=== PATIENT | male | born 1950 | race Caucasian/White ===

== ENCOUNTER 2025-06-16 08:24 | Day surgery (SDC) | payer MEDICARE, BC, SELFPAY ==
--- NOTE | 2025-06-13 07:56 | P.HP_ITS ---
History of Present Illness *Admission Date: 06/16/25 *History of present illness: Mr. Washington is a 74-year-old gentleman who is here for diagnostic colonoscopy. The patient reports blood in the stool and has never had a colonoscopy. The examination is deemed medically necessary for diagnostic colonoscopy. The pa sary has been seen, interviewed and examined prior to the procedure by both myself and the anesthesia provider. [facility] Disclaimer: The information contained in this section may have been updated after the patient was seen, as this information can be updated by other users. Medical History Short of breath on exertion Surgical History H/O vasectomy History of hernia surgery Family History Other No significant family history Social History (Updated 06/16/25 @ 09:21 by Diana Renteria CRNA) Smoking Status: Current every day smoker alcohol intake: never substance use type: unknown current occupational status: retired Travel in the last 8 weeks?: None caffeine: Yes Have you lived/traveled outside US in past 30 days?: No Contact w/someone who lives/traveled outside US past 30 days?: No Exposure to someone with infectious disease in past 14 days?: No Do you have a fever (greater than 100.4 F or 38 C)?: No Have you tested positive for COVID-19?: No Exposed to someone with COVID-19 in past 14 days?: No Do you have a sore throat?: No Do you have a cough?: No Do you have any weakness?: No Are you experiencing any nausea/vomitting?: No Do you have any diarrhea?: No Are you experiencing any unusual bleeding?: No Do you have any muscle aches/pain?: No Do you have any abdominal pain?: No Are you experiencing loss of taste or smell?: No Review of Systems Review of Systems Review of systems (narrative): Negative *Cardiovascular Comments: Negative *Gastrointestinal Comments: Negative *Genitourinary Comments: Negative *Musculoskeletal Comments: Negative *Neurologic Comments: Negative Meds Home Medications and Allergies Home Medications ?Medication ?Instructions ?Recorded ?Confirmed ?Type No Known Home Medications 10/22/1805/20 History sodium,potassium,mag sulfates 17.5 See Rx Instructions PO .COMPLEX 06/06/25 Rx gram-3.13 gram-1.6 gram oral soln #354 mL (Suprep Bowel Prep Kit) New Prescriptions to Start Prescriptions: Allergies Allergy/AdvReac Type Severity Reaction Status Date / Time cephalexin Allergy ITCHING Verified 06/16/25 08:55 Exam *Routine HEENT Exam Head: Present normocephalic Eye: Present EOMI and PERRL ENT: Present mucous membranes moist *Routine Neck Exam Neck: Present supple *Routine Respiratory Exam Respiratory: Present CTA bilaterally *Routine Cardiovascular Exam Cardiovascular: Present RRR *Routine Abdominal Exam Abdominal: Present soft and normoactive bowel sounds; Absent tenderness *Routine Rectal Exam Rectal:: deferred *Routine Genitalia Exam Genitalia:: deferred *Routine Extremities Exam Extremities: Absent cyanosis, clubbing or edema *Routine Skin Exam Skin: Present warm; Absent rash *Routine Neurological Exam Neurological: Present alert and oriented X3 Assessment and Plan *Assessment and plan (1) Blood in stool: Status: Acute Category: Medical Code(s): K92.1 - Melena Plan A/P: 1. Blood in stool is the preprocedural diagnosis. The patient will be anesthetized/sedated using MAC sedation. The patient has been seen and examined. Cardiac and lung assessment prior to the examination is stable. Proceed with planned diagnostic colonoscopy.
[2025-06-13 11:04] VITALS: BMI 19.1
--- NOTE | 2025-06-16 06:56 | HMH.PROCNOTE ---
[facility] Procedure Note Date: 06/16/25 Time: 10:15 Procedure Note:: Colonoscopy Procedure Report: Colonoscopy with cold snare polypectomy, cold biopsies and submucosal injection (spot ink) Endoscopist: Kendell Kraus II, MD Referring physician: Dahiana Watkins M.D. Date of Procedure: June 16, 2025 Equipment: Olympus [id number] adult colonoscope Sedation: MAC sedation Indication: Mr. Washington is a 74-year-old gentleman who is here for diagnostic colonoscopy. The patient reports blood in the stool and has never had a colonoscopy. The patient did have bright red blood per rectum in the commode twice 6 and 8 weeks ago according to the patient. He reports no abdominal pain, weight loss, change in his bowel habits or family history of colon cancer. The examination is deemed medically necessary for diagnostic colonoscopy. Procedure: Prior to the procedure, a history and physical exam was performed, and patient's medications and allergies were reviewed. The risks, benefits and alternatives of the sedation and procedure were discussed with the patient. All questions were answered and informed consent was obtained. The patient was brought to the procedure room. Patient identification and proposed procedure were verified by the physician and the nurse. The patient was placed in a left lateral decubitus position and the scope was passed under direct vision. Throughout the procedure, the patient's blood pressure, pulse, and oxygen saturations were monitored continuously. The colonoscopy was accomplished without difficulty. The patient tolerated the procedure well. Findings: On digital rectal examination there was normal rectal tone. There were no external hemorrhoids. The prostate was 2-3+, mildly firm but symmetric without nodules. The colonoscope was introduced through the anal canal to the rectum and advanced to the cecum. The ileocecal valve and appendiceal orifice were identified. The scope was advanced a short distance into the ileum which appeared grossly normal. The scope was then withdrawn into the colon. There were 4 polyps (ascending x 2 (3 and 4 mm) and transverse x 2 (4 and 6 mm)). These were removed via cold snare polypectomy. At the junction of the descending and sigmoid colon was a hemiferential apple core type mass lesion with central depression/excavation which encompassed 75% of the luminal diameter and extended approximately 3 cm (from 28 cm to 25 cm from the pectinate line). Multiple cold biopsies were taken and spot ink tattoo was injected submucosally 2 cm distal (towards rectum) to this mass lesion. There were scattered diverticuli throughout the descending and sigmoid colon (LEFT colon). The rectum itself was normal. Upon retroflexion within the rectum there were grade 2 internal hemorrhoids. The preparation was excellent throughout with Union Preparation Score of 9. The cecal time was 16 minutes. Impression: 1. Sigmoid apple core mass lesion (3 cm (from 28 cm to 25 cm from pectinate line)) encompassing approximately 75% of circumference status post biopsies/spot ink tattoo 2. Diminutive colonic polyps x 4 3. Left-sided diverticulosis 4. Grade 2 internal hemorrhoids Plan: I will follow-up the biopsies and recommend CT imaging for staging and CEA level. I will refer patient to oncology and colorectal surgery (Maicol Garcia MD).
[2025-06-16 08:55] VITALS: BP 136/90; PULSE 89; RESP 20; TEMP 36.2; O2SAT 97
[2025-06-16] MEDS: LACTATED RINGERS 1000ML 1,000 ML 50 ML IV (09:08)
--- NOTE | 2025-06-16 09:20 | EXP.ANES.CKL ---
[facility] Disclaimer: The information contained in this section may have been updated after the patient was seen, as this information can be updated by other users. Medical History Short of breath on exertion Surgical History H/O vasectomy History of hernia surgery Family History Other No significant family history Social History Smoking Status: Current every day smoker alcohol intake: never substance use type: unknown current occupational status: retired Travel in the last 8 weeks?: None caffeine: Yes [facility] Anesthesia Checklist Patient Identification Patient Identification: Arm Band and Verbal (Name & ) Structural Data Admitted From: Home Planned Operative Procedure/s: colonscopy Consent for Planned Operative Procedure(s) Verified: Yes Verified Documents: Surgical Consent and History and Physical NPO Status Verified Time NPO: 00:00 Additional verifications Anesthesia Reactions: No Previous Colonoscopy: No Airway Assessment Mallampati Score:: Class II Dentition: Edentulous Neurological Assessment Level of Consciousness: Awake, Alert and Appropriate Anesthesia Plan Anesthesia Risk discussed: Yes Anesthesia Plan: Verified ASA Class: II Anesthesia Type: MAC
[2025-06-16 10:09] VITALS: BP 85/56; PULSE 79; RESP 16; TEMP 36.1; O2SAT 95
[2025-06-16 10:19] VITALS: BP 92/59; PULSE 70; RESP 16; O2SAT 96
[2025-06-16 10:39] VITALS: BP 102/52; PULSE 69; RESP 18; O2SAT 97
[2025-06-16 10:40] LABS: Hematocrit 40.1 % (42.0-52.0); Hemoglobin 13.6 g/dL (14.1-18.0); Immature Granulocytes % 0.4 %; Mean Corpuscular HGB Conc 33.9 g/dL (31.8-35.4); Mean Corpuscular Hemoglobin 32.2 pg (27.0-31.2); Mean Corpuscular Volume 95.0 fl (80-94); Nucleated Red Blood Cells % 0 %; Platelet Count 208 K/mm3 (142-424); Red Blood Count 4.22 M/mm3 (4.60-6.20); Red Cell Distribution Width-SD 45.6 fL; White Blood Count 7.4 K/mm3 (4.8-10.8)
[2025-06-16 10:46] LABS: Albumin Level 4.1 g/dl (3.5-5.0); Chloride 101 mmol/L (98-107); Sodium 136 mmol/L (136-145)
[2025-06-16 10:47] LABS: Potassium 3.8 mmoL/L (3.5-5.1)
[2025-06-16 10:49] LABS: Alanine Aminotransferase 15 U/L (12-78); Alkaline Phosphatase 80 U/L (38-126); Anion Gap 10.8 mEq/L (5-15); Aspartate Amino Transferase 30 U/L (17-59); Bilirubin,Total 0.5 mg/dl (0.2-1.3); Blood Urea Nitrogen 17 mg/dl (9-20); Carbon Dioxide 28 mmol/L (22.0-30.0); Creatinine Clearance Estimated 51 mL/min (50-200); Creatinine,Serum 0.80 mg/dl (0.66-1.25); Estimated Glomerular Filt Rate 94 ml/min (>60); GFR (African American) 114 ML/MIN (>60)
[2025-06-16 10:50] LABS: Albumin/Globulin Ratio 1.6 (1.1-1.8); Calcium 9.3 mg/dl (8.4-10.2); Globulin 2.5 g/dL (1.3-3.2); Glucose 97 mg/dl (74-100); Iron 73 ug/dL (49-181); Total Protein,Serum 6.6 g/dl (6.3-8.2)
[2025-06-16 10:58] VITALS: BP 99/59; PULSE 71; RESP 16; O2SAT 97
[2025-06-16 10:59] LABS: Total Iron Binding Capacity 285 ug/dL (261-462)
[2025-06-16 11:27] LABS: Ferritin 36.2 ng/ml (17.9-464)
[2025-06-17 13:59] LABS: CEA 5.0 ng/mL (0.0-4.7)
== END 2025-06-16 10:40 | disposition home or self-care (01) ==
PROVIDERS: PCP Family Medicine; Visit Provider Internal Medicine Gastroenterology
PROC: 0DJD8ZZ Inspection of Lower Intestinal Tract, Via Natural or Artificial Opening Endoscopic (ICD-10-PCS; CPT 45378; principal; 2025-06-16 10:00)
DX: C18.7 Malignant neoplasm of sigmoid colon (principal); D12.2 Benign neoplasm of ascending colon; D12.3 Benign neoplasm of transverse colon; K57.30 Diverticulosis of large intestine without perforation or abscess without bleeding; K64.1 Second degree hemorrhoids; F17.200 Nicotine dependence, unspecified, uncomplicated; Z88.1 Allergy status to other antibiotic agents
CPT/HCPCS: 45380; 45381; 45385; 36415; 80053; 82378; 82728; 83540; 83550; 85025; 88305; 88341; 88342; J2003; J2704; J7120

== ENCOUNTER 2025-06-19 10:24 | Outpatient (CLI) | payer MEDICARE, BC, SELFPAY ==
[2025-06-19] MEDS: IOPAMIDOL-370 (76%);100ML BOTTLE 75 ML IV (10:51)
[2025-06-19] MEDS: SODIUM CHLORIDE 0.9% 10ML SYR (RAD ONLY) 10 ML IV (10:51)
--- NOTE | 2025-06-19 11:00 | CT_ITS ---
FINAL REPORT TECHNIQUE: Routine axial images were obtained from the lung apices to below the diaphragm following IV contrast administration. Individualized dose reduction techniques using automated exposure control or adjustment of the mA and/or kV according to the patient size were employed. CLINICAL HISTORY: Rule out Colon Cancer COMPARISON: None FINDINGS: CT CHEST WITH CONTRAST: Advanced changes of centrilobular emphysema are present. No evidence of mediastinal or hilar adenopathy is seen. No confluent infiltrates are noted. There is no evidence of pleural or pericardial effusion. There is a small nodule in the posterior left upper lobe measuring 7 mm in size, best seen on image #19 of series 4, indeterminant but favor post inflammatory by appearance. No other nodules or masses are identified. IMPRESSION: Advanced changes of centrilobular emphysema as described. Small nodule in the posterior left upper lobe, 7 mm in size, indeterminate but favor post inflammatory by appearance. Recommend 6-month follow-up CT of the chest for further evaluation. Reviewed, Interpreted and Dictated by Maicol Benítez MD Transcribed by Cortney Callahan Authenticated and . [facility]
--- NOTE | 2025-06-19 11:00 | CT_ITS ---
FINAL REPORT TECHNIQUE: After the administration of oral and intravenous contrast, axial images were obtained through the abdomen and pelvis by computed tomography. The study was performed with techniques to keep radiation dose as low as reasonably achievable, (ALARA). Individual dose reduction techniques using automated exposure control or adjustment of mA and/or kV according to the patient's size were employed. CLINICAL HISTORY: Rule out Colon Cancer COMPARISON: None FINDINGS: CT ABDOMEN AND PELVIS WITH CONTRAST: Abdomen: Dependent atelectasis is noted in the lung bases. There is a 40 degree thoracolumbar scoliosis convex to the patient's right. There are small benign-appearing cysts in the liver. The pancreas and adrenal glands are unremarkable. The gallbladder is present. In the right kidney there is a low-attenuation focus measuring up to 1.4 cm in size, best seen on image #33 of series 5, that may represent a complex cyst. The left kidney is slightly larger than the right. Extensive vascular calcifications are noted in the abdominal aorta. No evidence of mass or adenopathy is noted. The aorta is normal in caliber. There is no free fluid or adenopathy. Pelvis: The appendix is not identified. No focal mass is noted in the colon, although with the paucity of intra-abdominal fat a small mass would be difficult to visualize. The urinary bladder is unremarkable. There is no free fluid or adenopathy. IMPRESSION: Low-attenuation focus in the left kidney, that may represent a complex cyst. Recommend a dedicated pre and postcontrast renal protocol CT for further evaluation. There is a relative paucity of intra-abdominal fat in this patient, and although no definite focal mass is identified in the colon a small mass would be difficult to visualize. Reviewed, Interpreted and Dictated by Maicol Benítez MD Transcribed by Cortney Callahan Authenticated and [facility]
== END 2025-06-19 23:59 | disposition home or self-care (01) ==
LOC: RAD 10:25
PROVIDERS: PCP Family Medicine; Visit Provider Internal Medicine Medical Oncology
DX: C18.7 Malignant neoplasm of sigmoid colon (principal); J43.2 Centrilobular emphysema; R91.1 Solitary pulmonary nodule; R93.422 Abnormal radiologic findings on diagnostic imaging of left kidney; R93.5 Abnormal findings on diagnostic imaging of other abdominal regions, including retroperitoneum
CPT/HCPCS: 71260; 74177; Q9967

== ENCOUNTER 2025-08-12 09:45 | Outpatient (CLI) | payer MEDICARE, BC, SELFPAY ==
--- OUTSIDE RECORDS SUMMARY | 2025-07-01 08:15 | XMS_ITS | Encounter Summary ---
Author Organization [facility] Address [address] [place] [address] Care Team Providers Care Motorcycle Racer Name Role Phone Bryan Watkins MD Primary Care Provider [phone] Reason for Visit * Reason Comments Consult Encounter Details Date Type Department Care Team (Latest Contact Info) Description 07/01/2025 9:15 AM EDT Office Visit [facility] Multidisciplinary Oncology Clinic [address] [place] [address] Maicol Garcia MD [address] [facility] [address] [place] [address] Cancer of sigmoid colon (Primary Dx) Social History Tobacco Use Types Packs/Day Years Used Date Smoking Tobacco: Every Day Cigarettes 1 50.9 Started: 1976 Smokeless Tobacco: Never Tobacco Cessation:Ready to Q uit: Not Asked; Counseling Given: Not Answered Alcohol Use Standard Drinks/Week Comments Never 0 (1 standard drink = 0.6 oz pur e alcohol) Sex and Gender Information Value Date Recorded Sex Assigned at Not on file Legal Sex Male 4:11 PM EDT Gender Identity Not on file Sexual Orientation Not on file documented as of this encounter Last Filed Vital Signs Vital Sign Reading Time Taken Comments Blood Pressure 132/71 07/01/2025 10:17 AM EDT Pulse 69 07/01/2025 10:17 AM EDT Temperature 36.4 C (97.6 F) 07/01/2025 10:17 AM EDT Respiratory Rate 16 07/01/2025 10:17 AM EDT Oxygen Saturation 96% 07/01/2025 10:17 AM EDT Inhaled Oxygen Concentration - - Weight 54.6 kg (120 lb 5.9 oz) 07/01/2025 10:17 AM EDT Height 172.7 cm (5' 8 ) 07/01/2025 10:17 AM EDT Body Mass Index 18.3 07/01/2025 10:17 AM EDT documented in this encounter Miscellaneous Notes * Progress Notes - Augusto Franz - 07/01/2025 9:15 AM EDT [facility] Colon & Rectal Surgery 07/01/2025 Chief Complaint: Cancer of sigmoid colon [C18.7] HPI: Damian Washington is a 74 y.o. male with no significant PMH comes to clinic as a new patient recently diagnosed with sigmoid cancer. BRBPR since november and a colonoscopy on 06/18 showed a sigmoid 75% circumferential apple core mass with biopsy showing adenocarcinoma. He has no prior history of colonoscopies. 06/16/25 CEA was 5.0. Since november patient has noticed gradual weight loss and quickly feels fulland bloated after smaller than normal meals. His bleeding with bowel movements stopped ~ 6 weeks ago. Pt smokes 1ppd for 60 years. Patient acknowledges past inguinal hernia repair and SOB, likely dueto smoking history, but denies heart issues, chest pain, and unexplained N/V ROS: A complete 14 point review of systems was done with the patient. These are all negative with the exception of what is noted in the HPI. Past Medical History: has no past medical history on file. Past Surgical History: has a past surgical history that includes Hernia repair (1969). Family History: Family history is unknown by patient. No history of colorectal neoplasms. No history of IBD. History on file reviewed and it is otherwise noncontributory. Social History: Social History[1] Physical Exam: Vitals: 07/01/25 1017 BP: 132/71 Pulse: 69 Resp: 16 Temp: 36.4 ??C (97.6 ??F) SpO2: 96% Body mass index is 18.3 kg/m??. GEN: NAD HEENT: NCAT, EOMI RESP: Equal bilateral chest rise, normal work of breathing CV: RRR, appears well perfused ABD: Soft, nontender, nondistended EXT: No gross deformities MSK: Full ROM in BL UE NEURO: No focal deficits, AOx3 PSYCH: Normal mood and affect PERIANAL/PERINEUM: n/a JM: n/a LABORATORIES AND IMAGING STUDIES: I personally reviewed all the laboratory examinations and imagingstudies below: No results found for: WBC , RBC , HGB , HCT , MCV , MCHC , RDW , PLT , MPV , SEG , EOS No results found for: BUN , CL , NA , K , CA , TP , AST , ALK , BICARB , ALT , GLU No results found for: CEA I visualized the recent imaging and discussed the current radiology findings with the patient in detail and answered all questions. === 06/19/25 === CT OUTSIDE IMAGES Assessment/Plan In summary, Damian Washington is a 74 yo with recently diagnosed sigmoid adenocarcinoma who presents to the clinic as a new patient referred for colorectal surgery. Patient is agreeable to having surgery. Plan - Discussed diagnosis, treatment, and recovery plan - Needs pre-op anesthesia check - Plan for possible sigmoid colectomy 07/14/25 - Recommended to stop or decrease smoking. Problem List Items Addressed This Visit Digestive Cancer of sigmoid colon - Primary Relevant Medications neomycin (Mycifradin) 500 MG tablet metroNIDAZOLE (Flagyl) 500 MG tablet Augusto Franz [1] Social History Tobacco Use Smoking status: Every Day Current packs/day: 1.00 Average packs/day: 1 pack/day for 50.8 years (50.8 ttl pk-yrs) Types: Cigarettes Start date: 1974 Smokeless tobacco: Never Vaping Use Vaping status: Never Used Substance Use Topics Alcohol use: Never Drug use: Never Cosigned by Maicol Garcia MD at 07/03/2025 9:07 AM EDT Associated attestation - Maicol Garcia MD - 07/03/2025 9:07 AM EDT I saw and evaluated the patient with the medical/HOOP PUNCHER/PA student. I discussed the case with the medical/HOOP PUNCHER/PA student and agree with the findings and plan as documented. I personally performed the Examand Medical Decision Making. Mr. Washington is a 74-year-old male with newly diagnosed sigmoid colon cancer. Colonoscopy completed 2024 with apple-core lesion present in the sigmoid colon. CEA 5. Gradual weight loss over the past 3-4 months. Occasional bleeding with bowel movements. Past medical history remarkable for 1 pack per day tobacco use times 60 years. Shortness of breath with exertion. CT imaging without evidence of metastatic disease. PLAN FOLLOWS: Schedule sigmoid colectomy in June 2025. * Progress Notes - Elvira Watkins RN - 07/01/2025 9:15 AM EDT Patient with was given written & verbal instructions for surgery with Dr. Garcia on 07/16/25. This included following ERAS Protocol with drinking Impact AR twice daily 5 days prior to surgery, bisacodyl/Miralax bowel prep day prior, antibiotics day prior, cleansing with Hibiclens night prior and morning of surgery, and drinking 20 oz Gatorade 4 hrs prior to surgery arrival time. Patient give PAT appt of Monday07/04/25. They stated understanding. Cosigned by Maicol Garcia MD at 07/03/2025 9:05 AM EDT documented in this encounter Plan of Treatment Upcoming Encounters Date Type Department Care Team (Latest Contact Info) Description 02/03/2026 8:00 AM EDT Appointment [facility] Radiology [address] [place] [phone] 02/03/2026 10:00 AM EDT Office Visit [facility] Multidisciplinary Oncology Clinic [address] [place] [address] Maicol Garcia MD [address] [facility] [address] [place] [address] 02/03/2026 10:00 AM EDT Clinical Support [facility] Multidisciplinary Oncology Clinic [address] [place] [address] documented as of this encounter Goals Goal Patient Goal Type Associated Problems Recent Progress Patient-Stated? Author Autogenerat ed Goal Care Plan Autogenerated Problem Maicol Cast MD documented as of this encounter Visit Diagnoses Diagnosis Cancer of sigmoid colon- Primary Malignant neoplasm of sigmoid colon documented in this encounter Additional Health Concerns Active Problems Noted Date Diagnosed Date Autogenerated Problem 07/01/2025 Assessment Noted Time A fall risk assessment has been complete d for the patient 07/01/2025 10:09 AM EDT A Body Mass Index follow-up plan has been documented for the patient 07/03/2025 9:07 AM EDT documented as of this encounter Care Teams Motorcycle Racer Relationship Specialty Start Date End Date Bryan Watkins MD [address] [place] [address] [facility] PCP - General 05/19/25 documented as of this encounter
--- OUTSIDE RECORDS SUMMARY | 2025-07-04 11:30 | XMS_ITS | Encounter Summary ---
Author Organization [facility] Address [address] [place] [address] Care Team Providers Care Real Estate Firm Manager Name Role Phone Bryan Watkins MD Primary Care Provider [phone] Encounter Details Date Type Department Care Team (Latest Contact Info) Description 07/04/2025 12:30 PM EDT Pre-Admission Testing [facility] [address], [address] [place] [address] Preop examination (Primary Dx) Anesthesia Record Procedure Summary Procedure Name Responsible Anesthesiologist Anesthesia Start Time Anesthesia Stop Time COLECTOMY, SIGMOID Mae Pozo, NET FINISHER 07/16/25 1417 07/16/25 1638 Events Date Time Event Comment 07/16/2025 1330 1417 In Room 1417 An Start The patient was reevaluated immediately before sedation and remains eligible for anesthesia plan. 1417 An Start Data 1422 An Induction The patient was reevaluated immediately before moderate or deep sedation use and before anesthesia induction. 1425 An Intubation 1428 Anesthesia Ready 1453 Proc Start 1619 An Extubation 1620 Proc Fin 1627 an stop data 1628 Out of Room 1638 Handoff to Receiving I compl eted my handoff to the receiving clinician during which we: 1. Identified the patient 2. Identified the responsible provider 3. Reviewed the pertinent medical history 4. Discussed the surgical course 5. Reviewed intra-op anesthesia management and issues during anesthesia 6. Set expectations for post-procedure period 7. Allowed opportunity for questions and acknowledgement of understanding. 1638 An Stop Meds * Agents No agents on file. * Blood No blood administrations on file. Lines, Drains, and Airways Type Details Placement Removal Wound 07/16/25; 1453; N; Y es; Surgical; Abdomen; Mid 07/16/25 1453 by Radha Barksdale RN NG/OG Tube Placement Date: 06/19 06/12; Location: Left nostril; Removal Date: 07/19/25; Removal Time: 1338; Removal Reason: Per order 07/16/25 0000 by Cb Cole RN 07/19/25 1338 by Demarcus Norton RN Feeding Tube Placement Date: 06/19 06/12; Type: NG; Location: Left nare; Removal Date: 07/16/25; Removal Time: 165; Removal Reason: (duplicate) 07/16/25 0000 by Cb Cole RN 07/16/25 1657 by Cb Cole RN Peripheral IV Placement Date: 06/19 06/12; Placement Time: 1303; Catheter Size: 18 G; Orientation: Anterior, Left; Location: Forearm; Site Prep: Chlorhexidine ; Local Anesth: [place]; Technique: Anatomical landmarks; Inserted by: Candice BLAIR; Insertion Attempts: 1; Patient Tolerance: Tolerated well; Removal Date: 07/16/25; Removal Time: 1999; Removal Reason: Leaking 07/16/25 1303 by Mae Frankel RN 07/16/251999 by Jory Castillo RN ETT Placement Date: 06/19 06/12; Placement Time: 1425 (created via procedure documentation); Mask Ventilation: 1; Technique: Direct laryngoscopy; Type: ETT - single; Single Lumen Tube Size: 8 mm; Cuffed: Yes; Laryngoscope: Solange; Blade Size: 3; Location: Oral; Insertion Attempts: 1; Placement Verification: Auscultation, Capnometry; Airway Comments: Atraumatic. No change to dentition. ; Placed by: MEET; Removal Date: 07/16/25; Removal Time: 1619 07/16/25 1425 by Mae Pozo CRNA 07/16/25 1619 by Mae Pozo CRNA Urethral Catheter Placement Date: 06/19 06/12; Placement Time: 1432; Inserted by: MD Aiden Rodriguez; Type: Non-latex, Single lumen, Temperature probe; Size: 16 Fr.; Balloon Size: 10 mL; Urine Returned: Yes; Removal Date: 07/17/25; Removal Time: 1008; Removal Reason: Per order 07/16/25 1432 by Radha Barksdale RN 07/17/25 1008 by Demarcus Norton RN documented in this encounter Social History Tobacco Use Types Packs/Day Years Used Date Smoking Tobacco: Every Day Cigarettes 1 50.9 Started: 1976 Smokeless Tobacco: Never Alcohol Use Standard Drinks/Week Comments Never 0 (1 standard drink = 0.6 oz pur e alcohol) Sex and Gender Information Value Date Recorded Sex Assigned at Not on file Legal Sex Male 4:11 PM EDT Gender Identity Not on file Sexual Orientation Not on file documented as of this encounter Last Filed Vital Signs Vital Sign Reading Time Taken Comments Blood Pressure 126/75 07/04/2025 11:23 AM EDT Pulse 68 07/04/2025 11:23 AM EDT Temperature - - Respiratory Rate - - Oxygen Saturation 96% 07/04/2025 11: 23 AM EDT Inhaled Oxygen Concentration - - Weight 57.6 kg (126 lb 15.8 oz) 025 11:23 AM EDT Height 172.7 cm (5' 8 ) 07/04/2025 11:2 3 AM EDT Body Mass Index 19.31 07/04/2025 11:23 AM EDT documented in this encounter Miscellaneous Notes * PAT Evaluation Note - Ofe Hurtado APRN - 07/04/2025 12:30 PM EDT Images from the original note were not included. HPI Damian Washington is a 74 y.o. 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 PMH: patient has PCP but no routine health screenings, usually goes only when sick . Has had PNA and flu vaccines. He has 60 pk yr smoking hx and emphysema on CT Chest which is not treated. No otherknown chronic health conditions. No hospitalizations. Last GA in s with no complications. Past Medical History[1] Family History[2] Social History[3] Surgical History[4] Allergies[5] MEDICATIONS: Current Medications[6] ROS Anesthesia: Date of last anesthetic: for inguinal hernia repair and vasectomy. No GA complications. Does not have a history of anesthetic complications, malignant hyperthermia, obstructive sleep apnea and PONV. Cardiovascular: dyspnea (chronic, atrributed to COPD/smoking). Does not have CAD, CHF, dysrhythmias, peripheral edema, hyperlipidemia, murmur, peripheral edema, past [place] or syncope. no hypertension: Does not have chest pain. Cardio additional comments: Exercise Tolerance. 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 Has to stop a few times due to SOA. 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 Sleeps in regular bed 1 pillow. Respiratory: Does not have home oxygen. Patient has dyspnea (chronic, atrributed to COPD/smoking).no asthma: COPD (emphysema seen on CT Chest but he is not treated): breathing at baseline.Has not had an upper respiratory infection in last 30 days. Has not had bronchitis in the last 30 days, pneumonia in the last 30 days or COVID in the last 30 days. Respiratory ROS additional comments: 60 pk smoking hx HEENT: Does not have difficulty swallowing.Does not have hearing loss. HEENT additional comments: Edentulous- wears full dentures. Neurological: no seizures: Did not have a cerebrovascular accident.Does not have TIA. Musculoskeletal: Does not have cervical spine limited mobility. Autoimmune: Does not have lupus or rheumatoid arthritis. Integumentary: Negative skin ROS. Gastrointestinal: Does not have GERD.Does not have cirrhosis or hepatitis. Genitourinary: Does not have renal disease. Hematological/Lymphatic: History of no DVT. History of no pulmonary embolism. Not in a hypercoagulable state. no history of chemotherapy no history of radiation Does not have MRSA or tuberculosis. Endocrine/Metabolic: does not have diabetes mellitus. Does not have thyroid disorder. 07/04/25 EKG Lab Results Component Value Date WBC 9.33 07/04/2025 HGB 14.2 07/04/2025 HCT 43.6 07/04/2025 MCV 97 07/04/2025 PLT 268 07/04/2025 Lab Results Component Value Date GLUCOSE 90 07/04/2025 BUN 17 07/04/2025 CREATININE 0.83 07/04/2025 BCR 20 07/04/2025 NA 139 07/04/2025 K 4.3 07/04/2025 CL 100 07/04/2025 CO2 30 (H) 07/04/2025 ALBUMIN 4.1 07/04/2025 ALKPHOS 92 07/04/2025 BILITOT 0.3 07/04/2025 Visit Vitals BP 126/75 Pulse 68 Ht 1.727 m (5' 8 ) Wt 57.6 kg (126 lb 15.8 oz) SpO2 96% BMI 19.31 kg/m?? Smoking Status Every Day BSA 1.66 m?? Physical Exam Airway Cardiovascular Rhythm: regular Rate: normal (-) peripheral edema Dental Pulmonary (+) decreased breath sounds (bilat) Wheezes: bilat expiratory. Neurological Oriented: normal to time, normal to place and normal to person Skin Skin: warm and dry Musculoskeletal Extremities Anesthesia Plan ASA 3 Ofe Hurtado APRN [1] Past Medical History: Diagnosis Date Tobacco-use disorder [2] Family History Problem Relation Name Age of Onset Anesthesia problems Neg Hx Malig Hyperthermia Neg Hx [3] Social History Tobacco Use Smoking status: Every Day Current packs/day: 1.00 Average packs/day: 1 pack/day for 50.8 years (50.8 ttl pk-yrs) Types: Cigarettes Start date: 1974 Smokeless tobacco: Never Vaping Use Vaping status: Never Used Substance Use Topics Alcohol use: Never Drug use: Never [4] Past Surgical History: Procedure Laterality Date COLONOSCOPY HERNIA REPAIR 1969 VASECTOMY [5] Allergies Allergen Reactions Cephalexin Nausea [6] Current Outpatient Medications: bisacodyl, Day before procedure at 4pm take 4 tablets with 8 oz of clear liquid. SSICOLON chlorhexidine, Day before your procedure. Shower as instructed. Morning of your scheduled surgery. Repeat this shower before you come to the hospital. metroNIDAZOLE, Take one tablet at 1pm, 2pm, and 11pm day BEFORE surgery. SSI COLON. neomycin, Take two tablets (1000 mg) by mouth at 1:00pm, 2:00pm and 11:00pm on the day prior to surgery. SSICOLON Impact Advanced Recovery, Drink 2 cartons a day starting 5 days before surgery. SSICOLON. Auto Sub for Ensure Surgery if Impact not available. polyethylene glycol, At 6pm day BEFORE surgery, mix Miralax (polyethylene glycol) powder with 64 ozsports drink. Stir to dissolve. Drink one cup (8oz) every 15 minutes until completed finished. SSICOLON * Preprocedure Instructions - Ofe Hurtado APRN - 07/04/2025 12:30 PM EDT Home Medication Instructions No outpatient medications have been marked as taking for the 07/04/25 encounter (Pre-Admission Testing) with PRE-ADMISSION TESTING [address] [place] [address]. Hold Aspirin products, and NSAID's such as Ibuprofen (Advil/Motrin) and Naproxen (Aleve) for 7 daysprior to surgery You may take tylenol as directed prior to surgery. Hold over-the counter vitamins and supplements for 7 days prior to surgery. General Preoperative Instructions You will be called the business day before surgery with your arrival time Follow your surgeon's instructions for clear liquid diet and bowel prep on day before surgery. After midnight, you can have clear liquids only (water, apple juice, Gatorade) up to 2 hours prior to arrival. No soda, coffee or tea. No red, blue or purple drinks. No alcohol or smoking prior to surgery Arrive on time to avoid delays Parking/Registration procedure explained You MUST have a responsible adult available for transport to and from hospital Visitation policy for the day of surgery reviewed Bring insurance card, photo ID, along with power of document review attorney, guardianship or advanced directives if applicable Do not bring money, jewelry or other valuables Hibiclens bathing instructions reviewed if applicable Notify surgeon of fever, illness, any changes or if you decide not to have surgery Diabetes Instructions (If applicable) Take diabetes medication as instructed You may have up to 4 ounces of apple juice 2 hours prior to arrival for surgery for low glucose documented in this encounter Plan of Treatment Upcoming Encounters Date Type Department Care Team (Latest Contact Info) Description 02/03/2026 8:00 AM EDT Appointment [facility] [address] [place] [address] 02/03/2026 10:00 AM EDT Office Visit [facility] [address] [place] [address] Maicol Garcia MD [address] [place] [phone] 02/03/2026 10:00 AM EDT Clinical Support [facility] [address] [place] [address] documented as of this encounter Goals Goal Patient Goal Type Associated Problems Recent Progress Patient-Stated? Author Autogenerat ed Goal Care Plan Autogenerated Problem No Maicol Garcia MD documented as of this encounter Procedures Procedure Name Priority Date/Time Associated Diagnosis Comments ECG ADULT Routine 07/04/2025 12:09 PM EDT Preop examination documented in this encounter Results * (ABNORMAL) Comprehensive metabolic panel (07/04/2025 12:25 PM EDT) Glucose, Plasma 90 74 - 99 mg/dL 07/04/2025 2:05 PM EDT [facility] BUN, Plasma 17 8 - 23 mg/dL 07/04/2025 2:05 PM EDT [facility] Creatinine, Plasma 0.83 0.70 - 1.20 mg/dL 07/04/2025 2:05 PM EDT [facility] BUN/Creatinine Ratio 20 07/04/2025 2:05 PM EDT [facility] Sodium, Plasma 139 136 - 145 mmol/L 07/04/2025 2:05 PM EDT [facility] Potassium, Plasma 4.3 3.6 - 4.9 mmol/L 07/04/2025 2:05 PM EDT [facility] Chloride, Plasma 100 97 - 107 mmol/L 07/04/2025 2:05 PM EDT [facility] CO2, Plasma 30(H) 22 - 29 mmol/L 07/04/2025 2:05 PM EDT [facility] Anion Gap 9 6 - 16 mmol/L 07/04/2025 2:05 PM EDT [facility] Total Calcium, Plasma 9.8 8.9 - 10.2 mg/dL 07/04/2025 2:05 PM EDT [facility] Total Protein 6.9 6.3 - 7.9 g/dL 07/04/2025 2:05 PM EDT [facility] Albumin, Plasma 4.1 3.5 - 5.2 g/dL 07/04/2025 2:05 PM EDT [facility] AST, Plasma 26 10 - 50 U/L 07/04/2025 2:05 PM EDT [facility] ALT, Plasma 17 10 - 50 U/L 07/04/2025 2:05 PM EDT [facility] Alkaline Phosphatase, Plasma 92 40 - 115 U/L 07/04/2025 2:05 PM EDT [facility] Total Bilirubin, Plasma 0.3 0.2 - 1.1 mg/dL 07/04/2025 2:05 PM EDT [facility] eGFRcr 90.7 mL/min/1.7 3m*2 07/04/2025 2:05 PM EDT [facility] Comment:Reported eGFRcr in m L/min/1.73m2 is based the CKD-EPI 2020 equation that does not use a race coefficient. Blood Venous blood specimen / Unknown Venipuncture / Unknown 07/04/2025 12:25 PM EDT 07/04/2025 12:25 PM EDT us Ofe Hurtado APRN LAB BLOOD ORDERABLES Final R esult [facility] [address] [place] [address] * (ABNORMAL) CBC (07/04/2025 12:25 PM EDT) WBC Count 9.33 3.70 - 10.30 10*3/uL LAB HEMATOLOGY METHOD 07/04/2025 2:01 PM EDT [facility] RBC Count 4.50(L) 4.60 - 6.10 10*6/uL LAB HEMATOLOGY METHOD 07/04/2025 2:01 PM EDT [facility] HGB 14.2 13.7 - 17.5 g/dL LAB HEMATOLOGY METHOD 07/04/2025 2:01 PM EDT [facility] HCT 43.6 40.0 - 51.0 % LAB HEMATOLOGY METHOD 07/04/2025 2:01 PM EDT [facility] Platelet Count 268 155 - 369 10*3/uL LAB HEMATOLOGY METHOD 07/04/2025 2:01 PM EDT [facility] MCV 97 79 - 98 fL LAB HEMATOLOGY METHOD 07/04/2025 2:01 PM EDT [facility] MCH 31.6 26.0 - 32.0 pg LAB HEMATOLOGY METHOD 07/04/2025 2:01 PM EDT [facility] MCHC 32.6 30.7 - 35.5 g/dL LAB HEMATOLOGY METHOD 07/04/2025 2:01 PM EDT [facility] RDW 13.2 11.5 - 14.5 % LAB HEMATOLOGY METHOD 07/04/2025 2:01 PM EDT [facility] MPV 9.7 8.8 - 12.5 fL LAB HEMATOLOGY METHOD 07/04/2025 2:01 PM EDT [facility] nRBC 0.0 <=0.0 per 100 WBCs LAB HEMATOLOGY METHOD 07/04/2025 2:01 PM EDT [facility] Blood Venous blood specimen / Unknown Venipuncture / Unknown 07/04/2025 12:25 PM EDT 07/04/2025 12:25 PM EDT us Ofe Hurtado APRN LAB BLOOD ORDERABLES Final R esult [facility] [address] [place] [address] * ECG Adult (Now - Performed in your clinic) (07/04/2025 12:09 PM EDT) EKG DIAGNOSIS CLASS Borderline Abnormal MUSE ECG Ventricular Rate 63 BPM MUSE ECG Atrial Rate 63 BPM MUSE ECG [place] Interval 118 ms MUSE ECG QRSD Interval 122 ms MUSE ECG QT Interval 430 ms MUSE ECG QTC Interval 440 ms MUSE ECG P [place] 80 degrees MUSE ECG R [place] 91 degrees MUSE ECG T Wave [place] 31 degrees MUSE ECG Diagnosis Normal sinus rhythm MUSE ECG Diagnosis Rightward axis MUSE ECG Diagnosis Nonspecific intraventricular conduction delay MUSE ECG Diagnosis Borderline ECG MUSE ECG Diagnosis MUSE ECG Diagnosis Confirmed by Luisito Salazar ([id number]) on 07/04/2025 1:10:48 PM MUSE ECG 07/04/2025 12:0 9 PM EDT 07/04/2025 1:10 PM EDT us Ofe Hurtado APRN ECG ORDERABLES Final Result MUSE ECG documented in this encounter Visit Diagnoses Diagnosis Preop examination- Primary Unspecified pre-operative examination documented in this encounter Additional Health Concerns Active Problems Noted Date Diagnosed Date Autogenerated Problem 07/01/2025 Assessment Noted Time A fall risk assessment has been complete d for the patient 07/01/2025 10:09 AM EDT A Body Mass Index follow-up plan has been documented for the patient 07/03/2025 9:07 AM EDT documented as of this encounter Care Teams Real Estate Firm Manager Relationship Specialty Start Date End Date Bryan Watkins MD [address] [place] [address] PCP - General 05/19/25 documented as of this encounter
--- OUTSIDE RECORDS SUMMARY | 2025-07-16 11:37 | XMS_ITS | Encounter Summary ---
Author Organization [facility] Address [address] [id number] Care Team Providers Care Cna Caregiver Name Role Phone Bryan Watkins MD Primary Care Provider [phone] Reason for Referral * Consultation (Routine) - Authorized Specialty Diagnoses / Procedures Referred By Sugar candelario Referred To Contact Cardiology Diagnoses Paroxysmal atrial fibrillation (CMS/HCC) Maicol Garcia MD [address] [address] Phone: tel: fax: Referral ID Status Reason Start Date Expiration Date Visits Requested Visits Authorized [id number] Authorized Specialty Services Required 07/22/2025 01/21/2027 1 1 Scheduling Instructions 1-2 weeks, followup Afib Reason for Visit * Auth/Cert (Routine) Specialty Diagnoses / Procedures Referred By Sugar candelario Referred To Contact Diagnoses 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 [C18.7] Procedures WA PART REMOVAL COLON W ANASTOMOSIS COLECTOMY, SIGMOID Maicol Garcia MD [address] [address] Phone: tel: fax: [facility] [address] [place] [phone] Phone: tel: Referral ID Status Reason Start Date Expiration Date Visits Re quested Visits Authorized [id number] 1 1 Encounter Details Date Type Department Care Team (Latest Contact Info) Description 07/16/2025 12:37 PM EDT - 07/22/2025 4:16 PM EST Hospital Encounter [facility] Inpatient [address] [place] [address] Maicol Garcia MD [address] [place] [id number] Paroxysmal atrial fibrillation (CMS/HCC) (Primary Dx); Cancer [...] any time in the past 12 m [facility], were you homeless or living in a group home (including now)? No 07/17/2025 [facility] Utilities Answer Date Recorded In the past [...] Month) No 07/22/2025 8:00 AM EST Andrzej Aadmson RN 6. Suicidal Behavior (Lifetime) No 8:00 AM iYng Nichols RN documented as of this encounter [...] for two weeks after your operation. {Wound care:38705:: You have surgical glue over your incisions. Do not pick at this.It will come off on its own. , You have kimberly over your incision. These will be removed in clinic. } Follow up: You will follow up with Dr. Garcia in {time::: 2 weeks , 4 weeks , 6 weeks }. [facility] will call with an appointment time. Questions: Call the [facility] at [phone] during business hours on weekdays or call [facility]'s after hours at [phone] to speak with a resident hydro station operator for Colorectal surgery after 5pm or on [...] from the original note were not included. [id number] Apixaban IMPORTANT WARNING: If you have atrial [...] doctor or pharmacist will give you the rug receiving clerk's patient information sheet (Medication Guide) when you begin treatment with apixaban and each time you refill your prescription. Read the information carefully and ask your doctor or pharmacist if you have any questions. You can also visit the Food and Drug Administration (FDA) website (https://www.fda.gov/Drugs/DrugSafety/zte051241.htm) or the rug receiving clerk's website to obtain the Medication Guide. Talk [...] or herbal products may interact with apixaban: [place]'s wort; aspirin; NSAIDs (such as ibuprofen [Advil??, [...] of all of the prescription and nonprescription (fctr-xwb-bpyjuui) medicines, vitamins, minerals, and dietary supplements you [...] or pharmacist about specific clinical use. The [employer] represents that the information provided hereunder was formulated with a reasonable standard of care, and in conformity with professional standards in the field. The [employer] makes no representations or warranties, express or implied, including, but not limited to, any implied warranty of merchantability and/or fitness for a particular purpose, with respect to such information and specifically disclaims all such warranties. Users are advised that decisions regarding drug therapy are complex medical decisions requiring the independent, informed decision of an appropriate health inpatient care manager rn, and the information is provided for informational purposes only. The entire monograph for a drug should be reviewed for a thorough understanding of the drug's actions, uses and side effects. The [employer] does not endorse or recommend the use of any drug.The information is not a substitute for medical care. AHFS?? Patient Medication Information?. ?? Copyright, 2023. The [employer]??, [address], [address], [place], [place]. All Rights Reserved. Duplication for commercial use must be authorized by [facility]. Selected Revisions: November 02, 2024. AHFS?? Patient Medication Information?. ?? Copyright, 2024 * [facility] - Medhat Hadley RN - 07/22/2025 3:01 PM EST Images from the original note were not included. [id number] Soft Diet Your healthcare provider has prescribed [...] cheese melted in other dishes Don't have: Bureau fried eggs, cheese slices and cubes Fruits [...] corn Last Reviewed Date: 2022 00:00:00 ?? [id number] [employer]. All rights reserved. This information is not [...] PCP name and Address: Bryan Watkins MD [address] [place] [address] [place] [address] Referring provider name and address: No referring provider defined for this encounter. Chief Concern, Brief History of Present Illness, and Hospital Course Damian Washington is a 74 y.o. male with PMHx has a past medical history of Tobacco- use disorder. He has no past medical history of Adverse effect of anesthesia or Malignant hyperthermia. who presented to [facility] with Cancer of sigmoid colon. They were [...] Your Medications These medications were sent to [facility] - [place], [place] - [address] [facility] [id number] acetaminophen 500 MG tablet apixaban 5 MG [...] with an appointment time. Questions: Call the [facility] at [phone] during business hours on weekdays or call [facility]'s after hours at [phone] to speak with a resident hydro station operator for Colorectal surgery after 5pm or on [...] Anesthesiology, Perioperative, Critical Care, and Pain Medicine [facility] Reachable via [employer] Secure Chat Cosigned by Ernestina Hilton MD [...] in Care Family/Caregiver Present: Yes Family/Caregiver: Spouse Splunk Architect: Not Applicable Presentation Oxygen Therapy: None (Room [...] Mobility Bed Mobility Exam: Rolling/Turning Level of [place]: Independent (to the right) Bed Mobility Exam: Scooting/Bridging Level of [place]: Independent (anteriorly to EOB) Bed Mobility Exam: Supine to Sit Level of [place]: Independent (to the right) Physical/Nonphysical Assist: (HOB flat) Transfers Transfer Exam: Sit to stand Level of [place]: Independent Assistive Device: (no device) Transfer Exam: Stand to Sit Level of [place]: Independent Assistive Device: (no device) Functional Mobility [...] routine at time of d/c. Standardized Assessments [facility] 6-Click Daily Activities Help from Other: Don/Doff Regular Lower Body Clothings: None Help From Other: Bathing: None Help From Other: Toileting: None Help From Other: Don/Doff Upper Body Clothings: None Help From Other: Grooming: None Help From Other: Eating Meals: None [facility] 6 Click - Daily Activities Score: [facility] Scoring Interpretation: Scores greater than 20.5 suggest [...] admission Level of Mobility Ambulatory- community Mobility [place] Independent gait without device History of Falls [...] PARTICIPANTS IN CARE Visitors Present Yes, Spouse Splunk Architect (if applicable) OBJECTIVE PAIN Pt denies pain. [...] for intervention details. BED MOBILITY Level of [place] Physical/Non- physical Assist Adaptive Equipment Utilized Rolling/ Turning Scooting/ Bridging Independent Supine to Sit Independent Sit to Supine Interventions HOB lowered to simulate home environment. TRANSFERS Level of [place] Physical/Non- physical Assist Adaptive Equipment Utilized Sit to Stand Independent (no device) Stand to sit Independent (no device) Bed to Chair Toilet Transfer Shower Transfer Interventions AMBULATION Level of [place] Distance Adaptive Equipment Utilized Ambulation Standby assist, [...] is no recent study available for direct uhmp-ur-reuh comparison. ASSESSMENT/PLAN Damian Washington is a 74 [...] - Needs outpatient cardiology follow up at [facility] The following cardiovascular risk factors and co-morbidities complicates the management of these conditions: poor nutritional status and frailty Principal Problem: Cancer of sigmoid colon Active Problems: Smoker Paroxysmal atrial fibrillation (CMS/HCC) This consult will be staffed with the following attending physician: Dr Gonzalez. Please page the on-call front elevator operator with any further questions. Cardiology will sign off at this time. Please page the front elevator operator hydro station operator for any further questions ([phone]). Memo Rob MS4 07/22/25 11:48 AM [1] [...] from the original note were not included. [id number] Discharge Instructions: Caring for Your Abdominal Incision [...] provider Last Reviewed Date: 2024 00:00:00 ?? [id number] [employer]. All rights reserved. This information is not intended as a substitute for professional medical care. Always follow your healthcare professional's instructions. * Shauna Negron - Medhat Hadley RN - 07/22/2025 11:14 AM EST Images from the original note were not included. 85374 Preventing a Surgical Site Infection A risk [...] of infection. ? Controlled body temperature. A qcczl-ytdh-sihowj temperature during or after surgery prevents oxygen [...] and water or with an alcohol-based hand manager fund before and after caring for you. Don?t [...] Last Reviewed Date: 2024 00:00:00 ?? [employer]. All rights reserved. This information is not intended as a substitute for professional medical care. Always follow your healthcare professional's instructions. * Shauna Negron - Medhat Hadley RN - 07/22/2025 11:14 AM EST Images from the original note were not included. [id number] Open Bowel Resection: What to Expect at [...] or dog food bags, a vacuum hand rug cleaner, or a child. ? Ask your [...] your doctor if you can take an zhxx-hrf-vjblmwn medicine. o Do not take two or [...] this instruction, always ask your healthcare professional. [employer] disclaims any warranty or liability for your use of this information. ?? 1906-1854 Simfinit, Yobongo. LIS * Shauna Negron - Medhat Hadley RN - 07/22/2025 11:14 AM EST Images from the original note were not included. 36825 Having Open Colon Surgery During open colon [...] them before surgery. This includes prescription and dewc-tlw-zuwsifi medicines, aspirin, and other nonsteroidal anti- inflammatory [...] You?ll meet with your anesthesiologist or nurse drawer in stitch bonding machine to discuss the medicine (anesthesia) that helps [...] back Last Reviewed Date: 2023 00:00:00 ?? [id number] [employer]. All rights reserved. This information is not [...] 07/21/2025 5:45 PM EST Pastoral Care Note Cloth Weaver consulted with care team and visited Damian and Jailene at bedside. Damian expressed grattitudethat he is doing better. Jailene shared that this hospitalization has been tough on her as well, giventhe responsibilities she's had to take on while Damian's here. Cloth Weaver offered an empathic presenceand supportive listening as Jailene shared about her own health struggles. Cloth Weaver assured Damian and Jailene that pastoral care is available 10/04. Referral From: Cloth Weaver Initiated Pastoral Care Provided For: Patient, Spouse Patient Profile: Consult Reasons: Initial visit Spiritual Assessment: Support Systems/ Spiritual Resources: Family Spiritual Needs: Emotional support Spiritual Issues: Critical Illness, Trauma/ crisis Interventions: Interventions Provided: Consulted with care team, Introduced Patient/Family to Cloth Weaver Services, Supportive Listening, Family support, Emotional support Pastoral Care Outcomes: Patient Outcomes: Is knowledgeable about [employer]ant Crewman Services, Appreciative of Cloth Weaver Support * Significant Event - Omer Schroeder APRN, DNP - 07/21/2025 12:35 PM EST Mr Washington is no longer critically ill and is safe for transfer. In consultation with the primary service, [facility] will sign off at this time. [...] is no recent study available for direct tusb-qz-atjz comparison. ASSESSMENT/PLAN Damian Washington is a 74 [...] staffed with the following attending physician: Dr Gonazlez. Please page the on-call front elevator operator with any further questions. We will continue to follow. Please page the front elevator operator hydro station operator for any questions ([phone]). Memo Rob MS4 07/21/25 11:50 AM [1] [...] Note Damian Washington 74 y.o. male CSN: [id number] Room/Bed 138/138A Nutrition evaluation type: assessment Reason [...] having a good appetite and eating well BSS SOLUTION ARCHITECT, but also reports weight loss of around [...] (Calculated): 19.47 Weight Evaluation: Normal (BMI 18.5-24.9) Page Body Weight (kg): 70 Percent Page Body Weight: 82 Wt Readings from Last [...] Education Provided: Will monitor Pertinent home medications: Buddhism needs: Nutrition Focused Physical Exam: Physical exam [...] Note Damian Washington 74 y.o. male CSN: [id number] Admission: 07/16/2025 12:37 PM Primary Problem: Cancer [...] Lee RN * Progress Notes - Noé Merirll MD - 07/21/2025 10:18 AM EST Images from the original note were not included. [facility] Department of Surgery Division of Colon & [...] Anesthesiology, Perioperative, Critical Care, and Pain Medicine [facility] Reachable via [employer] Secure Chat Cosigned by Maicol Garcia MD [...] Post-Procedure Diagnose(s): Paroxysmal atrial fibrillation (CMS/HCC) 07/21/25 [facility] Damian Washington is a 74 y.o. [...] ear normal. Nose: Nose normal. Mouth/Throat: Lips: Ribera. Mouth: Mucous membranes are moist. Pharynx: Oropharynx [...] discussed with Dr. Chaves. Pasquale Schroeder DNP, [facility], [facility] Anesthesiology, Critical Care Medicine [...] physician: Dr Gonzalez. Please page the on-call front elevator operator with any further questions. I spent 45 minutes performing the following components of the encounter (on the day of the encounter): reviewing History, examining the patient, reviewing imaging and/or labs, Independently interpreting echocardiogram, ECG and/or other imaging results, counseling the patient and family/caregiver, communicating with other health care manager, care coordination, and entering clinical information in [...] a surgical standpoint. Do not feel herequires residential Amiodarone after a single provoked episode. Reviewed [...] reach out to on-call physician for CAR Brighter Future Challenge Consultswith any further questions. * Nursing Note [...] PM EST Associated Problem(s): Paroxysmal atrial fibrillation ([facility]) Amiodarone load and drip Keep electrolytes at [...] ear normal. Nose: Nose normal. Mouth/Throat: Lips: Ribera. Mouth: Mucous membranes are moist. Pharynx: Oropharynx [...] discussed with Dr. Chaves. Pasquale Schroeder DNP, [facility], [facility] Anesthesiology Critical Care Medicine [...] from the original note were not included. [facility] Department of Surgery Division of Colon & [...] Today: Continue NC today, walk test tomorrow [facility] Plan to D/C IVF this pm if tolerating liquids Full liquid diet NG - removed Prophylactic Lovenox Encourage ambulation and IS use Edited by: Noé Merrill MD at 07/20/2025 1152 Dispo: Continue Current Level of Care Noé Merrill MD, PGY-1 Department of Anesthesiology, Perioperative, Critical Care, and Pain Medicine [facility] Reachable via [employer] Secure Chat Cosigned by Hang Fatima MD [...] Care Family/Caregiver Present: Yes Family/Caregiver: Spouse (Jailene) Splunk Architect: Not Applicable Presentation Oxygen Therapy: Supplemental oxygen [...] admission Level of Mobility: Ambulatory- community Mobility [place]: Independent gait without device History of Falls: [...] bed. Bed Mobility Exam: Rolling/Turning Level of [place]: Stand-by assist Physical/Nonphysical Assist: Verbal Cues Assistive Device: Bed rails Bed Mobility Exam: Scooting/Bridging Level of [place]: Stand-by assist (anteriorly to EOB) Physical/Nonphysical Assist: Verbal Cues, Minimal cues Assistive Device: Bed rails Bed Mobility Exam: Supine to Sit Level of [place]: Stand-by assist (to the left) Physical/Nonphysical Assist: Set-up required, Verbal Cues, Nonverbal cues (demo/gestures), Minimal cues, HOB elevated Assistive Device: Bed rails Bed Mobility Exam: Sit to Supine Level of [place]: (Not assessed. Patient left up in chair.) Transfers Transfer Interventions: PT provided minimal verbal cues for safe hand placement on sitting surface,pushing up to stand and reaching back to sit, to ensure safe transition. Stand-by assist provided for balance and safety to ensure appropriate tolerance to change in position. Transfer Exam: Sit to stand Level of [place]: Stand-by assist Physical/Nonphysical Assist: Set-up required, Supervision, Verbal Cues, Minimal cues Assistive Device: (no device) Transfer Exam: Stand to Sit Level of [place]: Stand-by assist Physical/Nonphysical Assist: Supervision, Verbal Cues, Minimal cues Assistive Device: (no device) Toilet Transfer Level of [place]: Stand-by assist Physical/Nonphysical Assist: Verbal Cues, Minimal [...] LIANG using modified JAMIE scale. Standardized Assessments [facility] 6-Clicks Mobility Assessment Difficulty patient has turning [...] 3-5 steps with a railing?: A little [facility] 6-Clicks Mobility Assessment Total : 21 Assessment [...] Care Family/Caregiver Present: Yes Family/Caregiver: Spouse (Jailene) Splunk Architect: Not Applicable Presentation Oxygen Therapy: Supplemental oxygen O2 Delivery Method: Venturi mask FiO2 (%): 50 % O2 Flow Rate (L/min): 15 L/min Lines and Tubes: Telemetry NG/OG [place] Sump Left nostril (Active) Peripheral IV 07/16/25 [...] admission Level of Mobility: Ambulatory- community Mobility [place]: Independent gait without device History of Falls: [...] Mobility Bed Mobility Exam: Scooting/Bridging Level of [place]: Stand-by assist (anteriorly to EOB) Physical/Nonphysical Assist: Supervision, Verbal Cues, Minimal cues Bed Mobility Exam: Supine to Sit Level of [place]: Stand-by assist (to the left) Physical/Nonphysical Assist: Set-up required, Verbal Cues, Nonverbal cues (demo/gestures), Minimal cues, HOB elevated Assistive Device: Bed rails Transfers Transfer Exam: Sit to stand Level of [place]: Stand-by assist Physical/Nonphysical Assist: Set-up required, Supervision, Verbal Cues, Minimal cues Assistive Device: (no device) Transfer Exam: Stand to Sit Level of [place]: Stand-by assist Physical/Nonphysical Assist: Supervision, Verbal Cues, Minimal cues Assistive Device: (no device) Toilet Transfer Level of [place]: Stand-by assist Physical/Nonphysical Assist: Supervision, Verbal Cues, [...] RN aware of session vitals. Standardized Assessments [facility] 6-Click Daily Activities Help from Other: Don/Doff Regular Lower Body Clothings: None Help From Other: Bathing: Little Help From Other: Toileting: None Help From Other: Don/Doff Upper Body Clothings: Little Help From Other: Grooming: None Help From Other: Eating Meals: None [facility] 6 Click - Daily Activities Score: 22/24 [facility] Scoring Interpretation: Scores greater than 20.5 suggest ability to perform daily self-cares independently and may indicate a high suitability for a home/self-care discharge. Assessment Patient tolerated today's initial evaluation/session well with rest breaks as needed. HR remained elevated at rest and increased with activity; ranging from 90-146 bpm during session (RN aware). [id number] 94-98% while on 50% FiO2 at 15 [...] from the original note were not included. [facility] Department of Surgery Division of Colon & [...] Woods at 07/19/2025 1143 Continue venturi mask [facility] with sips/chips NG: clamp trial [...] saw and evaluated the patient with the medical/MANGA ARTIST/PA student. I discussed the case with the medical/MANGA ARTIST/PA student and agree with the findings and [...] Goal: Skin Health and Integrity 07/19/2025351 by oRcky Penny RN Outcome: Ongoing, Progressing 07/19/2025343 by [...] Penny RN Outcome: Ongoing, Progressing 07/19/2025343 by oRcky Penny RN Outcome: Ongoing, Progressing Intervention: Prevent [...] from the original note were not included. [facility] Department of Surgery Division of Colon & [...] MD at 07/18/2025 0903 Follow-up chest x-ray [facility] IVF NPO with sips/chips NG Prophylactic Lovenox [...] anesthesia or Malignant hyperthermia. who presented to [facility] with Cancer of sigmoid colon. They were [...] Note Damian Washington 74 y.o. male CSN: [id number] Admission: 07/16/2025 12:37 PM Primary Problem: Cancer of sigmoid colon Quality Control Manager reviewed chart and spoke with patient and his at to complete this Initial CaseManagement Assessment. PCP: Bryan Watkins MD Emergency Contact: Extended Emergency Contact Information Primary Emergency Contact: JOSÉ MIGUELJAILENE Mobile Relation: Spouse Preferred language: Venezuelan Insurance: Primary Visit Coverage Payer Plan Sponsor Code Group Number Group Name MEDICARE MEDICARE A & B Primary Visit Coverage Subscriber Subscriber ID Subscriber Name Subscriber N Subscriber Address [id number] Damian Washington [phone] [facility] [address] [place] [address] Secondary Visit Coverage Payer Plan Sponsor Code Group Number Group Name LISANDRA FRY [facility] [id number] Secondary Visit Coverage Subscriber Subscriber ID Subscriber Name Subscriber SSN Subscriber Address [id number] Damian Washington [id number] [place] [phone] Patient information: Primary Caregiver: Self Accompanied by/Relationship: Daily Living Activities: Functional Status: Independent Living Arrangements: Spouse/Significant other Type of Residence: Single Level [address] [place] [phone] Current DME: Equipment Currently Used at Home: none Housing Circumstances-Z Codes: Housing Circumstances (select all that apply): None Applicable Anticipated Discharge Date: unknown Patient's Discharge Goal: home Assistance Available at Discharge: Discharge Transport: Follow Up Transport: self Home Health / Home Infusion / Outpatient Dialysis Services: none Living Will/Advance Directive/Power of Clinical Tech /Guardian: Have you reviewed your Advance Directive [...] Pt has Medicare A & B and [employer] as his insurance. Transportation home will be provided by his . Pt has listed his , Jailene Washington, as his em ergency contact, phone # [phone]. Pt obtains medications from [facility]. Pt currently has a rolling walker, cane, w/c, raised toilet seat, and shower chair that he does not use. He is not receiving services. Will continue to follow and assist with d/c needs as they arise. Madina Lee RN * Progress Notes - Gina Woods - 07/17/2025 11:26 AM EDT Images from the original note were not included. [facility] Department of Surgery Division of Colon & [...] by: Gina Woods at 07/17/2025 1157 Plan: [facility] IVF NPO with sips/chips NG SubQ heparin [...] saw and evaluated the patient with the medical/MANGA ARTIST/PA student. I discussed the case with the medical/MANGA ARTIST/PA student and agree with the findings and [...] from the original note were not included. [facility] Department of Surgery Division of Colorectal Surgery [...] content. Incisions: covered LTD: Drain Duration NG/OG [place] Sump Left nostril <1 day Urethral Catheter [...] nursing staff. I have notified senior resident/attending hydro station operator with any issues or concerns. Napoleon Grant [...] Agree with above assessment and evaluation from resident/ANIMAL TECHNICIAN. * Perioperative Nursing Note - Radha Barksdale - 07/16/2025 2:53 PM EDT Specimens from procedure 07/16/2025 picked up by [employer] and delivered to surgical pathology. * Op Note - Maicol Garcia MD - 07/16/2025 2:53 PM EDT [facility] Colon and Rectal Surgery Operative Note JS Radha HERNANDEZ FACS FASCRS Patient: Damian [place] : 1950 Date of Procedure: 07/16/2025 Admit Date: 07/16/2025 Facility Location: [facility] [facility] Pre-Operative Diagnosis: Sigmoid colon cancer. Moderate protein calorie malnutrition. BMI 19. Emphysema. Post-Operative Diagnosis: Same. Procedure: Sigmoid colectomy. Mobilization of splenic flexure. Attending Surgeon: Shanna Garcia MD FACS FASCRS (present throughout entire procedure). Resident Surgeon: Aiden Rodriguez MD. Surgery Team: * Maicol Garcia - Primary Anesthesia Team: Anesthesiologist: Sujit Chester MD; Demarco Chen MD ANIMAL TECHNICIAN: Mae Pozo CRNA Anesthesia Type: General [...] anastomosis seemed to lay best in a [id number] position. Colotomy was made on both limbs [...] postoperative recovery discussed. In accordance with the [employer] Quality Programs for Cancer [...] injection 5,000 Units 5,000 Units Subcutaneous q8h [facility] Maicol Garcia MD 5,000 Units at 07/16/25 [...] AM EDT Appointment [facility] [address] [place] [address] 02/03/2026 10:00 AM EDT Office Visit [facility] [address] [place] [address] Maicol Garcia MD [address] [facility] [address] [place] [address] 02/03/2026 10:00 AM EDT Clinical Support [facility] [address] [place] [address] Scheduled Referrals Name Type Priority Associated Diagnoses [...] TRANSTHORACIC COMPLETE STAT 07/21/2025 8:35 AM EST [facility], E/M 30-74 MINUTES Routine 07/21/2025 [...] PANEL, VENOUS Routine 07/20/2025 5:36 PM EST [facility], E/M 30-74 MINUTES Routine 07/20/2025 [...] 3:28 PM EDT Cancer of sigmoid colon [place] PART REMOVAL COLON W ANASTOMOSIS 07/16/2025 2:02 PM EDT Cancer of sigmoid colon POCT GLUCOSE METER UNSOLICITED RESULTS Routine 07/16/2025 1:41 PM EDT TYPE AND SCREEN Routine 07/16/2025 12:56 PM EDT documented in this encounter Results * (ABNORMAL) Hepatic function panel (07/22/2025 3:51 PM EST) Direct Bilirubin, Plasma <0.2 <=0.3 mg/dL 07/22/2025 4:49 PM EST [facility] Alkaline Phosphatase, Plasma 86 40 - 115 U/L 07/22/2025 4:49 PM EST [facility] Total Bilirubin, Plasma 0.2 0.2 - 1.1 mg/dL 07/22/2025 4:49 PM EST [facility] Albumin, Plasma 3.2(L) 3.5 - 5.2 g/dL 07/22/2025 4:49 PM EST [facility] Total Protein 6.1(L) 6.3 - 7.9 g/dL 07/22/2025 4:49 PM EST [facility] ALT, Plasma 21 10 - 50 U/L 07/22/2025 4:49 PM EST [facility] AST, Plasma 28 10 - 50 U/L 07/22/2025 4:49 PM EST [facility] Comment:Hemolyzed, result ma y be falsely increased. Blood Venous blood specimen / Unknown Venipuncture / Unknown 07/22/2025 3:51 PM EST 07/22/2025 4:18 PM EST us Maicol Garcia MD LAB BLOOD ORDERABLES Final Res ult [facility] [address] [place] [address] * ECHO, ADULT TRANSTHORACIC COMPLETE (07/21/2025 8:35 [...] is no recent study available for direct [id number] comparison. Left Ventricle The left ventricle is [...] is no recent study available for direct [id number] comparison. Wall Scoring Baseline Score Index: 1.82 The following segments are aneurysmal: basal inferior. The following segments are akinetic: mid inferolateral. The following segments are hypokinetic: basal anterior, basal inferolateral, basal anterolateral, mid anterior, mid anterolateral, apical anterior, apical lateral and apex. All other segments are normal. Hang Fatima MD CV ECHO PROCEDURES Final Resul t * [facility], E/M 30-74 MINUTES (07/21/2025 8:31 [...] ordering and review of radiographic studies us Oemr Schroeder APRN, DNP IN CLINIC/BEDSIDE ORD ERABLES Final Result * (ABNORMAL) Troponin T, High Sensitivity, 2 Hour, Plasma (07/21/2025 7:31 AM EST) Troponin T, High Sensitivity, 2 Hour 110(H) <19 ng/L 07/21/2025 8:10 AM EST [facility] Troponin Delta 5 <10 ng/L 07/21/2025 8:10 AM EST [facility] Troponin Delta Interpretation Not Significant 07/21/2025 8:10 AM EST [facility] Comment:Not Significant. No acute change in troponin observed between the baseline and 2 hour samples. Blood Venous blood specimen / Unknown Venipuncture / Unknown 07/21/2025 7:31 AM EST 07/21/2025 7:42 AM EST us Joan Miller APRN LAB BLOOD ORDERABLES Final R esult Performing Organization Address City/[facility]/ZIP Co de Phone Number [facility] [address] [place] [address] * (ABNORMAL) Troponin T, High Sensitivity, 0 Hour Plasma, Reflex to 2 Hour (07/21/2025 5:11 AM EST) Troponin T, High Sensitivity, 0 Hour 115(H) <19 ng/L 07/21/2025 6:32 AM EST [facility] Blood Venous blood specimen / Unknown Venipuncture / Unknown 07/21/2025 5:11 AM EST 07/21/2025 6:05 AM EST Joan Miller APRN LAB BLOOD ORDERABLES Final R esult [facility] [address] [place] [address] * (ABNORMAL) Troponin T, High Sensitivity, 2 Hour, Plasma (07/21/2025 12:15 AM EST) Troponin T, High Sensitivity, 2 Hour 148(H) <19 ng/L 07/21/2025 12:48 AM EST [facility] Troponin Delta 1 <10 ng/L 07/21/2025 12:48 AM EST [facility] Troponin Delta Interpretation Not Significant 07/21/2025 12:48 AM EST [facility] Comment:Not Significant. No acute change in troponin observed between the baseline and 2 hour samples. Blood Venous blood specimen / Unknown Venipuncture / Unknown 07/21/2025 12:15 AM EST 07/21/2025 12:20 AM EST us Maicol Garcia MD LAB BLOOD ORDERABLES Final Res ult [facility] [address] [place] [address] * Phosphorus (07/21/2025 12:15 AM EST) Phosphorus, Plasma 3.1 2.5 - 4.5 mg/dL 07/21/2025 12:51 AM EST [facility] Blood Venous blood specimen / Unknown Venipuncture / Unknown 07/21/2025 12:15 AM EST 07/21/2025 12:20 AM EST us Maicol Garcia MD LAB BLOOD ORDERABLES Final Res ult Performing Organization Address [facility] Co de Phone Number [facility] [address] [place] [address] * (ABNORMAL) Magnesium (07/21/2025 12:15 AM EST) Magnesium, Plasma 2.5(H) 1.9 - 2.4 mg/dL 07/21/2025 12:51 AM EST [facility] Blood Venous blood specimen / Unknown Venipuncture / Unknown 07/21/2025 12:15 AM EST 07/21/2025 12:20 AM EST us Maicol Garcia MD LAB BLOOD ORDERABLES Final Res ult Performing Organization Address City/[facility]/ZIP Co de Phone Number [facility] [address] [place] [address] * (ABNORMAL) Basic metabolic panel (07/21/2025 12:15 AM EST) Glucose, Plasma 95 74 - 99 mg/dL 07/21/2025 12:51 AM EST [facility] BUN, Plasma 14 8 - 23 mg/dL 07/21/2025 12:51 AM EST [facility] Creatinine, Plasma 0.70 0.70 - 1.20 mg/dL 07/21/2025 12:51 AM EST [facility] BUN/Creatinine Ratio 20 07/21/2025 12:51 AM EST [facility] Sodium, Plasma 138 136 - 145 mmol/L 07/21/2025 12:51 AM EST [facility] Potassium, Plasma 4.5 3.6 - 4.9 mmol/L 07/21/2025 12:51 AM EST [facility] Chloride, Plasma 106 97 - 107 mmol/L 07/21/2025 12:51 AM EST [facility] CO2, Plasma 24 22 - 29 mmol/L 07/21/2025 12:51 AM EST [facility] Anion Gap 8 6 - 16 mmol/L 07/21/2025 12:51 AM EST [facility] Total Calcium, Plasma 7.9(L) 8.9 - 10.2 mg/dL 07/21/2025 12:51 AM EST [facility] eGFRcr 95.5 mL/min/1.7 3m*2 07/21/2025 12:51 AM EST [facility] Comment:Reported eGFRcr in m L/min/1.73m2 is based the CKD-EPI 2020 equation that does not use a race coefficient. Blood Venous blood specimen / Unknown Venipuncture / Unknown 07/21/2025 12:15 AM EST 07/21/2025 12:20 AM EST us Maicol Garcia MD LAB BLOOD ORDERABLES Final Res ult [facility] [address] [place] [address] * (ABNORMAL) CBC W/O Differential (07/21/2025 12:15 AM EST) WBC Count 7.76 3.70 - 10.30 10*3/uL LAB HEMATOLOGY METHOD 07/21/2025 12:28 AM EST [facility] RBC Count 2.88(L) 4.60 - 6.10 10*6/uL LAB HEMATOLOGY METHOD 07/21/2025 12:28 AM EST [facility] HGB 9.2(L) 13.7 - 17.5 g/dL LAB HEMATOLOGY METHOD 07/21/2025 12:28 AM EST [facility] HCT 27.4(L) 40.0 - 51.0 % LAB HEMATOLOGY METHOD 07/21/2025 12:28 AM EST [facility] Platelet Count 167 155 - 369 10*3/uL LAB HEMATOLOGY METHOD 07/21/2025 12:28 AM EST [facility] MCV 95 79 - 98 fL LAB HEMATOLOGY METHOD 07/21/2025 12:28 AM EST [facility] MCH 31.9 26.0 - 32.0 pg LAB HEMATOLOGY METHOD 07/21/2025 12:28 AM EST [facility] MCHC 33.6 30.7 - 35.5 g/dL LAB HEMATOLOGY METHOD 07/21/2025 12:28 AM EST [facility] RDW 13.5 11.5 - 14.5 % LAB HEMATOLOGY METHOD 07/21/2025 12:28 AM EST [facility] MPV 9.4 8.8 - 12.5 fL LAB HEMATOLOGY METHOD 07/21/2025 12:28 AM EST [facility] nRBC 0.0 <=0.0 per 100 WBCs LAB HEMATOLOGY METHOD 07/21/2025 12:28 AM EST [facility] Blood Venous blood specimen / Unknown Venipuncture / Unknown 07/21/2025 12:15 AM EST 07/21/2025 12:20 AM EST us Maicol Garcia MD LAB BLOOD ORDERABLES Final Res ult [facility] [address] [place] [address] * ECG Adult (07/21/2025 12:10 AM EST) EKG DIAGNOSIS CLASS Abnormal MUSE ECG Ventricular Rate 70 BPM MUSE ECG Atrial Rate 70 BPM MUSE ECG WA Interval 114 ms MUSE ECG QRSD Interval 128 ms MUSE ECG QT Interval 452 ms MUSE ECG QTC Interval 488 ms MUSE ECG P Quinlan 73 degrees MUSE ECG R Quin[place] 84 degrees MUSE ECG T Wave [place] 26 degrees MUSE ECG Diagnosis Normal sinus rhythm restored MUSE ECG Diagnosis premature ventricular complexes MUSE ECG Diagnosis Right bundle branch block MUSE ECG Diagnosis Abnormal ECG MUSE ECG Diagnosis MUSE ECG Diagnosis Confirmed by Timo Desai ([id number]) on 07/21/2025 2:53:42 PM MUSE ECG 07/21/2025 12:1 0 AM EST 07/21/2025 2:53 PM EST Maicol Garcia MD ECG ORDERABLES Final Result MUSE ECG * (ABNORMAL) Troponin T, High Sensitivity, 0 Hour Plasma, Reflex to 2 Hour (07/20/2025 9:58 PM EST) Troponin T, High Sensitivity, 0 Hour 147(H) <19 ng/L 07/20/2025 10:31 PM EST [facility] Blood Venous blood specimen / Unknown Venipuncture / Unknown 07/20/2025 9:58 PM EST 07/20/2025 10:02 PM EST Maicol Garcia MD LAB BLOOD ORDERABLES Final Res ult [facility] [address] [place] [address] * (ABNORMAL) Troponin T, High Sensitivity, 2 Hour, Plasma (07/20/2025 6:33 PM EST) Troponin T, High Sensitivity, 2 Hour 54(H) <19 ng/L 07/20/2025 7:07 PM EST [facility] Troponin Delta 36(H) <10 ng/L 07/20/2025 7:07 PM EST [facility] Troponin Delta Interpretation Significant 07/20/2025 7:07 PM EST [facility] Comment:Significant change i n Troponin observed [...] ORDERABLES Final Res ult Performing Organization Address [facility] [place] [address] * Casimiro auris Surveillance by PCR (07/20/2025 5:38 PM EST) Casimiro auris PCR Result Not Detected Not Detected 07/21/2025 1:06 PM EST [facility] Swab (Axilla and Groin) Non-blood Collection / Unknown 07/20/2025 5:38 PM EST 07/20/2025 5:44 PM EST Narrative [facility] - 07/21/2025 1:06 PM EST This PCR assay was developed and its performance characteristics determined by [facility] as appropriate for clinical purposes. This assay has not been cleared or approved by the FDA, but is performed in a CLIA regulated laboratory that is qualified to perform high-complexity testing. Maicol Garcia MD LAB MICROBIOLOGY - GENERAL ORD ERABLES Final Result Performing Organization Address [facility] [place] [address] * Multi Drug Resistance Test (07/20/2025 5:38 PM EST) Culture No growth at day 1 07/22/2025 5:08 AM EST [facility] Swab (Nares and Lizzie Rectal) Non-blood Collection / Unknown 07/20/2025 5:38 PM EST 07/20/2025 5:44 PM EST Narrative [facility] - 07/22/2025 5:08 AM EST This test was developed and its performance characteristics determined by the [facility]. Although the media is FDA-approved, it is not FDA-approved for all specimen types submitted. The FDA has determined that such clearance or approval is not necessary. This test is used for surveillance purposes. It should not be regarded as investigational or for research. The [facility] is certified under the Clinical Laboratory Improvement Amendments of 1988 (CLIA-88) as qualified to perform high complexity clinical laboratory testing. us Maicol Garcia MD LAB MICROBIOLOGY - GENERAL ORD ERABLES Final Result [facility] [address] [place] [address] * (ABNORMAL) Blood gas panel, venous (07/20/2025 5:36 PM EST) pH, Venous 7.44(H) 7.32 - 7.43 LAB HEMATOLOGY METHOD 07/20/2025 5:46 PM EST [facility] pCO2, Venous 42 40 - 55 mmHg LAB HEMATOLOGY METHOD 07/20/2025 5:46 PM EST [facility] pO2, Venous 25 25 - 40 mmHg LAB HEMATOLOGY METHOD 07/20/2025 5:46 PM EST [facility] SO2, Measured, Venous 42(L) 65 - 80 % LAB HEMATOLOGY METHOD 07/20/2025 5:46 PM EST [facility] Base Excess, Venous 3.5(H) -2.0 - 3.0 mmol/L LAB HEMATOLOGY METHOD 07/20/2025 5:46 PM EST [facility] Bicarbonate, Calculated, Venous 28(H) 22 - 26 mmol/L LAB HEMATOLOGY METHOD 07/20/2025 5:46 PM EST [facility] Hematocrit, Whole Blood 31.9(L) 40.0 - 51.0 % LAB HEMATOLOGY METHOD 07/20/2025 5:46 PM EST [facility] Sodium, Whole Blood 139 136 - 145 mmol/L LAB HEMATOLOGY METHOD 07/20/2025 5:46 PM EST [facility] Potassium, Whole Blood 3.1(L) 3.6 - 4.9 mmol/L LAB HEMATOLOGY METHOD 07/20/2025 5:46 PM EST [facility] Chloride, Whole Blood 103 97 - 107 mmol/L LAB HEMATOLOGY METHOD 07/20/2025 5:46 PM EST [facility] Glucose, Whole Blood 124(H) 74 - 99 mg/dL LAB HEMATOLOGY METHOD 07/20/2025 5:46 PM EST [facility] Lactate, Venous, Whole Blood 1.3 0.5 - 2.2 mmol/L LAB HEMATOLOGY METHOD 07/20/2025 5:46 PM EST [facility] Ionized Calcium, Whole Blood 4.4(L) 4.6 - 5.1 mg/dL LAB HEMATOLOGY METHOD 07/20/2025 5:46 PM EST [facility] Blood Venous blood specimen / Unknown Venipuncture / Unknown 07/20/2025 5:36 PM EST 07/20/2025 5:45 PM EST us Maicol Garcia MD LAB BLOOD ORDERABLES Final Res ult [facility] [address] [place] [address] * [facility], E/M 30-74 MINUTES (07/20/2025 4:58 [...] Hold for add-ons 07/20/2025 8:02 PM EST [facility] Comment:Auto resulted. Blood Venous blood specimen / Unknown 07/20/2025 4:54 PM EST 07/20/2025 5:09 PM EST us Maicol Garcia MD LAB BLOOD ORDERABLES Final Res ult Performing Organization Address [facility] Co de Phone Number [facility] [address] [place] [address] * (ABNORMAL) Procalcitonin (07/20/2025 4:18 PM EST) Procalcitonin, Plasma 0.41(H) <0.09 ng/mL 07/20/2025 5:06 PM EST [facility] Blood Venous blood specimen / Unknown Venipuncture / Unknown 07/20/2025 4:18 PM EST 07/20/2025 4:29 PM EST Narrative [facility] - 07/20/2025 5:06 PM EST Procalcitonin [...] predict 28 day mortality risk. Please consult www.hyaxdl-iwo-klzslwidyy.com for more information. Test performed at [facility]. us Maicol Garcia MD LAB BLOOD ORDERABLES Final Res ult Performing Organization Address [facility]/ZIP Co de Phone Number [facility] [address] [place] [address] * (ABNORMAL) CBC W/O Differential (07/20/2025 4:18 PM EST) WBC Count 10.86(H) 3.70 - 10.30 10*3/uL LAB HEMATOLOGY METHOD 07/20/2025 4:38 PM EST [facility] RBC Count 3.43(L) 4.60 - 6.10 10*6/uL LAB HEMATOLOGY METHOD 07/20/2025 4:38 PM EST [facility] HGB 11.3(L) 13.7 - 17.5 g/dL LAB HEMATOLOGY METHOD 07/20/2025 4:38 PM EST [facility] HCT 32.7(L) 40.0 - 51.0 % LAB HEMATOLOGY METHOD 07/20/2025 4:38 PM EST [facility] Platelet Count 182 155 - 369 10*3/uL LAB HEMATOLOGY METHOD 07/20/2025 4:38 PM EST [facility] MCV 95 79 - 98 fL LAB HEMATOLOGY METHOD 07/20/2025 4:38 PM EST [facility] MCH 32.9(H) 26.0 - 32.0 pg LAB HEMATOLOGY METHOD 07/20/2025 4:38 PM EST [facility] MCHC 34.6 30.7 - 35.5 g/dL LAB HEMATOLOGY METHOD 07/20/2025 4:38 PM EST [facility] RDW 13.3 11.5 - 14.5 % LAB HEMATOLOGY METHOD 07/20/2025 4:38 PM EST [facility] MPV 9.6 8.8 - 12.5 fL LAB HEMATOLOGY METHOD 07/20/2025 4:38 PM EST [facility] nRBC 0.0 <=0.0 per 100 WBCs LAB HEMATOLOGY METHOD 07/20/2025 4:38 PM EST [facility] Blood Venous blood specimen / Unknown Venipuncture / Unknown 07/20/2025 4:18 PM EST 07/20/2025 4:29 PM EST us Maicol Garcia MD LAB BLOOD ORDERABLES Final Res ult [facility] [address] [place] [address] * (ABNORMAL) Basic metabolic panel (07/20/2025 4:18 PM EST) Glucose, Plasma 98 74 - 99 mg/dL 07/20/2025 5:06 PM EST [facility] BUN, Plasma 15 8 - 23 mg/dL 07/20/2025 5:06 PM EST [facility] Creatinine, Plasma 0.70 0.70 - 1.20 mg/dL 07/20/2025 5:06 PM EST [facility] BUN/Creatinine Ratio 21 07/20/2025 5:06 PM EST [facility] Sodium, Plasma 140 136 - 145 mmol/L 07/20/2025 5:06 PM EST [facility] Potassium, Plasma 3.4(L) 3.6 - 4.9 mmol/L 07/20/2025 5:06 PM EST [facility] Chloride, Plasma 102 97 - 107 mmol/L 07/20/2025 5:06 PM EST [facility] CO2, Plasma 26 22 - 29 mmol/L 07/20/2025 5:06 PM EST [facility] Anion Gap 12 6 - 16 mmol/L 07/20/2025 5:06 PM EST [facility] Total Calcium, Plasma 8.4(L) 8.9 - 10.2 mg/dL 07/20/2025 5:06 PM EST [facility] eGFRcr 95.5 mL/min/1.7 3m*2 07/20/2025 5:06 PM EST [facility] Comment:Reported eGFRcr in m L/min/1.73m2 is based the CKD-EPI 2020 equation that does not use a race coefficient. Blood Venous blood specimen / Unknown Venipuncture / Unknown 07/20/2025 4:18 PM EST 07/20/2025 4:29 PM EST us Maicol Garcia MD LAB BLOOD ORDERABLES Final Res ult [facility] [address] [place] [address] * Troponin T, High Sensitivity, 0 Hour Plasma, Reflex to 2 Hour (07/20/2025 4:18 PM EST) Troponin T, High Sensitivity, 0 Hour 18 <19 ng/L 07/20/2025 5:06 PM EST [facility] Blood Venous blood specimen / Unknown Venipuncture / Unknown 07/20/2025 4:18 PM EST 07/20/2025 4:29 PM EST us Maicol Garcia MD LAB BLOOD ORDERABLES Final Res ult [facility] [address] [place] [address] * ECG Adult (07/20/2025 4:07 PM EST) EKG DIAGNOSIS CLASS Abnormal MUSE ECG Ventricular Rate 177 BPM MUSE ECG QRSD Interval 118 ms MUSE ECG QT Interval 258 ms MUSE ECG QTC Interval 442 ms MUSE ECG R Quinlan 95 degrees MUSE ECG T Wave Quinlan -68 degrees MUSE ECG Diagnosis Atrial fibrillation [...] ECG ORDERABLES Final Result Performing Organization Address [facility] Co de Phone Number MUSE ECG * [...] 0.79(H) <0.09 ng/mL 07/19/2025 6:54 AM EDT [facility] Blood Venous blood specimen / Unknown Venipuncture / Unknown 07/19/2025 6:07 AM EDT 07/19/2025 6:18 AM EDT Narrative [facility] - 07/19/2025 6:54 AM EDT Procalcitonin [...] predict 28 day mortality risk. Please consult www.rzgtlr-lug-yewhhigney.com for more information. Test performed at [facility]. us Maicol Garcia MD LAB BLOOD ORDERABLES Final Res ult Performing Organization Address [facility]/ZIP Co de Phone Number [facility] [address] [place] [address] * Phosphorus, Plasma (07/19/2025 6:07 AM EDT) Phosphorus, Plasma 2.9 2.5 - 4.5 mg/dL 07/19/2025 6:54 AM EDT [facility] Blood Venous blood specimen / Unknown Venipuncture / Unknown 07/19/2025 6:07 AM EDT 07/19/2025 6:18 AM EDT us Maicol Garcia MD LAB BLOOD ORDERABLES Final Res ult Performing Organization Address [facility] Co de Phone Number [facility] [address] [place] [address] * (ABNORMAL) Magnesium, Plasma (07/19/2025 6:07 AM EDT) Magnesium, Plasma 1.7(L) 1.9 - 2.4 mg/dL 07/19/2025 6:54 AM EDT [facility] Blood Venous blood specimen / Unknown Venipuncture / Unknown 07/19/2025 6:07 AM EDT 07/19/2025 6:18 AM EDT us Maicol Garcia MD LAB BLOOD ORDERABLES Final Res ult Performing Organization Address City/[facility] Co de Phone Number [facility] [address] [place] [address] * (ABNORMAL) CBC (07/19/2025 6:07 AM EDT) WBC Count 12.64(H) 3.70 - 10.30 10*3/uL LAB HEMATOLOGY METHOD 07/19/2025 6:29 AM EDT [facility] RBC Count 3.57(L) 4.60 - 6.10 10*6/uL LAB HEMATOLOGY METHOD 07/19/2025 6:29 AM EDT [facility] HGB 11.6(L) 13.7 - 17.5 g/dL LAB HEMATOLOGY METHOD 07/19/2025 6:29 AM EDT [facility] HCT 33.8(L) 40.0 - 51.0 % LAB HEMATOLOGY METHOD 07/19/2025 6:29 AM EDT [facility] Platelet Count 177 155 - 369 10*3/uL LAB HEMATOLOGY METHOD 07/19/2025 6:29 AM EDT [facility] MCV 95 79 - 98 fL LAB HEMATOLOGY METHOD 07/19/2025 6:29 AM EDT [facility] MCH 32.5(H) 26.0 - 32.0 pg LAB HEMATOLOGY METHOD 07/19/2025 6:29 AM EDT [facility] MCHC 34.3 30.7 - 35.5 g/dL LAB HEMATOLOGY METHOD 07/19/2025 6:29 AM EDT [facility] RDW 13.4 11.5 - 14.5 % LAB HEMATOLOGY METHOD 07/19/2025 6:29 AM EDT [facility] MPV 9.9 8.8 - 12.5 fL LAB HEMATOLOGY METHOD 07/19/2025 6:29 AM EDT [facility] nRBC 0.0 <=0.0 per 100 WBCs LAB HEMATOLOGY METHOD 07/19/2025 6:29 AM EDT [facility] Blood Venous blood specimen / Unknown Venipuncture / Unknown 07/19/2025 6:07 AM EDT 07/19/2025 6:18 AM EDT us Maicol Garcia MD LAB BLOOD ORDERABLES Final Res ult [facility] [address] [place] [address] * XR Chest 1 View (07/18/2025 9:27 [...] - 4.5 mg/dL 07/17/2025 4:11 AM EDT [facility] Blood Venous blood specimen / Unknown Venipuncture / Unknown 07/17/2025 3:34 AM EDT 07/17/2025 3:41 AM EDT us Maicol Garcia MD LAB BLOOD ORDERABLES Final Res ult [facility] [address] [place] [address] * Magnesium, Plasma (07/17/2025 3:34 AM EDT) Magnesium, Plasma 2.2 1.9 - 2.4 mg/dL 07/17/2025 4:11 AM EDT [facility] Blood Venous blood specimen / Unknown Venipuncture / Unknown 07/17/2025 3:34 AM EDT 07/17/2025 3:41 AM EDT us Maicol Garcia MD LAB BLOOD ORDERABLES Final Res ult Performing Organization Address [facility]/ZIP Co de Phone Number [facility] [address] [place] [address] * (ABNORMAL) Basic Metabolic Panel, Plasma (07/17/2025 3:34 AM EDT) Pathologist [facility] Glucose, Plasma 144(H) 74 - 99 mg/dL 07/17/2025 4:11 AM EDT [facility] BUN, Plasma 20 8 - 23 mg/dL 07/17/2025 4:11 AM EDT [facility] Creatinine, Plasma 0.79 0.70 - 1.20 mg/dL 07/17/2025 4:11 AM EDT [facility] BUN/Creatinine Ratio 25 07/17/2025 4:11 AM EDT [facility] Sodium, Plasma 133(L) 136 - 145 mmol/L 07/17/2025 4:11 AM EDT [facility] Potassium, Plasma 4.7 3.6 - 4.9 mmol/L 07/17/2025 4:11 AM EDT [facility] Chloride, Plasma 100 97 - 107 mmol/L 07/17/2025 4:11 AM EDT [facility] CO2, Plasma 25 22 - 29 mmol/L 07/17/2025 4:11 AM EDT [facility] Anion Gap 8 6 - 16 mmol/L 07/17/2025 4:11 AM EDT [facility] Total Calcium, Plasma 8.7(L) 8.9 - 10.2 mg/dL 07/17/2025 4:11 AM EDT [facility] eGFRcr 92.1 mL/min/1.7 3m*2 07/17/2025 4:11 AM EDT [facility] Comment:Reported eGFRcr in m L/min/1.73m2 is based the CKD-EPI 2020 equation that does not use a race coefficient. Blood Venous blood specimen / Unknown Venipuncture / Unknown 07/17/2025 3:34 AM EDT 07/17/2025 3:41 AM EDT us Maicol Garcia MD LAB BLOOD ORDERABLES Final Res ult [facility] [address] [place] [address] * (ABNORMAL) CBC W/O Differential (07/17/2025 3:34 AM EDT) WBC Count 14.55(H) 3.70 - 10.30 10*3/uL LAB HEMATOLOGY METHOD 07/17/2025 3:51 AM EDT [facility] RBC Count 3.68(L) 4.60 - 6.10 10*6/uL LAB HEMATOLOGY METHOD 07/17/2025 3:51 AM EDT [facility] HGB 12.3(L) 13.7 - 17.5 g/dL LAB HEMATOLOGY METHOD 07/17/2025 3:51 AM EDT [facility] HCT 35.0(L) 40.0 - 51.0 % LAB HEMATOLOGY METHOD 07/17/2025 3:51 AM EDT [facility] Platelet Count 203 155 - 369 10*3/uL LAB HEMATOLOGY METHOD 07/17/2025 3:51 AM EDT [facility] MCV 95 79 - 98 fL LAB HEMATOLOGY METHOD 07/17/2025 3:51 AM EDT [facility] MCH 33.4(H) 26.0 - 32.0 pg LAB HEMATOLOGY METHOD 07/17/2025 3:51 AM EDT [facility] MCHC 35.1 30.7 - 35.5 g/dL LAB HEMATOLOGY METHOD 07/17/2025 3:51 AM EDT [facility] RDW 13.2 11.5 - 14.5 % LAB HEMATOLOGY METHOD 07/17/2025 3:51 AM EDT [facility] MPV 9.5 8.8 - 12.5 fL LAB HEMATOLOGY METHOD 07/17/2025 3:51 AM EDT [facility] nRBC 0.0 <=0.0 per 100 WBCs LAB HEMATOLOGY METHOD 07/17/2025 3:51 AM EDT [facility] Blood Venous blood specimen / Unknown Venipuncture / Unknown 07/17/2025 3:34 AM EDT 07/17/2025 3:41 AM EDT us Maicol Garcia MD LAB BLOOD ORDERABLES Final Res ult [facility] [address] [place] [address] * Surgical Pathology Exam (07/16/2025 3:28 PM EDT) Case Report Surgical Pathology Case: [id number] Authorizing Provider: Maicol Garcia MD Collected: 07/16/2025 1528 Ordering Location: [facility] Received: 07/16/2025 1627 Pathologist: Halima Cho MD Specimens: A) - Other (specify site), Sigmoid Colon Fresh For Permanent B) - Other (specify site), Omentum Fresh for Permenant 07/21/2025 1:32 PM EST [facility] Final Diagnosis A. 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 - MARGINS NEGATIVE FOR TUMOR INVOLVEMENT. - TWELVE LYMPH NODES NEGATIVE FOR MALIGNANCY (0/12). - PATHOLOGIC STAGE : pT2, pN0. - SEE SYNOPTIC CHECKLIST. B. OMENTUM, OMENTECTOMY: - BENIGN ADIPOSE TISSUE. 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 SIGMOID COLON FRESH [...] range from 0.2-0.6 cm in greatest dimension. Still Tender sections are submitted as follows: A1: Closest [...] lymph nodes Cold Time: 59m ISAEL Adan ([facility]) B. OMENTUM FRESH FOR PERMENANT The specimen is received fresh and placed in formalin, labeled o mentum , and consists of a 9.2 x 6.1 x 1.1 cm aggregate of prakash-yellow lobulated fibroadipose tissue consistent with omentum. No masses are identified. Still Tender sections are submitted in cassettes B1-B3. Cold Time: 40m ISAEL Adan ([facility]) 07/21/2025 1:32 PM [facility] Note: A resident was involved in the service. I attest I examined the relevant preparations for the specimens and confirmed the diagnosis or interpretation. 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] Maicol Garcia MD LAB PATHOLOGY ORDERABLES Final Result [facility] [address] [place] [address] * POCT glucose meter (07/16/2025 1:41 PM EDT) POCT Glucose 92 74 - 99 mg/dL 07/16/2025 1:42 PM EDT [facility] Comment:Accuracy of a glucos e [...] 07/16/2025 1:42 PM EDT [facility] Heavy Equipment Mechanic ID Anita Thomas 07/16/20 1:42 PM EDT [facility] Device ID [id number] 07/16/2025 1:42 PM EDT [facility] Specimen Type POC Venous 07/16/2025 1:42 PM EDT [facility] Blood Venous blood specimen / Unknown 07/16/2025 1:41 PM EDT 07/16/2025 1:42 PM EDT us Maicol Garcia MD LAB POINT OF CARE TE ST DOCKED DEVICE UNSOLICITED RESULTS Final Result Performing Organization Address City/[facility] Co de Phone Number [facility] [address] [place] [address] * Type and Screen (07/16/2025 12:56 PM [...] TEST ORDERABLES Final Result Performing Organization Address City/State/[facility] Co de Phone Number BLOOD BANK [address] [place] [address], documented in this encounter Visit Diagnoses Diagnosis [...] 1:03 PM EDT 1 Application sodium chloride ([place]) 0.65 % nasal spray 1 spray 1 [...] 1828 (New Bag - Provider: Aki Hannah, ROSSY)1949 (New Bag - Provider: Ricky Guy, ROSSY)204 [...] Recovery(Phase II-Outpatient)/On Unit(Inpatient), severe pain sodium chloride ([place]) 0.65 % nasal spray 1 spray 1 [...] documented as of this encounter Care Teams Cna Caregiver Relationship Specialty Start Date End Date Bryan Watkins MD [address] [place] [address] [place] [id number] PCP - General 05/19/25 documented as of this encounter
--- OUTSIDE RECORDS SUMMARY | 2025-07-16 12:20 | XMS_ITS | Encounter Summary ---
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 [C18.7] Procedures [place] PART REMOVAL COLON W ANASTOMOSIS COLECTOMY, SIGMOID Maicol Garcia MD [address] [address] Phone: tel: fax: [facility] [address] [place] [address] Phone: tel: Referral ID Status Reason Start Date Expiration Date Visits Re quested Visits Authorized [id number] 1 1 Encounter Details Date Type Department Care Team (Late st Contact Info) Description 07/16/2025 1:20 PM EDT - 07/16/2025 5:20 PM EDT Surgery [facility] [address] [place] [id number] Maicol Garcia MD [id number] [place] [address] COLECTOMY, SIGMOID [91361 (CPT )] Surgery Details Date/Time Status Location [...] any time in the past 12 m [facility], were you homeless or living in a senior living (including now)? No 07/17/2025 [facility] Utilities Answer Date Recorded In [...] for two weeks after your operation. {Wound care:39988:: You have surgical glue over your incisions. Do not pick at this.It will come off on its own. , You have kimberly over your incision. These will be removed in clinic. } Follow up: You will follow up with Dr. Garcia in {time::: 2 weeks , 4 weeks , 6 weeks }. [facility] will call with an appointment time. Questions: Call the [facility] at [phone] during business hours on weekdays or call [facility]'s after hours at [phone] to speak with a resident fashion illustrator for Colorectal surgery after 5pm or on [...] from the original note were not included. [id number] Apixaban IMPORTANT WARNING: If you have atrial [...] doctor or pharmacist will give you the billet examiner's patient information sheet (Medication Guide) when you begin treatment with apixaban and each time you refill your prescription. Read the information carefully and ask your doctor or pharmacist if you have any questions. You can also visit the Food and Drug Administration (FDA) website (https://www.fda.gov/Drugs/DrugSafety/iew291327.htm) or the billet examiner's website to obtain the Medication Guide. Talk [...] of all of the prescription and nonprescription (elyl-fsv-pkdxbif) medicines, vitamins, minerals, and dietary supplements you [...] or pharmacist about specific clinical use. The [place] [employer] represents that the information provided hereunder was formulated with a reasonable standard of care, and in conformity with professional standards in the field. The [place] [employer] makes no representations or warranties, express or implied, including, but not limited to, any implied warranty of merchantability and/or fitness for a particular purpose, with respect to such information and specifically disclaims all such warranties. Users are advised that decisions regarding drug therapy are complex medical decisions requiring the independent, informed decision of an appropriate health post acute care registered nurse, and the information is provided for informational purposes only. The entire monograph for a drug should be reviewed for a thorough understanding of the drug's actions, uses and side effects. The [employer] does not endorse or recommend the use of any drug.The information is not a substitute for medical care. AHFS?? Patient Medication Information?. ?? Copyright, 2023. The [employer]??, [address], [address], [place], [place]. All Rights Reserved. Duplication for commercial use must be authorized by [facility]. Selected Revisions: November 02, 2024. AHFS?? Patient Medication Information?. ?? Copyright, 2024 * [facility] - Medhat Hadley RN - 07/22/2025 3:01 PM EST Images from the original note were not included. [id number] Soft Diet Your healthcare provider has prescribed [...] cheese melted in other dishes Don't have: Schley fried eggs, cheese slices and cubes Fruits [...] corn Last Reviewed Date: 2022 00:00:00 ?? [id number] [employer]. All rights reserved. This information is not [...] PCP name and Address: Bryan Watkins MD [address] [place] [id number] Referring provider name and address: No referring provider defined for this encounter. Chief Concern, Brief History of Present Illness, and Hospital Course Damian Washington is a 74 y.o. male with PMHx has a past medical history of Tobacco- use disorder. He has no past medical history of Adverse effect of anesthesia or Malignant hyperthermia. who presented to [facility] with Cancer of sigmoid colon. They were [...] Your Medications These medications were sent to [facility] - [place], [place] - [address] [facility] [address] acetaminophen 500 MG tablet apixaban 5 MG [...] with an appointment time. Questions: Call the [facility] at [phone] during business hours on week or call [facility]'s after hours at [phone] to speak with a resident fashion illustrator for Colorectal surgery after 5pm or on [...] Anesthesiology, Perioperative, Critical Care, and Pain Medicine [facility] Reachable via [employer] Secure Chat Cosigned by Ernestina Hilton MD [...] in Care Family/Caregiver Present: Yes Family/Caregiver: Spouse Spin Tank Tender: Not Applicable Presentation Oxygen Therapy: None (Room [...] Mobility Bed Mobility Exam: Rolling/Turning Level of [place]: Independent (to the right) Bed Mobility Exam: Scooting/Bridging Level of [place]: Independent (anteriorly to EOB) Bed Mobility Exam: Supine to Sit Level of [place]: Independent (to the right) Physical/Nonphysical Assist: (HOB flat) Transfers Transfer Exam: Sit to stand Level of [place]: Independent Assistive Device: (no device) Transfer Exam: Stand to Sit Level of [place]: Independent Assistive Device: (no device) Functional Mobility [...] routine at time of d/c. Standardized Assessments [facility] 6-Click Daily Activities Help from Other: Don/Doff Regular Lower Body Clothings: None Help From Other: Bathing: None Help From Other: Toileting: None Help From Other: Don/Doff Upper Body Clothings: None Help From Other: Grooming: None Help From Other: Eating Meals: None [facility] 6 Click - Daily Activities Score: 24 [facility] Scoring Interpretation: Scores greater than 20.5 suggest [...] admission Level of Mobility Ambulatory- community Mobility [place] Independent gait without device History of Falls [...] PARTICIPANTS IN CARE Visitors Present Yes, Spouse Spin Tank Tender (if applicable) OBJECTIVE PAIN Pt denies pain. [...] for intervention details. BED MOBILITY Level of [place] Physical/Non- physical Assist Adaptive Equipment Utilized Rolling/ Turning Scooting/ Bridging Independent Supine to Sit Independent Sit to Supine Interventions HOB lowered to simulate home environment. TRANSFERS Level of [place] Physical/Non- physical Assist Adaptive Equipment Utilized Sit to Stand Independent (no device) Stand to sit Independent (no device) Bed to Chair Toilet Transfer Shower Transfer Interventions AMBULATION Level of [place] Distance Adaptive Equipment Utilized Ambulation Standby assist, [...] is no recent study available for direct icyf-ta-dbvd comparison. ASSESSMENT/PLAN Damian Washington is a 74 [...] - Needs outpatient cardiology follow up at [facility] The following cardiovascular risk factors and co-morbidities complicates the management of these conditions: poor nutritional status and frailty Principal Problem: Cancer of sigmoid colon Active Problems: Smoker Paroxysmal atrial fibrillation (CMS/HCC) This consult will be staffed with the following attending physician: Dr Gonzalez. Please page the on-call swager operator with any further questions. Cardiology will sign off at this time. Please page the swager operator fashion illustrator for any further questions ([phone]). Memo Rob MS4 07/22/25 11:48 AM [1] [...] from the original note were not included. [id number] Discharge Instructions: Caring for Your Abdominal Incision [...] provider Last Reviewed Date: 2024 00:00:00 ?? [id number] [employer]. All rights reserved. This information is not intended as a substitute for professional medical care. Always follow your healthcare professional's instructions. * Shauna Negron - Medhat Hadley RN - 07/22/2025 11:14 AM EST Images from the original note were not included. 95666 Preventing a Surgical Site Infection A risk [...] of infection. ? Controlled body temperature. A thvth-efyv-pmdbcb temperature during or after surgery prevents oxygen [...] and water or with an alcohol-based hand progressive die maker before and after caring for you. Don?t [...] away. Last Reviewed Date: 2024 00:00:00 ?? [id number] [employer]. All rights reserved. This information is not intended as a substitute for professional medical care. Always follow your healthcare professional's instructions. * Shauna Negron - Medhat Hadley RN - 07/22/2025 11:14 AM EST Images from the original note were not included. [id number] Open Bowel Resection: What to Expect at [...] litter or dog food bags, a vacuum hide cleaner, or a child. ? Ask your [...] your doctor if you can take an iugo-rid-pwuedef medicine. o Do not take two or [...] this instruction, always ask your healthcare professional. [employer] disclaims any warranty or liability for your use of this information. ?? [id number] [employer]. * Shauna RussellTAPAN - Medhat Hdaley RN - 07/22/2025 11:14 AM EST Images from the original note were not included. 53901 Having Open Colon Surgery During open colon [...] them before surgery. This includes prescription and agys-kwd-yifhebs medicines, aspirin, and other nonsteroidal anti- inflammatory [...] You?ll meet with your anesthesiologist or nurse referral coordinator to discuss the medicine (anesthesia) that helps [...] back Last Reviewed Date: 2023 00:00:00 ?? [id number] [employer]. All rights reserved. This information is not [...] 07/21/2025 5:45 PM EST Pastoral Care Note Brake Repair Mechanic consulted with care team and visited Damian and Jailene at bedside. Damian expressed grattitudethat he is doing better. Jailene shared that this hospitalization has been tough on her as well, giventhe responsibilities she's had to take on while Damian's here. Brake Repair Mechanic offered an empathic presenceand supportive listening as Jailene shared about her own health struggles. Brake Repair Mechanic assured Damian and Jailene that pastoral care is available 10/04. Referral From: Brake Repair Mechanic Initiated Pastoral Care Provided For: Patient, Spouse Patient Profile: Consult Reasons: Initial visit Spiritual Assessment: Support Systems/ Spiritual Resources: Family Spiritual Needs: Emotional support Spiritual Issues: Critical Illness, Trauma/ crisis Interventions: Interventions Provided: Consulted with care team, Introduced Patient/Family to Brake Repair Mechanic Services, Supportive Listening, Family support, Emotional support Pastoral Care Outcomes: Patient Outcomes: Is knowledgeable about [employer], Appreciative of Brake Repair Mechanic Support * Significant Event - Omer Schroeder APRN, DNP - 07/21/2025 12:35 PM EST Mr Washington is no longer critically ill and is safe for transfer. In consultation with the primary service, [facility] will sign off at this time. Please [...] is no recent study available for direct zyrn-ly-awon comparison. ASSESSMENT/PLAN Damian Washington is a 74 [...] physician: Dr Gonzalez. Please page the on-call swager operator with any further questions. We will continue to follow. Please page the swager operator fashion illustrator for any questions ([phone]). Memo Rob MS4 07/21/25 11:50 AM [1] [...] Note Damian Washington 74 y.o. male CSN: [id number] Room/Bed 138/138A Nutrition evaluation type: assessment Reason [...] having a good appetite and eating well HAND SEWER SHOES, but also reports weight loss of around [...] (Calculated): 19.47 Weight Evaluation: Normal (BMI 18.5-24.9) Beaver Body Weight (kg): 70 Percent [place] Body Weight: 82 Wt Readings from Last [...] Education Provided: Will monitor Pertinent home medications: Anabaptism needs: Nutrition Focused Physical Exam: Physical exam [...] Note Damian Washington 74 y.o. male CSN: [id number] Admission: 07/16/2025 12:37 PM Primary Problem: Cancer [...] from the original note were not included. [facility] Department of Surgery Division of Colon & [...] Anesthesiology, Perioperative, Critical Care, and Pain Medicine [facility] Reachable via [employer] Secure Chat Cosigned by Maicol Garcia MD [...] ear normal. Nose: Nose normal. Mouth/Throat: Lips: [place]. Mouth: Mucous membranes are moist. Pharynx: Oropharynx [...] discussed with Dr. Chaves. Pasquale Schroeder DNP, [facility], [facility] Anesthesiology, Critical Care Medicine * Consults - [...] physician: Dr Gonzalez. Please page the on-call swager operator with any further questions. I spent 45 minutes performing the following components of the encounter (on the day of the encounter): reviewing History, examining the patient, reviewing imaging and/or labs, Independently interpreting echocardiogram, ECG and/or other imaging results, counseling the patient and family/caregiver, communicating with other health care nurse rn, care coordination, and entering clinical information in [...] a surgical standpoint. Do not feel herequires regional intermodal truck driver Amiodarone after a single provoked episode. Reviewed [...] ear normal. Nose: Nose normal. Mouth/Throat: Lips: [place]. Mouth: Mucous membranes are moist. Pharynx: Oropharynx [...] Tobacco use disorder Critical Care Performed by: [facility], Omer B, TRANSFER TABLE OPERATOR, DNP Authorized by: Omer Schroeder APRN, DNP [...] discussed with Dr. Chaves. Pasquale Schroeder DNP, [facility], [facility] Anesthesiology Critical Care Medicine [1] Past Surgical [...] from the original note were not included. [facility] Department of Surgery Division of Colon & [...] Today: Continue NC today, walk test tomorrow [facility] Plan to D/C IVF this pm if tolerating liquids Full liquid diet NG - removed Prophylactic Lovenox Encourage ambulation and IS use Edited by: Noé Merrill MD at 07/20/2025 1152 Dispo: Continue Current Level of Care Noé Merrill MD, PGY-1 Department of Anesthesiology, Perioperative, Critical Care, and Pain Medicine [facility] Reachable via [employer] Secure Chat Cosigned by Hang Fatima MD [...] Care Family/Caregiver Present: Yes Family/Caregiver: Spouse (Jailene) Spin Tank Tender: Not Applicable Presentation Oxygen Therapy: Supplemental oxygen [...] admission Level of Mobility: Ambulatory- community Mobility [place]: Independent gait without device History of Falls: [...] bed. Bed Mobility Exam: Rolling/Turning Level of [place]: Stand-by assist Physical/Nonphysical Assist: Verbal Cues Assistive Device: Bed rails Bed Mobility Exam: Scooting/Bridging Level of [place]: Stand-by assist (anteriorly to EOB) Physical/Nonphysical Assist: Verbal Cues, Minimal cues Assistive Device: Bed rails Bed Mobility Exam: Supine to Sit Level of [place]: Stand-by assist (to the left) Physical/Nonphysical Assist: Set-up required, Verbal Cues, Nonverbal cues (demo/gestures), Minimal cues, HOB elevated Assistive Device: Bed rails Bed Mobility Exam: Sit to Supine Level of [place]: (Not assessed. Patient left up in chair.) Transfers Transfer Interventions: PT provided minimal verbal cues for safe hand placement on sitting surface,pushing up to stand and reaching back to sit, to ensure safe transition. Stand-by assist provided for balance and safety to ensure appropriate tolerance to change in position. Transfer Exam: Sit to stand Level of [place]: Stand-by assist Physical/Nonphysical Assist: Set-up required, Supervision, Verbal Cues, Minimal cues Assistive Device: (no device) Transfer Exam: Stand to Sit Level of [place]: Stand-by assist Physical/Nonphysical Assist: Supervision, Verbal Cues, Minimal cues Assistive Device: (no device) Toilet Transfer Level of [place]: Stand-by assist Physical/Nonphysical Assist: Verbal Cues, Minimal [...] LIANG using modified JAMIE scale. Standardized Assessments [facility] 6-Clicks Mobility Assessment Difficulty patient has turning [...] 3-5 steps with a railing?: A little [facility] 6-Clicks Mobility Assessment Total : 21 Assessment [...] Care Family/Caregiver Present: Yes Family/Caregiver: Spouse (Jailene) Spin Tank Tender: Not Applicable Presentation Oxygen Therapy: Supplemental oxygen O2 Delivery Method: Venturi mask FiO2 (%): 50 % O2 Flow Rate (L/min): 15 L/min Lines and Tubes: Telemetry NG/OG Mangum Sump Left nostril (Active) Peripheral IV 07/16/25 [...] admission Level of Mobility: Ambulatory- community Mobility [place]: Independent gait without device History of Falls: [...] Mobility Bed Mobility Exam: Scooting/Bridging Level of [place]: Stand-by assist (anteriorly to EOB) Physical/Nonphysical Assist: Supervision, Verbal Cues, Minimal cues Bed Mobility Exam: Supine to Sit Level of [place]: Stand-by assist (to the left) Physical/Nonphysical Assist: Set-up required, Verbal Cues, Nonverbal cues (demo/gestures), Minimal cues, HOB elevated Assistive Device: Bed rails Transfers Transfer Exam: Sit to stand Level of [place]: Stand-by assist Physical/Nonphysical Assist: Set-up required, Supervision, Verbal Cues, Minimal cues Assistive Device: (no device) Transfer Exam: Stand to Sit Level of [place]: Stand-by assist Physical/Nonphysical Assist: Supervision, Verbal Cues, Minimal cues Assistive Device: (no device) Toilet Transfer Level of [place]: Stand-by assist Physical/Nonphysical Assist: Supervision, Verbal Cues, [...] with no device (as well as larger [facility]/small community distances; 15' + 320' in total), [...] RN aware of session vitals. Standardized Assessments [facility] 6-Click Daily Activities Help from Other: Don/Doff Regular Lower Body Clothings: None Help From Other: Bathing: Little Help From Other: Toileting: None Help From Other: Don/Doff Upper Body Clothings: Little Help From Other: Grooming: None Help From Other: Eating Meals: None [facility] 6 Click - Daily Activities Score: 22/24 [facility] Scoring Interpretation: Scores greater than 20.5 suggest ability to perform daily self-cares independently and may indicate a high suitability for a home/self-care discharge. Assessment Patient tolerated today's initial evaluation/session well with rest breaks as needed. HR remained elevated at rest and increased with activity; ranging from 90-146 bpm during session (RN aware). [id number] 94-98% while on 50% FiO2 at 15 [...] from the original note were not included. [facility] Department of Surgery Division of Colon & Rectal Surgery Surgery Progress Note 07/19/25 Damian Washington Full Code Subjective Subjective: HPI Daiman Washington is a 74 y/o with newly [...] saw and evaluated the patient with the medical/HUMAN RESOURCES PROJECT COORDINATOR/PA student. I discussed the case with the medical/HUMAN RESOURCES PROJECT COORDINATOR/PA student and agree with the findings and [...] from the original note were not included. [facility] Department of Surgery Division of Colon & [...] MD at 07/18/2025 09 Follow-up chest x-ray [facility] IVF NPO with sips/chips NG Prophylactic Lovenox [...] anesthesia or Malignant hyperthermia. who presented to [facility] with Cancer of sigmoid colon. They were [...] Note Damian Washington 74 y.o. male CSN: [id number] Admission: 07/16/2025 12:37 PM Primary Problem: Cancer of sigmoid colon Assembler Faucets reviewed chart and spoke with patient and his at to complete this Initial CaseManagement Assessment. PCP: Bryan Watkins MD Emergency Contact: Extended Emergency Contact Information Primary Emergency Contact: JAILENE WASHINGTON Mobile Relation: Spouse Preferred language: Cuban Insurance: Primary Visit Coverage Payer Plan Sponsor Code Group Number Group Name MEDICARE MEDICARE A & B Primary Visit Coverage Subscriber Subscriber ID Subscriber Name Subscriber [facility] Subscriber Address [id number] Adam Washingtonkamron Eid [id number] [place] [address] [address] [place] [address] Secondary Visit Coverage Payer Plan Sponsor Code Group Number Group Name LISANDRA FRY [facility] [id number] Secondary Visit Coverage Subscriber Subscriber ID Subscriber Name Subscriber [facility] Subscriber Address [id number] Adam Washingtonkamron Eid [id number] [place] [address] [place] [address] Patient information: Primary Caregiver: Self Accompanied by/Relationship: Daily Living Activities: Functional Status: Independent Living Arrangements: Spouse/Significant other Type of Residence: Single Level [address] [place] [address] [place] [address] Current DME: Equipment Currently Used at Home: none Housing Circumstances-Z Codes: Housing Circumstances (select all that apply): None Applicable Anticipated Discharge Date: unknown Patient's Discharge Goal: home Assistance Available at Discharge: Discharge Transport: Follow Up Transport: self Home Health / Home Infusion / Outpatient Dialysis Services: none Living Will/Advance Directive/Power of Hook Tender /Guardian: Have you reviewed your Advance Directive [...] Pt has Medicare A & B and [employer] as his insurance. Transportation home will be provided by his . Pt has listed his , Jailene Washington, as his em ergency contact, phone # [phone]. Pt obtains medications from [employer]. Pt currently has a rolling walker, cane, w/c, raised toilet seat, and shower chair that he does not use. He is not receiving services. Will continue to follow and assist with d/c needs as they arise. Madina Lee RN * Progress Notes - Gina Woods - 07/17/2025 11:26 AM EDT Images from the original note were not included. [facility] Department of Surgery Division of Colon & [...] by: Gina Woods at 07/17/2025 1157 Plan: [facility] IVF NPO with sips/chips NG SubQ heparin [...] saw and evaluated the patient with the medical/HUMAN RESOURCES PROJECT COORDINATOR/PA student. I discussed the case with the medical/HUMAN RESOURCES PROJECT COORDINATOR/PA student and agree with the findings and [...] from the original note were not included. [facility] Department of Surgery Division of Colorectal Surgery [...] content. Incisions: covered LTD: Drain Duration NG/OG Mangum Sump Left nostril <1 day Urethral Catheter [...] nursing staff. I have notified senior resident/attending fashion illustrator with any issues or concerns. Napoleon Grant [...] Agree with above assessment and evaluation from resident/ASSEMBLING INSPECTOR. * Perioperative Nursing Note - Radha Barksdale - 07/16/2025 2:53 PM EDT Specimens from procedure 07/16/2025 picked up by [employer] and delivered to surgical pathology. * Op Note - Maicol Garcia MD - 07/16/2025 2:53 PM EDT [facility] Colon and Rectal Surgery Operative Note JACINTO Garcia MD FACS FASCRS Patient: Damian Washington : 1950 Date of Procedure: 07/16/2025 Admit Date: 07/16/2025 Facility Location: [facility] Pre-Operative Diagnosis: Sigmoid colon cancer. Moderate protein calorie malnutrition. BMI 19. Emphysema. Post-Operative Diagnosis: Same. Procedure: Sigmoid colectomy. Mobilization of splenic flexure. Attending Surgeon: Shanna Garcia MD FACS FASCRS (present throughout entire procedure). Resident Surgeon: Aiden Rodriguez MD. Surgery Team: * Maicol Garcia - Primary Anesthesia Team: Anesthesiologist: Sujit Chester MD; Demaroc Chen MD ASSEMBLING INSPECTOR: Mae Pozo CRNA Anesthesia Type: General ASA [...] anastomosis seemed to lay best in a [id number] position. Colotomy was made on both limbs [...] postoperative recovery discussed. In accordance with the [employer] Quality Programs for Cancer [...] AM EDT Appointment [facility] [address] [place] [address] 02/03/2026 10:00 AM EDT Office Visit [facility] [address] [place] [address] Maicol Garcia MD [address] [facility] [address] [place] [address] 02/03/2026 10:00 AM EDT Clinical Support [facility] [address] [place] [address] Scheduled Referrals Name Type Priority Associated Diagnoses [...] TRANSTHORACIC COMPLETE STAT 07/21/2025 8:35 AM EST [place] CRITICAL CARE, E/M 30-74 MINUTES Routine 07/21/2025 [...] PANEL, VENOUS Routine 07/20/2025 5:36 PM EST [place] CRITICAL CARE, E/M 30-74 MINUTES Routine 07/20/2025 [...] 3:28 PM EDT Cancer of sigmoid colon [place] PART REMOVAL COLON W ANASTOMOSIS 07/16/2025 2:02 PM EDT Cancer of sigmoid colon POCT GLUCOSE METER UNSOLICITED RESULTS Routine 07/16/2025 1:41 PM EDT TYPE AND SCREEN Routine 07/16/2025 12:56 PM EDT documented in this encounter Results * (ABNORMAL) Hepatic function panel (07/22/2025 3:51 PM EST) Direct Bilirubin, Plasma <0.2 <=0.3 mg/dL 07/22/2025 4:49 PM EST [facility] Alkaline Phosphatase, Plasma 86 40 - 115 U/L 07/22/2025 4:49 PM EST [facility] Total Bilirubin, Plasma 0.2 0.2 - 1.1 mg/dL 07/22/2025 4:49 PM EST [facility] Albumin, Plasma 3.2(L) 3.5 - 5.2 g/dL 07/22/2025 4:49 PM EST [facility] Total Protein 6.1(L) 6.3 - 7.9 g/dL 07/22/2025 4:49 PM EST [facility] ALT, Plasma 21 10 - 50 U/L 07/22/2025 4:49 PM EST [facility] AST, Plasma 28 10 - 50 U/L 07/22/2025 4:49 PM EST [facility] Comment:Hemolyzed, result ma y be falsely increased. Blood Venous blood specimen / Unknown Venipuncture / Unknown 07/22/2025 3:51 PM EST 07/22/2025 4:18 PM EST us Maicol Garcia MD LAB BLOOD ORDERABLES Final Res ult [facility] [address] [place] [address] * ECHO, ADULT TRANSTHORACIC COMPLETE (07/21/2025 8:35 [...] 2.8 cm2 CONSTANTINO ISCV LAV(MOD-4ch) 58 mL CONSTANTION ISCV RA MOD 4Ch 29 mL CONSTANTINO [...] is no recent study available for direct [id number] comparison. Left Ventricle The left ventricle is [...] is no recent study available for direct [id number] comparison. Wall Scoring Baseline Score Index: 1.82 The following segments are aneurysmal: basal inferior. The following segments are akinetic: mid inferolateral. The following segments are hypokinetic: basal anterior, basal inferolateral, basal anterolateral, mid anterior, mid anterolateral, apical anterior, apical lateral and apex. All other segments are normal. us Hang Fatima MD CV ECHO PROCEDURES Final Resul t * [place] CRITICAL CARE, E/M 30-74 MINUTES (07/21/2025 8:31 [...] 110(H) <19 ng/L 07/21/2025 8:10 AM EST [facility] Troponin Delta 5 <10 ng/L 07/21/2025 8:10 AM EST [facility] Troponin Delta Interpretation Not Significant 07/21/2025 8:10 AM EST [facility] Comment:Not Significant. No acute change in troponin observed between the baseline and 2 hour samples. Blood Venous blood specimen / Unknown Venipuncture / Unknown 07/21/2025 7:31 AM EST 07/21/2025 7:42 AM EST Joan Miller APRN LAB BLOOD ORDERABLES Final R esult Performing Organization Address City/[facility]/ZIP Co de Phone Number [facility] [address] [place] [address] * (ABNORMAL) Troponin T, High Sensitivity, 0 Hour Plasma, Reflex to 2 Hour (07/21/2025 5:11 AM EST) Troponin T, High Sensitivity, 0 Hour 115(H) <19 ng/L 07/21/2025 6:32 AM EST [facility] Blood Venous blood specimen / Unknown Venipuncture / Unknown 07/21/2025 5:11 AM EST 07/21/2025 6:05 AM EST Joan Miller APRN LAB BLOOD ORDERABLES Final R esult [facility] [address] [place] [address] * (ABNORMAL) Troponin T, High Sensitivity, 2 Hour, Plasma (07/21/2025 12:15 AM EST) Troponin T, High Sensitivity, 2 Hour 148(H) <19 ng/L 07/21/2025 12:48 AM EST [facility] Troponin Delta 1 <10 ng/L 07/21/2025 12:48 AM EST [facility] Troponin Delta Interpretation Not Significant 07/21/2025 12:48 AM EST [facility] Comment:Not Significant. No acute change in troponin observed between the baseline and 2 hour samples. Blood Venous blood specimen / Unknown Venipuncture / Unknown 07/21/2025 12:15 AM EST 07/21/2025 12:20 AM EST us Maicol Garcia MD LAB BLOOD ORDERABLES Final Res ult Performing Organization Address City/[facility]/ZIP Co de Phone Number [facility] [address] [place] [address] * Phosphorus (07/21/2025 12:15 AM EST) Phosphorus, Plasma 3.1 2.5 - 4.5 mg/dL 07/21/2025 12:51 AM EST [facility] Blood Venous blood specimen / Unknown Venipuncture / Unknown 07/21/2025 12:15 AM EST 07/21/2025 12:20 AM EST us Maicol Garcia MD LAB BLOOD ORDERABLES Final Res ult Performing Organization Address [facility] Co de Phone Number [facility] [address] [place] [address] * (ABNORMAL) Magnesium (07/21/2025 12:15 AM EST) Magnesium, Plasma 2.5(H) 1.9 - 2.4 mg/dL 07/21/2025 12:51 AM EST [facility] Blood Venous blood specimen / Unknown Venipuncture / Unknown 07/21/2025 12:15 AM EST 07/21/2025 12:20 AM EST us Maicol Garcia MD LAB BLOOD ORDERABLES Final Res ult Performing Organization Address City/[facility] Co de Phone Number [facility] [address] [place] [address] * (ABNORMAL) Basic metabolic panel (07/21/2025 12:15 AM EST) Glucose, Plasma 95 74 - 99 mg/dL 07/21/2025 12:51 AM EST [facility] BUN, Plasma 14 8 - 23 mg/dL 07/21/2025 12:51 AM EST [facility] Creatinine, Plasma 0.70 0.70 - 1.20 mg/dL 07/21/2025 12:51 AM EST [facility] BUN/Creatinine Ratio 20 07/21/2025 12:51 AM EST [facility] Sodium, Plasma 138 136 - 145 mmol/L 07/21/2025 12:51 AM EST [facility] Potassium, Plasma 4.5 3.6 - 4.9 mmol/L 07/21/2025 12:51 AM EST [facility] Chloride, Plasma 106 97 - 107 mmol/L 07/21/2025 12:51 AM EST [facility] CO2, Plasma 24 22 - 29 mmol/L 07/21/2025 12:51 AM EST [facility] Anion Gap 8 6 - 16 mmol/L 07/21/2025 12:51 AM EST [facility] Total Calcium, Plasma 7.9(L) 8.9 - 10.2 mg/dL 07/21/2025 12:51 AM EST [facility] eGFRcr 95.5 mL/min/1.7 3m*2 07/21/2025 12:51 AM EST [facility] Comment:Reported eGFRcr in m L/min/1.73m2 is based the CKD-EPI 2020 equation that does not use a race coefficient. Blood Venous blood specimen / Unknown Venipuncture / Unknown 07/21/2025 12:15 AM EST 07/21/2025 12:20 AM EST us Maicol Garcia MD LAB BLOOD ORDERABLES Final Res ult [facility] [address] [place] [address] * (ABNORMAL) CBC W/O Differential (07/21/2025 12:15 AM EST) WBC Count 7.76 3.70 - 10.30 10*3/uL LAB HEMATOLOGY METHOD 07/21/2025 12:28 AM EST [facility] RBC Count 2.88(L) 4.60 - 6.10 10*6/uL LAB HEMATOLOGY METHOD 07/21/2025 12:28 AM EST [facility] HGB 9.2(L) 13.7 - 17.5 g/dL LAB HEMATOLOGY METHOD 07/21/2025 12:28 AM EST [facility] HCT 27.4(L) 40.0 - 51.0 % LAB HEMATOLOGY METHOD 07/21/2025 12:28 AM EST [facility] Platelet Count 167 155 - 369 10*3/uL LAB HEMATOLOGY METHOD 07/21/2025 12:28 AM EST [facility] MCV 95 79 - 98 fL LAB HEMATOLOGY METHOD 07/21/2025 12:28 AM EST [facility] MCH 31.9 26.0 - 32.0 pg LAB HEMATOLOGY METHOD 07/21/2025 12:28 AM EST [facility] MCHC 33.6 30.7 - 35.5 g/dL LAB HEMATOLOGY METHOD 07/21/2025 12:28 AM EST [facility] RDW 13.5 11.5 - 14.5 % LAB HEMATOLOGY METHOD 07/21/2025 12:28 AM EST [facility] MPV 9.4 8.8 - 12.5 fL LAB HEMATOLOGY METHOD 07/21/2025 12:28 AM EST [facility] nRBC 0.0 <=0.0 per 100 WBCs LAB HEMATOLOGY METHOD 07/21/2025 12:28 AM EST [facility] Blood Venous blood specimen / Unknown Venipuncture / Unknown 07/21/2025 12:15 AM EST 07/21/2025 12:20 AM EST us Maicol Garcia MD LAB BLOOD ORDERABLES Final Res ult [facility] [address] [place] [address] * ECG Adult (07/21/2025 12:10 AM EST) EKG DIAGNOSIS CLASS Abnormal MUSE ECG Ventricular Rate 70 BPM MUSE ECG Atrial Rate 70 BPM MUSE ECG [place] Interval 114 ms MUSE ECG QRSD Interval 128 ms MUSE ECG QT Interval 452 ms MUSE ECG QTC Interval 488 ms MUSE ECG P [place] 73 degrees MUSE ECG R [place] 84 degrees MUSE ECG T Wave [place] 26 degrees MUSE ECG Diagnosis Normal sinus rhythm restored MUSE ECG Diagnosis premature ventricular complexes MUSE ECG Diagnosis Right bundle branch block MUSE ECG Diagnosis Abnormal ECG MUSE ECG Diagnosis MUSE ECG Diagnosis Confirmed by Timo Desai ([id number]) on 07/21/2025 2:53:42 PM MUSE ECG 07/21/2025 12:1 0 AM EST 07/21/2025 2:53 PM EST us Maicol Garcia MD ECG ORDERABLES Final Result Performing Organization Address City/[facility]/ZIP Co de Phone Number MUSE ECG * (ABNORMAL) Troponin T, High Sensitivity, 0 Hour Plasma, Reflex to 2 Hour (07/20/2025 9:58 PM EST) Troponin T, High Sensitivity, 0 Hour 147(H) <19 ng/L 07/20/2025 10:31 PM EST [facility] Blood Venous blood specimen / Unknown Venipuncture / Unknown 07/20/2025 9:58 PM EST 07/20/2025 10:02 PM EST us Maicol Garcia MD LAB BLOOD ORDERABLES Final Res ult [facility] [address] [place] [address] * (ABNORMAL) Troponin T, High Sensitivity, 2 Hour, Plasma (07/20/2025 6:33 PM EST) Troponin T, High Sensitivity, 2 Hour 54(H) <19 ng/L 07/20/2025 7:07 PM EST [facility] Troponin Delta 36(H) <10 ng/L 07/20/2025 7:07 PM EST [facility] Troponin Delta Interpretation Significant 07/20/2025 7:07 PM EST [facility] Comment:Significant change i n Troponin [...] ORDERABLES Final Res ult Performing Organization Address [facility] [place] [place] [address] * Casimiro auris Surveillance by PCR (07/20/2025 5:38 PM EST) Casimiro auris PCR Result Not Detected Not Detected 07/21/2025 1:06 PM EST [facility] Swab (Axilla and Groin) Non-blood Collection / Unknown 07/20/2025 5:38 PM EST 07/20/2025 5:44 PM EST Narrative [facility] - 07/21/2025 1:06 PM EST This PCR assay was developed and its performance characteristics determined by [facility] as appropriate for clinical purposes. This assay has not been cleared or approved by the FDA, but is performed in a CLIA regulated laboratory that is qualified to perform high-complexity testing. us Maicol Garcia MD LAB MICROBIOLOGY - GENERAL ORD ERABLES Final Result Performing Organization Address [facility] [address] * Multi Drug Resistance Test (07/20/2025 5:38 PM EST) Culture No growth at day 1 07/22/2025 5:08 AM EST [facility] Swab (Nares and Lizzie Rectal) Non-blood Collection / Unknown 07/20/2025 5:38 PM EST 07/20/2025 5:44 PM EST Narrative [facility] - 07/22/2025 5:08 AM EST This test was developed and its performance characteristics determined by the [facility]. Although the media is FDA-approved, it is not FDA-approved for all specimen types submitted. The FDA has determined that such clearance or approval is not necessary. This test is used for surveillance purposes. It should not be regarded as investigational or for research. The [facility] is certified under the Clinical Laboratory Improvement Amendments of 1988 (CLIA-88) as qualified to perform high complexity clinical laboratory testing. Maicol Garcia MD LAB MICROBIOLOGY - GENERAL ORD ERABLES Final Result [facility] [address] [place] [address] * (ABNORMAL) Blood gas panel, venous (07/20/2025 5:36 PM EST) pH, Venous 7.44(H) 7.32 - 7.43 LAB HEMATOLOGY METHOD 07/20/2025 5:46 PM EST [facility] pCO2, Venous 42 40 - 55 mmHg LAB HEMATOLOGY METHOD 07/20/2025 5:46 PM EST [facility] pO2, Venous 25 25 - 40 mmHg LAB HEMATOLOGY METHOD 07/20/2025 5:46 PM EST [facility] SO2, Measured, Venous 42(L) 65 - 80 % LAB HEMATOLOGY METHOD 07/20/2025 5:46 PM EST [facility] Base Excess, Venous 3.5(H) -2.0 - 3.0 mmol/L LAB HEMATOLOGY METHOD 07/20/2025 5:46 PM EST [facility] Bicarbonate, Calculated, Venous 28(H) 22 - 26 mmol/L LAB HEMATOLOGY METHOD 07/20/2025 5:46 PM EST [facility] Hematocrit, Whole Blood 31.9(L) 40.0 - 51.0 % LAB HEMATOLOGY METHOD 07/20/2025 5:46 PM EST [facility] Sodium, Whole Blood 139 136 - 145 mmol/L LAB HEMATOLOGY METHOD 07/20/2025 5:46 PM EST [facility] Potassium, Whole Blood 3.1(L) 3.6 - 4.9 mmol/L LAB HEMATOLOGY METHOD 07/20/2025 5:46 PM EST [facility] Chloride, Whole Blood 103 97 - 107 mmol/L LAB HEMATOLOGY METHOD 07/20/2025 5:46 PM EST [facility] Glucose, Whole Blood 124(H) 74 - 99 mg/dL LAB HEMATOLOGY METHOD 07/20/2025 5:46 PM EST [facility] Lactate, Venous, Whole Blood 1.3 0.5 - 2.2 mmol/L LAB HEMATOLOGY METHOD 07/20/2025 5:46 PM EST [facility] Ionized Calcium, Whole Blood 4.4(L) 4.6 - 5.1 mg/dL LAB HEMATOLOGY METHOD 07/20/2025 5:46 PM EST [facility] Blood Venous blood specimen / Unknown Venipuncture / Unknown 07/20/2025 5:36 PM EST 07/20/2025 5:45 PM EST us Maicol Garcia MD LAB BLOOD ORDERABLES Final Res ult [facility] [address] [place] [address] * [place] CRITICAL CARE, E/M 30-74 MINUTES (07/20/2025 4:58 [...] Hold for add-ons 07/20/2025 8:02 PM EST [facility] Comment:Auto resulted. Blood Venous blood specimen / Unknown 07/20/2025 4:54 PM EST 07/20/2025 5:09 PM EST Maicol Garcia MD LAB BLOOD ORDERABLES Final Res ult Performing Organization Address [facility] Co de Phone Number [facility] [address] [place] [address] * (ABNORMAL) Procalcitonin (07/20/2025 4:18 PM EST) Pathologist [facility] Procalcitonin, Plasma 0.41(H) <0.09 ng/mL 07/20/2025 5:06 PM EST [facility] Blood Venous blood specimen / Unknown Venipuncture / Unknown 07/20/2025 4:18 PM EST 07/20/2025 4:29 PM EST Narrative [facility] - 07/20/2025 5:06 PM EST [...] predict 28 day mortality risk. Please consult [email or web address] for more information. Test performed at [facility]. us Maicol Garcia MD LAB BLOOD ORDERABLES Final Res ult Performing Organization Address [facility]/ZIP Co de Phone Number [facility] [address] [place] [address] * (ABNORMAL) CBC W/O Differential (07/20/2025 4:18 PM EST) WBC Count 10.86(H) 3.70 - 10.30 10*3/uL LAB HEMATOLOGY METHOD 07/20/2025 4:38 PM EST [facility] RBC Count 3.43(L) 4.60 - 6.10 10*6/uL LAB HEMATOLOGY METHOD 07/20/2025 4:38 PM EST [facility] HGB 11.3(L) 13.7 - 17.5 g/dL LAB HEMATOLOGY METHOD 07/20/2025 4:38 PM EST [facility] HCT 32.7(L) 40.0 - 51.0 % LAB HEMATOLOGY METHOD 07/20/2025 4:38 PM EST [facility] Platelet Count 182 155 - 369 10*3/uL LAB HEMATOLOGY METHOD 07/20/2025 4:38 PM EST [facility] MCV 95 79 - 98 fL LAB HEMATOLOGY METHOD 07/20/2025 4:38 PM EST [facility] MCH 32.9(H) 26.0 - 32.0 pg LAB HEMATOLOGY METHOD 07/20/2025 4:38 PM EST [facility] MCHC 34.6 30.7 - 35.5 g/dL LAB HEMATOLOGY METHOD 07/20/2025 4:38 PM EST [facility] RDW 13.3 11.5 - 14.5 % LAB HEMATOLOGY METHOD 07/20/2025 4:38 PM EST [facility] MPV 9.6 8.8 - 12.5 fL LAB HEMATOLOGY METHOD 07/20/2025 4:38 PM EST [facility] nRBC 0.0 <=0.0 per 100 WBCs LAB HEMATOLOGY METHOD 07/20/2025 4:38 PM EST [facility] Blood Venous blood specimen / Unknown Venipuncture / Unknown 07/20/2025 4:18 PM EST 07/20/2025 4:29 PM EST us Maicol Garcia MD LAB BLOOD ORDERABLES Final Res ult [facility] [address] [place] [address] * (ABNORMAL) Basic metabolic panel (07/20/2025 4:18 PM EST) Glucose, Plasma 98 74 - 99 mg/dL 07/20/2025 5:06 PM EST [facility] BUN, Plasma 15 8 - 23 mg/dL 07/20/2025 5:06 PM EST [facility] Creatinine, Plasma 0.70 0.70 - 1.20 mg/dL 07/20/2025 5:06 PM EST [facility] BUN/Creatinine Ratio 21 07/20/2025 5:06 PM EST [facility] Sodium, Plasma 140 136 - 145 mmol/L 07/20/2025 5:06 PM EST [facility] Potassium, Plasma 3.4(L) 3.6 - 4.9 mmol/L 07/20/2025 5:06 PM EST [facility] Chloride, Plasma 102 97 - 107 mmol/L 07/20/2025 5:06 PM EST [facility] CO2, Plasma 26 22 - 29 mmol/L 07/20/2025 5:06 PM EST [facility] Anion Gap 12 6 - 16 mmol/L 07/20/2025 5:06 PM EST [facility] Total Calcium, Plasma 8.4(L) 8.9 - 10.2 mg/dL 07/20/2025 5:06 PM EST [facility] eGFRcr 95.5 mL/min/1.7 3m*2 07/20/2025 5:06 PM EST [facility] Comment:Reported eGFRcr in m L/min/1.73m2 is based the CKD-EPI 2020 equation that does not use a race coefficient. Blood Venous blood specimen / Unknown Venipuncture / Unknown 07/20/2025 4:18 PM EST 07/20/2025 4:29 PM EST us Maicol Garcia MD LAB BLOOD ORDERABLES Final Res ult [facility] [address] [place] [address] * Troponin T, High Sensitivity, 0 Hour Plasma, Reflex to 2 Hour (07/20/2025 4:18 PM EST) Troponin T, High Sensitivity, 0 Hour 18 <19 ng/L 07/20/2025 5:06 PM EST [facility] Blood Venous blood specimen / Unknown Venipuncture / Unknown 07/20/2025 4:18 PM EST 07/20/2025 4:29 PM EST Maicol Garcia MD LAB BLOOD ORDERABLES Final Res ult [facility] [address] [place] [address] * ECG Adult (07/20/2025 4:07 PM EST) EKG DIAGNOSIS CLASS Abnormal MUSE ECG Ventricular Rate 177 BPM MUSE ECG QRSD Interval 118 ms MUSE ECG QT Interval 258 ms MUSE ECG QTC Interval 442 ms MUSE ECG R [place] 95 degrees MUSE ECG T Wave [place] -68 degrees MUSE ECG Diagnosis Atrial fibrillation [...] ECG ORDERABLES Final Result Performing Organization Address City/[facility] Co de Phone Number MUSE [...] Procalcitonin, Plasma (07/19/2025 6:07 AM EDT) Pathologist [facility] Procalcitonin, Plasma 0.79(H) <0.09 ng/mL 07/19/2025 6:54 AM EDT [facility] Blood Venous blood specimen / Unknown Venipuncture / Unknown 07/19/2025 6:07 AM EDT 07/19/2025 6:18 AM EDT Narrative [facility] - 07/19/2025 6:54 AM EDT [...] predict 28 day mortality risk. Please consult [email or web address] for more information. Test performed at [facility]. us Maicol Garcia MD LAB BLOOD ORDERABLES Final Res ult Performing Organization Address City/[facility]/ZIP Co de Phone Number [facility] [address] [place] [address] * Phosphorus, Plasma (07/19/2025 6:07 AM EDT) Phosphorus, Plasma 2.9 2.5 - 4.5 mg/dL 07/19/2025 6:54 AM EDT [facility] Blood Venous blood specimen / Unknown Venipuncture / Unknown 07/19/2025 6:07 AM EDT 07/19/2025 6:18 AM EDT us Maicol Garcia MD LAB BLOOD ORDERABLES Final Res ult Performing Organization Address [facility] Co de Phone Number [facility] [address] [place] [address] * (ABNORMAL) Magnesium, Plasma (07/19/2025 6:07 AM EDT) Magnesium, Plasma 1.7(L) 1.9 - 2.4 mg/dL 07/19/2025 6:54 AM EDT [facility] Blood Venous blood specimen / Unknown Venipuncture / Unknown 07/19/2025 6:07 AM EDT 07/19/2025 6:18 AM EDT us Maicol Garcia MD LAB BLOOD ORDERABLES Final Res ult [facility] [address] [place] [address] * (ABNORMAL) CBC (07/19/2025 6:07 AM EDT) WBC Count 12.64(H) 3.70 - 10.30 10*3/uL LAB HEMATOLOGY METHOD 07/19/2025 6:29 AM EDT [facility] RBC Count 3.57(L) 4.60 - 6.10 10*6/uL LAB HEMATOLOGY METHOD 07/19/2025 6:29 AM EDT [facility] HGB 11.6(L) 13.7 - 17.5 g/dL LAB HEMATOLOGY METHOD 07/19/2025 6:29 AM EDT [facility] HCT 33.8(L) 40.0 - 51.0 % LAB HEMATOLOGY METHOD 07/19/2025 6:29 AM EDT [facility] Platelet Count 177 155 - 369 10*3/uL LAB HEMATOLOGY METHOD 07/19/2025 6:29 AM EDT [facility] MCV 95 79 - 98 fL LAB HEMATOLOGY METHOD 07/19/2025 6:29 AM EDT [facility] MCH 32.5(H) 26.0 - 32.0 pg LAB HEMATOLOGY METHOD 07/19/2025 6:29 AM EDT [facility] MCHC 34.3 30.7 - 35.5 g/dL LAB HEMATOLOGY METHOD 07/19/2025 6:29 AM EDT [facility] RDW 13.4 11.5 - 14.5 % LAB HEMATOLOGY METHOD 07/19/2025 6:29 AM EDT [facility] MPV 9.9 8.8 - 12.5 fL LAB HEMATOLOGY METHOD 07/19/2025 6:29 AM EDT [facility] nRBC 0.0 <=0.0 per 100 WBCs LAB HEMATOLOGY METHOD 07/19/2025 6:29 AM EDT [facility] Blood Venous blood specimen / Unknown Venipuncture / Unknown 07/19/2025 6:07 AM EDT 07/19/2025 6:18 AM EDT us Maicol Garcia MD LAB BLOOD ORDERABLES Final Res ult [facility] [address] [place] [address] * XR Chest 1 View (07/18/2025 9:27 [...] - 4.5 mg/dL 07/17/2025 4:11 AM EDT [facility] Blood Venous blood specimen / Unknown Venipuncture / Unknown 07/17/2025 3:34 AM EDT 07/17/2025 3:41 AM EDT us Maicol Garcia MD LAB BLOOD ORDERABLES Final Res ult [facility] [address] [place] [address] * Magnesium, Plasma (07/17/2025 3:34 AM EDT) Magnesium, Plasma 2.2 1.9 - 2.4 mg/dL 07/17/2025 4:11 AM EDT [facility] Blood Venous blood specimen / Unknown Venipuncture / Unknown 07/17/2025 3:34 AM EDT 07/17/2025 3:41 AM EDT us Maicol Garcia MD LAB BLOOD ORDERABLES Final Res ult [facility] [address] [place] [address] * (ABNORMAL) Basic Metabolic Panel, Plasma (07/17/2025 3:34 AM EDT) Glucose, Plasma 144(H) 74 - 99 mg/dL 07/17/2025 4:11 AM EDT [facility] BUN, Plasma 20 8 - 23 mg/dL 07/17/2025 4:11 AM EDT [facility] Creatinine, Plasma 0.79 0.70 - 1.20 mg/dL 07/17/2025 4:11 AM EDT [facility] BUN/Creatinine Ratio 25 07/17/2025 4:11 AM EDT [facility] Sodium, Plasma 133(L) 136 - 145 mmol/L 07/17/2025 4:11 AM EDT [facility] Potassium, Plasma 4.7 3.6 - 4.9 mmol/L 07/17/2025 4:11 AM EDT [facility] Chloride, Plasma 100 97 - 107 mmol/L 07/17/2025 4:11 AM EDT [facility] CO2, Plasma 25 22 - 29 mmol/L 07/17/2025 4:11 AM EDT [facility] Anion Gap 8 6 - 16 mmol/L 07/17/2025 4:11 AM EDT [facility] Total Calcium, Plasma 8.7(L) 8.9 - 10.2 mg/dL 07/17/2025 4:11 AM EDT [facility] eGFRcr 92.1 mL/min/1.7 3m*2 07/17/2025 4:11 AM EDT [facility] Comment:Reported eGFRcr in m L/min/1.73m2 is based the CKD-EPI 2020 equation that does not use a race coefficient. Blood Venous blood specimen / Unknown Venipuncture / Unknown 07/17/2025 3:34 AM EDT 07/17/2025 3:41 AM EDT us Maicol Garcia MD LAB BLOOD ORDERABLES Final Res ult [facility] [address] [place] [address] * (ABNORMAL) CBC W/O Differential (07/17/2025 3:34 AM EDT) WBC Count 14.55(H) 3.70 - 10.30 10*3/uL LAB HEMATOLOGY METHOD 07/17/2025 3:51 AM EDT [facility] RBC Count 3.68(L) 4.60 - 6.10 10*6/uL LAB HEMATOLOGY METHOD 07/17/2025 3:51 AM EDT [facility] HGB 12.3(L) 13.7 - 17.5 g/dL LAB HEMATOLOGY METHOD 07/17/2025 3:51 AM EDT [facility] HCT 35.0(L) 40.0 - 51.0 % LAB HEMATOLOGY METHOD 07/17/2025 3:51 AM EDT [facility] Platelet Count 203 155 - 369 10*3/uL LAB HEMATOLOGY METHOD 07/17/2025 3:51 AM EDT [facility] MCV 95 79 - 98 fL LAB HEMATOLOGY METHOD 07/17/2025 3:51 AM EDT [facility] MCH 33.4(H) 26.0 - 32.0 pg LAB HEMATOLOGY METHOD 07/17/2025 3:51 AM EDT [facility] MCHC 35.1 30.7 - 35.5 g/dL LAB HEMATOLOGY METHOD 07/17/2025 3:51 AM EDT [facility] RDW 13.2 11.5 - 14.5 % LAB HEMATOLOGY METHOD 07/17/2025 3:51 AM EDT [facility] MPV 9.5 8.8 - 12.5 fL LAB HEMATOLOGY METHOD 07/17/2025 3:51 AM EDT [facility] nRBC 0.0 <=0.0 per 100 WBCs LAB HEMATOLOGY METHOD 07/17/2025 3:51 AM EDT [facility] Blood Venous blood specimen / Unknown Venipuncture / Unknown 07/17/2025 3:34 AM EDT 07/17/2025 3:41 AM EDT us Maicol Garcia MD LAB BLOOD ORDERABLES Final Res ult [facility] [address] [place] [address] * Surgical Pathology Exam (07/16/2025 3:28 PM EDT) Case Report Surgical Pathology Case: [id number] Authorizing Provider: Maicol Garcia MD Collected: 07/16/2025 1528 Ordering Location: [facility] A OPERATING ROOM Received: 07/16/2025 1627 Pathologist: Halima Cho MD Specimens: A) - Other (specify site), Sigmoid Colon Fresh For Permanent B) - Other (specify site), Omentum Fresh for Permenant 07/21/2025 1:32 PM EST [facility] Final Diagnosis A. 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 - MARGINS NEGATIVE FOR TUMOR INVOLVEMENT. - TWELVE LYMPH NODES NEGATIVE FOR MALIGNANCY (0/12). - PATHOLOGIC STAGE : pT2, pN0. - SEE SYNOPTIC CHECKLIST. B. OMENTUM, OMENTECTOMY: - BENIGN ADIPOSE TISSUE. 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 SIGMOID COLON FRESH [...] range from 0.2-0.6 cm in greatest dimension. Flavor Maker sections are submitted as follows: A1: Closest [...] nodes Cold Time: 59m ISAEL Adan ([facility]) B. OMENTUM FRESH FOR PERMENANT The specimen is received fresh and placed in formalin, labeled o mentum , and consists of a 9.2 x 6.1 x 1.1 cm aggregate of prakash-yellow lobulated fibroadipose tissue consistent with omentum. No masses are identified. Flavor Maker sections are submitted in cassettes B1-B3. Cold Time: 40m ISAEL Adan ([facility]) 07/21/2025 1:32 PM EST [facility] Note: A resident was involved in the service. I attest I examined the relevant preparations for the specimens and confirmed the diagnosis or interpretation. 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] Maicol Garcia MD LAB PATHOLOGY ORDERABLES Final Result [facility] [address] [place] [address] * POCT glucose meter (07/16/2025 1:41 PM EDT) POCT Glucose 92 74 - 99 mg/dL 07/16/2025 1:42 PM EDT [facility] Comment:Accuracy of a glucos e result [...] Comment 07/16/2025 1:42 PM EDT [facility] Revenue Stamp Cutter ID Anita Thomas 07/16/20 1:42 PM EDT [facility] Device ID [id number] 07/16/2025 1:42 PM EDT [facility] Specimen Type POC Venous 07/16/2025 1:42 PM EDT [facility] Blood Venous blood specimen / Unknown 07/16/2025 1:41 PM EDT 07/16/2025 1:42 PM EDT us Maicol Garcia MD LAB POINT OF CARE TE ST DOCKED DEVICE UNSOLICITED RESULTS Final Result Performing Organization Address City/[facility] Co de Phone Number [facility] [address] [place] [address] * Type and Screen (07/16/2025 12:56 PM [...] TEST ORDERABLES Final Result Performing Organization Address City/[facility] de Phone Number BLOOD BANK [address] [place] [address] documented in this encounter Visit Diagnoses Diagnosis [...] 2:46 PM EDT 5 mg sodium chloride (Zenda) 0.65 % nasal spray 1 spray 1 [...] Provider: Ricky Guy RN)2322 (Stopped - Provider: Ricky Guy RN) amiodarone (Nexterone) infusion 1.8 mg/mL (CANCELED)(Linked Group 1) 0.5 mg/min (16.6667 mL/hr, rounded to 16.67 mL/hr), 1.8 mg/mL, Intravenous, Continuous, Starting on 07/20/25 at 2325, Until Mon07/21/25 at 1152, Routine 2322 (New Bag - Provider: iRcky Guy RN) 0000 (Rate/Dose Verify - Provider: [...] Recovery(Phase II-Outpatient)/On Unit(Inpatient), severe pain sodium chloride (Zenda) 0.65 % nasal spray 1 spray 1 [...] documented as of this encounter Care Teams Laundry Helper Relationship Specialty Start Date End Date Bryan Watkins MD [address] [place] [address] PCP - General 05/19/25 documented as of this encounter
--- OUTSIDE RECORDS SUMMARY | 2025-07-16 13:17 | XMS_ITS | Encounter Summary ---
Author Organization [facility] Address [address] [place] [address] Care Team Providers Care Risk Consulting Treasury Director Name Role Phone Bryan Watkins MD Primary Care Provider [phone] Reason for Visit * Auth/Cert (Routine) Specialty Diagnoses / Procedures Referred By Sugar candelario Referred To Contact Diagnoses 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 [C18.7] Procedures MN PART REMOVAL COLON W ANASTOMOSIS COLECTOMY, SIGMOID Maicol Garcia MD [address] [facility] [address] [place] [address] Phone: tel: fax: [facility] [address] [place] [address] Phone: tel: Referral ID Status Reason Start Date Expiration Date Visits Re quested Visits Authorized [id number] 1 1 Encounter Details Date Type Department Care Team (Late st Contact Info) Description 07/16/2025 2:17 PM EDT Anesthesia Event [facility] [address] [place] [address] Mae Pozo CRNA [address] [place] [id number] Anesthesia Record Procedure Summary Procedure Name Responsible Anesthesiologist Anesthesia Start Time Anesthesia Stop Time COLECTOMY, SIGMOID Mae Pozo CRNA 07/16/25 1417 07/16/25 1638 Events Date Time [...] acknowledgement of understanding. 1638 An Stop Meds Name Total fentaNYL (Sublimaze) injection 50 mcg/mL 100 mcg propofol (Diprivan) injection 10 mg/mL 1 20 mg rocuronium (ZeMuron) injection 10 mg/mL 90 mg dexamethasone (Decadron) injection 4 mg/ mL 8 mg HYDROmorphone PF (Dilaudid) injection 1 mg/mL 1.5 mg ePHEDrine injection prefilled syringe 5 mg/mL 10 mg phenylephrine (Dannie-Synephrine) prefilled syringe 1 mg/10 mL 1,000 mcg ondansetron (Zofran) injection 2 mg/mL 4 mg sugammadex (Bridion) injection 100 mg/mL 100 mg cefOXitin (Mefoxin) injection 2 g 2 g 0.25% ropivacaine 50 mL acetaminophen (Ofirmev) injection 10 mg/ mL 1,000 mg magnesium sulfate 50 % injection 2 g lactated Ringer's infusion 1,700 mL * Agents No agents on file. * [...] Left nare; Removal Date: 07/16/25; Removal Time: 1657; Removal Reason: (duplicate) 07/16/25 0000 by Cb Cole RN 07/16/25 1657 by Cb Cole RN Peripheral IV Placement Date: 06/19 06/12; Placement Time: 1303; Catheter Size: 18 G; Orientation: Anterior, Left; Location: Forearm; Site Prep: Chlorhexidine ; Local Anesth: [place]; Technique: Anatomical landmarks; Inserted by: Candice BLAIR; [...] No change to dentition. ; Placed by: FOOD EQUIPMENT SERVICE TECHNICIAN; Removal Date: 07/16/25; Removal Time: 1619 07/16/25 [...] any time in the past 12 m [facility], were you homeless or living in a usp (including now)? No 07/17/2025 [facility] Utilities Answer Date Recorded In the past 12 months has th e electric, gas, oil, or water company threatened to shut off services in your home? No 07/17/2025 Sex and Gender Information Value Date Recorded Sex Assigned at Not on file Legal Sex Male 4:11 PM EDT Gender Identity Not on file Sexual Orientation Not on file documented as of this encounter Functional Status * Calculated C-SSRS [...] Frankel RN documented as of this encounter Miscellaneous Notes * Anesthesia Postprocedure Evaluation - Mae Pozo CRNA - 07/16/2025 4:42 PM EDT Patient: Damian Washington Anesthesia Type: general Vitals Value Taken Time BP 152/75 07/16/25 16:40 Temp 34.8 ??C (94.7 ??F) 07/16/25 16:41 Pulse 81 07/16/25 16:41 Resp 15 07/16/25 16:41 SpO2 94 % 07/16/25 16:41 Vitals shown include unfiled device data. Anesthesia Post Evaluation Patient location during evaluation: PACU Patient participation: complete - patient participated Level of consciousness: awake Pain management: adequate (pain score 0-3) Airway patency: natural airway Cardiovascular status: acceptable and hemodynamically stable Respiratory status: acceptable, nonlabored ventilation and nasal cannula Hydration status: acceptable Nausea/Vomiting: No No notable events documented. * Anesthesia Procedure Notes - Wilmer Lopez MD - 07/16/2025 2:39 PM EDT Associated Order(s): Peripheral Block Peripheral Block Patient location during procedure: OR Start time: 07/16/2025 2:25 PM End time: 07/16/2025 2:30 PM Reason for block: post-op pain management Block is at surgeon's request Staffing Performed: Resident Anesthesiologist: Ofelia Zamora MD Resident: Wilmer Lopez MD Preanesthetic Checklist Completed: patient identified, IV checked, site marked, risks and benefits discussed, surgical consent, monitors and equipment checked, pre-op evaluation and timeout performed Peripheral Block Patient position: supine Prep: ChloraPrep Patient monitoring: continuous pulse ox, heart rate and gambling monitor Block type: TAP Laterality: left and right Injection technique: single-shot Guidance: ultrasound guided Ultrasound used for needle placement AND ultrasound image retained Needle Needle gauge: 20g. Needle length: 4in. Needle localization: anatomical landmarks and ultrasound guidance Medications Administered: 0.25% ropivacaine - Injection 50 mL - 07/16/2025 2:25:00 PM Assessment Injection assessment: negative aspiration for heme, local visualized surrounding nerve on ultrasound and incremental injection Paresthesia pain: none Heart rate change: no Slow fractionated injection: yes Additional Notes The patient was in supine position. A linear ultrasound probe was placed on the lateral wall of theabdomen between the costal margin and the iliac crest and the relevant muscular anatomy was visualized. A large area of skin encompassing the intended needle insertion site was cleansed using chloraprep.The block needle was inserted through skin from the anterior aspect and advanced through the external oblique m., internal oblique m. and into the fascial plane between the internal oblique m. and the transversus abdominis m. using an in-plane technique with ultrasound guidance. Aspiration was negative for heme or bowel contents. Local anesthetic was injected into the TAP plane incrementally in 5mL aliquots, aspirating between each injection. Ultrasound imaging was utilized to confirm spread oflocal anesthetic along the fascial plane with the goal of reaching posteriorly to the end of the transversus abdominis m. The same block was performed on the contralateral side. A total of 50cc of 0.25% Ropivacaine without adjunct was utilized for the block. The needle was removed from the patient. The patient tolerated the procedure well, with no obvious complications. Cosigned by Ofelia Zamora MD at 07/16/2025 2:42 PM EDT Associated attestation - Ofelia Zamora MD - 07/16/2025 2:42 PM EDT I was present during all critical and phillip portions of the procedure(s) and immediately available [facility] services the entire duration. See resident note for details. * Anesthesia Procedure Notes - Mae Pozo CRNA - 07/16/2025 2:29 PM EDTAssociated Order(s): Airway Airway Date/Time: 07/16/2025 2:25 PM Reason: elective Airway not difficult General Information and Staff Patient location during procedure: OR FOOD EQUIPMENT SERVICE TECHNICIAN: Mae Pozo CRNA Performed: FOOD EQUIPMENT SERVICE TECHNICIAN Patient Condition Indications for airway management: anesthesia Patient position: sniffing Final Airway Details Final airway type: endotracheal airway Successful airway: ETT Cuffed: yes Successful intubation technique: direct laryngoscopy Adjuncts used in placement: intubating stylet Endotracheal tube insertion site: oral Blade: Solange Blade size: #3 ETT size (mm): 8.0 Placement verified by: chest auscultation and capnometry Measured from: lips ETT to lips (cm): 23 Additional Comments Atraumatic. No change to dentition. * Anesthesia Preprocedure Evaluation - Sujit Chester MD - 07/16/2025 2:07 PM EDT Images from the original note were not included. Patient: Damian Washington HPI Damian Washington is a 74 y.o. male with body mass index is 19.46 kg/m??. who presents with Cancer of sigmoid colon, now for COLECTOMY, SIGMOID (N/A) Procedure Information Date/Time: 07/16/25 1320 Procedure: COLECTOMY, SIGMOID Location: 2OR [facility] OR Surgeons: Maicol Garcia MD Active smoker + Relevant Problems GI (+) Cancer of sigmoid colon ALLERGIES Allergies[1] NPO STATUS: as per ASA standards Date of Last Liquid: 07/16/25 (20 oz gatorade) Time of Last Liquid: 0900 Date of Last Solid: 07/14/25 Time of Last Void: 1326 Past Medical History[2] METS > 4 AIRWAY HISTORY Airway Detailed Review Displaying the 20 most recent records No records found. MEDICATIONS Outpatient Current Outpatient Medications Medication Instructions bisacodyl (Dulcolax) [...] every 15 minutes until completed finished. SSICOLON Scheduled Current Scheduled Medications[3] PRNs Current PRN Medications[4] SURGICAL HX: Surgical History[5] SOCIAL HX: Social History[6] OBJECTIVE DATA ROS Anesthesia: Date of last anesthetic: for inguinal hernia repair and vasectomy. No GA complications. Does not have a history of anesthetic complications, malignant hyperthermia, obstructive sleep apnea and PONV. Cardiovascular: dyspnea (chronic, atrributed to COPD/smoking). Does not have CAD, CHF, dysrhythmias, peripheral edema, hyperlipidemia, murmur, peripheral edema, past HI or syncope. no hypertension: Does not have chest pain. Cardio additional comments: Exercise Tolerance. 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 Has to stop a few times due to SOA. 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 Sleeps in regular bed [...] Does not have thyroid disorder. 07/04/25 EKG LABS Lab Results Component Value Date WBC 9.33 07/04/2025 HGB 14.2 07/04/2025 HCT 43.6 07/04/2025 MCV 97 07/04/2025 PLT 268 07/04/2025 Lab Results Component Value Date CALCIUM 9.8 07/04/2025 BUN 17 07/04/2025 CREATININE 0.83 07/04/2025 BCR 20 07/04/2025 NA 139 07/04/2025 K 4.3 07/04/2025 CL 100 07/04/2025 CO2 30 (H) 07/04/2025 Type and Screen ABO/Rh Date Value Ref Range Status 07/16/2025 O Positive Final No results found for: HGBA1C Lab Results Component Value Date PGLU 92 07/16/2025 GLUCOSE 90 07/04/2025 ECHO No echocardiogram results found for the past 12 months PFTs No results found for: NWS1MUP , XWQ8MWEK , WWE6JNL , FVCPRED BP Readings from Last 5 Encounters: 07/16/25 137/72 07/04/25 126/75 07/01/25 132/71 Physical Exam Airway Mallampati: II Mouth opening: normal TM distance: >3 FB Neck ROM: full Cardiovascular Rhythm: regular Rate: normal Dental (+) edentulous Pulmonary Breath sounds clear to auscultation (+) decreased breath sounds Neurological Oriented: normal to time, normal to place and normal to person and oriented to person, place and time Skin - normal exam Musculoskeletal Extremities Anesthesia Plan ASA 2 Plan was reviewed with: FOOD EQUIPMENT SERVICE TECHNICIAN Anesthesia technique(s) discussed with the patient/family: general Anesthesia plan agreed upon was: general Anesthetic plan and risks discussed with patient. Use of blood products discussed with patient who consented to blood products. Anesthesia Evaluation [1] Allergies Allergen Reactions Cephalexin Nausea [2] Past Medical History: Diagnosis Date Tobacco-use disorder [3] cefOXitin, 2 g, Intravenous, Once heparin (porcine), 5,000 Units, Subcutaneous, q8h ANUSHA Insert peripheral IV, , , Once AND Saline lock IV, , , Once AND sodium chloride, 10 mL, Intravenous, q12h AND sodium chloride, 10 mL, Intravenous, PRN [4] PRN medications: Insert peripheral IV AND Saline lock IV AND sodium chloride AND sodium chloride [5] Past Surgical History: Procedure Laterality Date COLONOSCOPY HERNIA REPAIR 1969 VASECTOMY [6] Social History Tobacco Use Smoking status: Every Day Current packs/day: 1.00 Average packs/day: 1 pack/day for 50.8 years (50.8 ttl pk-yrs) Types: Cigarettes Start date: 1974 Smokeless tobacco: Never Vaping Use Vaping status: Never Used Substance Use Topics Alcohol use: Never Drug use: Never documented in this encounter Plan of Treatment Upcoming Encounters Date Type Department Care Team (Latest Contact Info) Description 02/03/2026 8:00 AM EDT Appointment [facility] [address] [place] [address] 02/03/2026 10:00 AM EDT Office Visit [facility] [address] [place] [address] Maicol Garcia MD [address] [place] [address] 02/03/2026 10:00 AM EDT Clinical Support [facility] Mult[facility]isciplinary Oncology Clinic [address] [place] [address] documented as of this encounter Goals Goal Patient Goal Type Associated Problems Recent Progress Patient-Stated? Author Autogenerat ed Goal Care Plan Autogenerated Problem No Maicol Garcia MD documented as of this encounter Procedures Procedure Name Priority Date/Time Associated Diagnosis Comments PB POINT OF CARE IMAGING PLACEHOLDER Routine 07/16/2025 2:25 PM EDT PB ANESTHESIA PLACEHOLDER Routine 07/16/2025 2:25 PM EDT MN AN ELECTIVE ENDOTRACHEAL AIRWAY Routine 07/16/2025 2:25 PM EDT documented in this encounter Results * PB POINT OF CARE IMAGING PLACEHOLDER (07/16/2025 2:25 PM EDT) Narrative Ofelia Zamora MD - 07/16/2025 2:25 PM EDT Ofelia Zamora MD 07/16/2025 2:42 PM Peripheral Block Patient location during procedure: OR Start time: 07/16/2025 2:25 PM End time: 07/16/2025 2:30 PM Reason for block: post-op pain management Block is at surgeon's request Staffing Performed: Resident Anesthesiologist: Ofelia Zamora MD Resident: Wilmer Lopez MD Preanesthetic Checklist Completed: patient identified, IV checked, site marked, risks and benefits discussed, surgical consent, monitors and equipment checked, pre-op evaluation and timeout performed Peripheral Block Patient position: supine Prep: ChloraPrep Patient monitoring: continuous pulse ox, heart rate and gambling monitor Block type: TAP Laterality: left and right Injection technique: single-shot Guidance: ultrasound guided Ultrasound used for needle placement AND ultrasound image retained Needle Needle gauge: 20g. Needle length: 4in. Needle localization: anatomical landmarks and ultrasound guidance Medications Administered: 0.25% ropivacaine - Injection 50 mL - 07/16/2025 2:25:00 PM Assessment Injection assessment: negative aspiration for heme, local visualized surrounding nerve on ultrasound and incremental injection Paresthesia pain: none Heart rate change: no Slow fractionated injection: yes Additional Notes The patient was in supine position. A linear ultrasound probe was placed on the lateral wall of the abdomen between the costal margin and the iliac crest and the relevant muscular anatomy was visualized. A large area of skin encompassing the intended needle insertion site was cleansed using chloraprep. The block needle was inserted through skin from the anterior aspect and advanced through the external oblique m., internal oblique m. and into the fascial plane between the internal oblique m. and the transversus abdominis m. using an in-plane technique with ultrasound guidance. Aspiration was negative for heme or bowel contents. Local anesthetic was injected into the TAP plane incrementally in 5mL aliquots, aspirating between each injection. Ultrasound imaging was utilized to confirm spread of local anesthetic along the fascial plane with the goal of reaching posteriorly to the end of the transversus abdominis m. The same block was performed on the contralateral side. A total of 50cc of 0.25% Ropivacaine without adjunct was utilized for the block. The needle was removed from the patient. The patient tolerated the procedure well, with no obvious complications. Ofelia Zamora MD ANESTHESIA ORDERABLES Fin al Result * MN AN ELECTIVE ENDOTRACHEAL AIRWAY, PB ANESTHESIA PLACEHOLDER (07/16/2025 2:25 PM EDT) Narrative Mae Pozo CRNA - 07/16/2025 2:25 PM EDT Mae Pozo CRNA 07/16/2025 2:30 PM Airway Date/Time: 07/16/2025 2:25 PM Reason: elective Airway not difficult General Information and Staff Patient location during procedure: OR FOOD EQUIPMENT SERVICE TECHNICIAN: Mae Pozo CRNA Performed: FOOD EQUIPMENT SERVICE TECHNICIAN Patient Condition Indications for airway management: anesthesia Patient position: sniffing Final Airway Details Final airway type: endotracheal airway Successful airway: ETT Cuffed: yes Successful intubation technique: direct laryngoscopy Adjuncts used in placement: intubating stylet Endotracheal tube insertion site: oral Blade: Solange Blade size: #3 ETT size (mm): 8.0 Placement verified by: chest auscultation and capnometry Measured from: lips ETT to lips (cm): 23 Additional Comments Atraumatic. No change to dentition. Sujit Chester MD ANESTHESIA ORDERABLES Eladia umanzor Result documented in this encounter Visit Diagnoses Not on filedocumented in this encounter Administered Medications Inactive Administered Medications - up to 3 most recent administrations Medication Order MAR Action Action Date Dose Rate Site acetaminophen (Ofirmev) injection Intravenous, As needed, Starting on Mon07/16/25 at 1450, Until Mon07/16/25 at 1642, Routine Given 07/16/2025 2:50 PM EDT 1,000 mg cefOXitin (Mefoxin) injection 2 g 2 g, Intravenous, Once, 1 dose, On Mon07/16/25 at 1600, Routine, Anesthesia Intraprocedure Given 07/16/2025 2:17 PM EDT 2 g dexamethasone (Decadron) injection Intravenous, As needed, Starting on Mon07/16/25 at 1428, Until Mon07/16/25 at 1642, Routine, Anesthesia Intraprocedure Given 07/16/2025 2:28 PM EDT 8 mg ePHEDrine Sulfate (Akovaz) injection Intravenous, As needed, Starting on Mon07/16/25 at 1508, Until Mon07/16/25 at 1642, Routine, Anesthesia Intraprocedure Given 07/16/2025 3:08 PM EDT 10 mg fentaNYL (Sublimaze) injection Intravenous, As needed, Starting on Mon07/16/25 at 1420, Until Mon07/16/25 at 1642, Routine, Anesthesia Intraprocedure Given 07/16/2025 2:20 PM EDT 100 mcg HYDROmorphone PF (Dilaudid) injection Intravenous, As needed, Starting on Mon07/16/25 at 1621, Until Mon07/16/25 at 1642, Routine, Anesthesia Intraprocedure Given 07/16/2025 4:37 PM EDT 0.5 mg Given 07/16/2025 4:25 PM EDT 0.5 mg Given 07/16/2025 4:21 PM EDT 0.5 mg lactated Ringer's infusion Intravenous, Continuous PRN, Starting on Mon07/16/25 at 1417, Until Mon07/16/25 at 1642, Routine New Bag 07/16/2025 2:17 PM EDT magnesium sulfate 50 % injection Intramuscular, As needed, Starting on Mon07/16/25 at 1450, Until Mon07/16/25 at 1642, Routine, Anesthesia Intraprocedure Given 07/16/2025 2:50 PM EDT 2 g ondansetron (Zofran) injection Intravenous, As needed, Starting on Mon07/16/25 at 1428, Until Mon07/16/25 at 1642, Routine, Anesthesia Intraprocedure Given 07/16/2025 2:28 PM EDT 4 m g phenylephrine in NS (Dannie-Synephrine) 100 mcg/mL prefilled syringe Intravenous, As needed, Starting on Mon07/16/25 at 1428, Until Mon07/16/25 at 1642, Routine, Anesthesia Intraprocedure Given 07/16/2025 2:52 PM EDT 400 mcg Given 07/16/2025 2:47 PM EDT 200 mcg Given 07/16/2025 2:31 PM EDT 200 mcg propofol (Diprivan) injection Intravenous, As needed, Starting on Mon07/16/25 at 1422, Until Mon07/16/25 at 1642, Routine, Anesthesia Intraprocedure Given 07/16/2025 2:22 PM EDT 120 mg rocuronium (ZeMuron) injection Intravenous, As needed, Starting on Mon07/16/25 at 1423, Until Mon07/16/25 at 1642, Routine, Anesthesia Intraprocedure Given 07/16/2025 3:54 PM EDT 20 mg Given 07/16/2025 3:19 PM EDT 20 mg Given 07/16/2025 2:23 PM EDT 50 mg ropivacaine (Naropin) injection Injection, Once PRN Procedure, Starting on Mon07/16/25 at 1425, Until Mon07/16/25 at 1425, Routine, Anesthesia Intraprocedure Given 07/16/2025 2:25 PM EDT 50 mL sugammadex (Bridion) 100 MG/ML injection Intravenous, As needed, Starting on Mon07/16/25 at 1611, Until Mon07/16/25 at 1642, Routine, Anesthesia Intraprocedure Given 07/16/2025 4:11 PM EDT 100 mg documented in this encounter Additional Health Concerns Active Problems Noted Date Diagnosed Date Autogenerated Problem 07/01/2025 Assessment Noted Time A fall risk assessment has been complete d for the patient 07/01/2025 10:09 AM EDT A Body Mass Index follow-up plan has been documented for the patient 07/22/2025 2:25 PM EST documented as of this encounter Care Teams Risk Consulting Treasury Director Relationship Specialty Start Date End Date Bryan Watkins MD [address] [place] [address] PCP - General 05/19/25 documented as of this encounter
--- OUTSIDE RECORDS SUMMARY | 2025-08-05 09:15 | XMS_ITS | Encounter Summary ---
Author Organization [facility] Address [address] [place] [address] Care Team Providers Care Magazine Grinder Loader Name Role Phone Bryan Watkins MD Primary Care Provider [phone] Reason for Referral * Imaging (Routine) - Pending Review Specialty Diagnoses / Procedures Referred By Sugar candelario Referred To Contact Radiology Diagnoses Cancer of sigmoid colon Procedures CT Abdomen Pelvis w IV Contrast Maicol Garcia MD [address] [address] Phone: tel: fax: Referral ID Status Reason Start Date Expiration Date V isits Requested Visits Authorized [id number] Pending Review 08/05/2025 02/04/2027 1 1 * Imaging (Routine) - Pending Review Specialty Diagnoses / Procedures Referred By Sugar candelario Referred To Contact Radiology Diagnoses Cancer of sigmoid colon Procedures CT Chest w IV Contrast Maicol Garcia MD [address] [address] Phone: tel: fax: Referral ID Status Reason Start Date Expiration Date V isits Requested Visits Authorized [id number] Pending Review 08/05/2025 02/04/2027 1 1 Reason for Visit * Reason Comments Follow-up Cancer of sigmoid co domenic Encounter Details Date Type Department Care Team (Latest Contact Info) Description 08/05/2025 9:15 AM EST Office Visit [facility] [address] [place] [address] Maicol Garcia MD [address] [place] [address] Cancer of sigmoid colon (Primary [...] were you homeless or living in a fci (including now)? No 07/17/2025 [facility] Utilities Answer Date Recorded In the past 12 months has [employer] gas, oil, or water [employer] threatened to shut off services in your [...] Tsai MD - 08/05/2025 9:15 AM EST [facility] Post-Operative Note [facility] JACINTO Garcia MD FACS FASCRS Date of Service: 08/05/2025 Name: Damian Washington : 1950 PCP: Bryan Watkins MD Reason for Visit: Post-operative follow-up. History of Present Illness: Mr. Damian Washington is a 74 y.o. male that returns to [facility] on 08/05/25 for post-operative follow-up. Operation/Procedure: Sigmoid [...] EDT Appointment [facility] [address] [place] [address] 02/03/2026 10:00 AM EDT Office Visit [facility] Multidisciplinary Oncology Clinic [address] [place] [phone] Maicol Garcia MD [address] [facility] [address] [place] [address] 02/03/2026 10:00 AM EDT Clinical Support [facility] Multidisciplinary Oncology Clinic [address] [place] [address] Scheduled Orders Name Type Priority Associated Diagnoses [...] documented as of this encounter Care Teams Magazine Grinder Loader Relationship Specialty Start Date End Date Bryan Watkins MD [address] [place] [address] [place] [id number] PCP - General 05/19/25 documented as of this encounter
--- OUTSIDE RECORDS SUMMARY | 2025-08-12 09:50 | XMS_ITS | Encounter Summary ---
Author Organization [facility] Address [address] [place] [address] Care Team Providers Care Before School Babysitter Name Role Phone Bryan Watkins MD Primary Care Provider [phone] Encounter Details Date Type Department Care Team (Latest Contact Info) Description 07/16/2025 Travel Social History Tobacco Use Types Packs/Day Years [...] any time in the past 12 m [facility], were you homeless or living in a usp (including now)? No 07/17/2025 [facility] Utilities Answer Date Recorded In the past [...] of Assessment Author No Risk Indicated 07/16/2025 8:00 PM EDT Jory Castillo RN * Question Answer Date of Assessment Author 1. Wish to be (Past 1 Month) No 025 8:00 PM EDT Jory Castillo RN 2. Non-Specific Active Suici darrian Thoughts (Past 1 Month) No 07/16/2025 8:00 PM EDT Jory Castillo RN 6. Suicidal Behavior (Lifetime) No 8:00 PM EDT Jory Castillo RN documented as of this encounter Plan of Treatment Upcoming Encounters Date Type Department Care Team (Latest Contact Info) Description 02/03/2026 8:00 AM EDT Appointment [facility] [address] [place] [address] 02/03/2026 10:00 AM EDT Office Visit [facility] [address] [place] [address] Maicol Garcia MD [address] [facility] [address] [place] [address] 02/03/2026 10:00 AM EDT Clinical Support [facility] Multidisciplinary Oncology Clinic [address] [place] [address] documented as of this encounter Goals Goal Patient Goal Type Associated Problems Recent Progress Patient-Stated? Author Autogenerat ed Goal Care Plan Autogenerated Problem No Maicol Garcia MD documented as of this encounter Visit Diagnoses Not on filedocumented in this encounter Additional Health Concerns Active Problems Noted Date Diagnosed Date Autogenerated Problem 07/01/2025 Assessment Noted Time A fall risk assessment has been complete d for the patient 07/01/2025 10:09 AM EDT A Body Mass Index follow-up plan has been documented for the patient 07/22/2025 2:25 PM EST documented as of this encounter Care Teams Before School Babysitter Relationship Specialty Start Date End Date Bryan Watkins MD [address] [place] [address] PCP - General 05/19/25 documented as of this encounter
--- OUTSIDE RECORDS SUMMARY | 2025-08-12 09:50 | XMS_ITS | Encounter Summary ---
Author Organization [facility] Address [address] [place] [address] Care Team Providers Care Offset Plate Maker Name Role Phone Bryan Watkins MD Primary Care Provider [phone] Encounter Details Date Type Department Care Team (Latest Contact Info) Description 07/04/2025 Travel Social History Tobacco Use Types Packs/Day [...] on file documented as of this encounter Plan of Treatment Upcoming Encounters Date Type Department Care Team (Latest Contact Info) Description 02/03/2026 8:00 AM EDT Appointment [facility] [address] [place] [address] 02/03/2026 10:00 AM EDT Office Visit [facility] [address] [place] [address] Maicol Garcia MD [address] [facility] [address] [place] [address] 02/03/2026 10:00 AM EDT Clinical Support [facility] [address] [place] [address] documented as of this encounter Goals Goal [...] documented as of this encounter Care Teams Offset Plate Maker Relationship Specialty Start Date End Date Bryan Watkins MD [address] [place] [address] PCP - General 05/19/25 documented as of this encounter
--- OUTSIDE RECORDS SUMMARY | 2025-08-12 09:51 | XMS_ITS | Encounter Summary ---
Author Organization [facility] Address [address] [place] [address] Care Team Providers Care Hall Cleaner Name Role Phone Bryan Watkins MD Primary Care Provider [phone] Encounter Details Date Type Department Care Team (Latest Contact Info) Description 07/18/2025 Travel Social History Tobacco Use Types Packs/Day [...] any time in the past 12 m [facility], were you homeless or living in a long-term (including now)? No 07/17/2025 [facility] Utilities Answer Date Recorded In the [...] Date of Assessment Author No Risk Indicated 07/18/2025 8:00 PM EDT Rocky Penny RN * Question Answer Date of Assessment Author 1. Wish to be (Past 1 Month) No 025 8:00 PM EDT Rocky Penny, ROSSY 2. Non-Specific Active Suici darrian Thoughts (Past 1 Month) No 07/18/2025 8:00 PM EDT Rocky Penny , ROSSY 6. Suicidal Behavior (Lifetime) No 8:00 PM EDT Rocky Penny, ROSSY documented as of this encounter Plan of Treatment Upcoming Encounters Date Type Department Care Team (Latest Contact Info) Description 02/03/2026 8:00 AM EDT Appointment [facility] [address] [place] [address] 02/03/2026 10:00 AM EDT Office Visit [facility] [address] [place] [address] Maicol Garcia MD [address] [facility] [address] [place] [address] 02/03/2026 10:00 AM EDT Clinical Support [facility] Multidisciplinary Oncology Clinic [address] [place] [address] documented as of this encounter Goals Goal [...] documented as of this encounter Care Teams Hall Cleaner Relationship Specialty Start Date End Date Bryan Watkins MD [address] [place] [address] PCP - General 05/19/25 documented as of this encounter
--- OUTSIDE RECORDS SUMMARY | 2025-08-12 09:51 | XMS_ITS | Encounter Summary ---
Author Organization [facility] Address [address] [place] [address] Care Team Providers Care Stone Unloader Name Role Phone Bryan Watkins MD Primary Care Provider [phone] Encounter Details Date Type Department Care Team (Late st Contact Info) Description 06/26/2025 Lab Requisition [facility] [address] [place] [address] Maicol Garcia MD [address] [address] Neoplasm of uncertain behavior of colon Social History Tobacco Use Types Packs/Day Years Used Date Smoking Tobacco: Never Assessed Sex and Gender Information Value Date Recorded Sex Assigned at Not on file Legal Sex Male 4:11 PM EDT Gender Identity Not on file Sexual Orientation Not on file documented as of this encounter Plan of Treatment Upcoming Encounters Date Type Department Care Team (Latest Contact Info) Description 02/03/2026 8:00 AM EDT Appointment [facility] [address] [place] [address] 02/03/2026 10:00 AM EDT Office Visit [facility] [address] [place] [address] Maicol Garcia MD [facility] [address] [address] 02/03/2026 10:00 AM EDT Clinical Support [facility] [address] [place] [address] documented as of this encounter Procedures Procedure Name Priority Date/Time Associated Diagnosis Comments SURGICAL PATHOLOGY CONSULT Routine 06/26/2025 11:20 AM EDT Neoplasm of uncertain behavior of colon documented in this encounter Results * Surgical Pathology Consult (06/26/2025 11:20 AM EDT) Case Report Sugical Pathology Consult Case: [id number] Authorizing Provider: Maicol Garcia MD Collected: 06/26/20251119 Ordering Location: [facility] Lab Received: 06/26/2025 112 Pathologist: Tai Soliman DO Specimen: Colon, [id number] 06/26/2025 5:03 PM EDT [facility] Final Diagnosis OUTSIDE SLIDES; [id number], A-C; 06/16/2025 A. LARGE INTESTINE, ASCENDING COLON, BIOPSY: - TUBULAR ADENOMA. B. LARGE INTESTINE, TRANSVERSE COLON, BIOPSY: - TUBULAR ADENOMA. C. 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 - MMR BY IHC (PER REPORT): - RETAINED NUCLEAR STAINING OF ALL FOUR PROTEINS (MLH1, PMS2, MSH2 AND MSH6). 06/26/2025 5:03 PM EDT [facility] at 1703 EDT Clinical Information D37.4 - Neoplasm of uncertain behavior of colon [ICD-10-CM] 06/26/2025 5:03 PM EDT [facility] Gross Description A. [id number] Received along with a corresponding pathology report from [facility] are 8 slide(s) labeled outside case: [id number] collected on 06/16/2025. 06/26/2025 5:03 PM EDT [facility] Intradepartmental Consultation with Agreement Dr. Bonner 06/26/2025 5:03 PM EDT [facility] Note: A resident was involved in the service. I attest I examined the relevant preparations for the specimens and confirmed the diagnosis or interpretation. 06/26/2025 5:03 PM EDT [facility] Tissue Colon structure / Unknown 06/26/2025 11:20 AM EDT 06/26/2025 11:20 AM EDT us Maicol Garcia MD LAB PATHOLOGY ORDERABLES Final Result [facility] [address] [place] [address] documented in this encounter Visit Diagnoses Diagnosis Neoplasm of uncertain behavior of colon documented in this encounter Care Teams Stone Unloader Relationship Specialty Start Date End Date Bryan Watkins MD [address] [place] [address] PCP - General 05/19/25 documented as of this encounter
--- OUTSIDE RECORDS SUMMARY | 2025-08-12 09:51 | XMS_ITS | Encounter Summary ---
Author Organization Healthcare Address [address] [place] [address] Care Team Providers Care Sales Secretary Name Role Phone Bryan Watkins MD Primary Care Provider Encounter Details Date Type Department Care Team (Latest Contact Info) Description 07/23/2025 Orders Only [facility] [address] [place] [phone] Maciol Garcia MD [address] [facility] [address] [place] [address] Wheezing (Primary Dx) Social History Tobacco Use Types [...] any time in the past 12 m onths, were you homeless or living in a [place] facility (including now)? No 07/17/2025 [facility] Utilities Answer Date Recorded In the past 12 months has th e [employer], gas, oil, or water company threatened to [...] Info) Description 02/03/2026 8:00 AM EDT Appointment [facility] Radiology [address] [place] [phone] 02/03/2026 10:00 AM EDT Office Visit [facility] Multidisciplinary Oncology Clinic [address] [place] [phone] Maicol Garcia MD [address] [facility] [address] [place] [address] 02/03/2026 10:00 AM EDT Clinical Support [facility] Multidisciplinary Oncology Clinic [address] [place] [phone] documented as of this encounter Goals Goal Patient Goal Type Associated Problems Recent Progress Patient-Stated? Author Autogenerat ed Goal Care Plan Autogenerated Problem No Maicol Garcia MD documented as of this encounter Visit Diagnoses Diagnosis Wheezing- Primary documented in this encounter Additional Health Concerns Active Problems Noted Date Diagnosed Date Autogenerated Problem 07/01/2025 Assessment Noted Time A fall risk assessment has been complete d for the patient 07/01/2025 10:09 AM EDT A Body Mass Index follow-up plan has been documented for the patient 07/22/2025 2:25 PM EST documented as of this encounter Care Teams Sales Secretary Relationship Specialty Start Date End Date Bryan Watkins MD [address] [place] [address] PCP - General 05/19/25 documented as of this encounter
--- OUTSIDE RECORDS SUMMARY | 2025-08-12 09:51 | XMS_ITS | Encounter Summary ---
Author Organization [facility] Address [address] [place] [address] Care Team Providers Care Generation Mechanic Helper Name Role Phone Bryan Watkins MD Primary Care Provider Encounter Details Date Type Department Care Team (Latest Contact Info) Description 07/01/2025 Travel Social History Tobacco Use Types Packs/Day [...] EDT Appointment [facility] [address] [place] [address] 02/03/2026 10:00 AM EDT Office Visit [facility] [address] [place] [address] Maicol Garcia MD [address] [facility] [address] [place] [address] 02/03/2026 10:00 AM EDT Clinical Support [facility] [address] [place] [address] documented as of this encounter Goals Goal [...] documented as of this encounter Care Teams Generation Mechanic Helper Relationship Specialty Start Date End Date Bryan Watkins MD [address] [place] [address] PCP - General 05/19/25 documented as of this encounter
--- OUTSIDE RECORDS SUMMARY | 2025-08-12 09:51 | XMS_ITS | Encounter Summary ---
Author Organization [facility] Address [address] [place] [address] Care Team Providers Care Cadd Manager Name Role Phone Bryan Watkins MD Primary Care Provider [phone] Encounter Details Date Type Department Care Team (Latest Contact Info) Description 07/21/2025 Travel Social History Tobacco Use Types Packs/Day [...] any time in the past 12 m [facility], were you homeless or living in a skilled nursing (including now)? No 07/17/2025 [facility] [...] Date of Assessment Author No Risk Indicated 07/21/2025 8:00 PM Ricky Torres RN * Question Answer Date of Assessment Author 1. Wish to be (Past 1 Month) No 025 8:00 PM Ricky Rosales, ROSSY 2. Non-Specific Active Suici darrian Thoughts (Past 1 Month) No 07/21/2025 8:00 PM Sa violeta Rosales RN 6. Suicidal Behavior (Lifetime) No 8:00 PM Ricky Rosales, ROSSY documented as of this encounter Plan of Treatment Upcoming Encounters Date Type Department Care Team (Latest Contact Info) Description 02/03/2026 8:00 AM EDT Appointment [facility] [address] [place] [phone] 02/03/2026 10:00 AM EDT Office Visit [facility] [address] [place] [phone] Maicol Garcia MD [address] [facility] [address] [place] [address] 02/03/2026 10:00 AM EDT Clinical Support [facility] Multidisciplinary Oncology Clinic [address] [place] [address] documented as of this encounter Goals Goal [...] documented as of this encounter Care Teams Cadd Manager Relationship Specialty Start Date End Date Bryan Watkins MD [address] [place] [address] PCP - General 05/19/25 documented as of this encounter
--- OUTSIDE RECORDS SUMMARY | 2025-08-12 09:51 | XMS_ITS | Encounter Summary ---
Author Organization Healthcare Address [address] [place] [address] Care Team Providers Care Wood Heel Attacher Name Role Phone Bryan Watkins MD Primary Care Provider [phone] Encounter Details Date Type Department Care Team (Late st Contact Info) Description 07/16/2025 Orders Only External Location [address] [place] [address] Provider, External Social History Tobacco Use Types Packs/Day Years [...] any time in the past 12 m [facility], were you homeless or living in a residential (including now)? No 07/17/[address] [facility] Utilities Answer Date Recorded In the [...] Date of Assessment Author No Risk Indicated 07/20/2025 8:00 PM Ricky Torres RN * Question Answer Date of Assessment Author 1. Wish to be (Past 1 Month) No 025 8:00 PM Ricky Rosales, ROSSY 2. Non-Specific Active Suici darrian Thoughts (Past 1 Month) No 07/20/2025 8:00 PM Sa violeta Rosales, ROSSY 6. Suicidal Behavior (Lifetime) No 8:00 PM Ricky Rosales, ROSSY documented as of this encounter Plan of Treatment Upcoming Encounters Date Type Department Care Team (Latest Contact Info) Description 02/03/2026 8:00 AM EDT Appointment [facility] [address] [place] [phone] 02/03/2026 10:00 AM EDT Office Visit [facility] [address] [place] [address] Maicol Garcia MD [address] [facility] [address] [place] [address] 02/03/2026 10:00 AM EDT Clinical Support [facility] Multidisciplinary Oncology Clinic [address] [place] [address] documented as of this encounter Goals Goal Patient Goal Type Associated Problems Recent Progress Patient-Stated? Author Autogenerat ed Goal Care Plan Autogenerated Problem No Maicol Garcia MD documented as of this encounter Procedures Procedure Name Priority Date/Time Associated Diagnosis Comments POC ULTRASOUND 07/16/2025 documented in this encounter Results * POC Imaging (07/16/2025) Anatomical Region Laterality Modality Pelvis Other 07/16/2025 us External Provider IMG POINT OF CARE ULTRASOUND F inal Result documented in this encounter Visit Diagnoses [...] documented as of this encounter Care Teams Wood Heel Attacher Relationship Specialty Start Date End Date Bryan Watkins MD [address] [place] [address] PCP - General 05/19/25 documented as of this encounter
--- OUTSIDE RECORDS SUMMARY | 2025-08-12 09:51 | XMS_ITS | Encounter Summary ---
Author Organization [facility] Address [address] [place] [address] Care Team Providers Care Value Engineer Name Role Phone Bryan Watkins MD Primary Care Provider Encounter Details Date Type Department Care Team (Latest Contact Info) Description 08/05/2025 Travel Social History Tobacco Use Types Packs/Day Years Used Date Smoking Tobacco: Former Cigarettes 1 50.9 S tarted: 1975 Smokeless Tobacco: Never Alcohol Use Standard Drinks/Week [...] any time in the past 12 m [facility], were you homeless or living in a custodial (including now)? No 07/17/2025 [facility] Utilities Answer Date Recorded In [...] AM EDT Appointment [facility] [address] [place] [address] 02/03/2026 10:00 AM EDT Office Visit [facility] Multidisciplinary Oncology Clinic [address] [place] [address] Maicol Garcia MD [address] [facility] [address] [place] [address] 02/03/2026 10:00 AM EDT Clinical Support [facility] [address] [place] [address] documented as of this encounter Goals Goal [...] documented as of this encounter Care Teams Value Engineer Relationship Specialty Start Date End Date Bryan Watkins MD [address] [place] [address] [place] [address] PCP - General 05/19/25 documented as of this encounter
--- OUTSIDE RECORDS SUMMARY | 2025-08-12 09:51 | XMS_ITS | Encounter Summary ---
Author Organization [facility] Address [address] [place] [address] Care Team Providers Care Rn Labor Delivery Name Role Phone Bryan Watkins MD Primary Care Provider [phone] Reason for Visit * Reason Onset Date Comments TEST CLAIM 07/17/2025 Encounter Details Date Type Department Care Team (Late st Contact Info) Description 07/17/2025 Telephone [facility] [address] [place] [phone] Cassidy Cárdenas, icebox worker None None TEST CLAIM Social History Tobacco Use Types Packs/Day Years [...] money to buy more. Never true 07/17/20 Within the past 12 months, t he [...] any time in the past 12 m [facility], were you homeless or living in a penitentiary (including now)? No 07/17/2025 [facility] Utilities Answer Date Recorded In [...] Date of Assessment Author No Risk Indicated 07/17/2025 8:00 AM EDT Mitchell Norton RN * Question Answer Date of Assessment Author 1. Wish to be (Past 1 Month) No 025 8:00 AM EDT Demarcus Norton, ROSSY 2. Non-Specific Active Suici darrian Thoughts (Past 1 Month) No 07/17/2025 8:00 AM EDT Sunday Norton RN 6. Suicidal Behavior (Lifetime) No 8:00 AM [place]ENET[place]AT Demarcus Norton, ROSSY documented as of this encounter Plan of Treatment Upcoming Encounters Date Type Department Care Team (Latest Contact Info) Description 02/03/2026 8:00 AM EDT Appointment [facility] [address] [place] [address] 02/03/2026 10:00 AM EDT Office Visit [facility] [address] [place] [address] Maicol Garcia MD [address] [place] [address] 02/03/2026 10:00 AM EDT Clinical Support [facility] Multidisciplinary Oncology Clinic [address] [place] [phone] documented as of this encounter Goals Goal [...] documented as of this encounter Care Teams Rn Labor Delivery Relationship Specialty Start Date End Date Bryan Watkins MD [address] [place] [address] PCP - General 05/19/25 documented as of this encounter
--- OUTSIDE RECORDS SUMMARY | 2025-08-12 09:51 | XMS_ITS | Encounter Summary ---
Author Organization [facility] Address [address] [place] [address] Care Team Providers Care Pipe Organ Builder Name Role Phone Bryan Watkins MD Primary Care Provider [phone] Encounter Details Date Type Department Care Team ([facility] st Contact Info) Description 07/02/2025 Telephone [facility] [address] [place] [address] Ashley Bustillo [id number] Social History Tobacco Use Types Packs/Day Years [...] on file documented as of this encounter Miscellaneous Notes * Telephone Encounter - Ashley Bustillo - 07/02/2025 4:19 PM EDT Patient Name: Damian Washington : 1950 Date: 07/02/25 [facility] to [facility] by: Kendell Kraus Affiliate Site: [facility] Services Provided: Pre/Post Appointment Phone Call Educated On: [facility] Nurse Liaison/Psych Oncology Services Patient was referred to [facility] by [facility]. Kendell Kraus. [facility] Nurse Liaison contacted the patient for a pre and post appointment phone call. Explained liaison services as well as other resources at [facility] [place] [facility] including Psych Oncology services. Patient states understanding of information. Answered all questions. Patient was given liaison contact information and encouraged to call with any questions, needs orconcerns. ROSSY [place] Nurse Liaison documented in this encounter Plan of Treatment Upcoming Encounters Date Type Department Care Team (Latest Contact Info) Description 02/03/2026 8:00 AM EDT Appointment [facility] [address] [place] [address] 02/03/2026 10:00 AM EDT Office Visit [facility] [address] [place] [phone] Maicol Garcia MD [address] [place] [address] 02/03/2026 10:00 AM EDT Clinical Support [facility] [address] [place] [address] documented as of this encounter Goals Goal [...] documented as of this encounter Care Teams Pipe Organ Builder Relationship Specialty Start Date End Date Bryan Watkins MD [address] [place] [address] PCP - General 05/19/25 documented as of this encounter
--- OUTSIDE RECORDS SUMMARY | 2025-08-12 09:51 | XMS_ITS | Encounter Summary ---
Author Organization [facility] Address [address] [place] [address] Care Team Providers Care Purchasing Internship Name Role Phone Bryan Watkins MD Primary Care Provider [phone] Encounter Details Date Type Department Care Team (Latest Contact Info) Description 07/20/2025 Travel Social History Tobacco Use Types Packs/Day [...] any time in the past 12 m [facility], were you homeless or living in a residential (including now)? No 07/17/2025 [facility] Utilities Answer Date Recorded In [...] Month) No 07/20/2025 8:00 PM Sa violeta Rosales RN 6. Suicidal Behavior (Lifetime) No 8:00 PM Ricky Rosales, ROSSY documented as of this encounter Plan of Treatment Upcoming Encounters Date Type Department Care Team (Latest Contact Info) Description 02/03/2026 8:00 AM EDT Appointment [facility] [address] [place] [phone] 02/03/2026 10:00 AM EDT Office Visit [facility] [address] [place] [phone] Maicol Garcia MD [address] [facility] [address] [place] [address] 02/03/2026 10:00 AM EDT Clinical Support [facility] Multidisciplinary Oncology Clinic [address] [place] [address] documented as of this encounter Goals Goal [...] documented as of this encounter Care Teams Purchasing Internship Relationship Specialty Start Date End Date Bryan Watkins MD [address] [place] [address] PCP - General 05/19/25 documented as of this encounter
--- OUTSIDE RECORDS SUMMARY | 2025-08-12 09:52 | XMS_ITS | Clinical Summary ---
Author Organization [facility] Address [address] [place] [address] Care Team Providers Care Chronometer Repairer Name Role Phone Bryan Watkins MD Primary Care Provider [phone] Allergies Active Allergy Reactions Criticality Noted Date Comments Cephalexin Nausea Medium 07/01/2025 Medications multivitamin (Theragran-M) tablet Take 1 tablet by mouth daily. Active ipratropium-alb uterol (Duo-Neb) 0.5-2.5 mg/3 mL nebulizer solution Take 3 mL by nebulization every 6 hours as needed for wheezing. 180 mL 5 07/22/20 25 Active apixaban (Eliquis) 5 MG tablet Take 1 tablet by mouth 2 times a day. 60 tablet 07/22/20 25 025 Active rosuvastatin (Crestor) 20 MG tablet Take 1 tablet by mouth daily. 90 tablet 3 07/23/20 25 026 Active metoprolol succinate XL (Toprol-XL) 25 MG 24 hr tablet Take 1 tablet by mouth daily. Do not crush or chew. 90 tablet 3 07/23/20 25 026 Active polyethylene glycol (MiraLax) 17 GM/SCOOP powder At 6pm day BEFORE surgery, mix Miralax (polyethylene glycol) powder with 64 oz sports drink. Stir to dissolve. Drink one cup (8oz) every 15 minutes until completed finished. SSICOLON 238 g 07/01/20 25 025 Discontinu ed(Stop Taking at Discharge) neomycin (Mycifradin) 500 MG tabletIndicatio ns:Cancer of sigmoid colon Take two tablets (1000 mg) by mouth at 1:00pm, 2:00pm and 11:00pm on the day prior to surgery. SSICOLON 6 tablet 07/01/20 25 Discontinu ed(Stop Taking at Discharge) metroNIDAZOLE (Flagyl) 500 MG tabletIndicatio ns:Cancer of sigmoid colon Take one tablet at 1pm, 2pm, and 11pm day BEFORE surgery. SSI COLON. 3 tablet 07/01/20 25 Discontinu ed(Stop Taking at Discharge) Nutritional Supplements (Impact Advanced Recovery) liquid Drink 2 cartons a day starting 5 days before surgery. SSICOLON. Auto Sub for Ensure Surgery if Impact not available. 176 mL 2 07/01/20 25 Discontinu ed(Stop Taking at Discharge) bisacodyl (Dulcolax) 5 MG EC tablet Day before procedure at 4pm take 4 tablets with 8 oz of clear liquid. SSICOLON 4 tablet 07/01/20 Discontinu ed(Stop Taking at Discharge) chlorhexidine (Hibiclens) 4 % external solution Day before your procedure. Shower as instructed. Morning of your scheduled surgery. Repeat this shower before you come to the hospital. 118 mL 07/01/20 Discontinu ed(Stop Taking at Discharge) acetaminophen (Tylenol) 500 MG tablet Take 2 tablets by mouth every 6 hours for 5 days. 40 tablet 07/22/20 Active Problems Problem Noted Date Diagnosed Date Severe protein-calorie malnutrition 07/21/2025 Paroxysmal atrial fibrillation 07/20/2025 Assessment & Plan (07/21/2025 8:33 AM EST): Amiodarone load and drip Continue 24h total, no need for PO Cardiology following Keep electrolytes at goal of K >4.0, Ca = 4.5, Mg > 2.0 Assessment & Plan (07/20/2025 5:04 PM EST): Amiodarone load and drip Keep electrolytes at goal of K >4.0, Ca = 4.5, Mg > 2.0 Smoker 07/01/2025 Assessment & Plan (07/21/2025 8:33 AM EST): Smoking cessation and education recommended Complicates all aspects of care Assessment & Plan (07/20/2025 5:04 PM EST): Smoking cessation and education recommended Complicates all aspects of care Cancer of sigmoid colon 07/01/2025 Assessment & Plan (07/21/2025 8:33 AM EST): S/p sigmoid colectomy 07/16 Mgmt per primary Assessment & Plan (07/20/2025 5:04 PM EST): S/p sigmoid colectomy 07/16 Mgmt per primary Encounters Date Type Department Care Team Description 08/05/2025 9:15 AM EST Office Visit [facility] [address] [place] [phone] Maicol Garcia MD Cancer of sigmoid colon (Primary Dx) 08/05/2025 Travel 07/23/2025 Orders Only [facility] [address] [place] [address] Maicol Garcia MD Wheezing (Primary Dx) 07/21/2025 Travel 07/20/2025 Travel 07/18/2025 Travel 07/17/2025 Telephone [facility] [address] [place] [address] Cassidy Cárdenas, car lot attendant TEST CLAIM 07/16/2025 2:17 PM EDT Anesthesia Event [facility] [address] [place] [phone] Mae Pozo CRNA Ellis, Teresa W, EELER 07/16/2025 1:20 PM EDT - 07/16/2025 5:20 PM EDT Surgery [facility] [address] [place] [address] Maicol Garcia MD COLECTOMY, SIGMOID [[id number] (CPT )] 07/16/2025 12:37 PM EDT - 07/22/2025 4:16 PM EST Hospital Encounter [facility] Inpatient [address] [place] [address] Maicol Garcia MD Paroxysmal atrial fibrillation (CMS/HCC) (Primary Dx); Cancer of sigmoid colon Discharge Disposition: Home or Self Care 07/16/2025 Orders Only External Location [address] [place] [address] Provider, External 07/16/2025 Travel 07/04/2025 12:30 PM EDT Pre-Admission Testing [facility] [address] [place] [phone] Preop examination (Primary Dx) 07/04/2025 Travel 07/02/2025 Telephone [facility] [address] [place] [phone] Ashley Bustillo 07/01/2025 9:15 AM EDT Office Visit [facility] [address] [place] [address] Maicol Garcia MD Cancer of sigmoid colon (Primary Dx) 07/01/2025 Travel 06/26/2025 Lab Requisition [facility] [address] [place] [address] Maicol Garcia MD Neoplasm of uncertain behavior of colon 06/19/2025 Orders Only External Location [address] [place] [phone] Provider, External from Last 3 Months Family History Medical History Relation Name Comments Anesthesia problems Neg Hx Malig Hyperthermia Neg Hx Social History Tobacco Use Types Packs/Day Years [...] any time in the past 12 m [facility], were you homeless or living in a jail (including now)? No 07/17/2025 [facility] Utilities Answer Date Recorded In the past 12 months has th e electric, gas, oil, or water company threatened to shut off services in your home? No 07/17/2025 Sex and Gender Information Value Date Recorded Sex Assigned at Not on file Legal Sex Male 4:11 PM EDT Gender Identity Not on file Sexual Orientation Not on file Last Filed Vital Signs Vital Sign Reading Time Taken Comments Blood Pressure 117/63 08/05/2025 9:31 AM EST Pulse 67 08/05/2025 9:31 AM EST Temperature 36.6 C (97.8 F) 08/05/2025 9:31 AM EST Respiratory Rate 19 07/22/2025 11:00 AM EST Oxygen Saturation 96% 08/05/2025 9:31 AM EST Inhaled Oxygen Concentration - - Weight 58 kg (127 lb 13.9 oz) 08/05/2025 9:31 AM EST Height 172.7 cm (5' 8 ) 08/05/2025 9:31 AM EST Body Mass Index 19.44 08/05/2025 9:31 AM EST Plan of Treatment Upcoming Encounters Date Type Department Care Team (Latest Contact Info) Description 02/03/2026 8:00 AM EDT Appointment [facility] Radiology [address] [place] [address] 02/03/2026 10:00 AM EDT Office Visit [facility] [address] [place] [phone] Maicol Garcia MD [address] [facility] [address] [place] [address] 02/03/2026 10:00 AM EDT Clinical Support [facility] [address] [place] [address] Health Maintenance Due Date Last Done Comments [facility]-Depression Screening 1950 [facility]-Hepatitis C Screening 1950 [facility]-Medicare Annual Wellness (AWV) 1950 [facility]-/Child/Adol SDOH Screenings 1950 [facility]-Zoster Vaccines (2 of 2) 08/15/2025 06/20/2025 ALK-JNIDO-19 Vaccine (9 - Moderna risk 2024- season) 2025 06/20/2025, 06/13/2024, 06/20/2023, Additional history exists [facility]- SDOH Screenings 01/15/2026 [facility]-Adult SDOH Screenings 01/15/2026 07/17/2025 [facility]-DTaP,Tdap,and Td Vaccines (2 - Td or Tdap) 05/27/2035 05/27/2025 [facility]-Hepatitis A Vaccines Aged Out 08/30/2019, 02/16 No longer eligible based on patient's age to complete this topic [facility]-RSV Vaccine: 60+ Years or Completed 05/19/2023 [facility]-Influenza Vaccine Completed 05/27/2025 , 06/13/2024, 05/19/2023, Additional history exists [facility]-Pneumococcal Vaccine: 50+ Years Completed 05/27/2025, 06/21/2019, 06/13/2018 HPV Vaccines Aged Out No longer eligi ble based on patient's age to complete this topic [facility]-HIB Vaccines Aged Out No longer e ligible based on patient's age to complete this topic [facility]-IPV Vaccines Aged Out No longer e ligible based on patient's age to complete this topic [facility]-Rotavirus Vaccines Aged Out No lo nger eligible based on patient's age to complete this topic Goals Goal Patient Goal Type Associated Problems Recent Progress Patient-Stated? Author Autogenerat ed Goal Care Plan Autogenerated Problem No Maicol Garcia MD Procedures Procedure Name Priority Date/Time Associated Diagnosis Comments HEPATIC FUNCTION PANEL STAT 07/22/2025 3:51 PM EST PEP THERAPY Routine 07/22/2025 7:29 AM EST PEP THERAPY Routine 07/21/2025 4:35 PM EST PAP THERAPY Routine 07/21/2025 4:35 PM EST ECHO, [...] HOUR, PLASMA Timed 07/21/2025 12:15 AM EST PHOSPHORUS, PLASMA Routine 07/21/2025 12 :15 AM EST MAGNESIUM, PLASMA Routine 07/21/2025 12: 15 AM EST BASIC METABOLIC PANEL, PLASMA Routine 07/21/2025 12:15 AM EST CBC W/O DIFFERENTIAL Routine 07/21/2025 12:15 AM EST ECG ADULT STAT 07/21/2025 12:10 AM EST TROPONIN T, HIGH SENSITIVITY, 0 HOUR, PLASMA, REFLEX TO 2 HOUR Routine 07/20/2025 9:58 PM EST OXYGEN THERAPY Routine 07/20/2025 8:00 PM EST TROPONIN T, HIGH SENSITIVITY, 2 HOUR, PLASMA Timed 07/20/2025 6:33 PM EST AUTUMN AURIS SURVEILLANCE BY PCR Routine 07/20/2025 5:38 PM EST MULTI DRUG RESISTANCE TEST Routine 07/20/2025 5:38 PM EST BLOOD GAS PANEL, VENOUS Routine 07/20/2025 5:36 PM EST WA CRITICAL CARE, E/M 30-74 MINUTES Routine 07/20/2025 4:58 PM EST Paroxysmal atrial fibrillation (CMS/HCC) EXTRA TUBE LIGHT GREEN TOP Routine 07/20/2025 4:54 PM EST EXTRA TUBES Routine 07/20/2025 4:54 PM EST PROCALCITONIN, PLASMA Add-On 07/20/2025 4:18 PM EST CBC W/O DIFFERENTIAL Routine 07/20/2025 4:18 PM EST BASIC METABOLIC PANEL, PLASMA Routine 07/20/2025 4:18 PM EST TROPONIN T, HIGH SENSITIVITY, 0 HOUR, PLASMA, REFLEX TO 2 HOUR STAT 07/20/2025 4:18 PM EST ECG ADULT STAT 07/20/2025 4:07 PM EST XR CHEST 1 VIEW Routine 07/20/2025 10:43 AM EST OXYGEN THERAPY Routine 07/20/2025 8:00 AM EST OXYGEN THERAPY Routine 07/19/2025 8:00 PM EDT OXYGEN THERAPY Routine 07/19/2025 8:00 AM EDT PROCALCITONIN, PLASMA Routine 07/19/2025 6:07 AM EDT PHOSPHORUS, PLASMA Routine 07/19/2025 6: 07 AM EDT MAGNESIUM, PLASMA Routine 07/19/2025 6:0 7 AM EDT CBC W/O DIFFERENTIAL Routine 07/19/2025 6:07 AM EDT OXYGEN THERAPY Routine 07/18/2025 8:00 PM EDT XR CHEST 1 VIEW STAT 07/18/2025 9:27 AM EDT OXYGEN THERAPY Routine 07/18/2025 8:00 AM EDT OXYGEN THERAPY Routine 07/17/2025 8:00 PM EDT OXYGEN THERAPY Routine 07/17/2025 5:02 PM EDT OXYGEN THERAPY Routine 07/17/2025 5:02 PM EDT PHOSPHORUS, PLASMA Routine 07/17/2025 3: 34 AM EDT MAGNESIUM, PLASMA Routine 07/17/2025 3:3 4 AM EDT BASIC METABOLIC PANEL, PLASMA Routine 07/17/2025 3:34 AM EDT CBC W/O DIFFERENTIAL Routine 07/17/2025 3:34 AM EDT OXYGEN THERAPY Routine 07/16/2025 4:49 PM EDT OXYGEN THERAPY Routine 07/16/2025 4:49 PM EDT SURGICAL PATHOLOGY EXAM Routine 07/16/2025 3:28 PM EDT Cancer of sigmoid colon PB POINT OF CARE IMAGING PLACEHOLDER Routine 07/16/2025 2:25 PM EDT PB ANESTHESIA PLACEHOLDER Routine 07/16/2025 2:25 PM EDT WA AN ELECTIVE ENDOTRACHEAL AIRWAY Routine 07/16/2025 2:25 PM EDT WA PART REMOVAL COLON W ANASTOMOSIS 07/16/2025 2:02 PM EDT Cancer of sigmoid colon POCT GLUCOSE METER UNSOLICITED RESULTS Routine 07/16/2025 1:41 PM EDT TYPE AND SCREEN Routine 07/16/2025 12:56 PM EDT POC ULTRASOUND 07/16/2025 CBC W/O DIFFERENTIAL Routine 07/04/2025 12:25 PM EDT Preop examination COMPREHENSIVE METABOLIC PANEL, PLASMA Routine 07/04/2025 12:25 PM EDT Preop examination ECG ADULT Routine 07/04/2025 12:09 PM EDT Preop examination SURGICAL PATHOLOGY CONSULT Routine 06/26/2025 11:20 AM EDT Neoplasm of uncertain behavior of colon CT OUTSIDE IMAGES 06/19/2025 10: 39 AM EDT from Last 3 Months Results * (ABNORMAL) Hepatic function panel (07/22/2025 3:51 PM EST) Direct Bilirubin, Plasma <0.2 <=0.3 mg/dL 07/22/2025 4:49 PM EST [facility] Alkaline Phosphatase, Plasma 86 40 - 115 U/L 07/22/2025 4:49 PM EST [facility] Total Bilirubin, Plasma 0.2 0.2 - 1.1 mg/dL 07/22/2025 4:49 PM EST [facility] Albumin, Plasma 3.2(L) 3.5 - 5.2 g/dL 07/22/2025 4:49 PM EST [facility] Total Protein 6.1(L) 6.3 - 7.9 g/dL 07/22/2025 4:49 PM EST [facility] ALT, Plasma 21 10 - 50 U/L 07/22/2025 4:49 PM EST [facility] AST, Plasma 28 10 - 50 U/L 07/22/2025 4:49 PM EST [facility] Comment:Hemolyzed, result ma y be falsely increased. Blood Venous blood specimen / Unknown Venipuncture / Unknown 07/22/2025 3:51 PM EST 07/22/2025 4:18 PM EST us Maicol Garcia MD LAB BLOOD ORDERABLES Final Res ult [facility] [address] [place] [address] * ECHO, ADULT TRANSTHORACIC COMPLETE (07/21/2025 8:35 [...] is no recent study available for direct [id number] comparison. Left Ventricle The left ventricle is [...] is no recent study available for direct [id number] comparison. Wall Scoring Baseline Score Index: 1.82 [...] 2 Hour, Plasma (07/21/2025 7:31 AM EST) Only the most recent of3 resultswithin the time period is included. Troponin T, High Sensitivity, 2 Hour 110(H) <19 ng/L 07/21/2025 8:10 AM EST [facility] Troponin Delta 5 <10 ng/L 07/21/2025 8:10 AM EST [facility] Troponin Delta Interpretation Not Significant 07/21/2025 8:10 AM EST [facility] Comment:Not Significant. No acute change in troponin observed between the baseline and 2 hour samples. Blood Venous blood specimen / Unknown Venipuncture / Unknown 07/21/2025 7:31 AM EST 07/21/2025 7:42 AM EST Joan Miller APRN LAB BLOOD ORDERABLES Final R esult Performing Organization Address [facility] Co de Phone Number [facility] [address] [place] [address] * (ABNORMAL) Troponin T, High Sensitivity, 0 Hour Plasma, Reflex to 2 Hour (07/21/2025 5:11 AM EST) Only the most recent of3 resultswithin the time period is included. Troponin T, High Sensitivity, 0 Hour 115(H) <19 ng/L 07/21/2025 6:32 AM EST [facility] Blood Venous blood specimen / Unknown Venipuncture / Unknown 07/21/2025 5:11 AM EST 07/21/2025 6:05 AM EST Joan Miller APRN LAB BLOOD ORDERABLES Final R [facility] Performing Organization Address [facility] Co de Phone Number [facility] [address] [place] [address] * (ABNORMAL) CBC W/O Differential (07/21/2025 12:15 AM EST) Only the most recent of5 resultswithin the time period is included. WBC Count 7.76 3.70 - 10.30 10*3/uL LAB HEMATOLOGY METHOD 07/21/2025 12:28 AM EST [facility] RBC Count 2.88(L) 4.60 - 6.10 10*6/uL LAB HEMATOLOGY METHOD 07/21/2025 12:28 AM EST [facility] HGB 9.2(L) 13.7 - 17.5 g/dL LAB HEMATOLOGY METHOD 07/21/2025 12:28 AM EST [facility] HCT 27.4(L) 40.0 - 51.0 % LAB HEMATOLOGY METHOD 07/21/2025 12:28 AM EST [facility] Platelet Count 167 155 - 369 10*3/uL LAB HEMATOLOGY METHOD 07/21/2025 12:28 AM EST [facility] MCV 95 79 - 98 fL LAB HEMATOLOGY METHOD 07/21/2025 12:28 AM EST [facility] MCH 31.9 26.0 - 32.0 pg LAB HEMATOLOGY METHOD 07/21/2025 12:28 AM EST [facility] MCHC 33.6 30.7 - 35.5 g/dL LAB HEMATOLOGY METHOD 07/21/2025 12:28 AM EST [facility] RDW 13.5 11.5 - 14.5 % LAB HEMATOLOGY METHOD 07/21/2025 12:28 AM EST [facility] MPV 9.4 8.8 - 12.5 fL LAB HEMATOLOGY METHOD 07/21/2025 12:28 AM EST [facility] nRBC 0.0 <=0.0 per 100 WBCs LAB HEMATOLOGY METHOD 07/21/2025 12:28 AM EST [facility] Blood Venous blood specimen / Unknown Venipuncture / Unknown 07/21/2025 12:15 AM EST 07/21/2025 12:20 AM EST us Maicol Garcia MD LAB BLOOD ORDERABLES Final Res ult [facility] [address] [place] [address] * Phosphorus (07/21/2025 12:15 AM EST) Only the most recent of3 resultswithin the time period is included. Phosphorus, Plasma 3.1 2.5 - 4.5 mg/dL 07/21/2025 12:51 AM EST [facility] Blood Venous blood specimen / Unknown Venipuncture / Unknown 07/21/2025 12:15 AM EST 07/21/2025 12:20 AM EST us Maicol Garcia MD LAB BLOOD ORDERABLES Final Res ult Performing Organization Address City/[facility]/ZIP Co de Phone Number [facility] [address] [place] [address] * (ABNORMAL) Magnesium (07/21/2025 12:15 AM EST) Only the most recent of3 resultswithin the time period is included. Magnesium, Plasma 2.5(H) 1.9 - 2.4 mg/dL 07/21/2025 12:51 AM EST [facility] Blood Venous blood specimen / Unknown Venipuncture / Unknown 07/21/2025 12:15 AM EST 07/21/2025 12:20 AM EST Maicol Garcia MD LAB BLOOD ORDERABLES Final Res ult Performing Organization Address [facility] Co de Phone Number [facility] [address] [place] [address] * (ABNORMAL) Basic metabolic panel (07/21/2025 12:15 AM EST) Only the most recent of3 resultswithin the time period is included. Glucose, Plasma 95 74 - 99 mg/dL 07/21/2025 12:51 AM EST [facility] BUN, Plasma 14 8 - 23 mg/dL 07/21/2025 12:51 AM EST [facility] Creatinine, Plasma 0.70 0.70 - 1.20 mg/dL 07/21/2025 12:51 AM EST [facility] BUN/Creatinine Ratio 20 07/21/2025 12:51 AM EST [facility] Sodium, Plasma 138 136 - 145 mmol/L 07/21/2025 12:51 AM EST [facility] Potassium, Plasma 4.5 3.6 - 4.9 mmol/L 07/21/2025 12:51 AM EST [facility] Chloride, Plasma 106 97 - 107 mmol/L 07/21/2025 12:51 AM EST [facility] CO2, Plasma 24 22 - 29 mmol/L 07/21/2025 12:51 AM EST [facility] Anion Gap 8 6 - 16 mmol/L 07/21/2025 12:51 AM EST [facility] Total Calcium, Plasma 7.9(L) 8.9 - 10.2 mg/dL 07/21/2025 12:51 AM EST [facility] eGFRcr 95.5 mL/min/1.7 3m*2 07/21/2025 12:51 AM EST [facility] Comment:Reported eGFRcr in m L/min/1.73m2 is based the CKD-EPI 2020 equation that does not use a race coefficient. Blood Venous blood specimen / Unknown Venipuncture / Unknown 07/21/2025 12:15 AM EST 07/21/2025 12:20 AM EST Maicol Garcia MD LAB BLOOD ORDERABLES Final Res ult [facility] [address] [place] [address] * ECG Adult (07/21/2025 12:10 AM EST) Only the most recent of3 resultswithin the time period is included. EKG DIAGNOSIS CLASS Abnormal MUSE ECG Ventricular Rate 70 BPM MUSE ECG Atrial Rate 70 BPM MUSE ECG WA Interval 114 ms MUSE ECG QRSD Interval 128 ms MUSE ECG QT Interval 452 ms MUSE ECG QTC Interval 488 ms MUSE ECG P [place] 73 degrees MUSE ECG R [place] 84 degrees MUSE ECG T Wave [place] 26 degrees MUSE ECG Diagnosis Normal sinus rhythm restored MUSE ECG Diagnosis premature ventricular complexes MUSE ECG Diagnosis Right bundle branch block MUSE ECG Diagnosis Abnormal ECG MUSE ECG Diagnosis MUSE ECG Diagnosis Confirmed by Timo Desai ([id number]) on 07/21/2025 2:53:42 PM MUSE ECG 07/21/2025 12:1 0 AM EST 07/21/2025 2:53 PM EST us Maicol Garcia MD ECG ORDERABLES Final Result MUSE ECG * Autumn auris Surveillance by PCR (07/20/2025 5:38 PM EST) Autumn auris PCR Result Not Detected Not Detected 07/21/2025 1:06 PM EST [facility] Swab (Axilla and Groin) Non-blood Collection / Unknown 07/20/2025 5:38 PM EST 07/20/2025 5:44 PM EST Narrative [facility] - 07/21/2025 1:06 PM EST This PCR assay was developed and its performance characteristics determined by [facility] as appropriate for clinical purposes. This assay has not been cleared or approved by the FDA, but is performed in a CLIA regulated laboratory that is qualified to perform high-complexity testing. Maicol Garcia MD LAB MICROBIOLOGY - GENERAL ORD ERABLES Final Result Performing Organization Address [facility] Co de Phone Number [facility] [address] [place] [address] * Multi Drug Resistance Test (07/20/2025 5:38 PM EST) Culture No growth at day 1 07/22/2025 5:08 AM EST [facility] Swab (Nares and Lizzie Rectal) Non-blood Collection / Unknown 07/20/2025 5:38 PM EST 07/20/2025 5:44 PM EST Narrative [facility] - 07/22/2025 5:08 AM EST This test was developed and its performance characteristics determined by the [facility]. Although the media is FDA-approved, it is not FDA-approved for all specimen types submitted. The FDA has determined that such clearance or approval is not necessary. This test is used for surveillance purposes. It should not be regarded as investigational or for research. The [facility] is certified under the Clinical Laboratory Improvement Amendments of 1988 (CLIA-88) as qualified to perform high complexity clinical laboratory testing. Maicol Garcia MD LAB MICROBIOLOGY - GENERAL ORD ERABLES Final Result Performing Organization Address City/[facility] Co de Phone Number [facility] [address] [place] [phone] * (ABNORMAL) Blood gas panel, venous (07/20/2025 5:36 PM EST) pH, Venous 7.44(H) 7.32 - 7.43 LAB HEMATOLOGY METHOD 07/20/2025 5:46 PM EST [facility] pCO2, Venous 42 40 - 55 mmHg LAB HEMATOLOGY METHOD 07/20/2025 5:46 PM EST [facility] pO2, Venous 25 25 - 40 mmHg LAB HEMATOLOGY METHOD 07/20/2025 5:46 PM EST [facility] SO2, Measured, Venous 42(L) 65 - 80 % LAB HEMATOLOGY METHOD 07/20/2025 5:46 PM EST [facility] Base Excess, Venous 3.5(H) -2.0 - 3.0 mmol/L LAB HEMATOLOGY METHOD 07/20/2025 5:46 PM EST [facility] Bicarbonate, Calculated, Venous 28(H) 22 - 26 mmol/L LAB HEMATOLOGY METHOD 07/20/2025 5:46 PM EST [facility] Hematocrit, Whole Blood 31.9(L) 40.0 - 51.0 % LAB HEMATOLOGY METHOD 07/20/2025 5:46 PM EST [facility] Sodium, Whole Blood 139 136 - 145 mmol/L LAB HEMATOLOGY METHOD 07/20/2025 5:46 PM EST [facility] Potassium, Whole Blood 3.1(L) 3.6 - 4.9 mmol/L LAB HEMATOLOGY METHOD 07/20/2025 5:46 PM EST [facility] Chloride, Whole Blood 103 97 - 107 mmol/L LAB HEMATOLOGY METHOD 07/20/2025 5:46 PM EST [facility] Glucose, Whole Blood 124(H) 74 - 99 mg/dL LAB HEMATOLOGY METHOD 07/20/2025 5:46 PM EST [facility] Lactate, Venous, Whole Blood 1.3 0.5 - 2.2 mmol/L LAB HEMATOLOGY METHOD 07/20/2025 5:46 PM EST [facility] Ionized Calcium, Whole Blood 4.4(L) 4.6 - 5.1 mg/dL LAB HEMATOLOGY METHOD 07/20/2025 5:46 PM EST [facility] Blood Venous blood specimen / Unknown Venipuncture / Unknown 07/20/2025 5:36 PM EST 07/20/2025 5:45 PM EST us Maicol Garcia MD LAB BLOOD ORDERABLES Final Res ult [facility] [address] [place] [address] * WA CRITICAL CARE, E/M 30-74 MINUTES [...] Hold for add-ons 07/20/2025 8:02 PM EST [facility] Comment:Auto resulted. Blood Venous blood specimen / Unknown 07/20/2025 4:54 PM EST 07/20/2025 5:09 PM EST Maicol Garcia MD LAB BLOOD ORDERABLES Final Res ult [facility] [address] [place] [address] * (ABNORMAL) Procalcitonin (07/20/2025 4:18 PM EST) Only the most recent of2 resultswithin the time period is included. Procalcitonin, Plasma 0.41(H) <0.09 ng/mL 07/20/2025 5:06 PM EST [facility] Blood Venous blood specimen / Unknown Venipuncture / Unknown 07/20/2025 4:18 PM EST 07/20/2025 4:29 PM EST Narrative [facility] - 07/20/2025 5:06 PM EST [...] predict 28 day mortality risk. Please consult www.oiwtus-ync-xmsxasqemo.Explore.To Yellow Pages for more information. Test performed at [facility]. us Maicol Garcia MD LAB BLOOD ORDERABLES Final Res ult [facility] [address] [place] [address] * XR Chest 1 View (07/20/2025 10:43 AM EST) Only the most recent of2 resultswithin the time period is included. Anatomical Region Laterality Modality Chest Digital Radiogra [...] Aimee Fung MD on 07/20/2025 12:12 PM us Maicol Garcia MD IMG XR PROCEDURES Final Result * Surgical Pathology Exam (07/16/2025 3:28 PM EDT) Case Report Surgical Pathology Case: [id number] Authorizing Provider: Maicol Garcia MD Collected: 07/16/2025 1528 Ordering Location: [facility] OPERATING ROOM Received: 07/16/2025 1647 Pathologist: Halima Cho MD Specimens: A) - Other (specify site), Sigmoid Colon Fresh For Permanent B) - Other (specify site), Omentum Fresh for Permenant 07/21/2025 1:32 PM EST [facility] Final Diagnosis A. 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 - MARGINS NEGATIVE FOR TUMOR INVOLVEMENT. - TWELVE LYMPH NODES NEGATIVE FOR MALIGNANCY (0/12). - PATHOLOGIC STAGE : pT2, pN0. - SEE SYNOPTIC CHECKLIST. B. OMENTUM, OMENTECTOMY: - BENIGN ADIPOSE TISSUE. 07/21/2025 1:32 PM EST [facility] at 1332 EST Synoptic Checklist [...] Additional Findings: None identified 07/21/2025 1:32 PM [facility] Clinical Information Cancer of sigmoid colon [C18.7] 07/21/2025 1:32 PM [facility] Gross Description A. SIGMOID COLON FRESH FOR [...] range from 0.2-0.6 cm in greatest dimension. Audio Technician sections are submitted as follows: A1: Closest [...] lymph nodes Cold Time: 59m ISAEL Adan ([facility]) B. OMENTUM FRESH FOR PERMENANT The specimen is received fresh and placed in formalin, labeled o mentum , and consists of a 9.2 x 6.1 x 1.1 cm aggregate of prakash-yellow lobulated fibroadipose tissue consistent with omentum. No masses are identified. Audio Technician sections are submitted in cassettes B1-B3. Cold Time: 40m ISAEL Adan ([facility]) 07/21/2025 1:32 PM EST [facility] Note: A resident was involved in the service. I attest I examined the relevant preparations for the specimens and confirmed the diagnosis or interpretation. 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] Maicol Garcia MD LAB PATHOLOGY ORDERABLES Final Result Performing Organization Address City/State/[facility] Co de Phone Number [facility] [address] [place] [address] * WA AN ELECTIVE ENDOTRACHEAL AIRWAY, PB ANESTHESIA PLACEHOLDER (07/16/2025 2:25 PM EDT) Narrative Mae Pozo CRNA - 07/16/2025 2:25 PM EDT Mae Pozo CRNA 07/16/2025 2:30 PM Airway Date/Time: 07/16/2025 2:25 PM Reason: elective Airway not difficult General Information and Staff Patient location during procedure: OR CULTURIST: Mae Pozo CRNA Performed: CULTURIST Patient Condition Indications for airway management: anesthesia [...] dentition. Sujit Chester MD ANESTHESIA ORDERABLES Eladia l Result * PB POINT OF CARE IMAGING PLACEHOLDER [...] monitoring: continuous pulse ox, heart rate and cardiac care unit nurse Block type: TAP Laterality: left and right [...] the procedure well, with no obvious complications. us Ofelia Zamora MD ANESTHESIA ORDERABLES Fin al Result * POCT glucose meter (07/16/2025 1:41 PM EDT) POCT Glucose 92 74 - 99 mg/dL 07/16/2025 1:42 PM EDT [facility] Comment:Accuracy of a glucos e result [...] for testing. Comment 07/16/2025 1:42 PM EDT [facility] Manager Clinical Informatics ID Anita Thomas 07/16/20 1:42 PM EDT [facility] Device ID [id number] 07/16/2025 1:42 PM EDT [facility] Specimen Type POC Venous 07/16/2025 1:42 PM EDT [facility] Blood Venous blood specimen / Unknown 07/16/2025 1:41 PM EDT 07/16/2025 1:42 PM EDT us Maicol Garcia MD LAB POINT OF CARE TE ST DOCKED DEVICE UNSOLICITED RESULTS Final Result [facility] [address] [place] [id number] * Type and Screen (07/16/2025 12:56 PM [...] TEST ORDERABLES Final Result Performing Organization Address City/State/[facility] Co de Phone Number BLOOD BANK [address] [place] [address], [place] * POC Imaging (07/16/2025) Anatomical Region Laterality Modality Pelvis Other 07/16/2025 us External Provider IMG POINT OF CARE ULTRASOUND F inal Result * (ABNORMAL) Comprehensive metabolic panel (07/04/2025 12:25 PM EDT) Glucose, Plasma 90 74 - 99 mg/dL 07/04/2025 2:05 PM EDT [facility] BUN, Plasma 17 8 - 23 mg/dL 07/04/2025 2:05 PM EDT [facility] Creatinine, Plasma 0.83 0.70 - 1.20 mg/dL 07/04/2025 2:05 PM EDT [facility] BUN/Creatinine Ratio 20 07/04/2025 2:05 PM EDT [facility] Sodium, Plasma 139 136 - 145 mmol/L 07/04/2025 2:05 PM EDT [facility] Potassium, Plasma 4.3 3.6 - 4.9 mmol/L 07/04/2025 2:05 PM EDT [facility] Chloride, Plasma 100 97 - 107 mmol/L 07/04/2025 2:05 PM EDT [facility] CO2, Plasma 30(H) 22 - 29 mmol/L 07/04/2025 2:05 PM EDT [facility] Anion Gap 9 6 - 16 mmol/L 07/04/2025 2:05 PM EDT [facility] Total Calcium, Plasma 9.8 8.9 - 10.2 mg/dL 07/04/2025 2:05 PM EDT [facility] Total Protein 6.9 6.3 - 7.9 g/dL 07/04/2025 2:05 PM EDT [facility] Albumin, Plasma 4.1 3.5 - 5.2 g/dL 07/04/2025 2:05 PM EDT [facility] AST, Plasma 26 10 - 50 U/L 07/04/2025 2:05 PM EDT [facility] ALT, Plasma 17 10 - 50 U/L 07/04/2025 2:05 PM EDT [facility] Alkaline Phosphatase, Plasma 92 40 - 115 U/L 07/04/2025 2:05 PM EDT [facility] Total Bilirubin, Plasma 0.3 0.2 - 1.1 mg/dL 07/04/2025 2:05 PM EDT [facility] eGFRcr 90.7 mL/min/1.7 3m*2 07/04/2025 2:05 PM EDT [facility] Comment:Reported eGFRcr in m L/min/1.73m2 is based the CKD-EPI 2020 equation that does not use a race coefficient. Blood Venous blood specimen / Unknown Venipuncture / Unknown 07/04/2025 12:25 PM EDT 07/04/2025 12:25 PM EDT us Ofe Hurtado APRN LAB BLOOD ORDERABLES Final R esult [facility] [address] [place] [address] * Surgical Pathology Consult (06/26/2025 11:20 AM EDT) Case Report Sugical Pathology Consult Case: [id number] Authorizing Provider: Maicol Garcia MD Collected: 06/26/2025 1120 Ordering Location: [facility] Lab Received: 06/26/2025 1120 Pathologist: Tai Soliman DO Specimen: Colon, [id number] 06/26/2025 5:03 PM EDT [facility] Final Diagnosis OUTSIDE SLIDES; [id number], A-C; 06/16/2025 A. LARGE INTESTINE, ASCENDING COLON, BIOPSY: - TUBULAR ADENOMA. B. LARGE INTESTINE, TRANSVERSE COLON, BIOPSY: - TUBULAR ADENOMA. C. 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 - MMR BY IHC (PER REPORT): - RETAINED NUCLEAR STAINING OF ALL FOUR PROTEINS (MLH1, PMS2, MSH2 AND MSH6). 06/26/2025 5:03 PM EDT [facility] at 1703 EDT Clinical Information D37.4 - Neoplasm of uncertain behavior of colon [ICD-10-CM] 06/26/2025 5:03 PM EDT [facility] Gross Description A. [id number] Received along with a corresponding pathology report from [facility] are 8 slide(s) labeled outside case: [id number] collected on 06/16/2025. 06/26/2025 5:03 PM EDT [facility] Intradepartmental Consultation with Agreement Dr. Bonner 06/26/2025 5:03 PM EDT [facility] Note: A resident was involved in the service. I attest I examined the relevant preparations for the specimens and confirmed the diagnosis or interpretation. 06/26/2025 5:03 PM EDT [facility] Tissue Colon structure / Unknown 06/26/2025 11:20 AM EDT 06/26/2025 11:20 AM EDT us Maicol Garcia MD LAB PATHOLOGY ORDERABLES Final Result [facility] [address] [place] [address] * CT OUTSIDE IMAGES (06/19/2025 10:39 AM EDT) Anatomical Region Laterality Modality Computed Tomogra phy 06/19/2025 10:3 9 AM EDT us External Provider IMG CT PROCEDURES Edited Resul t - Final from Last 3 Months Additional Health Concerns Active Problems Noted Date Diagnosed Date Autogenerated Problem 07/01/2025 [place] [address] [facility]LY [facility] Advance Directives Documents on File Type Date Recorded Patient Audio Technician Expl anation Advance Directives and Living Will 07/16/2025 Power of Plastic Top Assembler 07/16/2025 * Full Code (Latest Code Status on File) Date Activated Date Inactivated Comments 07/16/2025 4:49 PM 07/22/2025 6:21 PM Question Answer Comments I have reviewed the capacity from the link above and, if needed, have updated to appropriate status: Yes Care Teams Chronometer Repairer Relationship Specialty Start Date End Date Bryan Watkins MD [address] [place] [address] BLADE Finch [address] PCP - General 05/19/25
--- OUTSIDE RECORDS SUMMARY | 2025-08-12 09:52 | XMS_ITS | Encounter Summary ---
Author Organization [facility] Address [address] [place] [address] Care Team Providers Care Airline Counter Agent Name Role Phone Bryan Watkins MD Primary Care Provider [phone] Encounter Details Date Type Department Care Team (Late st Contact Info) Description 06/19/2025 Orders Only External Location [address] [place] [address] Provider, External Social History Tobacco Use Types [...] EDT Appointment [facility] [address] [place] [address] 02/03/2026 10:00 AM EDT Office Visit [facility] [address] [place] [address] Maicol Garcia MD [address] [facility] [address] [place] [address] 02/03/2026 10:00 AM EDT Clinical Support [facility] [address] [place] [address] documented as of this encounter Procedures Procedure Name Priority Date/Time Associated Diagnosis Comments CT OUTSIDE IMAGES 06/19/2025 10:39 AM EDT documented in this encounter Results * CT OUTSIDE IMAGES (06/19/2025 10:39 AM EDT) Anatomical Region Laterality Modality Computed Tomogra phy 06/19/2025 10:3 9 AM EDT us External Provider IMG CT PROCEDURES Edited Resul t - Final documented in this encounter Visit Diagnoses Not on filedocumented in this encounter Care Teams Airline Counter Agent Relationship Specialty Start Date End Date Bryan Watkins MD [address] [place] [address] PCP - General 05/19/25 documented as of this encounter
== END 2025-08-12 23:59 | disposition home or self-care (01) ==
LOC: RT 09:47
PROVIDERS: PCP Family Medicine; Visit Provider Nurse Practitioner Family
DX: I49.3 Ventricular premature depolarization (principal); I47.29 Other ventricular tachycardia; I49.1 Atrial premature depolarization; I47.19 Other supraventricular tachycardia; I48.91 Unspecified atrial fibrillation
CPT/HCPCS: 93270

== ENCOUNTER 2025-08-13 10:46 | Day surgery (SDC) | payer MEDICARE, BC, SELFPAY ==
[2025-08-13] VITALS (11 sets, daily range): BP systolic 96–139; BP diastolic 52–89; PULSE 52–65; RESP 18–20; TEMP 36.1–37; O2SAT 95–100; BMI 19.3
--- NOTE | 2025-08-13 07:12 | IR_ITS ---
APPROVED REPORT Patient Location: Outpatient PROCEDURES Left heart catheterization Left ventriculogram Selective coronary angiogram Angioplasty to chronically occluded right coronary INDICATION Coronary artery disease, Chronically occluded right coronary, Cardiomyopathy ejection fraction 35 to 40%, Recent non-ST elevation myocardial infarction Informed consent was obtained prior to the procedure. COMPLICATIONS NONE Estimated Blood Loss: LESS THAN 10 ML TECHNIQUE One percent lidocaine used to anesthetize the right anterior aspect of the wrist. The right radial artery was accessed via the Seldinger technique. A 6 Welsh sheath was placed in the right radial artery. 2.5 mg of Verapamil, 800 mcg of nitroglycerin, 1mg Lidocaine and 5000 U Heparin were given through the arterial sheath. The JL3 catheter was also used to perform left heart catheterization, left ventriculogram and selective coronary angiogram. At the end of the diagnostic angiogram therapeutic Was administered giving a therapeutic ACT and a multipurpose guide catheter was placed in the right coronary followed by Choice PT extra-support wire placed distally. A 2.5 x 12 mm noncompliant balloon was advanced over the Choice PT wire which was used to push past the chronically occluded right coronary artery. Initially the wire felt as though it pushed through the occlusion and entered into the lumen however after further advancing of the wire it stopped distally suggesting more of subintimal location. Despite this the 2.5 mm balloon was advanced over the chronic occlusion and deployed at 4 ethan in order to open the occlusion and better outlined the distal anatomy. When this failed it was decided not to pursue further opening of the chronically occluded vessel as I was more concerned Vincent at this point the wire was subintimal. The apparatus was removed the flow was unchanged from the beginning of the procedure to the end. The sheath was removed good hemostasis was achieved using TR banding patient was transferred to the postop holding in stable condition ANGIOGRAPHIC RESULTS The left main artery Normal The left anterior descending artery Has proximal 20% stenosis with mid vessel 30% stenosis. The LAD is large and tortuous The circumflex artery Is large codominant and has proximal 20 and 30% stenoses. The right coronary artery Codominant and occluded distal to an RV marginal branch. The distal right coronary artery fills via [id number] collaterals The BERUMEN ventriculogram reveals Reduced ejection fraction estimated at 35% The left ventricular end-diastolic pressure 20 mmHg IMPRESSION Chronically occluded right coronary artery with unsuccessful angioplasty with no antegrade taoism of flow and persistent [id number] collateralization Reduced ejection fraction Elevated LVEDP PLAN 1. GDMT for LV dysfunction 2. Risk factor modification 3. Reevaluate ejection fraction in 40 days to determine if AICD placement is warranted Electronically signed by : Marty Lynn MD 08/13/2025 13:49:47
[2025-08-13 11:00] LABS: Hematocrit 37.8 % (42.0-52.0); Hemoglobin 12.4 g/dL (14.1-18.0); Immature Granulocytes % 0.1 %; Mean Corpuscular HGB Conc 32.8 g/dL (31.8-35.4); Mean Corpuscular Hemoglobin 32.2 pg (27.0-31.2); Mean Corpuscular Volume 98.2 fl (80-94); Nucleated Red Blood Cells % 0 %; Platelet Count 220 K/mm3 (142-424); Red Blood Count 3.85 M/mm3 (4.60-6.20); Red Cell Distribution Width-SD 50.2 fL; White Blood Count 6.7 K/mm3 (4.8-10.8)
[2025-08-13 11:07] LABS: Chloride 99 mmol/L (98-107); Sodium 140 mmol/L (136-145)
[2025-08-13 11:08] LABS: Potassium 4.5 mmoL/L (3.5-5.1)
[2025-08-13 11:11] LABS: Anion Gap 14.5 mEq/L (5-15); Blood Urea Nitrogen 25 mg/dl (9-20); Calcium 9.1 mg/dl (8.4-10.2); Carbon Dioxide 31 mmol/L (22.0-30.0); Creatinine Clearance Estimated 51 mL/min (50-200); Creatinine,Serum 1.00 mg/dl (0.66-1.25); Estimated Glomerular Filt Rate 73 ml/min (>60); GFR (African American) 88 ML/MIN (>60); Glucose 94 mg/dl (74-100)
[2025-08-13] MEDS: NITROGLYCERIN 800MCG/8ML SYR (CATH LAB) 800 MCG IA (13:07)
[2025-08-13] MEDS: HEPARIN 1,000 UNITS/500ML NS (CATH LAB) 3000 UNIT IV (13:08)
[2025-08-13] MEDS: 0.9 % SODIUM CHLORIDE 500 ML 25 ML IV (13:08)
[2025-08-13] MEDS: LIDOCAINE 1% 10ML MDV 10 ML IJ (13:08)
[2025-08-13] MEDS: HEPARIN 1,000 UNITS/ML 10ML VIAL (CATH LAB) 5000 UNIT IV ×2 (13:08→13:38)
[2025-08-13] MEDS: VERAPAMIL 2.5MG/ML 2ML VIAL 2.5 MG IV (13:09)
[2025-08-13] MEDS: MIDAZOLAM HCL 1MG/ML 5ML VIAL 1 MG IV (13:37)
[2025-08-13] MEDS: FENTANYL 100MCG/2ML VIAL 50 MCG IV (13:37)
[2025-08-13] MEDS: IOPAMIDOL-370 (76%);100ML BOTTLE 105 ML IV (13:53)
[2025-08-13 13:54] LABS: CATHL Activated Clotting Time 257 SEC (74-125)
== END 2025-08-13 16:21 | disposition home or self-care (01) ==
PROVIDERS: PCP Family Medicine; Visit Provider Internal Medicine
PROC: 4A023N7 Measurement of Cardiac Sampling and Pressure, Left Heart, Percutaneous Approach (ICD-10-PCS; CPT 93452; principal; 2025-08-13 12:45)
DX: I25.119 Atherosclerotic heart disease of native coronary artery with unspecified angina pectoris (principal); I21.4 Non-ST elevation (NSTEMI) myocardial infarction; R79.89 Other specified abnormal findings of blood chemistry; I47.19 Other supraventricular tachycardia; R94.31 Abnormal electrocardiogram [ECG] [EKG]; I50.21 Acute systolic (congestive) heart failure; I11.0 Hypertensive heart disease with heart failure; I48.0 Paroxysmal atrial fibrillation; I25.5 Ischemic cardiomyopathy; E78.2 Mixed hyperlipidemia; C18.7 Malignant neoplasm of sigmoid colon; F17.210 Nicotine dependence, cigarettes, uncomplicated; Z79.01 Long term (current) use of anticoagulants; Z79.899 Other long term (current) drug therapy; Z88.1 Allergy status to other antibiotic agents
CPT/HCPCS: 36415; 80048; 85025; 85347; 92920; 93458; 99152; 99153; C1725; C1769; C1887; J1200; J1644; J2003; J3010; J7040; Q9967

== ENCOUNTER 2025-08-15 08:34 | Outpatient (CLI) | payer MEDICARE, BC, SELFPAY ==
--- OUTSIDE RECORDS SUMMARY | 2025-07-01 08:15 | XMS_ITS | Encounter Summary ---
Author Organization [facility] Address [address] [place] [address] Care Team Providers Care Expeller Worker Name Role Phone Bryan Watkins MD Primary Care Provider Reason for Visit * Reason Comments Consult Encounter Details Date Type Department Care Team (Latest Contact Info) Description 07/01/2025 9:15 AM EDT Office Visit [facility] Multidisciplinary Oncology Clinic [address] [place] [address] Maicol Garcia MD [address] [facility] [address] [place] [address] Cancer of sigmoid colon (Primary Dx) Social [...] Augusto Franz - 07/01/2025 9:15 AM EDT [facility] Colon & Rectal Surgery 07/01/2025 Chief [...] saw and evaluated the patient with the medical/COMMUNITY AFFAIRS MANAGER/PA student. I discussed the case with the medical/COMMUNITY AFFAIRS MANAGER/PA student and agree with the findings and [...] Info) Description 02/03/2026 8:00 AM EDT Appointment [facility] Radiology [address] [place] [phone] 02/03/2026 10:00 AM EDT Office Visit [facility] Multidisciplinary Oncology Clinic [address] [place] [address] Maicol Garcia MD [address] [facility] [address] [place] [address] 02/03/2026 10:00 AM EDT Clinical Support [facility] Multidisciplinary Oncology Clinic [address] [place] [address] documented as of this encounter Goals Goal [...] documented as of this encounter Care Teams Expeller Worker Relationship Specialty Start Date End Date Bryan Watkins MD [address] [place] [address] [facility] [id number] PCP - General 05/19/25 documented as of this encounter
--- OUTSIDE RECORDS SUMMARY | 2025-07-04 11:30 | XMS_ITS | Encounter Summary ---
Author Organization [facility] Address [address] [place] [address] Care Team Providers Care Whipper Name Role Phone Bryan Watkins MD Primary Care Provider [phone] Encounter Details Date Type Department Care Team (Latest Contact Info) Description 07/04/2025 12:30 PM EDT Pre-Admission Testing [facility] [address], [address] [place] [address] Preop examination (Primary Dx) Anesthesia Record Procedure Summary Procedure Name Responsible Anesthesiologist Anesthesia Start Time Anesthesia Stop Time COLECTOMY, SIGMOID Mae Pozo, BELT PRESS OPERATOR 07/16/25 1417 07/16/25 1638 Events Date Time [...] Forearm; Site Prep: Chlorhexidine ; Local Anesth: [place]; Technique: Anatomical landmarks; Inserted by: Candice BLAIR; [...] with Maicol Garcia MD on 07/16/2025 in [facility]. PMH: patient has PCP but no routine [...] peripheral edema, hyperlipidemia, murmur, peripheral edema, past [place] or syncope. no hypertension: Does not have chest pain. Cardio additional comments: Exercise Tolerance. 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 Has to stop a few times due to SOA. 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 Sleeps in regular bed [...] 07/04/25 encounter (Pre-Admission Testing) with PRE-ADMISSION TESTING [address] [place] [address]. Hold Aspirin products, and NSAID's such as [...] card, photo ID, along with power of patent prosecution attorney, guardianship or advanced directives if applicable [...] EDT Appointment [facility] [address] [place] [address] 02/03/2026 10:00 AM EDT Office Visit [facility] [address] [place] [address] Maicol Garcia MD [address] [place] [phone] 02/03/2026 10:00 AM EDT Clinical Support [facility] [address] [place] [address] documented as of this encounter Goals Goal [...] - 99 mg/dL 07/04/2025 2:05 PM EDT [facility] BUN, Plasma 17 8 - 23 mg/dL 07/04/2025 2:05 PM EDT [facility] Creatinine, Plasma 0.83 0.70 - 1.20 mg/dL 07/04/2025 2:05 PM EDT [facility] BUN/Creatinine Ratio 20 07/04/2025 2:05 PM EDT [facility] Sodium, Plasma 139 136 - 145 mmol/L 07/04/2025 2:05 PM EDT [facility] Potassium, Plasma 4.3 3.6 - 4.9 mmol/L 07/04/2025 2:05 PM EDT [facility] Chloride, Plasma 100 97 - 107 mmol/L 07/04/2025 2:05 PM EDT [facility] CO2, Plasma 30(H) 22 - 29 mmol/L 07/04/2025 2:05 PM EDT [facility] Anion Gap 9 6 - 16 mmol/L 07/04/2025 2:05 PM EDT [facility] Total Calcium, Plasma 9.8 8.9 - 10.2 mg/dL 07/04/2025 2:05 PM EDT [facility] Total Protein 6.9 6.3 - 7.9 g/dL 07/04/2025 2:05 PM EDT [facility] Albumin, Plasma 4.1 3.5 - 5.2 g/dL 07/04/2025 2:05 PM EDT [facility] AST, Plasma 26 10 - 50 U/L 07/04/2025 2:05 PM EDT [facility] ALT, Plasma 17 10 - 50 U/L 07/04/2025 2:05 PM EDT [facility] Alkaline Phosphatase, Plasma 92 40 - 115 U/L 07/04/2025 2:05 PM EDT [facility] Total Bilirubin, Plasma 0.3 0.2 - 1.1 mg/dL 07/04/2025 2:05 PM EDT [facility] eGFRcr 90.7 mL/min/1.7 3m*2 07/04/2025 2:05 PM EDT [facility] Comment:Reported eGFRcr in m L/min/1.73m2 is based the CKD-EPI 2020 equation that does not use a race coefficient. Blood Venous blood specimen / Unknown Venipuncture / Unknown 07/04/2025 12:25 PM EDT 07/04/2025 12:25 PM EDT us Ofe Hurtado APRN LAB BLOOD ORDERABLES Final R esult [facility] [address] [place] [address] * (ABNORMAL) CBC (07/04/2025 12:25 PM EDT) WBC Count 9.33 3.70 - 10.30 10*3/uL LAB HEMATOLOGY METHOD 07/04/2025 2:01 PM EDT [facility] RBC Count 4.50(L) 4.60 - 6.10 10*6/uL LAB HEMATOLOGY METHOD 07/04/2025 2:01 PM EDT [facility] HGB 14.2 13.7 - 17.5 g/dL LAB HEMATOLOGY METHOD 07/04/2025 2:01 PM EDT [facility] HCT 43.6 40.0 - 51.0 % LAB HEMATOLOGY METHOD 07/04/2025 2:01 PM EDT [facility] Platelet Count 268 155 - 369 10*3/uL LAB HEMATOLOGY METHOD 07/04/2025 2:01 PM EDT [facility] MCV 97 79 - 98 fL LAB HEMATOLOGY METHOD 07/04/2025 2:01 PM EDT [facility] MCH 31.6 26.0 - 32.0 pg LAB HEMATOLOGY METHOD 07/04/2025 2:01 PM EDT [facility] MCHC 32.6 30.7 - 35.5 g/dL LAB HEMATOLOGY METHOD 07/04/2025 2:01 PM EDT [facility] RDW 13.2 11.5 - 14.5 % LAB HEMATOLOGY METHOD 07/04/2025 2:01 PM EDT [facility] MPV 9.7 8.8 - 12.5 fL LAB HEMATOLOGY METHOD 07/04/2025 2:01 PM EDT [facility] nRBC 0.0 <=0.0 per 100 WBCs LAB HEMATOLOGY METHOD 07/04/2025 2:01 PM EDT [facility] Blood Venous blood specimen / Unknown Venipuncture / Unknown 07/04/2025 12:25 PM EDT 07/04/2025 12:25 PM EDT us Ofe Hurtado APRN LAB BLOOD ORDERABLES Final R esult [facility] [address] [place] [address] * ECG Adult (Now - Performed in your clinic) (07/04/2025 12:09 PM EDT) EKG DIAGNOSIS CLASS Borderline Abnormal MUSE ECG Ventricular Rate 63 BPM MUSE ECG Atrial Rate 63 BPM MUSE ECG [place] Interval 118 ms MUSE ECG QRSD Interval 122 ms MUSE ECG QT Interval 430 ms MUSE ECG QTC Interval 440 ms MUSE ECG P [place] 80 degrees MUSE ECG R [place] 91 degrees MUSE ECG T Wave [place] 31 degrees MUSE ECG Diagnosis Normal sinus rhythm MUSE ECG Diagnosis Rightward axis MUSE ECG Diagnosis Nonspecific intraventricular conduction delay MUSE ECG Diagnosis Borderline ECG MUSE ECG Diagnosis MUSE ECG Diagnosis Confirmed by Luisito Salazar ([id number]) on 07/04/2025 1:10:48 PM MUSE ECG 07/04/2025 [...] documented as of this encounter Care Teams Whipper Relationship Specialty Start Date End Date Bryan Watkins MD [address] [place] [address] PCP - General 05/19/25 documented as of this encounter
--- OUTSIDE RECORDS SUMMARY | 2025-07-16 11:37 | XMS_ITS | Encounter Summary ---
Author Organization [facility] Address [address] [id number] Care Team Providers Care Floor Worker [place] Name Role Phone Bryan Watkins MD Primary Care Provider [phone] Reason for Referral * Consultation (Routine) - Authorized Specialty Diagnoses / Procedures Referred By Sugar candelario Referred To Contact Cardiology Diagnoses Paroxysmal atrial fibrillation (CMS/HCC) Maicol Garcia MD [address] [address] Phone: tel: fax: Referral ID Status Reason Start Date Expiration Date Visits Requested Visits Authorized [id number] Authorized Specialty Services Required 07/22/2025 01/21/2027 1 1 Scheduling Instructions 1-2 weeks, followup Afib Reason for Visit * Auth/Cert (Routine) Specialty Diagnoses / Procedures Referred By Sugar candelario Referred To Contact Diagnoses 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 [C18.7] Procedures MA PART REMOVAL COLON W ANASTOMOSIS COLECTOMY, SIGMOID Maicol Garcia MD [address] [address] Phone: tel: fax: [facility] [address] [place] [phone] Phone: tel: Referral ID Status Reason Start Date Expiration Date Visits Re quested Visits Authorized [id number] 1 1 Encounter Details Date Type Department Care Team (Latest Contact Info) Description 07/16/2025 12:37 PM EDT - 07/22/2025 4:16 PM EST Hospital Encounter [facility] [address] [place] [address] Maicol Garcia MD [address] [place] [id number] Paroxysmal atrial fibrillation (CMS/HCC) (Primary Dx); Cancer of sigmoid colon Discharge Disposition: Home or Self Care Social History Tobacco Use Types Packs/Day Years Used Date Smoking Tobacco: Every Day Cigarettes 1 50.9 Started: 1976 Smokeless Tobacco: Never Alcohol Use Standard Drinks/Week Comments Never 0 (1 standard drink = 0.6 oz pur e alcohol) Humiliation, Afraid, Rape, and Kick questionnair e Answer Date Recorded Within the last year, have y ou been afraid of your partner or ex-partner? No 07/17/2025 Within the last year, have y ou been humiliated or emotionally abused in other ways by your partner or ex-partner? No Within the last year, have y ou been kicked, hit, slapped, or otherwise physically hurt by your partner or ex-partner? No 07/17/2025 Within the last year, have y ou been raped or forced to have any kind of sexual activity by your partner or ex-partner? No 07/17/2025 Hunger Vital Sign Answer Date Recorded Within the past 12 months, y ou worried that your food would run out before you got the money to buy more. Never true 07/17/20 25 Within the past 12 months, t he food you bought just didn't last and you didn't have money to get more. Never true 07/17/2025 PRAPARE - Transportation Answer Date Re corded In the past 12 months, has l ack of transportation kept you from medical appointments or from getting medications? No 06/20 In the past 12 months, has l ack of transportation kept you from meetings, work, or from getting things needed for daily living? No 07/17/2025 Housing Stability Vital Sign Answer Reza e Recorded In the last 12 months, was t here a time when you were not able to pay the mortgage or rent on time? No 07/17/2025 Number of Times Moved in the Last Year Not on fi le 07/17/2025 At any time in the past 12 m [facility], were you homeless or living in a alf (including now)? No 07/17/2025 [facility] Utilities Answer Date Recorded In the past 12 months has th e electric, gas, oil, or water company threatened to shut off services in your home? No 07/17/2025 Sex and Gender Information Value Date Recorded Sex Assigned at Not on file Legal Sex Male 4:11 PM EDT Gender Identity Not on file Sexual Orientation Not on file documented as of this encounter Last Filed Vital Signs Vital Sign Reading Time Taken Comments Blood Pressure 134/79 07/22/2025 11:28 AM EST Pulse 84 07/22/2025 11:28 AM EST Temperature 36.4 C (97.5 F) 07/22/2025 11:28 AM EST Respiratory Rate 19 07/22/2025 11:0 0 AM EST Oxygen Saturation 93% 07/22/2025 11: 00 AM EST Inhaled Oxygen Concentration - - Weight 55.2 kg (121 lb 11.1 oz) 07/22/2025 6:18 AM EST Height 172.7 cm (5' 8 ) 07/16/2025 12:5 5 PM EDT Body Mass Index 18.5 07/16/2025 12:55 PM EDT documented in this encounter Functional Status * Calculated C-SSRS Risk Score (Lifetime/Recent) Answer Date of Assessment Author No Risk Indicated 07/22/2025 8:00 AM EST Ying Adamson RN * Question Answer Date of Assessment Author 1. Wish to be (Past 1 Month) No 025 8:00 AM Ying Nichols RN 2. Non-Specific Active Suici darrian Thoughts (Past 1 Month) No 07/22/2025 8:00 AM EST Andrzej Adamson RN 6. Suicidal Behavior (Lifetime) No 8:00 AM Ying Nichols RN documented as of this encounter Discharge Instructions * Discharge Instructions* Mallory Perry RN - 07/22/2025 1:20 PM EST Images from the original note were not included. Department of Surgery Division of Colorectal Surgery Activity: Move around as you are able, do not lift over 5 lbs for 6 weeks after surgery Diet: You may eat a GI soft. You may try to gradually increase your diet in the next few weeks; however, avoid large meals such as steak. If you feel nauseous or cannot tolerated new foods, continue GI soft Be sure to stay hydrated and take in plenty of fluid. See attached diet instructions. Medications: Take tylenol 1000mg every 6 hours for pain, if you still have pain, take oxycodone, one tab every 6-8 hours as needed. Continue your home medications unless instructed otherwise at discharge. Wound care: It is okay to shower. Allow warm, soapy water to run over your incisions and pat dry with a clean towel. Do not submerge your incisions in a tub bath or body of water for two weeks after your operation. {Wound care:98234:: You have surgical glue over your incisions. Do not pick at this.It will come off on its own. , You have kimberly over your incision. These will be removed in clinic. } Follow up: You will follow up with Dr. Garcia in {time::: 2 weeks , 4 weeks , 6 weeks }. Theclinic will call with an appointment time. Questions: Call the [facility] at [phone] during business hours on weekdays or call [facility]'s after hours at [phone] to speak with a resident information manager for Colorectal surgery after 5pm or on weekends if: - you have a fever > 101F - you are vomiting and cannot keep down liquids - your pain cannot be controlled with oral medications - if you start to have increased redness, drainage of pus, swelling, or increased pain around your incision documented in this encounter Medications at Time of Discharge apixaban (Eliquis) 5 MG tablet Take 1 tablet by mouth 2 times a day. 60 tablet 07/22/2025 5 ipratropium-albu terol (Duo-Neb) 0.5-2.5 mg/3 mL nebulizer solution Take 3 mL by nebulization every 6 hours as needed for wheezing. 180 mL 5 07/22/2025 metoprolol succinate XL (Toprol-XL) 25 MG 24 hr tablet Take 1 tablet by mouth daily. Do not crush or chew. 90 tablet 3 07/23/2025 6 multivitamin (Theragran-M) tablet Take 1 tablet by mouth daily. rosuvastatin (Crestor) 20 MG tablet Take 1 tablet by mouth daily. 90 tablet 3 07/23/2025 6 acetaminophen (Tylenol) 500 MG tablet Take 2 tablets by mouth every 6 hours for 5 days. 40 tablet 07/22/2025 5 documented as of this encounter Miscellaneous Notes * Medhat Boyer RN - 07/22/2025 3:01 PM EST Images from the original note were not included. [id number] Apixaban IMPORTANT WARNING: If you have atrial fibrillation (a condition in which the heart beats irregularly, increasing the chance of clots forming in the body, and possibly causing strokes) and are taking apixaban to help prevent strokes or serious blood clots, you are at a higher risk of having a stroke after you stop taking this medication. Do not stop taking apixaban without talking to your doctor. Continue to take apixaban even if you feel well. Be sure to refill your prescription before you run out of medication so that you will not miss any doses of apixaban. If you need to stop taking apixaban, your doctor mayprescribe another anticoagulant ('blood thinner') to help prevent a blood clot from forming and causing you to have a stroke. If you have epidural or spinal anesthesia or a spinal puncture while taking a 'blood thinner' such as apixaban, you are at risk of having a blood clot form in or around your spine that could cause you to become paralyzed. Tell your doctor if you have an epidural catheter that is left in your body or have or have ever had repeated epidural or spinal punctures, spinal deformity, or spinal surgery. Tell your doctor and pharmacist if you are taking any of the following: anagrelide (Agrylin??); aspirin and other nonsteroidal anti-inflammatory drugs (NSAIDs) such as ibuprofen (Advil??, Motrin??, others), indomethacin (Indocin??, Tivorbex??), ketoprofen, and naproxen (Aleve??, Anaprox??, others); cilostazol (Pletal??); clopidogrel (Plavix??); dipyridamole (Persantine??); eptifibatide (Integrilin??); heparin; prasugrel (Effient??); ticagrelor (Brilinta??); ticlopidine; tirofiban (Aggrastat??), and warfarin (Coumadin??, Jantoven??). If you experience any of the following symptoms, call your doctor immediately: muscle weakness (especially in your legs and feet), numbness or tingling (especially in your legs), or loss of control of your bowels or bladder. Your doctor or pharmacist will give you the marble installer supervisor's patient information sheet (Medication Guide) when you begin treatment with apixaban and each time you refill your prescription. Read the information carefully and ask your doctor or pharmacist if you have any questions. You can also visit the Food and Drug Administration (FDA) website (https://www.fda.gov/Drugs/DrugSafety/rnd156997.htm) or the marble installer supervisor's website to obtain the Medication Guide. Talk to your doctor about the risks of taking apixaban. WHY is this medicine prescribed? Apixaban is used to help prevent strokes or blood clots in people who have atrial fibrillation (a condition in which the heart beats irregularly, increasing the chance of clots forming in the body and possibly causing strokes) that is not caused by heart valve disease. Apixaban is also used to prevent deep vein thrombosis (DVT; a blood clot, usually in the leg) and pulmonary embolism (PE; a bloodclot in the lung) in people who are having hip replacement or knee replacement surgery. Apixaban isalso used to treat DVT and PE and may be continued to prevent DVT and PE from happening again afterthe initial treatment is completed. Apixaban is in a class of medications called factor Xa inhibitor s. It works by blocking the action of a certain natural substance that helps blood clots to form. HOW should this medicine be used? Apixaban comes as a tablet to take by mouth. It is usually taken with or without food twice a day. When apixaban is taken to prevent DVT and PE after hip or knee replacement surgery, the first dose should be taken at least 12 to 24 hours after surgery. Apixaban is usually taken for 35 days after a hip replacement surgery and for 12 days after knee replacement surgery. Take apixaban at around the same times every day. Follow the directions on your prescription label carefully, and ask your doctor or pharmacist to explain any part you do not understand. Take apixaban exactly as directed. Do nottake more or less of it or take it more often than prescribed by your doctor. If you are unable to swallow the tablets, you can crush them and mix with water, apple juice, or applesauce. Swallow the mixture right after you prepare it. Apixaban can also be given in certain types of feeding tubes. Ask your doctor if you should take this medication in your feeding tube. Follow your doctor's directions carefully. Continue to take apixaban even if you feel well. Do not stop taking apixaban without talking to your doctor. If you stop taking apixaban, your risk of a blood clot may increase. Are there OTHER USES for this medicine? This medication may be prescribed for other uses; ask your doctor or pharmacist for more information. What SPECIAL PRECAUTIONS should I follow? Before taking apixaban, ? tell your doctor and pharmacist if you are allergic to apixaban, any other medications, or any ofthe ingredients in apixaban tablets. Ask your pharmacist or check the Medication Guide for a list of the ingredients. ? Tell your doctor and pharmacist what prescription and nonprescription medications, vitamins, nutritional supplements, and herbal products you are taking or plan to take while taking apixaban. Your doctor may need to change the doses of your medications or monitor you carefully for side effects. ? The following nonprescription or herbal products may interact with apixaban: Story's wort; aspirin; NSAIDs (such as ibuprofen [Advil??, Motrin??] and naproxen [Aleve??, Naprosyn??]). Be sure to let your doctor and pharmacist know that you are taking these medications before you start taking apixaban. Do not start any of these medications while taking apixaban without discussing with your healthcare provider. ? you should know that apixaban may interact with certain medications that may be used to treat youif you have a stroke or other medical emergency. In case of an emergency, you or a family member should tell the doctor or emergency room staff who treat you that you are taking apixaban. ? tell your doctor if you have an artificial heart valve or if you have heavy bleeding anywhere in your body that cannot be stopped. Your doctor will probably tell you not to take apixaban. ? tell your doctor if you have or have ever had any type of bleeding problem, antiphospholipid syndrome (APS; a condition that causes blood clots), or kidney or liver disease. ? tell your doctor if you are , plan to become , or are . If you become while taking apixaban, call your doctor. ? if you are having surgery, including dental surgery, tell the doctor or dentist that you are taking apixaban. Your doctor may tell you to stop taking apixaban before the surgery or procedure. If you need to stop taking apixaban because you are having surgery, your doctor may prescribe a differentmedication to prevent blood clots during this time. Your doctor will tell you when you should starttaking apixaban again after your surgery. Follow these directions carefully. ? Call your doctor right away if you fall or injure yourself, especially if you hit your head. Yourdoctor may need to check you. What SPECIAL DIETARY instructions should I follow? Unless your doctor tells you otherwise, continue your normal diet. What should I do IF I FORGET to take a dose? Take the missed dose as soon as you remember it. However, if it is almost time for the next dose, skip the missed dose and continue your regular dosing schedule. Do not take a double dose to make up for a missed one. What SIDE EFFECTS can this medicine cause? Some side effects can be serious. If you experience any of these symptoms, call your doctor immediately or get emergency medical treatment: ? bleeding gums ? nosebleeds ? heavy vaginal bleeding ? red, pink, or brown urine ? red or black, tarry stools ? coughing up or vomiting blood or material that looks like coffee grounds ? swelling or joint pain ? headache ? rash ? chest pain or tightness ? swelling of the face or tongue ? trouble breathing ? wheezing ? feeling dizzy or faint Apixaban prevents blood from clotting normally, so it may take longer than usual for you to stop bleeding if you are cut or injured. This medication may also cause you to bruise or bleed more easily.Call your doctor right away if bleeding or bruising is unusual, severe, or cannot be controlled. Apixaban may cause other side effects. Call your doctor if you have any unusual problems while taking this medication. If you experience a serious side effect, you or your doctor may send a report to the Food and Drug Administration's (FDA) MedWatch Adverse Event Reporting program online (https://www.fda.gov/Safety/MedWatch) or by phone ( ). What should I know about STORAGE and DISPOSAL of this medication? Keep this medication in the container it came in, tightly closed, and out of reach of children. Store it at room temperature and away from light, excess heat and moisture (not in the bathroom). Dispose of unneeded medications in a way so that pets, children, and other people cannot take them.Do not flush this medication down the toilet. Use a medicine take-back program. Talk to your pharmacist about take-back programs in your community. Visit the FDA's Safe Disposal of Medicines website h ttps://goo.gl/c4Rm4p for more information. Keep all medication out of sight and reach of children as many containers are not child-resistant. Always lock safety caps. Place the medication in a safe location - one that is up and away and out of their sight and reach. https://www.upandaway.org What should I do in case of OVERDOSE? In case of overdose, call the poison control helpline at . Information is also available online at https://www.poisonhelp.org/help. If the victim has collapsed, had a seizure, has trouble breathing, or can't be awakened, immediately call emergency services at 911. Symptoms of overdose may include the following: ? unusual bleeding or bruising ? red, brown, or pink urine ? red or black, tarry stools ? coughing up or vomiting blood or material that looks like coffee grounds What OTHER INFORMATION should I know? Keep all appointments with your doctor. Do not let anyone else take your medication. Ask your pharmacist any questions you have about refilling your prescription. Keep a written list of all of the prescription and nonprescription (whop-xtz-huvlgue) medicines, vitamins, minerals, and dietary supplements you are taking. Bring this list with you each time you visit a doctor or if you are admitted to the hospital. You should carry the list with you in case of kareem rgencies. Brand Name(s): ? Eliquis?? This report on medications is for your information only, and is not considered individual patient advice. Because of the changing nature of drug information, please consult your physician or pharmacist about specific clinical use. The [place] [employer] represents that the information provided hereunder was formulated with a reasonable standard of care, and in conformity with professional standards in the field. The [place] [employer] makes no representations or warranties, express or implied, including, but not limited to, any implied warranty of merchantability and/or fitness for a particular purpose, with respect to such information and specifically disclaims all such warranties. Users are advised that decisions regarding drug therapy are complex medical decisions requiring the independent, informed decision of an appropriate health critical care nurse specialist, and the information is provided for informational purposes only. The entire monograph for a drug should be reviewed for a thorough understanding of the drug's actions, uses and side effects. The [place] [employer] does not endorse or recommend the use of any drug.The information is not a substitute for medical care. AHFS?? Patient Medication Information?. ?? Copyright, 2023. The [place] [employer]??, [address], [address], [place], [place]. All Rights Reserved. Duplication for commercial use must be authorized by [facility]. Selected Revisions: November 02, 2024. AHFS?? Patient Medication Information?. ?? Copyright, 2024 * [facility] Medhat Hadley RN - 07/22/2025 3:01 PM EST Images from the original note were not included. [id number] Soft Diet Your healthcare provider has prescribed a soft diet. This means eating foods that are soft, low in fiber, and easy to digest. This diet is for people with digestive problems. This should not be confused with a soft diet that is prescribed for people with issues chewing and swallowing. A soft diet provides foods that are easy to chew and swallow. It will reduce or prevent stomach pain or discomfort. Foods should be bite-sized and very soft or moist. Follow your healthcare provider?s specific instructions about what foods and drinks you may have. The general guidelines below can help you get started on this diet. Beverages OK: Milk, tea, coffee, fruit juices, carbonated beverages, nutrition shakes, and drinks (Note: Thinliquids may be hard to swallow. They may need to be thickened.) Don't have: All are OK, unless they need to be thickened Breads and crackers OK: Refined white, wheat, or seedless rye bread; nano or soda crackers that have been moistened; plain rolls or bagels; very soft tortillas Don't have: Whole-grain breads, rolls, or bagels with nuts, raisins, or seeds; crackers, croutons, taco shells Cereals and grains OK: Cooked cereals, plain dry cereals that have been moistened, plain macaroni, spaghetti, noodles,rice Don't have: Whole-grain cereals and granola, or cereals containing bran, raisins, seeds or nuts; coconut; brown or wild rice Desserts and sweets OK: Moist cake; soft fruit pie with bottom crust only; soft cookies moistened in milk or other liquid; gelatin, custard, pudding, plain ice cream, plain sherbet, sugar, honey, clear jelly Don't have: Pastries, desserts, and ice cream that have nuts, coconut, seeds, or dried fruit; popcorn; chips of any kind, including potato chips and tortilla chips; jam, marmalade Eggs and cheese OK: Poached, soft boiled, or scrambled eggs; cottage cheese, ricotta cheese, cream cheese, cheese sauces, or cheese melted in other dishes Don't have: [place] fried eggs, cheese slices and cubes Fruits OK: Avocado, banana, baked peeled apple, applesauce, peeled ripe peaches or pears, canned fruit (apricots, cherries, peaches, pears), melons Don't have: Raw apple, dried fruits, coconut, nany, pineapple, grapes, fruit mikal, fruit snacks Meat and fish OK: All fresh meat, poultry, or fish that is cooked until tender Don't have: Meat, fish, or poultry that is fried; tough or stringy meat, including gusman, sausage, bratwurst, jerky, corned beef Other protein foods OK: Tofu, baked beans, Don't have: Deep-fried tofu; crunchy peanut or other nut or seed butters; nuts or seeds that are whole or chopped Soups OK: All soups, but they may need to be thickened. Thin liquid may be too hard to swallow. Don't have: Soups made with stringy meat pieces or chunky vegetables Vegetables OK: Peeled and well-cooked potatoes or sweet potatoes; fresh, cooked, canned, or frozen vegetables without seeds, skin, or coarse fiber Don't have: Raw vegetables, deep-fried vegetables (such as tempura), and corn Last Reviewed Date: 2022 00:00:00 ?? 3728-6403 [employer]. All rights reserved. This information is not intended as a substitute for professional medical care. Always follow your healthcare professional's instructions. * Discharge Summary - Noé Merrill MD - 07/22/2025 2:11 PM EST Images from the original note were not included. Hospitalization Admit Date/Time: 07/16/2025 12:37 PM Admitting Attending: Maicol Garcia Discharge Date: 07/22/2025 Discharge Attending Physician: Maicol Garcia MD PCP name and Address: Bryan Watkins MD [address] [place] [address] [place] [address] Referring provider name and address: No referring provider defined for this encounter. Chief Concern, Brief History of Present Illness, and Hospital Course Damian Washington is a 74 y.o. male with PMHx has a past medical history of Tobacco- use disorder. He has no past medical history of Adverse effect of anesthesia or Malignant hyperthermia. who presented to [facility] with Cancer of sigmoid colon. They were taken to the operating room on 07/16/25 for elective sigmoid colectomy and mobilization of splenic flexure. The patient tolerated the procedure well and was subsequently extubated and transferred to the PACU for recovery. The postoperative course was uncomplicated and after recovery, the patient was transferred to the floor. Pain was initially controlled with IV pain medication and was later transitioned to oral pain medication, and diet was advanced as tolerated. The patient's hospital course was uncomplicated and it was felt that the patient had reached maximal benefit from hospitalization. On 07/22/25 were deemed appropriate for discharge to home. On day ofdischarge, the patient was afebrile and hemodynamically stable, tolerating a GI Soft diet, the patient's pain was controlled on oral medications, they were ambulating well, voiding appropriately, passing flatus/BM, and tolerating oral intake. The patient was discharged on 07/22/25 to home and will return to clinic for routine post-procedurefollow up with Maicol Dumont MD in 2-4 weeks. Surgeries and Procedures Procedures performed in this encounter Procedures Critical Care Critical Care COLECTOMY, SIGMOID (N/A) Medication List .. acetaminophen 500 MG tablet Commonly known as: Tylenol Take 2 tablets by mouth every 6 hours for 5 days. apixaban 5 MG tablet Commonly known as: Eliquis Take 1 tablet by mouth 2 times a day. ipratropium-albuterol 0.5-2.5 mg/3 mL nebulizer solution Commonly known as: Duo-Neb Take 3 mL by nebulization every 6 hours as needed for wheezing. multivitamin tablet Take 1 tablet by mouth daily. Where to Get Your Medications These medications were sent to [facility] - [place], [place] - [address] [facility] [id number] acetaminophen 500 MG tablet apixaban 5 MG tablet ipratropium-albuterol 0.5-2.5 mg/3 mL nebulizer solution Discharge Diagnosis Medical Problems Active and Resolved Hospital Problems Hospital Severe protein-calorie malnutrition (CMS/HCC) (Chronic) Smoker Paroxysmal atrial fibrillation (CMS/HCC) * (Principal) Cancer of sigmoid colon Post Discharge Instructions Department of Surgery Division of Colorectal Surgery Activity: Move around as you are able, do not lift over 5 lbs for 6 weeks after surgery Diet: You may eat a regular diet Be sure to stay hydrated and take in plenty of fluid. See attacheddiet instructions. Medications: Take tylenol 1000mg every 6 hours for pain, if you still have pain, take oxycodone, one tab every 6-8 hours as needed. Continue your home medications unless instructed otherwise at discharge. Wound care: It is okay to shower. Allow warm, soapy water to run over your incisions and pat dry with a clean towel. Do not submerge your incisions in a tub bath or body of water for two weeks after your operation. Follow up: You will follow up with Dr. Garcia in 2 weeks. The clinic will call with an appointment time. Questions: Call the [facility] at [phone] during business hours on weekdays or call [facility]'s after hours at [phone] to speak with a resident information manager for Colorectal surgery after 5pm or on weekends if: - you have a fever > 101F - you are vomiting and cannot keep down liquids - your pain cannot be controlled with oral medications - if you start to have increased redness, drainage of pus, swelling, or increased pain around your incision Outpatient Follow-Up No future appointments. Pertinent Physical Exam At Time of Discharge Physical Exam Vitals and nursing note reviewed. Constitutional: General: He is not in acute distress. Eyes: General: No scleral icterus. Cardiovascular: Rate and Rhythm: Normal rate and regular rhythm. Pulses: Normal pulses. Pulmonary: Effort: Pulmonary effort is normal. Abdominal: General: A surgical scar is present. There is no distension. Palpations: Abdomen is soft. Tenderness: There is no abdominal tenderness. Musculoskeletal: Right lower leg: No edema. Left lower leg: No edema. Skin: General: Skin is warm and dry. Capillary Refill: Capillary refill takes less than 2 seconds. Neurological: General: No focal deficit present. Mental Status: He is alert and oriented to person, place, and time. Mental status is at baseline. Psychiatric: Mood and Affect: Mood normal. Behavior: Behavior normal. Thought Content: Thought content normal. Judgment: Judgment normal. Discharge Disposition/Condition Disposition: Home Condition: Stable (s/sx potential problems absent or manageable) I spent >30 minutes of patient care and instruction time in preparation for this discharge. Noé Merrill MD, PGY-1 Department of Anesthesiology, Perioperative, Critical Care, and Pain Medicine [facility] Reachable via [employer] Secure Chat Cosigned by Ernestina Hilton MD at 07/29/2025 1:03 PM EST Associated attestation - Ernestina Hilton MD - 07/29/2025 1:03 PM EST I discussed the case with the resident/fellow and agree with the findings and plan as documented. * Progress Notes - Francine Villatoro - 07/22/2025 11:53 AM EST Occupational Therapy Treatment and Discharge Summary Patient Name: Damian Washington Today's Date: 07/22/2025 Total Treatment Time: 23 minutes OT Discharge Recommendations: Home with assistance, Outpatient PT (Pulmonary) Equipment Recommended: Patient owns appropriate equipment History Damian Washington is 74 y.o. male admitted 07/16/2025 for work-up of Cancer of sigmoid colon. Hospital Course 1. Paroxysmal atrial fibrillation (CMS/HCC) 2. Cancer of sigmoid colon Past Medical History Patient has a past medical history of Tobacco-use disorder. Past Surgical History Patient has a past surgical history that includes Hernia repair (1969); Vasectomy; and Colonoscopy. Precautions Medical Precautions: Fall precautions, Lifting, Post-Surgical precautions Lifting Precautions: No lifting greater than 5-10 pounds Post-Surgical Precautions: Abdominal Subjective Patient agreeable to OT session. Patient stated, I am breathing a lot better today. Participants in Care Family/Caregiver Present: Yes Family/Caregiver: Spouse Dot Compliance Coordinator: Not Applicable Presentation Oxygen Therapy: None (Room air) Lines and Tubes: Telemetry Peripheral IV 07/20/25 Anterior;Left;Upper Arm (Active) Peripheral IV 07/20/25 Right Antecubital (Active) Pre-Session: Supine, Head of bed elevated, Lines intact Pre-Session Comments: RN agreeable to therapy session. Post-Session: Sitting in chair, Chair alarm, Lines intact, Call light in reach, RN notified Post-Session Comments: Patient positioned for comfort/pressure relief with pillow supports and all needs in reach. RN aware of session details. Objective Pain Patient reported no pain nor demonstrated signs/symptoms of pain during session. Delirium Assessment RASS: Alert and calm Confusion Assessment Method-ICU (CAM-ICU/PCAM-ICU) Feature 1: Acute Onset or Fluctuating Course: Negative Feature 2: Inattention: Negative Feature 3: Altered Level of Consciousness: Negative Feature 4: Disorganized Thinking: Negative Overall CAM-ICU/PCAM-ICU: Negative Cognition Cognition Overall Cognitive Status: Within Functional Limits Arousal/Alertness: Appropriate responses to stimuli Mood/Behavior: Alert Orientation Level: Oriented X4 Single Step Commands: Consistently, 100% of the time Multi-Step Commands: Consistently, 100% of the time Method of Communication: Verbal Safety Judgment: Good awareness of safety precautions Deficit Awareness: Fully aware of deficits Attention Span: Appears intact Bed Mobility Bed Mobility Exam: Rolling/Turning Level of Edwards: Independent (to the right) Bed Mobility Exam: Scooting/Bridging Level of Edwards: Independent (anteriorly to EOB) Bed Mobility Exam: Supine to Sit Level of Edwards: Independent (to the right) Physical/Nonphysical Assist: (HOB flat) Transfers Transfer Exam: Sit to stand Level of Edwards: Independent Assistive Device: (no device) Transfer Exam: Stand to Sit Level of Edwards: Independent Assistive Device: (no device) Functional Mobility Device: No device Assistance: Standby assist, Minimal verbal cues Distance : 640' Ambulation Comments: Assistance required only for line management and to monitor vitals for safety.Patient destated to 89% briefly on room air during activity, however able to recover greater than 90-92% after a standing rest break. Balance Postural Appearance Posture: Rounded shoulders Static Sitting Balance Static Sitting-Balance Support: Right upper extremity support, Left upper extremity support, Feet supported Static Sitting-Level of Assistance: Independent Dynamic Sitting Balance Dynamic Sitting-Balance Support: No upper extremity support, Feet supported Level of Assistance: Independent Static Standing Balance Static Standing-Balance Support: No upper extremity supported Static Standing-Level of Assistance: Independent Dynamic Standing Balance Dynamic Standing-Balance Support: No upper extremity support Dynamic Standing Level of Assistance: Standby assist Self-Care Interventions Self Care/Home Management (ADLs) Time Entry: 23 Self_Care Interventions: OT facilitated patient engagement in sequential task training emphasizing functional transitions required for increased performance in higher level BADLs/IADLs and continued progress towards OT POC goals. Refer to the above sections for patient performance and levels of assistance required for aspects of mobility completed on this date. Patient Education: To optimize patient safety while inpatient and at time of discharge, OT providedpatient and caregiver/family education regarding: role of OT within POC, progression of therapy, discharge recommendations, precautions, BADL retraining, work simplification, energy conservation, pursed-lip breathing, diaphragmatic breathing, adaptive techniques, adaptive equipment, fall prevention, home management, bathroom safety, showering safety, community safety/accessibility , and caregiversafety. Of note, the patient and caregiver/family verbalized understanding. Refer to below sectionsfor additional self-care interventions completed during session. Feeding Feeding Level of Assistance: Independent Feeding Where Assessed: Chair Level Feeding Interventions: Patient IND with bringing drink to mouth. Grooming Grooming Level of Assistance: Independent Grooming Interventions: Patient endorsed full independence with grooming routine earlier this AM. Patient endorsed no concerns regarding grooming routine at time of d/c. Bathing UE Bathing Level of Assistance: SBA (to Independent) LE Bathing Level of Assistance: SBA (to Independent) Bathing Interventions: Anticipated level of assistance/performance per clinical judgement. OT reviewed patient education regarding bathroom safety including benefits of utilizing pre-owned shower, adaptive techniques, fall prevention, general bathing/showering tips, and energy conservation. OT recommended to follow showering instructions provided by medical TEAM at time of d/c. Patient verbalizedunderstanding of provided information. Patient reported that they will have necessary assistance as/if needed with bathing/showering at time of d/c. UE Dressing UE Dressing Level of Assistance: Independent UE Dressing Where Assessed: Edge of bed UE Dressing Interventions: Patient adjusted gown independently in unsupported sitting position. Patient endorsed no concerns regarding dressing routine at time of d/c. Lower Extremity Dressing Sock Level of Assistance: Independent LE Dressing Where Assessed: Edge of bed LE Dressing Interventions: Patient adjusted bilateral socks independently in unsupported sitting position. Patient endorsed donning his pants earlier this AM without physical assistance. Patient endorsed no concerns regarding dressing routine at time of d/c. Toileting Toileting Level of Assistance: Independent Toileting Interventions: Patient endorsed independence with toileting routine earlier this AM (including navigation < > bathroom, transfer < > standard toilet, complete clothing management, and lizzie-care hygiene). Patient engaged in all aspects of mobility with no physical assistance onthis date. Patient endorsed no concerns regarding personal toileting routine at time of d/c. Standardized Assessments [facility] 6-Click Daily Activities Help from Other: Don/Doff Regular Lower Body Clothings: None Help From Other: Bathing: None Help From Other: Toileting: None Help From Other: Don/Doff Upper Body Clothings: None Help From Other: Grooming: None Help From Other: Eating Meals: None [facility] 6 Click - Daily Activities Score: [facility] Scoring Interpretation: Scores greater than 20.5 suggest ability to perform daily self-cares independently and may indicate a high suitability for a home/self-care discharge. Assessment Patient participated and tolerated today's OT session well and demonstrated near baseline abilitieson this date. Patient tolerated session on room air with a brief destat to 89% with activity, however patient able to recover to greater than 90-92% after a standing rest break. Patient reported feeling at/near baseline within functional mobility and ADL tasks and will have necessary assistance available in the home environment as needed. Based on patient performance, standardized assessment, andclinical judgement, patient no longer demonstrates the need for skilled acute care OT needs. Pleasereconsult should the patient experience a change in functional status warranting intervention. Patient is safe to d/c home with assistance as/if needed at time of d/c. OT will sign off. Thank you forallowing us to participate in this patient's POC. OT Recommendations Discharge Destination:Home with assistance, Outpatient PT (Pulmonary) Discharge Equipment:Patient owns appropriate equipment Plan Patient will be discharged from occupational therapy. Reason for Discharge: Patient met all goals and outcomes. No further needs identified. OT GOALS OT GOAL DETAILS DATE ASSESSED STATUS PROGRESS OT Goal 1: Patient/Family/Caregiver will be independent in bilateral upper extremity home exercise program to promote increased strength/activity tolerance required for engagement in higher level self-cares/mobility. OT Goal 1 Established Date: 07/19/25 OT Goal 1 Time Frame: 2 weeks 07/22/25 Goal not met, Goal discontinued Patient denied need for UE HEP while inpatient. Patient expressed no concerns regarding UE strength. OT Goal 2: Patient will complete 2-step grooming routine in standing position independently. OT Goal 2 Established Date: 07/19/25 OT Goal 2 Time Frame: 2 weeks 07/22/25 Goal met (per patient report) OT Goal 3: Patient will complete total body dressing independently. OT Goal 3 Established Date: 07/19/25 OT Goal 3 Time Frame: 2 weeks 07/22/25 Goal met OT Goal 4: Patient will complete toileting routine (navigation < > bathroom, transfer < > standard toilet, manage clothing, and complete lizzie-care hygiene) independently. OT Goal 4 Established Date: 07/19/25 OT Goal 4 Time Frame: 2 weeks 07/22/25 Goal met OT Goal 5: Patient will complete showering routine independently. OT Goal 5 Established Date: 07/19/25 OT Goal 5 Time Frame: 2 weeks 07/22/25 Goal not met, Goal discontinued Patient did not complete a formal shower while inpatient with OT services; OT reviewed bathing/showering education. Patient endorsed no concerns regarding bathing/showering at time of d/c. Written by Francine Villatoro on 07/22/25 at 1:10 PM. * Progress Notes - Hoa Seth - 07/22/2025 11:52 AM EST PHYSICAL THERAPY TREATMENT PATIENT DATA Patient Name Damian Washington Session Date 07/22/2025 Total Treatment Time 23 min PT Discharge Recommendations Home with assistance, Outpatient PT (Outpatient Pulmonary Rehab) Equipment Recommended None PRECAUTIONS Weight Bearing Precautions (if applicable) Mobility Orders Mobility Protocol: General - Mobility Guidelines Extremity Precautions: No Extremity Precautions Other mobility precautions: No other precautions required ROM Restrictions (if applicable) Medical Precautions Yes Medical Precautions: Fall precautions, Lifting, Post-Surgical precautions Lifting Precautions: No lifting greater than 5-10 pounds Post-Surgical Precautions: Abdominal HOME LIVING/SET-UP Lives With Spouse Home Type House Home Equipment shower chair Home Layout Multi-level, Able to live on one level with bedroom/bathroom, Stairs to enter without rails (ramped entry) 1 Bathroom Layout Walk-in shower, Grab bars Tall, Grab bars Accessible via walker, Accessible via wheelchair Additional Comments Patient's spouse reported that she can provide up to 24/7- hour assistance as/ifneeded at time of d/c. PRIOR LEVEL OF FUNCTION Receives help from No assist required prior to admission Level of Mobility Ambulatory- community Mobility Edwards Independent gait without device History of Falls No ADL Performance Independent PRESENTATION Oxygen Oxygen Therapy: None (Room air) O2 Delivery Method: Nasal cannula O2 Flow Rate (L/min): 2 L/min Lines and Tubes Peripheral IV 07/20/25 Anterior;Left;Upper Arm (Active) Peripheral IV 07/20/25 Right Antecubital (Active) Pre-Session Supine, Head of bed elevated, Lines intact RN agreeable to session Post-Session Sitting in chair, Chair alarm, Lines intact, Call light in reach, RN notified Patient positioned for comfort/pressure relief with pillow supports and all needs in reach. RN aware of session details. Bracing (if applicable) SUBJECTIVE Pt and RN agreeable to PT session. Pt is eager to hopefully go home soon. Pt reports he has been frequently ambulating hallway distances with nursing staff. PARTICIPANTS IN CARE Visitors Present Yes, Spouse Dot Compliance Coordinator (if applicable) OBJECTIVE PAIN Pt denies pain. DELIRIUM SCREENING RASS: Alert and calm Confusion Assessment Method-ICU (CAM-ICU/PCAM-ICU) Feature 3: Altered Level of Consciousness: Negative INTERVENTIONS THERAPEUTIC ACTIVITY Treatment Minutes 23 Interventions Therapeutic activity focused on functional task training in order to promote functional strengthening, enhance pt's safety awareness, optimize pt's independence, and maximize pt's endurance in preparation for safe return home. See Bed Mobility, Transfers, and Ambulation sections for intervention details. BED MOBILITY Level of Edwards Physical/Non- physical Assist Adaptive Equipment Utilized Rolling/ Turning Scooting/ Bridging Independent Supine to Sit Independent Sit to Supine Interventions HOB lowered to simulate home environment. TRANSFERS Level of Edwards Physical/Non- physical Assist Adaptive Equipment Utilized Sit to Stand Independent (no device) Stand to sit Independent (no device) Bed to Chair Toilet Transfer Shower Transfer Interventions AMBULATION Level of Edwards Distance Adaptive Equipment Utilized Ambulation Standby assist, Minimal verbal cues 640ft No device Comments Pt ambulates community level distances without supplemental oxygen this date. Vital signs closely monitored to assess tolerance to activity. During ambulation, pt with max HR of 112bpm and brief desaturation to 89% with quick recovery to 90% with rest and intentional pursed lip breathing. RN aware. Pt denies fatigue, however, PT instructs pt in pursed lip breathing to assist with optimizing oxygen saturations. While ambulating, pt mostly maintained between 90-91%, slightly decreased from 93%, which pt was saturating at rest/prior to and after mobility. Pt encourages pt to self-monitor fatigue levels in order to self-pace ambulation distance/activity levels and to take rest breaks as needed, both during current walk and upon return home to enhance energy conservation and reduce fall risk. Pt re-educated on the importance of daily mobility (during hospital admission and upon return home) to maximize functional strength/endurance training and to reduce risk for post-op surgical c omplications. Pt receptive to education and agreeable. ASSESSMENT Patient is improving, as noted by increased walking distances patient is ambulating during this PT treatment compared to last PT treatment. Additionally, pt with improved response to activity overallthis date with improved HR response, and mostly stable O2 saturations without wearing supplemental oxygen. Pt remains appropriate to return home once medically ready, as pt demonstrates ability to complete bed mobility, STS transfers, and community level distances without physical assistance. PT will plan to check on pt peripherally during hospital admission to progress pt mobility and maximize pt strength, endurance, balance, and safety needed to complete all functional mobility with increased independence and reduced risk for falls. PT RECOMMENDATIONS Discharge Destination Home with assistance, Outpatient PT (Outpatient Pulmonary Rehab) Discharge Equipment None PLAN Pt may continue to benefit from skilled PT for addressing patient's impairments and reducing patient's participation restrictions and activity limitations. PT GOALS PT GOAL DETAILS Goal Established Date Time Frame Goal Status PT Goal 1: Patient will perform sit to/from standing transfers independently. 07/19/25 2 weeks PT Goal 2: Patient will ambulate at least 400 feet continously over level surfaces independently with stable vital signs. 07/19/25 2 weeks PT Goal 3: Patient will be compliant with HEP with set-up as needed from staff/family. 07/19/25 2 weeks Written by Hoa Seth on 07/22/25 at 12:36 PM. * Progress Notes - Vlad Rob - 07/22/2025 11:48 AM EST Images from the original note were not included. CARDIOLOGY CONSULT PROGRESS NOTE SUBJECTIVE Interval History Amio gtt discontinued, patient received first dose of metoprolol this morning. 6 beats on NSVT noted on telemetry overnight. Patient is asymtpmatic: denies chest pain, palpitations, dyspnea. Remains in normal sinus rhythm with rates low 80s and normotensive. Review of Systems Negative except that which is mentioned in the HPI. OBJECTIVE Physical Exam Blood pressure 134/79, pulse 84, temperature 36.4 ??C (97.5 ??F), resp. rate 19, height 1.727 m (5'8 ), weight 55.2 kg (121 lb 11.1 oz), SpO2 93%. GENERAL: Awake, alert, NAD HEENT: NCAT NECK: No appreciable JVD CARDIAC: Regular rate, regular rhythm, normal S1/S2, no m/r/g, 2+ radial pulses bilaterally PULM: CTAB without increased work of breathing ABD: Soft, NT, ND EXT: Warm and well perfused, no LE edema SKIN: No rashes or lesions NEURO: A&Ox4, moving all extremities spontaneously Intake / Output Intake/Output Summary (Last 24 hours) at 07/22/2025 1148 Last data filed at 07/21/2025 1700 Gross per 24 hour Intake -- Output 300 ml Net -300 ml Current Medications Current Scheduled Medications[1] Current Continuous Medications[2] Current PRN Medications[3] Results / Imaging Echocardiogram 07/21/2025 Left Ventricle: The left ventricle is normal size. There is normal left ventricular myocardial thickness and mass. 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 The left ventricular systolic function is moderately reduced. The LVEF is visually estimated at 35 - 40%. The diastolic function is abnormal. There is grade I (mild) diastolic dysfunction. The left ventricular filling pressure is normal. See diagram below for wall motion findings. Right Ventricle: The right ventricle is normal in size. The right ventricular systolic function is normal. Aortic Valve: There is mild aortic valve regurgitation. IVC/SVC: Based on the IVC size and respiratory variation, the estimated right atrial pressure is 15mmHg. There is no recent study available for direct [id number] comparison. ASSESSMENT/PLAN Damian Washington is a 74 y.o. male with a past medical history Cancer of sigmoid colon POD 4 from sigmoid colectomy who developed AF RVR today walking from the bathroom. Care escalated to anesthesia crit care and Cardiology consulted for further recommendations for management of Afib. #post-op Afib - Afib is likely provoked in the setting of recent surgery. No previous hx. May have slight provoking factor from hypokalemia to 3.1. - no previous hx of Afib or significant cardiac hx otherwise - baseline EKG NSR with right axis, posterior hemiblock and nonspecific interventricular conductiondelay - ChadsVasc 2 (Age) which merits therapeutic AC. Additionally has pro-thrombotic risk factor with malignancy. - Cardioverted to sinus rhythm with IV amiodarone per primary team but currently not on AC. Remainsnormotensive and in normal sinus rhythm with rate 70s. #HFmrEF with basal septal LV aneurysm -TTE obtained: LVEF 35-40% with regional wall motion abnormalities - basal inferior wall LV aneurysm, mid inferolateral akinesis -appears euvolemic, not acutely decompensated -etiology likely ischemic given wall motion abnormalities, no prior ischemic eval Recommendations/Plan: - continue metoprolol succinate 25mg daily, increase to 50mg daily tomorrow if HR remains >70 throughout the day - start DOAC when able from surgical standpoint - start high-intensity statin -TTE reviewed with Dr. Gonzalez, believe systolic function is preserved to mildly reduced, does not require GDMT at this time - Needs outpatient cardiology follow up at [facility] The following cardiovascular risk factors and co-morbidities complicates the management of these conditions: poor nutritional status and frailty Principal Problem: Cancer of sigmoid colon Active Problems: Smoker Paroxysmal atrial fibrillation (CMS/HCC) This consult will be staffed with the following attending physician: Dr Gonzalez. Please page the on-call auto carrier driver with any further questions. Cardiology will sign off at this time. Please page the auto carrier driver information manager for any further questions ([phone]). Memo Rob MS4 07/22/25 11:48 AM [1] acetaminophen, 1,000 mg, Oral, q6h ANUSHA apixaban, 5 mg, Oral, BID metoprolol succinate XL, 25 mg, Oral, Daily [2] [3] PRN medications: ipratropium-albuterol, oxyCODONE, sodium chloride Cosigned by Jeffy Gonzalez MD at 07/22/2025 4:55 PM EST Associated attestation - Jeffy Gonzalez MD - 07/22/2025 4:55 PM EST I saw and evaluated the patient with the medical student. I agree with the findings and plan as documented. See initial consult note for details. Our consult team will sign off at this time. Please reach out to on-call physician for [facility] Consults with any further questions. * Care Plan - Ying Adamson RN - 07/22/2025 11:27 AM EST Problem: Fall Injury Risk Goal: Absence of Fall and Fall-Related Injury Outcome: Ongoing, Progressing Note: Patient will remain free from falls throughout hospital admission Problem: Adult Inpatient Plan of Care Goal: Plan of Care Review Flowsheets (Taken 07/22/2025 1125) Progress: no change Outcome Evaluation: pt verbalizes understanding of care Plan of Care Reviewed With: patient Goal: Patient-Specific Goal (Individualized) Flowsheets (Taken 07/22/2025 1105) Patient/Family-Specific Goals (Include Timeframe): patient will remain off supplemental oxygen Individualized Care Needs: education Anxieties, Fears or Concerns: discharge Goal: Absence of Hospital-Acquired Illness or Injury Intervention: Prevent Skin Injury Flowsheets (Taken 07/22/2025 1125) Body Position: weight shifting Intervention: Prevent and Manage VTE (Venous Thromboembolism) Risk Flowsheets (Taken 07/22/2025 1125) VTE Prevention/Management: bilateral SCDs (sequential compression devices) on * Medhat Boyer RN - 07/22/2025 11:14 AM EST Images from the original note were not included. [id number] Discharge Instructions: Caring for Your Abdominal Incision You are going home with stitches, surgical kimberly, special strips of tape, or surgical skin glue. One of these items was used to close your cut (incision), help stop bleeding, and speed healing. While at home, stay away from anything that may put pressure on your incision including lifting, pushing, or pulling heavy weights. Ask your healthcare provider what activities you need to stay away from. Follow the tips on this sheet to help your incision heal. Home care ? Clean your work area: o Put pets in another room. o Use soap and water to clean the surface you?ll be working on. o Spread a clean cloth or paper towel over the surface. o Move away from the clean surface if you need to cough or sneeze. ? Gather your supplies and put them on the clean work area: o Packaged dressing for your wound o Irrigation solutions (if using these) o Pair of scissors (cleaned with soap and water) o Medical tape o Disposable gloves (2 pairs) o Clean plastic trash bag (open it before you wash your hands) ? Wash your hands: o Use liquid soap. o Work up a good lather and scrub for 1 to 2 minutes. o Be sure to scrub between your fingers and under your nails. o Rinse with warm water, keeping your fingers pointed down. o Use a clean paper towel to dry your hands. Turn off the faucet. ? Prepare your dressing supplies: o Peel back the edges of the dressing packages. Pour any irrigation solutions into solution cups. Don't touch the inside of the cups. o Cut each piece of tape 4 inches longer than the dressing. ? Remove the old dressing: o Put on disposable gloves. o Loosen the tape on the dressing by pulling gently toward the incision. Remove the dressing 1 layer at a time. Put it in the plastic bag right away. o Remove your gloves and put them in the plastic bag. Wash your hands. o Put on a new pair of gloves. ? Clean and dress the incision: o Clean the incision and apply a new dressing as directed. o Don't remove the special strips of tape even if they are starting to loosen. o Put all used supplies in the plastic bag. Remove your gloves last and put them in the plastic bag. Seal the bag and put it in the trash. o Be sure to thoroughly wash your hands again. Care for specific closures Follow these guidelines unless your healthcare provider tells you otherwise: ? Stitches or kimberly. Once you no longer need to keep these dry, clean the wound daily. Use the directions listed above. First remove the bandage using clean hands. Then wash the area gently with soap and warm water. Use a wet cotton swab to loosen and remove any blood or crust that forms. Use antibiotic ointment only if told to do so by your provider. Then put on a new bandage. ? Skin glue. Don?t put liquid, ointment, or cream on your wound while the glue is in place. Don't do any activities that cause heavy sweating. Protect the wound from sunlight. Don't scratch, rub, or pick at the glue. Don't put tape right over the glue. The glue should peel off in 5 to 10 days. ? Surgical tape. Keep the area dry. If it gets wet, blot the area dry with a clean towel. Surgical tape often falls off in 7 to 10 days. If it has not fallen off after 10 days, contact your healthcare provider before taking it off yourself. If you are told to remove the tape, put mineral oil or petroleum jelly on a cotton ball. Gently rub the tape until it is removed. Follow-up care Follow up with your healthcare provider. Ask how long stitches or kimberly should be left in place. Go back for suture or staple removal as directed. If tape closures were used, remove them yourself when your provider advises if they have not fallen off on their own. If skin glue was used, the glue will wear off by itself. When to call your healthcare provider Call your healthcare provider right away if you have any of the following: ? More pain, bleeding, redness, swelling, or bad-smelling discharge around the incision area ? Fever of 100.4??F (38??C) or higher, or as directed by your provider ? Shaking chills ? Vomiting or upset stomach that doesn?t go away ? Numbness, coldness, or tingling around the incision area, or changes in skin color. (Numbness around the incision is common. It can last for some time after surgery. Ask your provider if you shouldexpect this.) ? Opening of stitches or wound ? Stitches or kimberly come apart or fall out or surgical tape falls off before 7 days, or as directed by your provider Last Reviewed Date: 2024 00:00:00 ?? [id number] [employer]. All rights reserved. This information is not intended as a substitute for professional medical care. Always follow your healthcare professional's instructions. * Shauna Negron - Medhat Hadley RN - 07/22/2025 11:14 AM EST Images from the original note were not included. [id number] Preventing a Surgical Site Infection A risk of any surgery is an infection at the surgical site. The surgical site is a cut the surgeon makes in the skin to do the surgery. Surgical site infections can range in type. It may be a minor skin infection. Or it may be severe and include tissue under the skin or other organs. In some cases,a severe infection can cause . The information below tells you: ? About surgical site infections. ? What hospitals do to prevent them. ? How they?re treated if they do occur. ? What you can do to prevent an infection. Hand washing reduces the risk of infection. What causes a surgical site infection? Germs are everywhere. They?re on your skin, in the air, and on things you touch. Many germs are good. Some are harmful. Surgical site infections occur when harmful germs enter your body through the incision in your skin. Some infections are caused by germs that are in the air or on objects. But most are caused by germs found on and in your own body. Who is at risk for a surgical site infection? Anyone can have a surgical site infection. Your risk is higher if you: ? Are an older adult. ? Have a weak immune system. ? Have other health conditions such as diabetes. ? Take certain medicines, such as steroids. ? Are a smoker. ? Have certain types of surgery, such as abdominal surgery. ? Have poor nutrition. ? Are very overweight. ? Have a surgery that lasts longer than 2 hours. What are the symptoms of a surgical site infection? An infection often shows up as skin redness, pain, and swelling around the incision that gets worse. Later, a cloudy or greenish-yellow fluid may come from the incision. The fluid may smell bad. The incision may pull apart or open up. You are likely to have a fever and may feel very ill. Symptoms can appear at any time. They may happen from hours to weeks after surgery. Implants such as an artificial knee or hip can become infected at any time after the surgery. How is a surgical site infection treated? ? A surgical site infection is treated with antibiotics. The type of medicine you get will depend on what may be causing the infection. Most serious wound infections need wound care. In some cases, surgery may be needed on the infected wound. ? An infected skin wound may be reopened and cleaned. A deep wound may need to be packed with gauze. The gauze is changed often until the wound starts to heal from the inside out. Your health care provider will decide the best way to treat your infection. ? If an infection occurs where an implant is placed, the implant may be removed. ? If you have an infection deeper in your body, you may need surgery to treat it. What hospitals do to prevent surgical site infections Many hospitals take these steps to help prevent surgical site infections: ? Handwashing. Before the surgery, your surgeon and all surgery staff scrub their hands and arms with an antiseptic soap. ? Clean skin. The site where your incision is made is carefully cleaned with an antiseptic solution. ? Sterile clothing and drapes. The surgical team wears medical uniforms. These are known as scrub suits. They wear long-sleeved surgical gowns, masks, caps, shoe covers, and sterile gloves. Your bodyis fully covered with a large sterile sheet (sterile drape). There is an opening in the sheet wherethe incision is made. ? Clean air. Operating rooms have special air filters. They use positive pressure airflow to prevent unfiltered air from entering the room. ? Careful use of antibiotics. Antibiotics are given no more than 60 minutes before the incision is made. They are generally stopped within 24 hours after surgery. This depends on the type of surgery.This helps kill germs but prevents problems that can occur when antibiotics are taken longer. ? Controlled blood sugar levels. Your blood sugar level may rise. This can be because of the stressof the surgery. Your blood sugar level is watched closely to make sure it stays within a normal range. High blood sugar delays wound healing. This increases the risk of infection. ? Controlled body temperature. A czimt-ptzc-yoxaor temperature during or after surgery prevents oxygen from reaching the wound. This makes it harder for your body to fight infection. Hospitals may warm I.V. fluids, and provide warm-air blankets. Your temperature is watched throughout the surgery. ? Safe hair removal. Any hair that must be removed is clipped right before the incision, not shavedwith a razor. This prevents tiny nicks and cuts where germs can enter. ? Wound care. After surgery, a closed wound is covered with a sterile dressing for 1 to 2 days. Open wounds are packed with sterile gauze and covered with a sterile dressing. What you can do to prevent a surgical site infection ? Ask questions. Learn what your hospital is doing to prevent infection. ? If instructed, shower or bathe with plain soap the night before and the day of your surgery. Follow all instructions you're given. You may be asked to use a special cleanser that you don?t rinse off. ? If you smoke, stop as long as possible before and after the surgery. Ask your provider about waysto quit. ? Take antibiotics only when your provider tells you to. Using antibiotics when they?re not needed can create germs that are harder to kill. Finish the entire prescription of your antibiotics even ifyou feel better. ? Ask health care workers to clean their hands with plain soap and water or with an alcohol-based hand tool and die engineer before and after caring for you. Don?t be afraid to remind them. ? After surgery, eat healthy foods. Care for your incision as directed by your health care team. When to contact your doctor Contact your provider or seek medical care right away if: ? The pain at the surgical site gets worse. ? A red streak, worse redness, or puffiness appears near the incision. ? Yellowish, cloudy, or bad-smelling fluid leaks from the incision. ? Your stitches dissolve before the wound heals. ? You have a fever of 100.4?? F ( 38??C ) or higher, or as advised by your provider. ? You have a tired feeling that doesn?t go away. Last Reviewed Date: 2024 00:00:00 ?? [employer]. All rights reserved. This information is not intended as a substitute for professional medical care. Always follow your healthcare professional's instructions. * Shauna Negron - Medhat Hadley RN - 07/22/2025 11:14 AM EST Images from the original note were not included. [id number] Open Bowel Resection: What to Expect at Home Your Recovery You are likely to have pain that comes and goes for the next few days after bowel surgery. You may have bowel cramps, and your cut (incision) may hurt. You may also feel like you have the flu. You may feel tired and nauseated. This is common. You should feel better after a week and will probably beback to normal in 2 to 3 weeks. This care sheet gives you a general idea about how long it will take for you to recover. But each person recovers at a different pace. Follow the steps below to get better as quickly as possible. How can you care for yourself at home? Activity ? Rest when you feel tired. Getting enough sleep will help you recover. ? Try to walk each day. Start by walking a little more than you did the day before. Bit by bit, increase the amount you walk. Walking boosts blood flow and helps prevent pneumonia and constipation. ? Avoid strenuous activities, such as biking, jogging, weight lifting, or aerobic exercise, until your doctor says it is okay. ? Avoid lifting anything that would make you strain. This may include heavy grocery bags and milk containers, a heavy briefcase or backpack, cat litter or dog food bags, a vacuum hand dry cleaner, or a child. ? Ask your doctor when you can drive again. ? You will probably need to take 3 to 4 weeks off from work. It depends on the type of work you do and how you feel. You may need to take off 4 to 6 weeks if you lift heavy objects in your job. ? You may shower 24 to 48 hours after surgery, if your doctor says it is okay. Pat the cut (incision) dry. Do not take a bath for the first 2 weeks, or until your doctor tells you it is okay. ? Ask your doctor when it is okay for you to have sex. Diet ? You may not have much appetite after the surgery. But try to eat healthy foods. Your doctor will tell you about any foods you should not eat. ? Eat a low-fiber diet for several weeks after surgery. Eat many small meals throughout the day. Add high-fiber foods a little at a time. ? Eat yogurt. It puts good bacteria into your colon and helps prevent diarrhea. ? Try to avoid nuts, seeds, and corn for a while. They may be hard to digest. ? You may need to take vitamins that contain sodium and potassium. Ask your doctor. ? Drink plenty of fluids to avoid becoming dehydrated. Medicines ? Your doctor will tell you if and when you can restart your medicines. You will also be given instructions about taking any new medicines. ? If you stopped taking aspirin or some other blood thinner, your doctor will tell you when to start taking it again. ? Take pain medicines exactly as directed. o If the doctor gave you a prescription medicine for pain, take it as prescribed. o If you are not taking a prescription pain medicine, ask your doctor if you can take an mwbo-myx-acudgso medicine. o Do not take two or more pain medicines at the same time unless the doctor told you to. Many pain medicines have acetaminophen, which is Tylenol. Too much acetaminophen (Tylenol) can be harmful. ? If you think your pain medicine is making you sick to your stomach: o Take your medicine after meals (unless your doctor tells you not to). o Ask your doctor for a different pain medicine. ? If your doctor prescribed antibiotics, take them as directed. Do not stop taking them just because you feel better. You need to take the full course of antibiotics. ? You may need to take some medicines in a different form. You will be told whether to crush pills or take a liquid form of the medicine. ? If your doctor gives you a stool softener, take it as directed. Incision care ? If you have strips of tape on the incision, leave the tape on until it falls off. ? Gently wash the area daily with warm, soapy water, and pat it dry. Don't use hydrogen peroxide oralcohol, which can slow healing. You may cover the area with a gauze bandage if it oozes or rubs against clothing. ? Change the bandage every day or if it gets wet or dirty. Follow-up care is a phillip part of your treatment and safety. Be sure to make and go to all appointments, and call your doctor if you are having problems. It's also a good idea to know your test resultsand keep a list of the medicines you take. When should you call for help? Call 911 anytime you think you may need emergency care. For example, call if: ? You passed out (lost consciousness). ? You are short of breath. Call your doctor now or seek immediate medical care if: ? You are sick to your stomach and cannot drink fluids or keep them down. ? You have signs of a blood clot in your leg (called a deep vein thrombosis), such as: o Pain in your calf, back of the knee, thigh, or groin. o Redness and swelling in your leg or groin. ? You have signs of infection, such as: o Increased pain, swelling, warmth, or redness. o Red streaks leading from the incision. o Pus draining from the incision. o A fever. ? You have pain that does not get better after you take pain medicine. ? You have loose stitches, or your incision comes open. ? Bright red blood has soaked through the bandage. ? You cannot pass stools or gas. Watch closely for any changes in your health, and be sure to contact your doctor if you have any problems. Current as of: July 06, 2023 Content Version: 14.0 Care instructions adapted under license by your healthcare professional. If you have questions about a medical condition or this instruction, always ask your healthcare professional. [employer] disclaims any warranty or liability for your use of this information. ?? [id number] [employer] * Shauna Negron - Medhat Hadley RN - 07/22/2025 11:14 AM EST Images from the original note were not included. 55193 Having Open Colon Surgery During open colon surgery, parts of the colon are surgically removed. You'll be given instructions on how to get ready for your surgery. Follow these instructions carefully. You'll likely be admittedto the hospital on the day of your surgery. In some cases, you may need to be admitted to the hospital the day before. Ask questions if something is unclear. Getting ready a few weeks before surgery Here's what you can do to get ready in the weeks before surgery: ? Have a complete physical exam as instructed by your healthcare provider. ? Ask about medicines. Tell your surgeon about all the medicines you take, and ask if you should stop taking them before surgery. This includes prescription and hfnn-kvb-bhlscyz medicines, aspirin, and other nonsteroidal anti- inflammatory drugs (NSAIDs), such as ibuprofen. It also includes any vitamins, herbs, or other supplements. ? Quit smoking. Smoking increases surgery risks and slows healing. Don't smoke on the day of surgery. ? Exercise. Stay on a program of regular exercise. Getting ready the day before surgery Follow any directions you're given for taking medicines and for not eating or drinking before surgery. This includes any instructions you're given for doing bowel prep. Bowel prep is done to clean out the colon before surgery. It usually involves not eating (fasting) for a day. You'll also drink a special liquid that causes you to have bowel movements until the bowel is empty. You'll get specificinstructions for this prep. You may be asked to wash with a special soap called CHG (chlorhexidine gluconate). The incision may run vertically around your navel. The day of surgery When you arrive at the hospital, you'll be asked to fill out certain forms. You'll then change intoa gown. An IV (intravenous) line will be inserted into your hand or arm. This gives you fluids and medicines. You?ll meet with your anesthesiologist or nurse refinery operator reforming unit to discuss the medicine (anesthesia) that helps you sleep during surgery. Ask any questions you have at this time. Before surgerystarts, you?ll be given general anesthesia to put you into a deep sleep. A soft tube (catheter) maybe placed into your bladder to drain urine. During your surgery Here's what you can expect during surgery: ? Your surgery will be done through a cut (incision) in your belly. This is called open surgery. The incision may be several inches long. Your surgeon can tell you about the incision you'll have. ? The problem part of the colon is removed (resected). Sometimes the 2 ends of the colon are joined. This is called an anastomosis. ? After surgery, you?ll be taken to the PACU (post anesthesia care unit) to be closely watched.. Types of colon resection The idea of having part of your colon removed may sound scary. But part or all of the colon can be removed without causing serious problems. After the section of bowel is removed, the 2 ends may be reconnected (anastomosis). Below are some of the surgeries that can be done on the colon. The type ofsurgery depends on where the problem is. Right hemicolectomy Part or all of the right side (ascending) colon is removed. The remaining colonis then reconnected to the small intestine. Left hemicolectomy Part or all of the left side (descending) colon is removed. The remaining colon is then reconnected to the rectum. Sigmoid colectomy (sigmoidectomy) Part or all of the sigmoid colon is removed. The descending colonis then reconnected to the rectum. Other times, the exposed end of the colon or small intestine is sewn to the belly (abdominal) wall through an incision. It will then drain into a special bag outside your body. This is called a colostomy or ileostomy. Your surgeon can discuss this with you at your visit before surgery. Risks and possible complications Risks and possible complications of colon surgery include: ? Infection ? Injury to nearby organs, such as the kidneys ? Leaking or separation of anastomosis ? Scar tissue forms that blocks the bowel (adhesions) ? Internal bleeding ? Blood clots ? A pus-filled infection (abscess) forms ? Risks of anesthesia ? The condition comes back Last Reviewed Date: 2023 00:00:00 ?? [id number] [employer]. All rights reserved. This information is not intended as a substitute for professional medical care. Always follow your healthcare professional's instructions. * Care Plan - Ricky Guy RN - 07/22/2025 1:59 AM EST Problem: Adult Inpatient Plan of Care Goal: Plan of Care Review Outcome: Ongoing, Progressing Goal: Patient-Specific Goal (Individualized) Outcome: Ongoing, Progressing Problem: Infection Goal: Absence of Infection Signs and Symptoms Outcome: Ongoing, Progressing Problem: Fall Injury Risk Goal: Absence of Fall and Fall-Related Injury Outcome: Ongoing, Progressing * Consults - Marty Gaytan - 07/21/2025 5:45 PM EST Pastoral Care Note Architect [employer] consulted with care team and visited Damian and Jailene at bedside. Damian expressed grattitudethat he is doing better. Jailene shared that this hospitalization has been tough on her as well, giventhe responsibilities she's had to take on while Damian's here. Architect [employer] offered an empathic presenceand supportive listening as Jailene shared about her own health struggles. Architect [employer] assured Damian and Jailene that pastoral care is available 10/04. Referral From: Architect [employer] Initiated Pastoral Care Provided For: Patient, Spouse Patient Profile: Consult Reasons: Initial visit Spiritual Assessment: Support Systems/ Spiritual Resources: Family Spiritual Needs: Emotional support Spiritual Issues: Critical Illness, Trauma/ crisis Interventions: Interventions Provided: Consulted with care team, Introduced Patient/Family to [employer], Supportive Listening, Family support, Emotional support Pastoral Care Outcomes: Patient Outcomes: Is knowledgeable about [employer], Appreciative of Architect [employer] Support * Significant Event - Omer Schroeder APRN, DNP - 07/21/2025 12:35 PM EST Mr Washington is no longer critically ill and is safe for transfer. In consultation with the primary service, [facility] will sign off at this time. Please feel free to reconsult if the patient's condition changes. * Progress Notes - Vlad Rob - 07/21/2025 11:50 AM EST Images from the original note were not included. CARDIOLOGY CONSULT PROGRESS NOTE SUBJECTIVE Interval History Patient remained on amio gtt overnight. Remains in normal sinus rhythm with rates in 70s and hemodynamically stable. Review of Systems Negative except that which is mentioned in the HPI. OBJECTIVE Physical Exam Blood pressure 127/72, pulse 68, temperature 37 ??C (98.6 ??F), temperature source Oral, resp. rate17, height 1.727 m (5' 8 ), weight 58.1 kg (128 lb), SpO2 95%. GENERAL: Awake, alert, NAD HEENT: NCAT NECK: No appreciable JVD CARDIAC: Regular rate, regular rhythm, normal S1/S2, no m/r/g, 2+ radial pulses bilaterally PULM: CTAB without increased work of breathing ABD: Soft, NT, ND EXT: Warm and well perfused, no LE edema SKIN: No rashes or lesions NEURO: A&Ox4, moving all extremities spontaneously Intake / Output Intake/Output Summary (Last 24 hours) at 07/21/2025 1150 Last data filed at 07/21/2025 1100 Gross per 24 hour Intake 2109 ml Output 300 ml Net 1809 ml Current Medications Current Scheduled Medications[1] Current Continuous Medications[2] Current PRN Medications[3] Results / Imaging Echocardiogram 07/21/2025 Left Ventricle: The left ventricle is normal size. There is normal left ventricular myocardial thickness and mass. 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 The left ventricular systolic function is moderately reduced. The LVEF is visually estimated at 35 - 40%. The diastolic function is abnormal. There is grade I (mild) diastolic dysfunction. The left ventricular filling pressure is normal. See diagram below for wall motion findings. Right Ventricle: The right ventricle is normal in size. The right ventricular systolic function is normal. Aortic Valve: There is mild aortic valve regurgitation. IVC/SVC: Based on the IVC size and respiratory variation, the estimated right atrial pressure is 15mmHg. There is no recent study available for direct [id number] comparison. ASSESSMENT/PLAN Damian Washington is a 74 y.o. male with a past medical history Cancer of sigmoid colon POD 4 from sigmoid colectomy who developed AF RVR today walking from the bathroom. Care escalated to anesthesia crit care and Cardiology consulted for further recommendations for management of Afib. #post-op Afib - Afib is likely provoked in the setting of recent surgery. No previous hx. May have slight provoking factor from hypokalemia to 3.1. - no previous hx of Afib or significant cardiac hx otherwise - baseline EKG NSR with right axis, posterior hemiblock and nonspecific interventricular conductiondelay - ChadsVasc 2 (Age) which merits therapeutic AC. Additionally has pro-thrombotic risk factor with malignancy. - Cardioverted to sinus rhythm with IV amiodarone per primary team but currently not on AC. Remainsnormotensive and in normal sinus rhythm with rate 70s. #HFrEF -TTE obtained: LVEF 35-40% with regional wall motion abnormalities - basal inferior wall LV aneurysm, mid inferolateral akinesis -appears euvolemic, not acutely decompensated -etiology likely ischemic given wall motion abnormalities, no prior ischemic eval. Recommendations/Plan: - discontinue amio gtt, recommend metoprolol succinate 25mg daily - start DOAC when able from surgical standpoint - high-intensity statin prior to discharge - correct electrolytes, mag > 2, K>4 The following cardiovascular risk factors and co-morbidities complicates the management of these conditions: poor nutritional status and frailty Principal Problem: Cancer of sigmoid colon Active Problems: Smoker Paroxysmal atrial fibrillation (CMS/HCC) This consult will be staffed with the following attending physician: Dr Gonzalez. Please page the on-call auto carrier driver with any further questions. We will continue to follow. Please page the auto carrier driver information manager for any questions ([phone]). Memo Rob MS4 07/21/25 11:50 AM [1] acetaminophen, 1,000 mg, Oral, q6h ANUSHA enoxaparin, 1 mg/kg, Subcutaneous, q12h mupirocin, 1 Application, Each Nostril, BID [2] amiodarone, 0.5 mg/min, Last Rate: 0.5 mg/min (07/21/25 1100) [3] PRN medications: ipratropium-albuterol, oxyCODONE, sodium chloride Cosigned by Jeffy Gonzalez MD at 07/21/2025 5:30 PM EST Associated attestation - Jeffy Gonzalez MD - 07/21/2025 5:30 PM EST See separate consult note for attestation. * Consults - Joan Garza, CAMERON - 07/21/2025 11:12 AM EST Adult Nutrition Evaluation Note Damian Washington 74 y.o. male CSN: [id number] Room/Bed 138/138A Nutrition evaluation type: assessment Reason for evaluation: NPO/CLD x 3 days Hospital course: 74 yo M admitted for OR - s/p sigmoid colectomy for colon CA. Post-op care. Diet advanced to FLD today Past medical/ surgical history: sigmoid colon CA, smoker Social history: Additional comments: 07/21: spoke with pt at bedside, reports no issues chewing or swallowing, wearsdentures. Reports having a good appetite and eating well [employer], but also reports weight loss of around 27 lb over the last 6-12 months, 17.4% weight loss. EMR history does not have weight trends beforeJun 2025 Vitals and Basic Assessment: BP: 127/72 Temp: 37.1 ??C (98.8 ??F) Oxygen Therapy: Supplemental oxygen O2 Delivery Method: Nasal cannula Victoriano Coma Scale Score: 15 Damion Scale Score: 20 Tariq/Cubbin Pressure Risk Score: 41 Most Recent BM Date: 07/21/25 GI Symptoms: None Allergies: NKFA Medications: Current Scheduled Medications[1] Labs: Labs in last 18 hours CBC WBC 7.76 Hb 9.2 (L) Plt 167 Hct 27.4 (L) ANC ?? INR ??, PTT ??, Anti-Xa ?? BMP Na 138 Cl 106 BUN 14 Glu 95 K 4.5 Co2 24 Cr 0.70 Ca 7.9 (L) iCa ?? Mg 2.5 (H), Phos 3.1 Lactate ?? LFT AST ?? AlkPhos ?? T Prot ?? ALK ?? Bili ?? Alb ?? D.Bili ?? Anthropometrics: Height: 172.7 cm (5' 8 ) Weight: 58.1 kg (128 lb) BMI (Calculated): 19.47 Weight Evaluation: Normal (BMI 18.5-24.9) [place] Body Weight (kg): 70 Percent [place] Body Weight: 82 Wt Readings from Last 200 Encounters: 07/16/25 58.1 kg (128 lb) 07/04/25 57.6 kg (126 lb 15.8 oz) 07/01/25 54.6 kg (120 lb 5.9 oz) Estimated Needs: Kcal/ K Kcal Provided: 2030 Kcal Needs Based On: Current weight Gm Protein/ Kg : 1.5 Protein Provided: 87 Protein Needs Based On: Current weight Metabolic Cart Study Results: Current Nutrition Intake: Diet Supplements: Impact AR Diet Order: Adult Diet Diet Texture: Full Liquid Percent Meals Eaten (%): 55-66% Diet Experience and Nutrition History: Diet Education Provided: Will monitor Pertinent home medications: [place] needs: Nutrition Focused Physical Exam: Physical exam performed on (date): 07/21 Temples (muscles): (P) Severe Clavicle (muscle): (P) Severe Shoulder (muscle): (P) Severe Thigh (muscle): (P) Moderate Calf (muscle): (P) Moderate Orbital (fat): (P) Moderate Triceps (fat): (P) Moderate Weight Loss: (P) 17.4% unintended weight loss within 6-12 months Assessment of Malnutrition: Malnutrition Identified: (P) Yes Meets Criteria For: (P) Severe malnutrition In Context Of: (P) Chronic illness/ injury Based On: (P) Severe muscle mass loss, Moderate body fat loss, Severe weight loss Present on Admission: (P) Yes Nutrition Problem: Inadequate oral intake related to altered GI function, restrictive diet order as evidenced by inability to meet needs on FLD. Status of Nutrition Diagnosis: New Nutrition Interventions and Recommendations: Monitor MD plan for diet advancement to solids --Recommend Regular Texture / GI Soft, when able Ordered Boost Very High Calorie TID Start daily multivitamin Nutrition Monitoring and Goals: PO diet advanced to solids by RD follow up Acuity Level: [address] [1] acetaminophen, 1,000 mg, Oral, q6h ANUSHA enoxaparin, 1 mg/kg, Subcutaneous, q12h mupirocin, 1 Application, Each Nostril, BID * Progress Notes - Madina Lee RN - 07/21/2025 10:55 AM EST Case Management Adult Progress Note Damian Washington 74 y.o. male CSN: [id number] Admission: 07/16/2025 12:37 PM Primary Problem: Cancer of sigmoid colon Anticipated Discharge Date: unknown Has Discharge Plans Changed? No Medicare Second Notice: Housing Circumstances: Not Applicable Housing Circumstances Action Taken: Other Medically Ready for Discharge: Anticipated in 5+ Days Additional Comments Spoke to MD this am, pt not medically ready for d/c at this time. Do not anticipate patient to be ready for discharge within 72 hrs. Pt continues on an amio gtt that will end this evening and will then downgrade from the ICU. Will continue to follow and assist with d/c needs as they arise. Madina Lee RN * Progress Notes - Noé Merrill MD - 07/21/2025 10:18 AM EST Images from the original note were not included. [facility] Department of Surgery Division of Colon & Rectal Surgery Surgery Progress Note 07/21/25 Damian Washington Full Code Subjective Subjective: HPI Damian Washington is a 74 y/o with newly diagnosed sigmoid colon cancer. CT imaging without evidence of metastatic disease. 07/16: sigmoid colectomy, mobilization of splenic flexure 07/18: re-presented for profound dehydration iso no PO intake and recurrent emesis, imaging significant for SBO 07/21 Interval: POD 5. Patient remains in ICU following episode of Afib RVR last night requiring amiodarone drip. NSR since 5:30PM 07/20, plan to downgrade to PCU with tele this evening following completion of 24h ami drip. On 3LNC at 95%. Walk tests so far demonstrate anticipated need for home O2. Patient tolerating OOB. Denies flatus and bowel movement. Afebrile, HDS. Voiding spontaneously. NGTout. On therapeutic Lovenox. FLD with vanilla Impact AR. Labs WNL, troponins elevated due to demandischemia during Afib event, per cardiology. CCM signing off this evening. Edited by: Noé Merrill MD at 07/21/2025 1020 Review of Systems: Relevant review of systems was obtained as able and is negative unless stated above in HPI. Objective Objective: Vital signs: Vitals: 07/21/25 1000 BP: 130/74 Pulse: 68 Resp: 14 Temp: SpO2: 95% Physical Exam: Physical Exam Constitutional: General: He is not in acute distress. Eyes: General: No scleral icterus. Cardiovascular: Rate and Rhythm: Normal rate and regular rhythm. Pulses: Normal pulses. Pulmonary: Effort: Pulmonary effort is normal. Abdominal: General: A surgical scar is present. Palpations: Abdomen is soft. Tenderness: There is no abdominal tenderness. Musculoskeletal: Right lower leg: No edema. Left lower leg: No edema. Skin: General: Skin is warm and dry. Neurological: Mental Status: He is alert and oriented to person, place, and time. Psychiatric: Mood and Affect: Mood normal. Thought Content: Thought content normal. Intake/Output Summary (Last 24 hours) at 07/21/2025 1020 Last data filed at 07/21/2025 0736 Gross per 24 hour Intake 2109 ml Output 200 ml Net 1909 ml Lines/Drains/Tubes: Patient Lines/Drains/Airways Status Active Airway None Output by Drain (mL) 07/19/25 0700 - 07/19/25 1859 07/19/25 1900 - 07/20/25 0659 07/20/25 0700 - 07/20/25 1859 07/20/25 1900 - 07/21/25 0659 07/21/25 0700 - 07/21/25 1020 Patient has no LDAs of requested type attached. Labs in last 18 hours: CBC WBC 7.76 Hb 9.2 (L) Plt 167 Hct 27.4 (L) ANC ?? INR ??, PTT ??, Anti-Xa ?? MCV 95 BMP Na 138 Cl 106 BUN 14 Glu 95 K 4.5 Co2 24 Cr 0.70 Ca 7.9 (L) iCa 4.4 (L) Mg 2.5 (H), Phos 3.1 Lactate ?? LFT AST ?? AlkPhos ?? T Prot ?? ALK ?? Bili ?? Alb ?? D.Bili ?? Lab Trends: H/H Results from last 7 days Lab Units 07/21/25 0015 07/20/25 1618 07/19/25 0607 HEMOGLOBIN g/dL 9.2* 11.3* 11.6* HEMATOCRIT % 27.4* 32.7* 33.8* INR Cr Results from last 7 days Lab Units 07/21/25 0015 07/20/25 1618 07/17/25 0334 CREATININE mg/dL 0.70 0.70 0.79 Lactate No lab exists for component: LACTTEVEN Radiographic Interpretation: I have reviewed the imaging above and agree with the radiologist interpretation. Medications reviewed. Vital signs reviewed. Labs reviewed. Assessment/Plan Assessment and Plan: Medical Problems Problem List * (Principal) Cancer of sigmoid colon Smoker Paroxysmal atrial fibrillation (CMS/HCC) Present on Admission: Cancer of sigmoid colon Smoker Plan Today: - Continue NC today - Walk test when tolerable - MMPC - Full liquid diet - D/C Amiodarone at 5PM (24hr) - Plan to downgrade to PCU with tele tonight - Therapeutic Lovenox - Encourage ambulation and IS use Edited by: Noé Merrill MD at 07/21/2025 1008 Dispo: Progressive Level Care Noé Merrill MD, PGY-1 Department of Anesthesiology, Perioperative, Critical Care, and Pain Medicine [facility] [employer] via [employer] Secure Chat Cosigned by Maicol Garcia MD at 07/23/2025 5:54 PM EST Associated attestation - Maicol Garcia MD - 07/23/2025 5:54 PM EST I saw and evaluated the patient with the resident/fellow. I discussed the case with the resident/fellow and agree with the findings and plan as documented. Mr. Washington is a 74-year-old male status post sigmoid colectomy for colon cancer. PLAN FOLLOWS: Continue postoperative care. * Care Plan - Teddy Lawrence RN - 07/21/2025 9:22 AM EST Problem: Adult Inpatient Plan of Care Goal: Plan of Care Review Outcome: Ongoing, Progressing Flowsheets Taken 07/21/2025916 by Teddy Lawrence RN Progress: improving Outcome Evaluation: pt able to ambulate with min assist Taken 07/20/2025 1453 by Eleni Lomeli RN Plan of Care Reviewed With: patient Goal: Patient-Specific Goal (Individualized) Outcome: Ongoing, Progressing Goal: Absence of Hospital-Acquired Illness or Injury Outcome: Ongoing, Progressing Intervention: Identify and Manage Fall Risk Flowsheets (Taken 07/21/2025916) Safety Promotion/Fall Prevention: activity supervised assistive device/personal items within reach clutter-free environment maintained fall prevention program maintained Intervention: Prevent Skin Injury Flowsheets (Taken 07/21/2025 0800) Skin Protection: incontinence pads utilized pectin skin barriers applied Goal: Optimal Comfort and Wellbeing Outcome: Ongoing, Progressing Intervention: Monitor Pain and Promote Comfort Flowsheets (Taken 07/21/2025916) Pain Management Interventions: rest quiet environment facilitated relaxation techniques promoted Intervention: Provide Person-Centered Care Flowsheets (Taken 07/21/2025916) Trust Relationship/Rapport: care explained emotional support provided questions answered questions encouraged Problem: Skin Injury Risk Increased Goal: Skin Health and Integrity Outcome: Ongoing, Progressing Intervention: Optimize Skin Protection Flowsheets (Taken 07/21/2025916) Activity Management: activity adjusted per tolerance ambulated in room Pressure Reduction Techniques: heels elevated off bed frequent weight shift encouraged Pressure Reduction Devices: positioning supports utilized Skin Protection: incontinence pads utilized Head of Bed (HOB) Positioning: HOB elevated Intervention: Promote and Optimize Oral Intake Flowsheets (Taken 07/21/2025916) Oral Nutrition Promotion: adaptive equipment use encouraged physical activity promoted Nutrition Interventions: diet adjusted Problem: Infection Goal: Absence of Infection Signs and Symptoms Outcome: Ongoing, Progressing Problem: Bowel Resection Goal: Effective Bowel Elimination Outcome: Ongoing, Progressing Intervention: Enhance Bowel Motility and Elimination Flowsheets (Taken 07/21/2025916) Bowel Elimination Management: toileting offered Bowel Motility Enhancement: fluid intake encouraged ambulation promoted Goal: Absence of Infection Signs and Symptoms Outcome: Ongoing, Progressing Intervention: Prevent or Manage Infection Flowsheets (Taken 07/21/2025916) Infection Management: aseptic technique maintained Fever Reduction/Comfort Measures: lightweight bedding Isolation Precautions: precautions maintained Goal: Optimal Nutrition Delivery Outcome: Ongoing, Progressing Intervention: Optimize Nutrition Delivery Flowsheets (Taken 07/21/2025916) Nutrition Support Management: indirect calorimetry obtained Oral Nutrition Promotion: adaptive equipment use encouraged physical activity promoted Nutrition Interventions: diet adjusted Goal: Effective Oxygenation and Ventilation Outcome: Ongoing, Progressing Intervention: Optimize Oxygenation and Ventilation Flowsheets (Taken 07/21/2025916) Airway/Ventilation Management: airway patency maintained Head of Bed (HOB) Positioning: HOB elevated Problem: Mobility Impairment Goal: Optimal Mobility Outcome: Ongoing, Progressing Intervention: Optimize Mobility Flowsheets (Taken 07/21/2025916) Activity Management: activity adjusted per tolerance ambulated in room Assistive Device Utilized: other (see comments) Positioning/Transfer Devices: pillows in use Problem: Fall Injury Risk Goal: Absence of Fall and Fall-Related Injury Outcome: Ongoing, Progressing Intervention: Identify and Manage Contributors Flowsheets (Taken 07/21/2025916) Medication Review/Management: medications reviewed Self-Care Promotion: independence encouraged Intervention: Promote Injury-Free Environment Flowsheets (Taken 07/21/2025916) Safety Promotion/Fall Prevention: activity supervised assistive device/personal items within reach clutter-free environment maintained fall prevention program maintained * Assessment & Plan Note - Omer Schroeder APRN, DNP - 07/21/2025 8:33 AM EST Associated Problem(s): Cancer of sigmoid colon S/p sigmoid colectomy 07/16 Mgmt per primary * Assessment & Plan Note - Omer Schroeder APRN, DNP - 07/21/2025 8:33 AM EST Associated Problem(s): Paroxysmal atrial fibrillation (CMS/HCC) Amiodarone load and drip Continue 24h total, no need for PO Cardiology following Keep electrolytes at goal of K >4.0, Ca = 4.5, Mg > 2.0 * Assessment & Plan Note - Omer Schroeder APRN, DNP - 07/21/2025 8:33 AM EST Associated Problem(s): Smoker Smoking cessation and education recommended Complicates all aspects of care * Progress Notes - Omer Schroeder APRN, DNP - 07/21/2025 8:31 AM EST Associated Order(s): Critical Care Post-Procedure Diagnose(s): Paroxysmal atrial fibrillation (CMS/HCC) 07/21/25 [facility] Damian Washington is a 74 y.o. male who presents with Cancer of sigmoid colon Past 24 hours: Mr Washington had no acute events overnight.. This AM, he remains HD stable in NSR. Plan to continue amiodarone gtt until conclusion this afternoon. Review of Systems Constitutional: Negative. HENT: Negative. Eyes: Negative. Respiratory: Negative. Cardiovascular: Negative. Gastrointestinal: Negative. Endocrine: Negative. Genitourinary: Negative. Musculoskeletal: Negative. Skin: Negative. Allergic/Immunologic: Negative. Neurological: Negative. Hematological: Negative. Psychiatric/Behavioral: Negative. Vital signs: Vitals: 07/21/25 0800 BP: 119/69 Pulse: 66 Resp: 12 Temp: SpO2: 96% Intake/Output Summary (Last 24 hours) at 07/21/2025 0831 Last data filed at 07/21/2025 0736 Gross per 24 hour Intake 2109 ml Output 200 ml Net 1909 ml Physical Exam Constitutional: Appearance: Normal appearance. He is well-developed and normal weight. HENT: Head: Normocephalic and atraumatic. Right Ear: External ear normal. Left Ear: External ear normal. Nose: Nose normal. Mouth/Throat: Lips: [place]. Mouth: Mucous membranes are moist. Pharynx: Oropharynx is clear. Eyes: Conjunctiva/sclera: Conjunctivae normal. Pupils: Pupils are equal, round, and reactive to light. Neck: Vascular: No JVD. Cardiovascular: Rate and Rhythm: Normal rate and regular rhythm. Pulmonary: Effort: Pulmonary effort is normal. Breath sounds: Normal breath sounds. Abdominal: General: Bowel sounds are normal. There is no distension. Palpations: Abdomen is soft. Tenderness: There is no abdominal tenderness. There is no guarding. Musculoskeletal: General: Normal range of motion. Cervical back: Neck supple. Right lower leg: No edema. Left lower leg: No edema. Skin: General: Skin is warm and dry. Coloration: Skin is not pale. Neurological: General: No focal deficit present. Mental Status: He is alert and oriented to person, place, and time. GCS: GCS eye subscore is 4. GCS verbal subscore is 5. GCS motor subscore is 6. Labs in last 18 hours: CBC WBC 7.76 Hb 9.2 (L) Plt 167 Hct 27.4 (L) INR ??, PTT ??, Anti-Xa ?? BMP Na 138 Cl 106 BUN 14 Glu 95 K 4.5 Co2 24 Cr 0.70 Ca 7.9 (L) iCa 4.4 (L) Mg 2.5 (H), Phos 3.1 Lactate ?? LFT AST ?? AlkPhos ?? T Prot ?? ALK ?? Bili ?? Alb ?? D.Bili ?? Imaging as available: === 07/16/25 === XR CHEST 1 VIEW - Narrative - CLINICAL INDICATION: ongoing postoperative hypoxia TECHNIQUE: Single AP view of chest. COMPARISON: One day prior FINDINGS: Interval removal of the nasogastric tube. The cardiomediastinal contours unchanged. No pneumothoraxor sizable pleural effusion. Similar bilateral interstitial lung opacities. Bibasal lung opacities which may represent atelectasis, mildly increased from prior. No new lung consolidation. - Impression - Mildly increased bibasal lung opacities which may represent atelectasis. CRITICAL RESULT: No. COMMUNICATION: Per this written report. Drafted by Aimee Fung MD on 07/20/2025 12:10 PM Final report signed by Aimee Fung MD on 07/20/2025 12:12 PM Reviewed and agree with above. Assessment and Plan: Assessment & Plan Cancer of sigmoid colon Present on Admission: Yes S/p sigmoid colectomy 07/16 Mgmt per primary Paroxysmal atrial fibrillation (CMS/HCC) Present on Admission: No Amiodarone load and drip Continue 24h total, no need for PO Cardiology following Keep electrolytes at goal of K >4.0, Ca = 4.5, Mg > 2.0 Smoker Present on Admission: Yes Smoking cessation and education recommended Complicates all aspects of care Critical Care Performed by: Omer Schroeder APRN, DNP Authorized by: Omer Schroeder APRN, DNP Critical care provider statement: Critical care time (minutes): 40 Critical care time was exclusive of: Separately billable procedures and treating other patients Critical care was time spent personally by me on the following activities: Development of treatmentplan with patient or surrogate, examination of patient, obtaining history from patient or surrogate, evaluation of patient's response to treatment, ordering and performing treatments and interventions, review of old charts, discussions with primary provider, ordering and review of laboratory studies and ordering and review of radiographic studies Plan of care discussed with Dr. Chaves. Pasquale Schroeder DNP, [facility], [facility] Anesthesiology, Critical Care Medicine * Consults - Derek Klein DO - 07/20/2025 6:59 PM ESTAssociated Order(s): Inpatient consult to Cardiology Images from the original note were not included. Inpatient consult to Cardiology Consult performed by: Derek Klein DO Consult ordered by: Maicol Garcia MD CARDIOLOGY NEW CONSULT NOTE Reason For Consult: post-op Afib Requesting Attending/Service: Maicol Garcia MD Requested Date/Time: 07/20/25 SUBJECTIVE History Of Present Illness Damian Washington is a 74 y.o. male with a past medical history Cancer of sigmoid colon POD 4 from sigmoid colectomy who developed AF RVR today walking from the bathroom. Care escalated to anesthesia crit care Cardiology is being consulted for further reccs. He was transferred to the ICU today after developing a-fib with RVR rates in the 170s following a walk on the floor. He was given 5mg of metoprolol with no improvement in rate but development of hypotension. He was given an additional 5mg in divided doses with no improvement and reported decrease of BP to 60 systolic transiently. On arrival to the ICU, he was HD stable with ECG showing a-fib with RVR and a rate varying between 13-170. BP was stable and he denies pain or SOA. No previous echo available. On review of labs noted to be hypokalemic to 3.1. Per primary team was started on amio gtt with conversion to sinus rhythm. Currently not on any anticoagulation. Review of Systems 14 point ROS reviewed and is otherwise negative except that which is mentioned in the HPI. Past Medical History Past Medical History[1] Surgical History Surgical History[2] Family History Reviewed Allergies Cephalexin Home Medications Current Outpatient Medications Medication Instructions bisacodyl (Dulcolax) 5 MG EC tablet Day before procedure at 4pm take 4 tablets with 8 oz of clear liquid. SSICOLON chlorhexidine (Hibiclens) 4 % external solution Day before your procedure. Shower as instructed. Morning of your scheduled surgery. Repeat this shower before you come to the hospital. metroNIDAZOLE (Flagyl) 500 MG tablet Take one tablet at 1pm, 2pm, and 11pm day BEFORE surgery. SSI COLON. multivitamin (Theragran-M) tablet 1 tablet, Oral, Daily neomycin (Mycifradin) 500 MG tablet Take two tablets (1000 mg) by mouth at 1:00pm, 2:00pm and 11:00pm on the day prior to surgery. SSICOLON Nutritional Supplements (Impact Advanced Recovery) liquid Drink 2 cartons a day starting 5 days before surgery. SSICOLON. Auto Sub for Ensure Surgery if Impact not available. polyethylene glycol (MiraLax) 17 GM/SCOOP powder At 6pm day BEFORE surgery, mix Miralax (polyethylene glycol) powder with 64 oz sports drink. Stir to dissolve. Drink one cup (8oz) every 15 minutes until completed finished. SSICOLON OBJECTIVE Visit Vitals BP 112/65 Pulse 87 Temp 36.9 ??C (98.4 ??F) Resp 17 Ht 1.727 m (5' 8 ) Wt 58.1 kg (128 lb) SpO2 96% BMI 19.46 kg/m?? Smoking Status Every Day BSA 1.67 m?? In's and Out's No intake/output data recorded. Intake/Output Summary (Last 24 hours) at 07/20/2025 1900 Last data filed at 07/20/2025 1200 Gross per 24 hour Intake 490 ml Output -- Net 490 ml Weight Weight: 58.1 kg (128 lb) 58.1 kg (128 lb) Physical Exam General: NAD Skin: warm, dry, no rashes HEENT: Sclera clear; nose patent; oral mucous membranes moist Heart: RRR; nl S1 S2, no murmurs, rubs or gallops, no JVD. Lungs: CTA b/l, no rhonchi/rales/wheezing Abdomen: Soft, NT, ND, +BS, no guarding Extremities/MSK: No edema, 2+ peripheral pulses Psych: mood & affect appropriate. Neuro: no focal deficits appreciated Primary Study Review: I personally reviewed the the images/tracings of the following studies: ECG Lab Review Results from last 7 days Lab Units 07/20/25 1618 SODIUM mmol/L 140 POTASSIUM mmol/L 3.4* CHLORIDE mmol/L 102 CO2 mmol/L 26 BUN mg/dL 15 CREATININE mg/dL 0.70 CALCIUM mg/dL 8.4* GLUCOSE mg/dL 98 Lab Results Component Value Date GLUCOSE 98 07/20/2025 CALCIUM 8.4 (L) 07/20/2025 NA 140 07/20/2025 K 3.4 (L) 07/20/2025 CO2 26 07/20/2025 CL 102 07/20/2025 BUN 15 07/20/2025 CREATININE 0.70 07/20/2025 Results from last 7 days Lab Units 07/20/25 1618 WBC 10*3/uL 10.86* HEMOGLOBIN g/dL 11.3* HEMATOCRIT % 32.7* PLATELETS 10*3/uL 182 No lab exists for component: NTPROBNP ECG: Reviewed Previous Echo: No echocardiogram results found for the past 12 months Imaging === 07/16/25 === XR CHEST 1 VIEW - Narrative - CLINICAL INDICATION: ongoing postoperative hypoxia TECHNIQUE: Single AP view of chest. COMPARISON: One day prior FINDINGS: Interval removal of the nasogastric tube. The cardiomediastinal contours unchanged. No pneumothoraxor sizable pleural effusion. Similar bilateral interstitial lung opacities. Bibasal lung opacities which may represent atelectasis, mildly increased from prior. No new lung consolidation. - Impression - Mildly increased bibasal lung opacities which may represent atelectasis. CRITICAL RESULT: No. COMMUNICATION: Per this written report. Drafted by Aimee Fung MD on 07/20/2025 12:10 PM Final report signed by Aimee Fung MD on 07/20/2025 12:12 PM ASSESSMENT/PLAN Damian Washington is a 74 y.o. male with a past medical history Cancer of sigmoid colon POD 4 from sigmoid colectomy who developed AF RVR today walking from the bathroom. Care escalated to anesthesia crit care Cardiology is being consulted for further reccs. #post-op Afib - Afib is likely provoked in the setting of recent surgery. No previous hx. May have slight provoking factor from hypokalemia to 3.1. - no previous hx of Afib or significant cardiac hx otherwise - baseline EKG NSR with right axis, posterior hemiblock and nonspecific interventricular conductiondelay - ChadsVasc 2 (Age) which merits therapeutic AC. Additionally has pro-thrombotic risk factor with malignancy. - Cardioverted to sinus rhythm with IV amiodarone per primary team but currently not on AC. Currently normotensive with HR in 70s in sinus. Recommendations/Plan: - Reasonable to continue amiodarone gtt to maintain sinus rhythm since he is already in sinus now - Please define post-op surgical bleeding risk and discuss with patient - if he goes into Afib again ideally should be on therapeutic AC given high ChadsVasc and malignancy. Heparin gtt would be reasonable - If he goes into RVR (sustained rates > 130s and 140s) and BP allows then reasonable to try metoprolol - if he is hemodynamically unstable with AF RVR then DCCV - correct electrolytes, mag > 2, K>4 - TTE The following cardiovascular risk factors and co-morbidities complicates the management of these conditions: poor nutritional status and frailty Principal Problem: Cancer of sigmoid colon Active Problems: Smoker Paroxysmal atrial fibrillation (CMS/HCC) . This consult will be staffed with the following attending physician: Dr Gonzalez. Please page the on-call auto carrier driver with any further questions. I spent 45 minutes performing the following components of the encounter (on the day of the encounter): reviewing History, examining the patient, reviewing imaging and/or labs, Independently interpreting echocardiogram, ECG and/or other imaging results, counseling the patient and family/caregiver, communicating with other health career coordinator, care coordination, and entering clinical information in the EHR. Greater than 50% of the time spent on the encounter was face to face providing direct patient care, counseling for the patient/caregiver, and care coordination. Derek Klein DO, MS Fellow, Department of Cardiovascular Medicine [1] Past Medical History: Diagnosis Date Tobacco-use disorder [2] Past Surgical History: Procedure Laterality Date COLONOSCOPY HERNIA REPAIR 1969 VASECTOMY Cosigned by Jeffy Gonzalez MD at 07/21/2025 1:31 PM EST Associated attestation - Jeffy Gonzalez MD - 07/21/2025 1:31 PM EST I saw and evaluated the patient with the fellow. I agree with the findings and plan as documented with the following addition. Asymptomatic Afib with RVR in post-op setting with electrolyte abnormalities, now resolved after IVAmiodarone. Would stop IV Amiodarone and start Metoprolol succinate 25mg daily as well as therapeutic anticoagulation (preferred agent DOAC) as soon as able from a surgical standpoint. Do not feel herequires nursing home Amiodarone after a single provoked episode. Reviewed his echocardiogram this AM - agree with basal septal aneurysm, but I think his overall systolic function is preserved or at most mildly reduced (I.e. does not require GDMT). His history, troponin trend, and ischemic ECG changes with RVR are all suggestive of some degree of underlying CAD as well. Would check lipid panel and start high intensity statin. Consider advanced imaging to betterdefine aneurysm, but this can be done non-urgently as an outpatient. No angina and no indication for inpatient ACS workup. Our consult team will continue to follow. Please reach out to on-call physician for [facility] any further questions. * Nursing Note - Eleni Lomeli RN - 07/20/2025 5:15 PM EST 1553: RN messaged that patient is unable to tolerate ambulating even to the bathroom today. Patient continues to desat in the low 80s while still on 3L NC. RN acknowledges the team wants the patient to ambulate more but patient is not recovering well after each ambulation. 1554: Patient just came back from bathroom and is taching in the 140s, patient still recovering respiratory garzon. Patient taching from 120s-140s. 1556: Patient placed on tele. 1600: MD urgent messaged patient sustaining in the 190s, afib. RN asked for EKG and messaged RT. 1612: labs, 5mg metoprolol, DCN at bedside with MD. BP dropped to 60/30s after metoprolol. LR Bolusordered and hung thru pressure bag. 1626: dose #2 metoprolol given 5mg. 1630: MD called fellow and consulted cards, and critical care. 1652: Patient to ICU 7.138 with RN and DCN at bedside. Bedside report given to Aki BLAIR. Patient Aox4, no symptoms, and stable at this time. * Assessment & Plan Note - Omer Schroeder APRN, DNP - 07/20/2025 5:04 PM EST Associated Problem(s): Cancer of sigmoid colon S/p sigmoid colectomy 07/16 Mgmt per primary * Assessment & Plan Note - Omer Schroeder APRN, DNP - 07/20/2025 5:04 PM EST Associated Problem(s): Paroxysmal atrial fibrillation ([facility]) Amiodarone load and drip Keep electrolytes at goal of K >4.0, Ca = 4.5, Mg > 2.0 * Assessment & Plan Note - Omer Schroeder APRN, DNP - 07/20/2025 5:04 PM EST Associated Problem(s): Smoker Smoking cessation and education recommended Complicates all aspects of care * H&P - Omer Schroeder APRN, DNP - 07/20/2025 4:58 PM ESTAssociated Order(s): Critical Care Post-Procedure Diagnose(s): Paroxysmal atrial fibrillation (CMS/HCC) 07/20/25 HPI Damian Washington is a 74 y.o. male who presents with Cancer of sigmoid colon POD 4 from signmoid colectomy, he was transferred to the ICU today after developing a- fib with RVR following a walk on the floor. He was given 5mg of metoprolol with no improvement in rate but development of hypotension. He was given an additional 5mg in divided doses with no improvement and slight worsening of BP. On arrival to the ICU, he was HD stable with ECG showing a-fib with RVR and a rate varying between 13-170. BP was stable and he denies pain or SOA. We will bolus him with amiodarone and magnesium in an attempt to convert him back to NSR. Past Medical History: Active Ambulatory Problems Diagnosis Date Noted Tobacco use disorder 07/01/2025 Cancer of sigmoid colon 07/01/2025 Resolved Ambulatory Problems Diagnosis Date Noted No Resolved Ambulatory Problems Past Medical History: Diagnosis Date Tobacco-use disorder Past Surgical History: Surgical History[1] Home Medications: Prior to Admission medications Medication Sig Start Date End Date Taking? Authorizing Provider bisacodyl (Dulcolax) 5 MG EC tablet Day before procedure at 4pm take 4 tablets with 8 oz of clear liquid. SSICOLON 07/01/25 Yes Maicol Garcia MD metroNIDAZOLE (Flagyl) 500 MG tablet Take one tablet at 1pm, 2pm, and 11pm day BEFORE surgery. SSI COLON. 07/01/25 Yes Maicol Garcia MD neomycin (Mycifradin) 500 MG tablet Take two tablets (1000 mg) by mouth at 1:00pm, 2:00pm and 11:00pm on the day prior to surgery. SSICOLON 07/01/25 Yes Maicol Garcia MD Nutritional Supplements (Impact Advanced Recovery) liquid Drink 2 cartons a day starting 5 days before surgery. SSICOLON. Auto Sub for Ensure Surgery if Impact not available. 07/01/25 Yes Maicol Garcia MD polyethylene glycol (MiraLax) 17 GM/SCOOP powder At 6pm day BEFORE surgery, mix Miralax (polyethylene glycol) powder with 64 oz sports drink. Stir to dissolve. Drink one cup (8oz) every 15 minutes until completed finished. SSICOLON 07/01/25 Yes Maicol Garcia MD chlorhexidine (Hibiclens) 4 % external solution Day before your procedure. Shower as instructed. Morning of your scheduled surgery. Repeat this shower before you come to the hospital. 07/01/25 Maicol Garcia MD multivitamin (Theragran-M) tablet Take 1 tablet by mouth daily. Provider, Historical Social History: Pt has reports that he has been smoking cigarettes. He started smoking about 50 years ago. He has a50.8 pack-year smoking history. He has never used smokeless tobacco. He reports that he does not drink alcohol and does not use drugs. (details as available below) Social History Substance and Sexual Activity Alcohol Use Never Social History Substance and Sexual Activity Drug Use Never Tobacco Use History[2] Reviewed and otherwise non-contributory. Family History: Family History[3] Reviewed and otherwise non-contributory. Allergies: Allergies[4] Review of Systems Constitutional: Negative. HENT: Negative. Eyes: Negative. Respiratory: Negative. Cardiovascular: Negative. Gastrointestinal: Negative. Endocrine: Negative. Genitourinary: Negative. Musculoskeletal: Negative. Skin: Negative. Allergic/Immunologic: Negative. Neurological: Negative. Hematological: Negative. Psychiatric/Behavioral: Negative. Vital signs: Vitals: 07/20/25 1630 BP: 99/54 Pulse: (!) 155 Resp: 19 Temp: SpO2: Intake/Output Summary (Last 24 hours) at 07/20/2025 1658 Last data filed at 07/20/2025 1200 Gross per 24 hour Intake 975 ml Output -- Net 975 ml Physical Exam Constitutional: Appearance: Normal appearance. He is well-developed and normal weight. HENT: Head: Normocephalic and atraumatic. Right Ear: External ear normal. Left Ear: External ear normal. Nose: Nose normal. Mouth/Throat: Lips: [place]. Mouth: Mucous membranes are moist. Pharynx: Oropharynx is clear. Eyes: Conjunctiva/sclera: Conjunctivae normal. Pupils: Pupils are equal, round, and reactive to light. Neck: Vascular: No JVD. Cardiovascular: Rate and Rhythm: Tachycardia present. Rhythm irregular. Pulmonary: Effort: Pulmonary effort is normal. Breath sounds: Normal breath sounds. Abdominal: General: Bowel sounds are normal. There is no distension. Palpations: Abdomen is soft. Tenderness: There is no abdominal tenderness. There is no guarding. Musculoskeletal: General: Normal range of motion. Cervical back: Neck supple. Right lower leg: No edema. Left lower leg: No edema. Skin: General: Skin is warm and dry. Coloration: Skin is not pale. Neurological: General: No focal deficit present. Mental Status: He is alert and oriented to person, place, and time. GCS: GCS eye subscore is 4. GCS verbal subscore is 5. GCS motor subscore is 6. Labs in last 18 hours: CBC WBC 10.86 (H) Hb 11.3 (L) Plt 182 Hct 32.7 (L) INR ??, PTT ??, Anti-Xa ?? BMP Na ?? Cl ?? BUN ?? Glu ?? K ?? Co2 ?? Cr ?? Ca ?? iCa ?? Mg ??, Phos ?? Lactate ?? LFT AST ?? AlkPhos ?? T Prot ?? ALK ?? Bili ?? Alb ?? D.Bili ?? Imaging as available: === 07/16/25 === XR CHEST 1 VIEW - Narrative - CLINICAL INDICATION: ongoing postoperative hypoxia TECHNIQUE: Single AP view of chest. COMPARISON: One day prior FINDINGS: Interval removal of the nasogastric tube. The cardiomediastinal contours unchanged. No pneumothoraxor sizable pleural effusion. Similar bilateral interstitial lung opacities. Bibasal lung opacities which may represent atelectasis, mildly increased from prior. No new lung consolidation. - Impression - Mildly increased bibasal lung opacities which may represent atelectasis. CRITICAL RESULT: No. COMMUNICATION: Per this written report. Drafted by Aimee Fung MD on 07/20/2025 12:10 PM Final report signed by Aimee Fung MD on 07/20/2025 12:12 PM Reviewed and agree with above. Assessment and Plan: Assessment & Plan Cancer of sigmoid colon Present on Admission: Yes S/p sigmoid colectomy 07/16 Mgmt per primary Paroxysmal atrial fibrillation (CMS/HCC) Present on Admission: No Amiodarone load and drip Keep electrolytes at goal of K >4.0, Ca = 4.5, Mg > 2.0 Smoker Present on Admission: Yes Smoking cessation and education recommended Complicates all aspects of care Non-Hospital Problems Tobacco use disorder Critical Care Performed by: Omer Schroeder APRN, DNP Authorized by: Omer Schroeder APRN, DNP Critical care provider statement: Critical care time (minutes): 40 Critical care time was exclusive of: Separately billable procedures and treating other patients Critical care was time spent personally by me on the following activities: Development of treatmentplan with patient or surrogate, examination of patient, obtaining history from patient or surrogate, evaluation of patient's response to treatment, ordering and performing treatments and interventions, review of old charts, discussions with primary provider, ordering and review of laboratory studies and ordering and review of radiographic studies Plan of care discussed with Dr. Chaves. Pasquale Schroeder DNP, [facility], [facility] Anesthesiology Critical Care Medicine [1] Past Surgical History: Procedure Laterality Date COLONOSCOPY HERNIA REPAIR 1969 VASECTOMY [2] Social History Tobacco Use Smoking Status Every Day Current packs/day: 1.00 Average packs/day: 1 pack/day for 50.8 years (50.8 ttl pk-yrs) Types: Cigarettes Start date: 1974 Smokeless Tobacco Never [3] Family History Problem Relation Name Age of Onset Anesthesia problems Neg Hx Malig Hyperthermia Neg Hx [4] Allergies Allergen Reactions Cephalexin Nausea * Care Plan - Eleni Lomeli RN - 07/20/2025 2:57 PM EST Problem: Adult Inpatient Plan of Care Goal: Plan of Care Review Outcome: Ongoing, Progressing Flowsheets (Taken 07/20/2025 1453) Progress: improving Outcome Evaluation: Patient amb ulated around the unit, sat in the chair, and started a diet today. Plan of Care Reviewed With: patient Goal: Patient-Specific Goal (Individualized) Outcome: Ongoing, Progressing Flowsheets (Taken 07/20/2025 0800) Patient/Family-Specific Goals (Include Timeframe): patient will remain free from falls throughout this shift. Individualized Care Needs: safety/ambulation Anxieties, Fears or Concerns: safety Goal: Absence of Hospital-Acquired Illness or Injury Outcome: Ongoing, Progressing Intervention: Identify and Manage Fall Risk Flowsheets (Taken 07/20/2025 0800) Safety Promotion/Fall Prevention: activity supervised assistive device/personal items within reach clutter-free environment maintained fall prevention program maintained lighting adjusted mobility aid in reach nonskid shoes/slippers when out of bed room organization consistent safety round/check completed toileting scheduled Intervention: Prevent Skin Injury Flowsheets (Taken 07/20/20251452) Body Position: weight shifting Skin Protection: transparent dressing maintained skin sealant/moisture barrier applied pulse oximeter probe site changed Intervention: Prevent and Manage VTE (Venous Thromboembolism) Risk Flowsheets (Taken 07/20/20251452) VTE Prevention/Management: SCDs (sequential compression devices) off medication Intervention: Prevent Infection Flowsheets (Taken 07/20/20251452) Infection Prevention: environmental surveillance performed equipment surfaces disinfected hand hygiene promoted personal protective equipment utilized rest/sleep promoted single patient room provided visitors restricted/screened Goal: Optimal Comfort and Wellbeing Outcome: Ongoing, Progressing Intervention: Monitor Pain and Promote Comfort Flowsheets (Taken 07/20/20251452) Pain Management Interventions: rest quiet environment facilitated prescribed exercises encouraged ambulation/increased activity Intervention: Provide Person-Centered Care Flowsheets (Taken 07/20/20251452) Trust Relationship/Rapport: care explained choices provided emotional support provided empathic listening provided questions answered questions encouraged reassurance provided thoughts/feelings acknowledged Problem: Skin Injury Risk Increased Goal: Skin Health and Integrity Outcome: Ongoing, Progressing Intervention: Optimize Skin Protection Flowsheets (Taken 07/20/20251452) Activity Management: up in chair Pressure Reduction Techniques: frequent weight shift encouraged Pressure Reduction Devices: positioning supports utilized Skin Protection: transparent dressing maintained skin sealant/moisture barrier applied pulse oximeter probe site changed Head of Bed (HOB) Positioning: HOB at 30-45 degrees Intervention: Promote and Optimize Oral Intake Flowsheets (Taken 07/20/20251452) Oral Nutrition Promotion: rest periods promoted social interaction promoted nutrition counseling provided Nutrition Interventions: diet adjusted diet adjustment recommended Problem: Infection Goal: Absence of Infection Signs and Symptoms Outcome: Ongoing, Progressing Intervention: Prevent or Manage Infection Flowsheets (Taken 07/20/20251452) Infection Management: aseptic technique maintained Fever Reduction/Comfort Measures: lightweight bedding lightweight clothing Isolation Precautions: precautions maintained protective Problem: Bowel Resection Goal: Effective Bowel Elimination Outcome: Ongoing, Progressing Intervention: Enhance Bowel Motility and Elimination Flowsheets (Taken 07/20/2025 145) Bowel Elimination Management: relaxation techniques promoted hygiene measures promoted Bowel Motility Enhancement: ambulation promoted fluid intake encouraged oral intake encouraged Goal: Absence of Infection Signs and Symptoms Outcome: Ongoing, Progressing Intervention: Prevent or Manage Infection Flowsheets (Taken 07/20/20251452) Infection Management: aseptic technique maintained Fever Reduction/Comfort Measures: lightweight bedding lightweight clothing Isolation Precautions: precautions maintained protective Goal: Optimal Nutrition Delivery Outcome: Ongoing, Progressing Intervention: Optimize Nutrition Delivery Flowsheets (Taken 07/20/20251452) Nutrition Support Management: indirect calorimetry recommended Oral Nutrition Promotion: rest periods promoted social interaction promoted nutrition counseling provided Nutrition Interventions: diet adjusted diet adjustment recommended Goal: Effective Oxygenation and Ventilation Outcome: Ongoing, Progressing Intervention: Optimize Oxygenation and Ventilation Flowsheets (Taken 07/20/20251452) Airway/Ventilation Management: airway patency maintained oxygen therapy provided position adjusted Head of Bed (HOB) Positioning: HOB at 30-45 degrees Problem: Mobility Impairment Goal: Optimal Mobility Outcome: Ongoing, Progressing Intervention: Optimize Mobility Flowsheets (Taken 07/20/20251452) Activity Management: up in chair Assistive Device Utilized: front wheel walker Positioning/Transfer Devices: pillows in use Problem: Bowel Resection Goal: Absence of Bleeding Outcome: Met Goal: Fluid and Electrolyte Balance Outcome: Met Intervention: Monitor and Manage Fluid and Electrolyte Balance Flowsheets (Taken 07/20/20251452) Fluid/Electrolyte Management: intravenous fluids adjusted electrolyte supplement initiated Goal: Anesthesia/Sedation Recovery Outcome: Met Goal: Optimal Pain Control and Function Outcome: Met Goal: Nausea and Vomiting Relief Outcome: Met Goal: Effective Urinary Elimination Outcome: Met * Progress Notes - Noé Merrill MD - 07/20/2025 11:52 AM EST Images from the original note were not included. [facility] Department of Surgery Division of Colon & Rectal Surgery Surgery Progress Note 07/20/25 Damian Washington Full Code Subjective Subjective: HPI Damian Washington is a 74 y/o with newly diagnosed sigmoid colon cancer. CT imaging without evidence of metastatic disease. He presents today for operative intervention 07/16: sigmoid colectomy, mobilization of splenic flexure 07/20 Interval: POD 4. Patient now satting 97% on 3LNC. Plan for walk test tomorrow. Patient tolerating OOB. Denies flatus and bowel movement. Afebrile, HDS. Voiding spontaneously. NGTout. On prophylactic Lovenox. No new labs today. Diet advanced to full liquid. Plan to d/c IVF if drinking adequately this afternoon. CXR pending. Edited by: Noé Merrill MD at 07/20/2025 1152 Review of Systems: Relevant review of systems was obtained as able and is negative unless stated above in HPI. Objective Objective: Vital signs: Vitals: 07/20/25 1115 BP: 136/75 Pulse: 82 Resp: Temp: 37.2 ??C (99 ??F) SpO2: 91% Physical Exam: Physical Exam Vitals and nursing note reviewed. Constitutional: General: He is not in acute distress. Eyes: General: No scleral icterus. Cardiovascular: Rate and Rhythm: Normal rate and regular rhythm. Pulses: Normal pulses. Pulmonary: Effort: Pulmonary effort is normal. Abdominal: General: Abdomen is flat. There is no distension. Palpations: Abdomen is soft. Tenderness: There is no abdominal tenderness. Musculoskeletal: Right lower leg: No edema. Left lower leg: No edema. Skin: General: Skin is warm and dry. Capillary Refill: Capillary refill takes less than 2 seconds. Neurological: General: No focal deficit present. Mental Status: He is alert and oriented to person, place, and time. Mental status is at baseline. Psychiatric: Mood and Affect: Mood normal. Behavior: Behavior normal. Thought Content: Thought content normal. Judgment: Judgment normal. Intake/Output Summary (Last 24 hours) at 07/20/2025 1152 Last data filed at 07/19/2025 1700 Gross per 24 hour Intake 535 ml Output 50 ml Net 485 ml Lines/Drains/Tubes: Patient Lines/Drains/Airways Status Active Airway None Output by Drain (mL) 07/18/25 07 - 07/18/25 1859 07/18/251899 - 07/19/25 0659 07/19/25 07 - 07/19/25 1859 07/19/25 190 - 07/20/25 0659 07/20/25 07 - 07/20/25 1152 Patient has no LDAs of requested type attached. Labs in last 18 hours: CBC WBC ?? Hb ?? Plt ?? Hct ?? ANC ?? INR ??, PTT ??, Anti-Xa ?? MCV ?? BMP Na ?? Cl ?? BUN ?? Glu ?? K ?? Co2 ?? Cr ?? Ca ?? iCa ?? Mg ??, Phos ?? Lactate ?? LFT AST ?? AlkPhos ?? T Prot ?? ALK ?? Bili ?? Alb ?? D.Bili ?? Lab Trends: H/H Results from last 7 days Lab Units 07/19/25 0607 07/17/25 0334 HEMOGLOBIN g/dL 11.6* 12.3* HEMATOCRIT % 33.8* 35.0* INR Cr Results from last 7 days Lab Units 07/17/25 0334 CREATININE mg/dL 0.79 Lactate No lab exists for component: LACTTEVEN Radiographic Interpretation: I have reviewed the imaging above and agree with the radiologist interpretation. Medications reviewed. Vital signs reviewed. Labs reviewed. Assessment/Plan Assessment and Plan: Medical Problems Problem List * (Principal) Cancer of sigmoid colon Tobacco use disorder Present on Admission: None Plan Today: Continue NC today, walk test tomorrow [facility] Plan to D/C IVF this pm if tolerating liquids Full liquid diet NG - removed Prophylactic Lovenox Encourage ambulation and IS use Edited by: Noé Merrill MD at 07/20/2025 1152 Dispo: Continue Current Level of Care Noé Merrill MD, PGY-1 Department of Anesthesiology, Perioperative, Critical Care, and Pain Medicine [facility] Reachable via [employer] Secure Chat Cosigned by Hang Fatima MD at 07/24/2025 8:28 AM EST * Care Plan - Rocky Penny RN - 07/20/2025 3:29 AM EST Problem: Adult Inpatient Plan of Care Goal: Plan of Care Review Outcome: Ongoing, Progressing Flowsheets (Taken 07/20/2025322) Progress: improving Plan of Care Reviewed With: patient Goal: Patient-Specific Goal (Individualized) Outcome: Ongoing, Progressing Flowsheets (Taken 07/19/20251999) Patient/Family-Specific Goals (Include Timeframe): Pt will remain free from injury this shift. Individualized Care Needs: safety Anxieties, Fears or Concerns: none Goal: Absence of Hospital-Acquired Illness or Injury Outcome: Ongoing, Progressing Intervention: Identify and Manage Fall Risk Flowsheets (Taken 07/20/2025322) Safety Promotion/Fall Prevention: activity supervised safety round/check completed Intervention: Prevent Skin Injury Flowsheets (Taken 07/20/2025322) Body Position: sitting up in bed weight shifting Skin Protection: pulse oximeter probe site changed silicone foam dressing in place Intervention: Prevent and Manage VTE (Venous Thromboembolism) Risk Flowsheets (Taken 07/20/2025322) VTE Prevention/Management: bilateral SCDs (sequential compression devices) on Intervention: Prevent Infection Flowsheets (Taken 07/20/2025322) Infection Prevention: environmental surveillance performed equipment surfaces disinfected hand hygiene promoted single patient room provided rest/sleep promoted personal protective equipment utilized Goal: Optimal Comfort and Wellbeing Outcome: Ongoing, Progressing Intervention: Monitor Pain and Promote Comfort Flowsheets (Taken 07/20/2025322) Pain Management Interventions: rest prescribed exercises encouraged relaxation techniques promoted position adjusted pillow support provided Intervention: Provide Person-Centered Care Flowsheets (Taken 07/20/2025322) Trust Relationship/Rapport: care explained questions encouraged thoughts/feelings acknowledged reassurance provided Problem: Skin Injury Risk Increased Goal: Skin Health and Integrity Outcome: Ongoing, Progressing Intervention: Optimize Skin Protection Flowsheets (Taken 07/20/2025322) Activity Management: activity adjusted per tolerance activity encouraged ambulated to bathroom Pressure Reduction Techniques: frequent weight shift encouraged Pressure Reduction Devices: positioning supports utilized Skin Protection: pulse oximeter probe site changed silicone foam dressing in place Head of Bed (HOB) Positioning: HOB at 30-45 degrees Intervention: Promote and Optimize Oral Intake Flowsheets (Taken 07/20/2025322) Oral Nutrition Promotion: nutrition counseling provided Nutrition Interventions: diet adjusted Problem: Infection Goal: Absence of Infection Signs and Symptoms Outcome: Ongoing, Progressing Problem: Bowel Resection Goal: Absence of Bleeding Outcome: Ongoing, Progressing Intervention: Monitor and Manage Bleeding Flowsheets (Taken 07/20/2025322) Bleeding Management: dressing monitored Goal: Effective Bowel Elimination Outcome: Ongoing, Progressing Intervention: Enhance Bowel Motility and Elimination Flowsheets (Taken 07/20/2025322) Bowel Elimination Management: relaxation techniques promoted sitting position facilitated Bowel Motility Enhancement: fluid intake encouraged ambulation promoted Goal: Fluid and Electrolyte Balance Outcome: Ongoing, Progressing Intervention: Monitor and Manage Fluid and Electrolyte Balance Flowsheets (Taken 07/20/2025322) Fluid/Electrolyte Management: intravenous fluids adjusted fluids provided Goal: Absence of Infection Signs and Symptoms Outcome: Ongoing, Progressing Intervention: Prevent or Manage Infection Flowsheets (Taken 07/20/2025322) Infection Management: aseptic technique maintained Fever Reduction/Comfort Measures: lightweight bedding Isolation Precautions: precautions maintained Goal: Optimal Nutrition Delivery Outcome: Ongoing, Progressing Intervention: Optimize Nutrition Delivery Flowsheets (Taken 07/20/2025322) Nutrition Support Management: tube feeding held parenteral nutrition initiated Oral Nutrition Promotion: nutrition counseling provided Nutrition Interventions: diet adjusted Goal: Anesthesia/Sedation Recovery Outcome: Ongoing, Progressing Intervention: Optimize Anesthesia Recovery Flowsheets (Taken 07/20/2025322) Stabilization Measures: respiratory support increased Safety Promotion/Fall Prevention: activity supervised safety round/check completed Administration (IS): instruction provided, follow-up Reorientation Measures: calendar in view Goal: Optimal Pain Control and Function Outcome: Ongoing, Progressing Intervention: Prevent or Manage Pain Flowsheets (Taken 07/20/2025322) Pain Management Interventions: rest prescribed exercises encouraged relaxation techniques promoted position adjusted pillow support provided Diversional Activities: television Goal: Nausea and Vomiting Relief Outcome: Ongoing, Progressing Goal: Effective Urinary Elimination Outcome: Ongoing, Progressing Intervention: Monitor and Manage Urinary Retention Flowsheets (Taken 07/20/2025322) Urinary Elimination Promotion: positioned for ease of voiding toileting device within reach toileting offered Goal: Effective Oxygenation and Ventilation Outcome: Ongoing, Progressing Intervention: Optimize Oxygenation and Ventilation Flowsheets (Taken 07/20/2025322) Airway/Ventilation Management: airway patency maintained oxygen therapy provided position adjusted Head of Bed (HOB) Positioning: HOB at 30-45 degrees Problem: Mobility Impairment Goal: Optimal Mobility Outcome: Ongoing, Progressing Intervention: Optimize Mobility Flowsheets (Taken 07/20/2025 0323) Activity Management: activity adjusted per tolerance activity encouraged ambulated to bathroom Positioning/Transfer Devices: pillows in use * Care Plan - Demarcus Norton RN - 07/19/2025 4:17 PM EDT Problem: Adult Inpatient Plan of Care Goal: Plan of Care Review Outcome: Ongoing, Progressing Progress: improving Goal: Patient-Specific Goal (Individualized) Outcome: Ongoing, Progressing Goal: Absence of Hospital-Acquired Illness or Injury Outcome: Ongoing, Progressing Intervention: Identify and Manage Fall Risk Flowsheets (Taken 07/19/2025 1614) Safety Promotion/Fall Prevention: activity supervised Goal: Optimal Comfort and Wellbeing Outcome: Ongoing, Progressing Intervention: Monitor Pain and Promote Comfort Flowsheets (Taken 07/19/2025 1614) Pain Management Interventions: medication (see MAR) Problem: Skin Injury Risk Increased Goal: Skin Health and Integrity Outcome: Ongoing, Progressing Intervention: Optimize Skin Protection Flowsheets (Taken 07/19/2025 1614) Activity Management: up in chair Pressure Reduction Devices: alternating pressure pump (ARIELA) Head of Bed (HOB) Positioning: HOB at 30 degrees Problem: Infection Goal: Absence of Infection Signs and Symptoms Outcome: Ongoing, Progressing Intervention: Prevent or Manage Infection Flowsheets (Taken 07/19/2025 035 by Rocky Penny, ROSSY) Infection Management: aseptic technique maintained Problem: Bowel Resection Goal: Absence of Bleeding Outcome: Ongoing, Progressing Intervention: Monitor and Manage Bleeding Flowsheets (Taken 07/19/2025 1614) Bleeding Management: affected area elevated Goal: Effective Bowel Elimination Outcome: Ongoing, Progressing Intervention: Enhance Bowel Motility and Elimination Flowsheets (Taken 07/19/2025 035 by Rocky Penny, RN) Bowel Elimination Management: relaxation techniques promoted Goal: Fluid and Electrolyte Balance Outcome: Ongoing, Progressing Intervention: Monitor and Manage Fluid and Electrolyte Balance Flowsheets (Taken 07/19/2025 035 by Rocky Penny, RN) Fluid/Electrolyte Management: fluids provided Goal: Absence of Infection Signs and Symptoms Outcome: Ongoing, Progressing Intervention: Prevent or Manage Infection Flowsheets (Taken 07/19/2025 035 by Rocky Penny, RN) Infection Management: aseptic technique maintained Goal: Optimal Nutrition Delivery Outcome: Ongoing, Progressing Intervention: Optimize Nutrition Delivery Note: NG tube dc'd Goal: Anesthesia/Sedation Recovery Outcome: Ongoing, Progressing Goal: Optimal Pain Control and Function Outcome: Ongoing, Progressing Goal: Nausea and Vomiting Relief Outcome: Ongoing, Progressing Goal: Effective Urinary Elimination Outcome: Ongoing, Progressing Intervention: Monitor and Manage Urinary Retention Flowsheets (Taken 07/19/2025 035 by Rocky Penny RN) Urinary Elimination Promotion: positioned for ease of voiding Goal: Effective Oxygenation and Ventilation Outcome: Ongoing, Progressing Problem: Mobility Impairment Goal: Optimal Mobility Outcome: Ongoing, Progressing * Progress Notes - Thelma Rangel - 07/19/2025 12:04 PM EDT Physical Therapy Evaluation Patient Name: Damian Washington Today's Date: 07/19/2025 PT Discharge Recommendations: Home with assistance, Outpatient PT (Outpatient Pulmonary Rehab) Equipment Recommended: None History Damian Washington is 74 y.o. male admitted 07/16/2025 for work-up of Cancer of sigmoid colon. Problem List Active Hospital Problems Diagnosis Date Noted Cancer of sigmoid colon 07/01/2025 Procedures Procedure(s): COLECTOMY, SIGMOID Past Medical History Patient has a past medical history of Tobacco-use disorder. Past Surgical History Patient has a past surgical history that includes Hernia repair (1969); Vasectomy; and Colonoscopy. Precautions Medical Precautions: Fall precautions, Lifting, Post-Surgical precautions Lifting Precautions: No lifting greater than 5-10 pounds Post-Surgical Precautions: Abdominal Subjective Patient agreeable to PT assessment. Participants in Care Family/Caregiver Present: Yes Family/Caregiver: Spouse (Jailene) Dot Compliance Coordinator: Not Applicable Presentation Oxygen Therapy: Supplemental oxygen O2 Delivery Method: Venturi mask FiO2 (%): 50 % O2 Flow Rate (L/min): 15 L/min Lines and Tubes: Telemetry, Intravenous access, NG tube Pre-Session: Supine, Head of bed elevated, Lines intact Pre-Session Comments: RN agreeable to initial evaluation. Post-Session: Sitting in chair, Chair alarm, Lines intact, Call light in reach, RN notified Post-Session Comments: Patient positioned for comfort/pressure relief with pillow supports and all needs in reach. RN aware of session details. Home Living/Set-up Lives With: Spouse Home Type: House Home Adaptive Equipment: shower chair Home Layout: Multi-level, Able to live on one level with bedroom/bathroom, Stairs to enter without rails (ramped entry) Number of Stairs: 1 Bathroom: Tub/Shower: Walk-in shower, Grab bars Bathroom: Toilet: Tall, Grab bars Bathroom: Accessibility: Accessible via walker, Accessible via wheelchair Home Living Comments: Patient's spouse reported that she can provide up to 24/7- hour assistance as/if needed at time of d/c. Prior Level of Function Receives Help From: No assist required prior to admission Level of Mobility: Ambulatory- community Mobility Edwards: Independent gait without device History of Falls: No ADL Performance: Independent Patient/Family Goals Patient would like to return home with family. Objective Pain Patient with minimal complaints of abdominal incisional pain. No rating provided. Patient positioned for comfort at end of session. Delirium Screening RASS: Alert and calm Confusion Assessment Method-ICU (CAM-ICU/PCAM-ICU) Feature 1: Acute Onset or Fluctuating Course: Negative Feature 2: Inattention: Negative Feature 3: Altered Level of Consciousness: Negative Feature 4: Disorganized Thinking: Negative Overall CAM-ICU/PCAM-ICU: Negative Cognition Overall Cognitive Status: Within Functional Limits Arousal/Alertness: Appropriate responses to stimuli Mood/Behavior: Alert Single Step Commands: Consistently, 100% of the time Multi-Step Commands: Consistently, 100% of the time Method of Communication: Verbal Vision - Basic Assessment Patient Visual Report: Patient reported no concerns regarding vision at this time. Right Upper Extremity Examination RUE Assessment: Within Functional Limits Manual Muscle Testing - RUE: (Grossly 3/5; no formal assistance applied secondary to abdominal precautions) Sensation Light Touch: Right Upper Extremity: Intact Left Upper Extremity Examination LUE ROM Assessment LUE Assessment: Within Functional Limits Manual Muscle Testing - LUE Manual Muscle Testing - LUE: (Grossly 3/5; no formal assistance applied secondary to abdominal precautions) Sensation Light Touch: Left Upper Extremity: Intact Right Lower Extremity Examination RLE ROM Assessment RLE Assessment: Within Functional Limits Manual Muscle Testing - RLE Manual Muscle Testing - RLE: Within functional limits Sensation Light Touch: Right Lower Extremity: Intact Left Lower Extremity Examination LLE Assessment: Within Functional Limits Manual Muscle Testing: Within functional limits Sensation Light Touch: Left Lower Extremity: Intact Therapeutic Activity (15 minutes) Patient participated in the following PT interventions targeting functional strength and endurance in order to promote increased independence with functional mobility. Additional time required for line management, room set-up for safe mobility and positioning at end of session to achieve optimal comfort and pressure relief. Patient's vital signs monitored for signs of intolerance to activity throughout session. Bed Mobility Bed Mobility Interventions: Patient given minimal verbal and tactile cues for logroll technique to reduce strain on abdomen during transition. Patient cued for cross-body reach with right UE for leverage on bedrail followed by bringing BLE off bed surface and utilizing BUE to push self up to sitting. Overall SBA required at trunk for completion of activity. Once in sitting, patient requiring supervision assist for lateral weight-shift and scoot to edge of bed. Bed Mobility Exam: Rolling/Turning Level of Edwards: Stand-by assist Physical/Nonphysical Assist: Verbal Cues Assistive Device: Bed rails Bed Mobility Exam: Scooting/Bridging Level of Edwards: Stand-by assist (anteriorly to EOB) Physical/Nonphysical Assist: Verbal Cues, Minimal cues Assistive Device: Bed rails Bed Mobility Exam: Supine to Sit Level of Edwards: Stand-by assist (to the left) Physical/Nonphysical Assist: Set-up required, Verbal Cues, Nonverbal cues (demo/gestures), Minimal cues, HOB elevated Assistive Device: Bed rails Bed Mobility Exam: Sit to Supine Level of Edwards: (Not assessed. Patient left up in chair.) Transfers Transfer Interventions: PT provided minimal verbal cues for safe hand placement on sitting surface,pushing up to stand and reaching back to sit, to ensure safe transition. Stand-by assist provided for balance and safety to ensure appropriate tolerance to change in position. Transfer Exam: Sit to stand Level of Edwards: Stand-by assist Physical/Nonphysical Assist: Set-up required, Supervision, Verbal Cues, Minimal cues Assistive Device: (no device) Transfer Exam: Stand to Sit Level of Edwards: Stand-by assist Physical/Nonphysical Assist: Supervision, Verbal Cues, Minimal cues Assistive Device: (no device) Toilet Transfer Level of Edwards: Stand-by assist Physical/Nonphysical Assist: Verbal Cues, Minimal cues Type of Transfer: Ambulation, To toilet Assistive Device: Grab bar Balance Postural Appearance Posture: Rounded shoulders Static Sitting Balance Static Sitting-Balance Support: Right upper extremity support, Left upper extremity support, Feet supported Static Sitting-Level of Assistance: Supervision Dynamic Sitting Balance Dynamic Sitting-Balance Support: No upper extremity support, Feet supported Level of Assistance: Standby assisst Static Standing Balance Static Standing-Balance Support: No upper extremity supported Static Standing-Level of Assistance: Supervision Dynamic Standing Balance Dynamic Standing-Balance Support: No upper extremity support Dynamic Standing Level of Assistance: Standby assist Ambulation Device: No device Assistance: Standby assist, Additional assist needed for line management, Minimal verbal cues Distance : 320 feet Ambulation Comments: Patient demonstrates reciprocal pattern with good pace. PT providing monitoring of HR and O2 and directed patient to take brief standing rest break as HR approached 145 bpm. Patient recovering to 120s-130s within 30 seconds and maintaining for the rest of the distance. Patient reporting 6/10 LIANG using modified JAMIE scale. Standardized Assessments [facility] 6-Clicks Mobility Assessment Difficulty patient has turning over in bed (including adjusting bedclothes, sheets, and blankets)?:None Difficulty patient has sitting down on and standing up from a chair with arms (wheelchair, bedside commode, etc.)?: None Difficulty patient has moving from lying on back to sitting on the side of the bed?: None How much help does the patient need moving to and from a bed to a chair (including a wheelchair)?: A little How much help does the patient need to walk in hospital room?: A little How much help does the patient need climbing 3-5 steps with a railing?: A little [facility] 6-Clicks Mobility Assessment Total : 21 Assessment Patient limited throughout session by decreased activity tolerance and decreased functional endurance. Patient put forth good effort during all activities. Increased time required during treatment session to allow for rest breaks, line management/organization, and to allow patient/family time to debrief regarding current medical situation. Patient and family were also educated regarding PT POC, discharge planning, the benefits of mobility and HEP to improve strength and functional endurance. Anticipate patient will progress with mobility while admitted to be able to return home safely. Current barrier is O2 status as patient is on quite a bit of oxygen support at this time. Recommend referral to outpatient pulmonary rehab at discharge. Patient will benefit from skilled PT intervention during remainder of hospital stay to address identified impairments and progress towards maximal independence with functional mobility and ADLs. Impairments: Decreased endurance, ventilation, and/or gas exchange, Impaired gait dynamics/performance, Impaired functional mobility/transfers, Impaired balance, Pain Activity Limitations: Inability to ambulate community distances, Inability to ambulate independently, Inability to transfer independently, Inability to complete ADLs independently Participation Restrictions: Self-care, Home management, Community leisure Activity Tolerance: Tolerates 10 - 20 min activity with multiple rests, Standing, Walking Evaluation/Treatment Tolerance: Patient limited by fatigue Diagnosis: Impaired functional endurance and activity tolerance Rehab Potential: Good, to achieve stated therapy goals Barriers to Discharge: Comorbidities Eval Complexity History Profile: 3 or more personal factors and/or comorbidities Clinical Presentation: Evolving clinical presentation with changing characteristics Clinical Decision Making: Moderate complexity PT Recommendations Discharge Destination: Home with assistance, Outpatient PT (Outpatient Pulmonary Rehab) Discharge Equipment: None Plan Planned PT Interventions Balance training, Bed mobility training, Gait training, Transfer training, Neuromuscular re-education, Strengthening, Functional Mobility, Postural re- education (Functional Endurance Training) PT Frequency 2 - 5 times per week PT Duration 2 weeks Goals PT GOAL DETAILS Time Frame PT Goal 1: Patient will perform sit to/from standing transfers independently. 2 weeks PT Goal 2: Patient will ambulate at least 400 feet continously over level surfaces independently with stable vital signs. 2 weeks PT Goal 3: Patient will be compliant with HEP with set-up as needed from staff/family. 2 weeks Written by Thelma Rangel on 07/19/25 at 1:10 PM. * Progress Notes - Francine Villatoro - 07/19/2025 12:03 PM EDT Occupational Therapy Evaluation Patient Name: Damian Washington Today's Date: 07/19/2025 Total Treatment Time: 31 minutes OT Discharge Recommendations: Home with assistance, Outpatient PT (Pulmonary) Equipment Recommended: Patient owns appropriate equipment History Damian Washington is 74 y.o. male admitted 07/16/2025 for work-up of Cancer of sigmoid colon. Hospital Course 1. Cancer of sigmoid colon Procedures 07/16/2025 Procedure(s): COLECTOMY, SIGMOID Past Medical History Patient has a past medical history of Tobacco-use disorder. Past Surgical History Patient has a past surgical history that includes Hernia repair (1969); Vasectomy; and Colonoscopy. Precautions Medical Precautions: Fall precautions, Lifting, Post-Surgical precautions Lifting Precautions: No lifting greater than 5-10 pounds Post-Surgical Precautions: Abdominal Subjective Patient agreeable to OT initial evaluation/session. Participants in Care Family/Caregiver Present: Yes Family/Caregiver: Spouse (Jailene) Dot Compliance Coordinator: Not Applicable Presentation Oxygen Therapy: Supplemental oxygen O2 Delivery Method: Venturi mask FiO2 (%): 50 % O2 Flow Rate (L/min): 15 L/min Lines and Tubes: Telemetry NG/OG [place] Sump Left nostril (Active) Peripheral IV 07/16/25 Anterior;Right Forearm (Active) Pre-Session: Supine, Head of bed elevated, Lines intact Pre-Session Comments: RN agreeable to initial evaluation. Post-Session: Sitting in chair, Chair alarm, Lines intact, Call light in reach, RN notified Post-Session Comments: Patient positioned for comfort/pressure relief with pillow supports and all needs in reach. Home Living/Set-Up Lives With: Spouse Home Type: House Home Adaptive Equipment: shower chair Home Layout: Multi-level, Able to live on one level with bedroom/bathroom, Stairs to enter without rails (ramped entry) Number of Stairs: 1 Bathroom: Tub/Shower: Walk-in shower, Grab bars Bathroom: Toilet: Tall, Grab bars Bathroom: Accessibility: Accessible via walker, Accessible via wheelchair Home Living Comments: Patient's spouse reported that she can provide up to 24/7- hour assistance as/if needed at time of d/c. Prior Level of Function Receives Help From: No assist required prior to admission Level of Mobility: Ambulatory- community Mobility Edwards: Independent gait without device History of Falls: No ADL Performance: Independent Patient/Family Goals Patient would like to return home. Objective Pain Patient reported no pain nor demonstrated signs/symptoms of pain during session. Delirium Screening RASS: Alert and calm Confusion Assessment Method-ICU (CAM-ICU/PCAM-ICU) Feature 1: Acute Onset or Fluctuating Course: Negative Feature 2: Inattention: Negative Feature 3: Altered Level of Consciousness: Negative Feature 4: Disorganized Thinking: Negative Overall CAM-ICU/PCAM-ICU: Negative Cognition Overall Cognitive Status: Within Functional Limits Arousal/Alertness: Appropriate responses to stimuli Mood/Behavior: Alert Orientation Level: Oriented X4 Single Step Commands: Consistently, 100% of the time Multi-Step Commands: Consistently, 100% of the time Method of Communication: Verbal Safety Judgment: Good awareness of safety precautions Deficit Awareness: Fully aware of deficits Attention Span: Appears intact Problem Solving: Able to problem solve independently Perseveration: Not present Vision - Assessment Patient Visual Report: Patient reported no concerns regarding vision at this time. Visual Screen Results: Appears intact. Right Upper Extremity Examination RUE Assessment: Within Functional Limits Manual Muscle Testing - RUE: (Grossly 3/5; no formal assistance applied secondary to abdominal precautions) Light Touch: Right Upper Extremity: Intact Left Upper Extremity Examination LUE Assessment: Within Functional Limits Manual Muscle Testing - LUE: (Grossly 3/5; no formal assistance applied secondary to abdominal precautions) Light Touch: Left Upper Extremity: Intact Right Lower Extremity Examination RLE Assessment: Within Functional Limits Manual Muscle Testing - RLE: Within functional limits Light Touch: Right Lower Extremity: Intact Left Lower Extremity Examination LLE Assessment: Within Functional Limits Manual Muscle Testing - LLE: Within functional limits Light Touch: Left Lower Extremity: Intact Perception/Coordination Perception Initiation: Appears intact Motor Planning: Appears intact Coordination Movements are Fluid and Coordinated: Yes Fine Motor Coordination Examination Left Hand, Manipulation of Objects: Normal performance Right Hand, Manipulation of Objects: Normal performance Bed Mobility Bed Mobility Exam: Scooting/Bridging Level of Edwards: Stand-by assist (anteriorly to EOB) Physical/Nonphysical Assist: Supervision, Verbal Cues, Minimal cues Bed Mobility Exam: Supine to Sit Level of Edwards: Stand-by assist (to the left) Physical/Nonphysical Assist: Set-up required, Verbal Cues, Nonverbal cues (demo/gestures), Minimal cues, HOB elevated Assistive Device: Bed rails Transfers Transfer Exam: Sit to stand Level of Edwards: Stand-by assist Physical/Nonphysical Assist: Set-up required, Supervision, Verbal Cues, Minimal cues Assistive Device: (no device) Transfer Exam: Stand to Sit Level of Edwards: Stand-by assist Physical/Nonphysical Assist: Supervision, Verbal Cues, Minimal cues Assistive Device: (no device) Toilet Transfer Level of Edwards: Stand-by assist Physical/Nonphysical Assist: Supervision, Verbal Cues, Minimal cues, 1 person + 1 person to manage equipment Type of Transfer: Ambulation, To toilet Assistive Device: Grab bar (on right) Functional Mobility Device: No device Assistance: Standby assist, Additional assist needed for line management Distance : 15' + 320' Balance Postural Appearance Posture: Rounded shoulders Static Sitting Balance Static Sitting-Balance Support: Right upper extremity support, Left upper extremity support, Feet supported Static Sitting-Level of Assistance: Supervision Dynamic Sitting Balance Dynamic Sitting-Balance Support: No upper extremity support, Feet supported Level of Assistance: Standby assisst Static Standing Balance Static Standing-Balance Support: No upper extremity supported Static Standing-Level of Assistance: Supervision Dynamic Standing Balance Dynamic Standing-Balance Support: No upper extremity support Dynamic Standing Level of Assistance: Standby assist Self-Care Interventions Self Care/Home Management (ADLs) Time Entry: 16 Self_Care Interventions: In addition to OT initial evaluation (15 minutes), OT facilitated patient engagement in sequential task training emphasizing functional transitions required for increased performance in higher level BADLs/IADLs. Refer to the above sections for patient performance and levelsof assistance required for aspects of mobility completed on this date. Of note, increased time required for: appropriate room set-up via environmental modifications to optimize patient safety and accessibility to all areas of treatment spaces, skilled management of medical lines/tubes, vital monitoring, task modification/grading activity to provide functional challenge and promote success , provision of pacing/rest breaks, toileting intervention , BADL retraining, verbal and tactile cues to facilitate sequencing and proper body mechanics during functional tasks, patient education, caregiver/family education, and staff education (RN/Tech/TEAM in regards to patient safety/vitals/mobility during session). Patient Education: To optimize patient safety while inpatient and at time of discharge, OT providedpatient and caregiver/family education regarding: role of OT within POC, progression of therapy, discharge recommendations, precautions, BADL retraining, cognitive retraining, work simplification, energy conservation, pursed-lip breathing, diaphragmatic breathing, adaptive techniques, adaptive equipment, fall prevention, home management, bathroom safety, showering safety, community safety/accessibility , and caregiver safety. Of note, the patient and caregiver/family verbalized understanding. Patient, however, would continue to benefit from additional education to promote increased carryover of provided information. Refer to below sections for additional self-care interventions completed during session. Feeding Feeding Level of Assistance: Independent Feeding Interventions: Anticipated level of performance per clinical judgement when medically appropriate. Patient with NGT present at time of initial evaluation. Grooming Grooming Level of Assistance: SBA Grooming Where Assessed: Standing sinkside Grooming Interventions: Patient completed hand hygiene standing at sink with SBA after toileting intervention. Bathing UE Bathing Level of Assistance: SBA LE Bathing Level of Assistance: SBA Bathing Interventions: Anticipated level of assistance/performance per clinical judgement. OT provided patient education regarding bathroom safety including benefits of utilizing pre-owned shower chair as/if needed, adaptive techniques, fall prevention, general bathing/showering tips, and energy conservation. OT recommended to follow showering instructions provided by medical TEAM at time of d/c.Patient verbalized understanding of provided information. Patient reported that they will have necessary assistance as/if needed with bathing/showering at time of d/c. UE Dressing UE Dressing Level of Assistance: SBA, Minimum assistance UE Dressing Where Assessed: Edge of bed UE Dressing Interventions: Therapist provided set-up/MIN assist to jovan robe over back; assistance mainly required for line management. OT anticipates that patient will progress well while inpatient with upper body dressing tasks with no/less lines present. Lower Extremity Dressing Shoe Level of Assistance: Setup (SBA) LE Dressing Where Assessed: Edge of bed LE Dressing Interventions: Therapist provided set-up assist for shoes in reach. Patient donned bilateral shoes with SBA in unsupported sitting position. Toileting Toileting Level of Assistance: SBA Where Assessed: Toilet Toileting Interventions: OT engaged patient in toileting routine in which patient navigated < > bathroom with no device (as well as larger houshold/small community distances; 15' + 320' in total), SBA to transfer < > standard toilet with grab bar on right, SBA to manage clothing, and SBA to complete lizzie-care hygiene after continent bowel and bladder movements. No LOB noted within presented task. Assistance required to manage lines and monitor vitals (HR d/t elevated HR - 146 bpm atpeak with activity and HR ranging 90-146 bpm and SpO2 94-98% while on 50% FiO2 and 15LPM via venturi mask during activity) to optimize patient safety. RN aware of session vitals. Standardized Assessments [facility] 6-Click Daily Activities Help from Other: Don/Doff Regular Lower Body Clothings: None Help From Other: Bathing: Little Help From Other: Toileting: None Help From Other: Don/Doff Upper Body Clothings: Little Help From Other: Grooming: None Help From Other: Eating Meals: None [facility] 6 Click - Daily Activities Score: 22/24 [facility] Scoring Interpretation: Scores greater than 20.5 suggest ability to perform daily self-cares independently and may indicate a high suitability for a home/self-care discharge. Assessment Patient tolerated today's initial evaluation/session well with rest breaks as needed. HR remained elevated at rest and increased with activity; ranging from 90-146 bpm during session (RN aware). [id number] 94-98% while on 50% FiO2 at 15 LPM via venturi mask. On this date, the patient required grossly SBA for aspects of mobility with increased time (assist for line management and vital monitoring). Varied levels of assistance required/anticipated for presented self-cares; refer to self-care section for additional details. Patient presented with impaired occupational performances within completing BADL/IADL safely, activity tolerance, strength, decreased safety awareness, and self-limiting fa ctors including fatigue impacting their current level of performance and ability to engage in occupations with full independence. Despite these impairments, patient is appropriate to return home withassistance with OP PT (Pulmonary) as OT anticipates that the patient will progress well while inpatient. Patient reported having necessary assistance available as/if needed at time of d/c. While inpatient, patient would continue to benefit from skilled OT services to promote increased independence within desired occupations, return to prior level of function, decrease caregiver stress, reduce risk of falls/potential readmission, and to promote a safe discharge when medically appropriate pending need for supplemental O2 for home use. OT Findings: Impaired ADL performance, Impaired IADL performance, Decreased upper extremity strength, Decreased endurance/ventilation/gas exchange, Impaired functional mobility, Impaired balance Evaluation/Treatment Tolerance: Patient limited by fatigue Rehab Potential: Good, to achieve stated therapy goals Barriers to Discharge: Comorbidities Demonstrates Need for Referral to Another Service: Social work Eval Complexity Occupational Profile: Expanded review of medical/therapy records and additional review of physical,cognitive, or psychosocial history Performance Deficits: Activities of daily living (ADLs), Instrumental activities of daily living (IADLs), Leisure, Body functions, Body structures, Habits, Routines, Roles, Personal, Physical Clinical Decision Making: Moderate Overall Eval complexity: Moderate OT Recommendations Discharge Destination: Home with assistance, Outpatient PT (Pulmonary) Discharge Equipment: Patient owns appropriate equipment Plan Continue with established OT plan of care 1-3/wk to progress towards OT POC goals. Planned OT Interventions ADL retraining, IADL retraining, Balance training, Strengthening, Transfer training, Functional mobility, Caregiver education OT Frequency 1 - 3 times per week OT Duration 2 weeks Goals OT GOAL DETAILS Time Frame OT Goal 1: Patient/Family/Caregiver will be independent in bilateral upper extremity home exercise program to promote increased strength/activity tolerance required for engagement in higher level self-cares/mobility. 2 weeks OT Goal 2: Patient will complete 2-step grooming routine in standing position independently. 2 weeks OT Goal 3: Patient will complete total body dressing independently. 2 weeks OT Goal 4: Patient will complete toileting routine (navigation < > bathroom, transfer < > standard toilet, manage clothing, and complete lizzie-care hygiene) independently. 2 weeks OT Goal 5: Patient will complete showering routine independently. 2 weeks Written by Francine Villatoro on 07/19/25 at 1:16 PM. * Progress Notes - Gina Woods E - 07/19/2025 9:42 AM EDT Images from the original note were not included. [facility] Department of Surgery Division of Colon & Rectal Surgery Surgery Progress Note 07/19/25 Damian Washington Full Code Subjective Subjective: HPI Damian Washington is a 74 y/o with newly diagnosed sigmoid colon cancer. CT imaging without evidence of metastatic disease. He presents today for operative intervention 07/16: sigmoid colectomy, mobilization of splenic flexure 07/19 Interval: POD 3. Patient will continue receiving breathing treatment due to failure of nasal cannula trial. Nurse states he gets tachycardic upon standing. Patient has been able to get out of bed. Denies flatus and bowel movement. Afebrile SBP max 157. SaO2 93% on 6 LNC. Voiding spontaneously. NGT output 30 will do clamp trial. On prophylactic Lovenox. No new labs today. Currently NPO. On D5/LR at 75 mL/hour. X-ray resulted without critical result. Edited by: Gina Woods at 07/19/2025 1143 Review of Systems: Relevant review of systems was obtained as able and is negative unless stated above in HPI. Objective Objective: Vital signs: Vitals: 07/19/25 1117 BP: 126/76 Pulse: 77 Resp: Temp: 36.4 ??C (97.5 ??F) SpO2: 99% Physical Exam: Physical Exam Constitutional: Appearance: Normal appearance. Eyes: Extraocular Movements: Extraocular movements intact. Cardiovascular: Rate and Rhythm: Normal rate. Pulmonary: Effort: Pulmonary effort is normal. No respiratory distress. Breath sounds: Normal breath sounds. Abdominal: General: There is no distension. Palpations: Abdomen is soft. Tenderness: There is abdominal tenderness (Appropriate for post op course). Comments: Incision sites present with appropriate healing Midline abdominal kimberly c/d/i Neurological: Mental Status: He is alert. Psychiatric: Mood and Affect: Mood normal. Intake/Output Summary (Last 24 hours) at 07/19/2025 1143 Last data filed at 07/19/2025 1032 Gross per 24 hour Intake 1987.5 ml Output 800 ml Net 1187.5 ml Lines/Drains/Tubes: Patient Lines/Drains/Airways Status Active Airway None Output by Drain (mL) 07/17/25 0700 - 07/17/25 1859 07/17/25 1900 - 07/18/25 0659 07/18/25 0700 - 07/18/25 1859 07/18/25 1900 - 07/19/25 0659 07/19/25 0700 - 07/19/25 1143 Requested LDAs do not have output data documented. Labs in last 18 hours: CBC WBC 12.64 (H) Hb 11.6 (L) Plt 177 Hct 33.8 (L) ANC ?? INR ??, PTT ??, Anti-Xa ?? MCV 95 BMP Na ?? Cl ?? BUN ?? Glu ?? K ?? Co2 ?? Cr ?? Ca ?? iCa ?? Mg 1.7 (L), Phos 2.9 Lactate ?? LFT AST ?? AlkPhos ?? T Prot ?? ALK ?? Bili ?? Alb ?? D.Bili ?? Lab Trends: H/H Results from last 7 days Lab Units 07/19/25 0607 07/17/25 0334 HEMOGLOBIN g/dL 11.6* 12.3* HEMATOCRIT % 33.8* 35.0* INR Cr Results from last 7 days Lab Units 07/17/25 0334 CREATININE mg/dL 0.79 Lactate No lab exists for component: LACTTEVEN Radiographic Interpretation: I have reviewed the imaging above and agree with the radiologist interpretation. Medications reviewed. Vital signs reviewed. Labs reviewed. Assessment/Plan Assessment and Plan: Medical Problems Problem List * (Principal) Cancer of sigmoid colon Tobacco use disorder Present on Admission: None Plan Today: Damian Washington is a 74 y/o with newly diagnosed sigmoid colon cancer. CT imaging without evidence of metastatic disease. He presents today for operative intervention 07/16: sigmoid colectomy, mobilization of splenic flexure 07/19 Interval: POD 3. Patient will continue receiving breathing treatment due to failure of nasal cannula trial. Nurse states he gets tachycardic upon standing. Patient has been able to get out of bed. Denies flatus and bowel movement. Afebrile SBP max 157. SaO2 93% on 6 LNC. Voiding spontaneously. NGT output 30 will do clamp trial. On prophylactic Lovenox. No new labs today. Currently NPO. On D5/LR at 75 mL/hour. X-ray resulted without critical result. Edited by: Gina Woods at 07/19/2025 1143 [facility] with sips/chips NG: clamp trial Prophylactic Lovenox Encourage ambulation and IS use Edited by: Gina Woods at 07/19/2025 0940 - Discharge teaching and planning Dispo: Continue Current Level of Care Gina Woods M3 Cosigned by Maicol Garcia MD at 07/23/2025 5:53 PM EST Associated attestation - Maicol Garcia MD - 07/23/2025 5:53 PM EST I saw and evaluated the patient with the medical/CUSTOMS MANAGER/PA student. I discussed the case with the medical/CUSTOMS MANAGER/PA student and agree with the findings and plan as documented. I personally performed the Examand Medical Decision Making. Mr. Washintgon is a 74-year-old male status post sigmoid colectomy for colon cancer. PLAN FOLLOWS: Continue postoperative care. * Care Plan - Rocky Penny RN - 07/19/2025 3:52 AM EDT Problem: Adult Inpatient Plan of Care Goal: Plan of Care Review 07/19/2025351 by Rocky Penny RN Outcome: Ongoing, Progressing Flowsheets Taken 07/19/2025351 Progress: improving Plan of Care Reviewed With: patient Taken 07/19/2025343 Outcome Evaluation: Respiratory status improved this shift, with patient maintaining O2 sats above 95% on venturi mask. HR continues to elevate with mobility and positional changes, pt denies distress. Continue with POC. 07/19/2025343 by Rocky Penny RN Outcome: Ongoing, Progressing Flowsheets (Taken 07/19/2025343) Progress: improving Outcome Evaluation: Respiratory status improved this shift, with patient maintaining O2 sats above 95% on venturi mask. HR continues to elevate with mobility and positional changes, pt denies distress. Continue with POC. Plan of Care Reviewed With: patient Goal: Patient-Specific Goal (Individualized) 07/19/2025351 by Rocky Penny RN Outcome: Ongoing, Progressing Flowsheets (Taken 07/18/20251999) Patient/Family-Specific Goals (Include Timeframe): Pt will remain free from injury this shift. Individualized Care Needs: safety Anxieties, Fears or Concerns: none 07/19/2025343 by Rocky Penny RN Outcome: Ongoing, Progressing Goal: Absence of Hospital-Acquired Illness or Injury 07/19/2025351 by Rocky Penny RN Outcome: Ongoing, Progressing 07/19/2025343 by Rocky Penny RN Outcome: Ongoing, Progressing Intervention: Identify and Manage Fall Risk Flowsheets (Taken 07/19/2025351) Safety Promotion/Fall Prevention: activity supervised assistive device/personal items within reach lighting adjusted safety round/check completed Intervention: Prevent Skin Injury Flowsheets (Taken 07/19/2025351) Body Position: weight shifting Skin Protection: pulse oximeter probe site changed silicone foam dressing in place transparent dressing maintained Intervention: Prevent and Manage VTE (Venous Thromboembolism) Risk Flowsheets (Taken 07/19/2025351) VTE Prevention/Management: bilateral SCDs (sequential compression devices) on medication Intervention: Prevent Infection Flowsheets (Taken 07/19/2025351) Infection Prevention: rest/sleep promoted Goal: Optimal Comfort and Wellbeing 07/19/2025351 by Rocky Penny RN Outcome: Ongoing, Progressing 07/19/2025343 by Rocky Penny RN Outcome: Ongoing, Progressing Intervention: Monitor Pain and Promote Comfort Flowsheets (Taken 07/19/2025351) Pain Management Interventions: rest splinting Intervention: Provide Person-Centered Care Flowsheets (Taken 07/19/2025351) Trust Relationship/Rapport: care explained choices provided Problem: Skin Injury Risk Increased Goal: Skin Health and Integrity 07/19/2025351 by Rocky Penny RN Outcome: Ongoing, Progressing 07/19/2025343 by Rocky Penny RN Outcome: Ongoing, Progressing Intervention: Optimize Skin Protection Flowsheets (Taken 07/19/2025351) Activity Management: activity adjusted per tolerance sitting, edge of bed standing at bedside Pressure Reduction Techniques: heels elevated off bed frequent weight shift encouraged Pressure Reduction Devices: positioning supports utilized Skin Protection: pulse oximeter probe site changed silicone foam dressing in place transparent dressing maintained Head of Bed (HOB) Positioning: HOB at 30-45 degrees Intervention: Promote and Optimize Oral Intake Flowsheets (Taken 07/19/2025351) Oral Nutrition Promotion: rest periods promoted Nutrition Interventions: diet adjusted Problem: Infection Goal: Absence of Infection Signs and Symptoms 07/19/2025351 by Rocky Penny RN Outcome: Ongoing, Progressing 07/19/2025343 by Rocky Penny RN Outcome: Ongoing, Progressing Intervention: Prevent or Manage Infection Flowsheets (Taken 07/19/2025351) Infection Management: aseptic technique maintained Fever Reduction/Comfort Measures: lightweight clothing lightweight bedding Isolation Precautions: precautions maintained Problem: Bowel Resection Goal: Absence of Bleeding 07/19/2025351 by Rocky Penny RN Outcome: Ongoing, Progressing 07/19/2025343 by Rocky Penny RN Outcome: Ongoing, Progressing Intervention: Monitor and Manage Bleeding Flowsheets (Taken 07/19/2025351) Bleeding Management: dressing monitored Goal: Effective Bowel Elimination 07/19/2025351 by Rocky Penny RN Outcome: Ongoing, Progressing 07/19/2025343 by Rocky Penny RN Outcome: Ongoing, Progressing Intervention: Enhance Bowel Motility and Elimination Flowsheets (Taken 07/19/2025351) Bowel Elimination Management: relaxation techniques promoted Bowel Motility Enhancement: fluid intake encouraged Goal: Fluid and Electrolyte Balance 07/19/2025351 by Rocky Penny RN Outcome: Ongoing, Progressing 07/19/2025343 by Rocky Penny RN Outcome: Ongoing, Progressing Intervention: Monitor and Manage Fluid and Electrolyte Balance Flowsheets (Taken 07/19/2025351) Fluid/Electrolyte Management: fluids provided Goal: Absence of Infection Signs and Symptoms 07/19/2025351 by Rocky Penny RN Outcome: Ongoing, Progressing 07/19/2025343 by Rocky Penny RN Outcome: Ongoing, Progressing Intervention: Prevent or Manage Infection Flowsheets (Taken 07/19/2025351) Infection Management: aseptic technique maintained Fever Reduction/Comfort Measures: lightweight clothing lightweight bedding Isolation Precautions: precautions maintained Goal: Optimal Nutrition Delivery 07/19/2025351 by Rocky Penny RN Outcome: Ongoing, Progressing 07/19/2025343 by Rocky Penny RN Outcome: Ongoing, Progressing Intervention: Optimize Nutrition Delivery Flowsheets (Taken 07/19/2025351) Nutrition Support Management: parenteral nutrition composition adjusted Oral Nutrition Promotion: rest periods promoted Nutrition Interventions: diet adjusted Goal: Anesthesia/Sedation Recovery 07/19/2025351 by Rocky Penny RN Outcome: Ongoing, Progressing 07/19/2025343 by Rocky Penny RN Outcome: Ongoing, Progressing Intervention: Optimize Anesthesia Recovery Flowsheets (Taken 07/19/2025351) Stabilization Measures: legs elevated Safety Promotion/Fall Prevention: activity supervised assistive device/personal items within reach lighting adjusted safety round/check completed Administration (IS): self-administered Reorientation Measures: calendar in view clock in view Goal: Optimal Pain Control and Function 07/19/2025351 by Rocky Penny RN Outcome: Ongoing, Progressing 07/19/2025343 by Rocky Penny RN Outcome: Ongoing, Progressing Intervention: Prevent or Manage Pain Flowsheets (Taken 07/19/2025351) Pain Management Interventions: rest splinting Complementary Therapy: massage therapy performed Diversional Activities: television Goal: Nausea and Vomiting Relief 07/19/2025351 by Rocky Penny RN Outcome: Ongoing, Progressing 07/19/2025343 by Rocky Penny RN Outcome: Ongoing, Progressing Intervention: Prevent or Manage Nausea and Vomiting Flowsheets (Taken 07/19/2025351) Nausea/Vomiting Interventions: sips of clear liquids given Goal: Effective Urinary Elimination 07/19/2025351 by Rocky Penny RN Outcome: Ongoing, Progressing 07/19/2025343 by Rocky Penny RN Outcome: Ongoing, Progressing Intervention: Monitor and Manage Urinary Retention Flowsheets (Taken 07/19/2025351) Urinary Elimination Promotion: positioned for ease of voiding Goal: Effective Oxygenation and Ventilation 07/19/2025351 by Rocky Penny RN Outcome: Ongoing, Progressing 07/19/2025343 by Rocky Penny RN Outcome: Ongoing, Progressing Intervention: Optimize Oxygenation and Ventilation Flowsheets (Taken 07/19/2025351) Airway/Ventilation Management: airway patency maintained Head of Bed (HOB) Positioning: HOB at 30-45 degrees * Care Plan - Demarcus Norton - 07/18/2025 4:12 PM EDT Problem: Adult Inpatient Plan of Care Goal: Plan of Care Review Outcome: Ongoing, Progressing Flowsheets (Taken 07/18/2025 1612) Progress: improving Plan of Care Reviewed With: patient Goal: Patient-Specific Goal (Individualized) Outcome: Ongoing, Progressing Goal: Absence of Hospital-Acquired Illness or Injury Outcome: Ongoing, Progressing Goal: Optimal Comfort and Wellbeing Outcome: Ongoing, Progressing Problem: Skin Injury Risk Increased Goal: Skin Health and Integrity Outcome: Ongoing, Progressing Problem: Infection Goal: Absence of Infection Signs and Symptoms Outcome: Ongoing, Progressing Problem: Bowel Resection Goal: Absence of Bleeding Outcome: Ongoing, Progressing Goal: Effective Bowel Elimination Outcome: Ongoing, Progressing Goal: Fluid and Electrolyte Balance Outcome: Ongoing, Progressing Goal: Absence of Infection Signs and Symptoms Outcome: Ongoing, Progressing Goal: Optimal Nutrition Delivery Outcome: Ongoing, Progressing Goal: Anesthesia/Sedation Recovery Outcome: Ongoing, Progressing Goal: Optimal Pain Control and Function Outcome: Ongoing, Progressing Goal: Nausea and Vomiting Relief Outcome: Ongoing, Progressing Goal: Effective Urinary Elimination Outcome: Ongoing, Progressing Goal: Effective Oxygenation and Ventilation Outcome: Ongoing, Progressing * Progress Notes - Anthony Mota MD - 07/18/2025 9:03 AM EDT Images from the original note were not included. [facility] Department of Surgery Division of Colon & Rectal Surgery Surgery Progress Note 07/18/25 Damian Washington Full Code Subjective Subjective: HPI Damian Washington is a 74 y/o with newly diagnosed sigmoid colon cancer. CT imaging without evidence of metastatic disease. He presents today for operative intervention 07/16: sigmoid colectomy, mobilization of splenic flexure 07/17 Interval: POD 2. Patient currently receiving breathing treatment. Nurse states he gets tachycardic upon standing. Patient was able to get out of bed yesterday to go to the bathroom. Denies flatus and bowel movement. Afebrile SBP max 157. SaO2 93% on 6 LNC. Voiding spontaneously. NGT output 1000. On prophylactic Lovenox. No new labs today. Currently NPO. On D5/LR at 75 mL/hour. Edited by: Anthony Mota MD at 07/18/2025 0903 Review of Systems: Relevant review of systems was obtained as able and is negative unless stated above in HPI. Objective Objective: Vital signs: Vitals: 07/18/25 0821 BP: (!) 157/76 Pulse: 92 Resp: Temp: 37.3 ??C (99.1 ??F) SpO2: 93% Physical Exam: Physical Exam Constitutional: Appearance: Normal appearance. Eyes: Extraocular Movements: Extraocular movements intact. Cardiovascular: Rate and Rhythm: Normal rate. Pulmonary: Effort: Pulmonary effort is normal. No respiratory distress. Breath sounds: Normal breath sounds. Abdominal: General: There is no distension. Palpations: Abdomen is soft. Tenderness: There is abdominal tenderness (Appropriate for post op course). Comments: Incision sites present with appropriate healing Midline abdominal kimberly c/d/i Neurological: Mental Status: He is alert. Psychiatric: Mood and Affect: Mood normal. Intake/Output Summary (Last 24 hours) at 07/18/2025 0903 Last data filed at 07/18/2025 0800 Gross per 24 hour Intake 1390 ml Output 1900 ml Net -510 ml Lines/Drains/Tubes: Patient Lines/Drains/Airways Status Active Airway None Output by Drain (mL) 07/16/25 0700 - 07/16/25 1859 07/16/25 1900 - 07/17/25 0659 07/17/25 0700 - 07/17/25 1859 07/17/25 1900 - 07/18/25 0659 07/18/25 0700 - 07/18/25 0903 Requested LDAs do not have output data documented. Labs in last 18 hours: CBC WBC ?? Hb ?? Plt ?? Hct ?? ANC ?? INR ??, PTT ??, Anti-Xa ?? MCV ?? BMP Na ?? Cl ?? BUN ?? Glu ?? K ?? Co2 ?? Cr ?? Ca ?? iCa ?? Mg ??, Phos ?? Lactate ?? LFT AST ?? AlkPhos ?? T Prot ?? ALK ?? Bili ?? Alb ?? D.Bili ?? Lab Trends: H/H Results from last 7 days Lab Units 07/17/25 0334 HEMOGLOBIN g/dL 12.3* HEMATOCRIT % 35.0* INR Cr Results from last 7 days Lab Units 07/17/25 0334 CREATININE mg/dL 0.79 Lactate No lab exists for component: LACTTEVEN Radiographic Interpretation: No relevant imaging to review. Medications reviewed. Vital signs reviewed. Labs reviewed. Assessment/Plan Assessment and Plan: Medical Problems Problem List * (Principal) Cancer of sigmoid colon Tobacco use disorder Present on Admission: None Plan Today: Damian Washington is a 74 y/o with newly diagnosed sigmoid colon cancer. CT imaging without evidence of metastatic disease. He presents today for operative intervention 07/16: sigmoid colectomy, mobilization of splenic flexure 07/17 Interval: POD 2. Patient currently receiving breathing treatment. Nurse states he gets tachycardic upon standing. Patient was able to get out of bed yesterday to go to the bathroom. Denies flatus and bowel movement. Afebrile SBP max 157. SaO2 93% on 6 LNC. Voiding spontaneously. NGT output 1000. On prophylactic Lovenox. No new labs today. Currently NPO. On D5/LR at 75 mL/hour. Edited by: Anthony Mota MD at 07/18/2025 0903 Follow-up chest x-ray [facility] IVF NPO with sips/chips NG Prophylactic Lovenox Encourage ambulation and IS use Edited by: Anthony Mota MD at 07/18/2025 0903 - Discharge teaching and planning Dispo: Continue Current Level of Care Anthony Orourke MD Cosigned by Maicol Garcia MD at 07/23/2025 5:53 PM EST Associated attestation - Maicol Garcia MD - 07/23/2025 5:53 PM EST I saw and evaluated the patient with the resident/fellow. I discussed the case with the resident/fellow and agree with the findings and plan as documented. Mr. Washington is a 74-year-old male status post sigmoid colectomy for colon cancer. PLAN FOLLOWS: Continue postoperative care. * Hospital Course - Mallory Perry RN - 07/17/2025 10:15 PM EDT Damian Washington is a 74 y.o. male with PMHx has a past medical history of Tobacco- use disorder. He has no past medical history of Adverse effect of anesthesia or Malignant hyperthermia. who presented to [facility] with Cancer of sigmoid colon. They were taken to the operating room on 07/16/25 for elective sigmoid colectomy and mobilization of splenic flexure. The patient tolerated the procedure well and was subsequently extubated and transferred to the PACU for recovery. The postoperative course was uncomplicated and after recovery, the patient was transferred to the floor. Pain was initially controlled with IV pain medication and was later transitioned to oral pain medication, and diet was advanced as tolerated. The patient's hospital course was uncomplicated and it was felt that the patient had reached maximal benefit from hospitalization. On 07/22/25 were deemed appropriate for discharge to home. On day ofdischarge, the patient was afebrile and hemodynamically stable, tolerating a GI Soft diet, the patient's pain was controlled on oral medications, they were ambulating well, voiding appropriately, passing flatus/BM, and tolerating oral intake. The patient was discharged on 07/22/25 to home and will return to clinic for routine post-procedurefollow up with Maicol Dumont MD in 2-4 weeks. * Care Plan - Demarcus Norton - 07/17/2025 5:35 PM EDT Problem: Adult Inpatient Plan of Care Goal: Plan of Care Review Outcome: Ongoing, Not Progressing Flowsheets (Taken 07/17/2025 0020 by Jory Castillo, RN) Progress: improving Goal: Patient-Specific Goal (Individualized) Outcome: Ongoing, Not Progressing Goal: Absence of Hospital-Acquired Illness or Injury Outcome: Ongoing, Not Progressing Intervention: Identify and Manage Fall Risk Flowsheets (Taken 07/17/20251733) Safety Promotion/Fall Prevention: activity supervised Intervention: Prevent Skin Injury Flowsheets (Taken 07/17/20251733) Body Position: heels elevated Goal: Optimal Comfort and Wellbeing Outcome: Ongoing, Not Progressing Intervention: Monitor Pain and Promote Comfort Flowsheets (Taken 07/17/20251733) Pain Management Interventions: medication (see MAR) Problem: Skin Injury Risk Increased Goal: Skin Health and Integrity Outcome: Ongoing, Not Progressing Intervention: Optimize Skin Protection Flowsheets (Taken 07/17/20251733) Activity Management: activity adjusted per tolerance Problem: Infection Goal: Absence of Infection Signs and Symptoms Outcome: Ongoing, Not Progressing Intervention: Prevent or Manage Infection Flowsheets (Taken 07/17/2025 0020 by Jory Castillo, RN) Fever Reduction/Comfort Measures: lightweight bedding lightweight clothing Problem: Bowel Resection Goal: Absence of Bleeding Outcome: Ongoing, Not Progressing Intervention: Monitor and Manage Bleeding Flowsheets (Taken 07/17/2025 1734) Bleeding Management: dressing monitored Goal: Effective Bowel Elimination Outcome: Ongoing, Not Progressing Goal: Fluid and Electrolyte Balance Outcome: Ongoing, Not Progressing Goal: Absence of Infection Signs and Symptoms Outcome: Ongoing, Not Progressing Goal: Optimal Nutrition Delivery Outcome: Ongoing, Not Progressing Goal: Anesthesia/Sedation Recovery Outcome: Ongoing, Not Progressing Goal: Optimal Pain Control and Function Outcome: Ongoing, Not Progressing Goal: Nausea and Vomiting Relief Outcome: Ongoing, Not Progressing Goal: Effective Urinary Elimination Outcome: Ongoing, Not Progressing Goal: Effective Oxygenation and Ventilation Outcome: Ongoing, Not Progressing * Progress Notes - Madina Lee RN - 07/17/2025 12:53 PM EDT Case Management Adult Initial Progress Note Damian Washington 74 y.o. male CSN: [id number] Admission: 07/16/2025 12:37 PM Primary Problem: Cancer of sigmoid colon Master Merchandiser reviewed chart and spoke with patient and his at to complete this Initial CaseManagement Assessment. PCP: Bryan Watkins MD Emergency Contact: Extended Emergency Contact Information Primary Emergency Contact: JOSÉ MIGUELJAILENE Mobile Relation: Spouse Preferred language: Grenadian Insurance: Primary Visit Coverage Payer Plan Sponsor Code Group Number Group Name MEDICARE MEDICARE A & B Primary Visit Coverage Subscriber Subscriber ID Subscriber Name Subscriber N Subscriber Address [id number] Damian Washington [id number] [facility] [address] [place] [address] Secondary Visit Coverage Payer Plan Sponsor Code Group Number Group Name LISANDRA FR[facility] [id number] Secondary Visit Coverage Subscriber Subscriber ID Subscriber Name Subscriber SSN Subscriber Address [id number] Damian Washington [id number] [place] [id number] Patient information: Primary Caregiver: Self Accompanied by/Relationship: Daily Living Activities: Functional Status: Independent Living Arrangements: Spouse/Significant other Type of Residence: Single Level [address] [place] [id number] Current DME: Equipment Currently Used at Home: none Housing Circumstances-Z Codes: Housing Circumstances (select all that apply): None Applicable Anticipated Discharge Date: unknown Patient's Discharge Goal: home Assistance Available at Discharge: Discharge Transport: Follow Up Transport: self Home Health / Home Infusion / Outpatient Dialysis Services: none Living Will/Advance Directive/Power of Sound Controller /Guardian: Have you reviewed your Advance Directive and is it valid for this stay?: Yes Advance Directive: Patient has advance directive, copy in chart Information Provided on Healthcare Directives: Yes Pre-existing DNR/DNI Order: No Patient Requests Assistance: No Additional Comments: Pt admitted for colon cancer, sigmoid colectomy. Met with pt and his at , verified information. Pt has a PCP, Bryan Watkins, with the last visit approx in April. Pt lives with his , who is able to provide assistance at home if needed. Pt has Medicare A & B and [employer] as his insurance. Transportation home will be provided by his . Pt has listed his , Jailene Washington, as his em ergency contact, phone # [phone]. Pt obtains medications from [employer]. Pt currently has a rolling walker, cane, w/c, raised toilet seat, and shower chair that he does not use. He is not receiving services. Will continue to follow and assist with d/c needs as they arise. Madina Lee RN * Progress Notes - Gina Woods - 07/17/2025 11:26 AM EDT Images from the original note were not included. [facility] Department of Surgery Division of Colon & Rectal Surgery Surgery Progress Note 07/17/25 Damian Washington Full Code Subjective Subjective: HPI Damian Washington is a 74 y/o with newly diagnosed sigmoid colon cancer. CT imaging without evidence of metastatic disease. He presents today for operative intervention 07/16: sigmoid colectomy, mobilization of splenic flexure 07/17 Interval: PO day 1 NAEO, Pain well controlled, Has not endorsed BM or flatus. NG tube output at 400 mL. Urine output appropriate. NPO. Yesterday endorsed feeling SOB, however, did not endorse that today. Denies N/V. Overall doing well. Edited by: Gina Woods at 07/17/2025 1157 Review of Systems: Relevant review of systems was obtained as able and is negative unless stated above in HPI. Objective Objective: Vital signs: Vitals: 07/17/25 0913 BP: Pulse: 74 Resp: 16 Temp: SpO2: 90% Physical Exam: Physical Exam Constitutional: Appearance: Normal appearance. Eyes: Extraocular Movements: Extraocular movements intact. Cardiovascular: Rate and Rhythm: Normal rate. Pulmonary: Effort: Pulmonary effort is normal. No respiratory distress. Breath sounds: Normal breath sounds. Abdominal: General: There is no distension. Palpations: Abdomen is soft. Tenderness: There is abdominal tenderness (Appropriate for post op course). Comments: Incision sites present with appropriate healing Neurological: Mental Status: He is alert. Psychiatric: Mood and Affect: Mood normal. Intake/Output Summary (Last 24 hours) at 07/17/2025 1157 Last data filed at 07/17/2025 0538 Gross per 24 hour Intake 2512.5 ml Output 1235 ml Net 1277.5 ml Lines/Drains/Tubes: Patient Lines/Drains/Airways Status Active Airway None Output by Drain (mL) 07/15/25 07 - 07/15/25 1859 07/15/25 1900 - 07/16/25 0659 07/16/25 0700 - 07/16/25 1859 07/16/25 1900 - 07/17/25 0659 07/17/25 0700 - 07/17/25 1157 Requested LDAs do not have output data documented. Labs in last 18 hours: CBC WBC 14.55 (H) Hb 12.3 (L) Plt 203 Hct 35.0 (L) ANC ?? INR ??, PTT ??, Anti-Xa ?? MCV 95 BMP Na 133 (L) Cl 100 BUN 20 Glu 144 (H) K 4.7 Co2 25 Cr 0.79 Ca 8.7 (L) iCa ?? Mg 2.2, Phos 4.2 Lactate ?? LFT AST ?? AlkPhos ?? T Prot ?? ALK ?? Bili ?? Alb ?? D.Bili ?? Lab Trends: H/H Results from last 7 days Lab Units 07/17/25 0334 HEMOGLOBIN g/dL 12.3* HEMATOCRIT % 35.0* INR Cr Results from last 7 days Lab Units 07/17/25 0334 CREATININE mg/dL 0.79 Lactate No lab exists for component: LACTTEVEN Radiographic Interpretation: I have reviewed the imaging above and agree with the radiologist interpretation. Medications reviewed. Vital signs reviewed. Labs reviewed. Assessment/Plan Assessment and Plan: Medical Problems Problem List * (Principal) Cancer of sigmoid colon Tobacco use disorder Present on Admission: None Plan Today: Damian Washington is a 74 y/o with newly diagnosed sigmoid colon cancer. CT imaging without evidence of metastatic disease. He presents today for operative intervention 07/16: sigmoid colectomy, mobilization of splenic flexure 07/17 Interval: PO day 1 NAEO, Pain well controlled, Has not endorsed BM or flatus. NG tube output at 400 mL. Urine output appropriate. NPO. Yesterday endorsed feeling SOB, however, did not endorse that today. Denies N/V. Overall doing well. Edited by: Gina Woods at 07/17/2025 1157 Plan: [facility] IVF NPO with sips/chips NG SubQ heparin Pull daly Encourage ambulation and IS use Edited by: Gina Woods at 07/17/2025 1135 - Discharge teaching and planning Dispo: Continue Current Level of Care Gina Woods M3 Cosigned by Maicol Garcia MD at 07/17/2025 12:25 PM EDT Associated attestation - Maicol Garcia MD - 07/17/2025 12:25 PM EDT I saw and evaluated the patient with the medical/CUSTOMS MANAGER/PA student. I discussed the case with the medical/CUSTOMS MANAGER/PA student and agree with the findings and plan as documented. I personally performed the Examand Medical Decision Making. Mr. Washington is a 74-year-old male status post sigmoid colectomy. PLAN FOLLOWS: Continue postoperative care. * Care Plan - Jory Castillo RN - 07/17/2025 12:25 AM EDT Problem: Adult Inpatient Plan of Care Goal: Plan of Care Review Outcome: Ongoing, Progressing Flowsheets (Taken 07/17/202519) Progress: improving Plan of Care Reviewed With: patient family Goal: Patient-Specific Goal (Individualized) Outcome: Ongoing, Progressing Flowsheets (Taken 07/16/20251999) Patient/Family-Specific Goals (Include Timeframe): patient will report adequate pain control throughout shift Individualized Care Needs: pain control Anxieties, Fears or Concerns: pain Goal: Absence of Hospital-Acquired Illness or Injury Outcome: Ongoing, Progressing Intervention: Identify and Manage Fall Risk Flowsheets (Taken 07/17/202519) Safety Promotion/Fall Prevention: activity supervised assistive device/personal items within reach clutter-free environment maintained fall prevention program maintained lighting adjusted mobility aid in reach nonskid shoes/slippers when out of bed room organization consistent safety round/check completed toileting scheduled Intervention: Prevent Skin Injury Flowsheets (Taken 07/17/202519) Body Position: weight shifting Skin Protection: incontinence pads utilized Intervention: Prevent and Manage VTE (Venous Thromboembolism) Risk Flowsheets (Taken 07/17/202519) VTE Prevention/Management: medication Intervention: Prevent Infection Flowsheets (Taken 07/17/202519) Infection Prevention: cohorting utilized environmental surveillance performed equipment surfaces disinfected hand hygiene promoted rest/sleep promoted single patient room provided Goal: Optimal Comfort and Wellbeing Outcome: Ongoing, Progressing Intervention: Monitor Pain and Promote Comfort Flowsheets (Taken 07/17/202519) Pain Management Interventions: pain management plan reviewed with patient/caregiver Intervention: Provide Person-Centered Care Flowsheets (Taken 07/17/202519) Trust Relationship/Rapport: care explained choices provided emotional support provided empathic listening provided questions answered questions encouraged reassurance provided thoughts/feelings acknowledged Problem: Skin Injury Risk Increased Goal: Skin Health and Integrity Outcome: Ongoing, Progressing Intervention: Optimize Skin Protection Flowsheets (Taken 07/17/202519) Activity Management: activity adjusted per tolerance Pressure Reduction Techniques: frequent weight shift encouraged weight shift assistance provided Pressure Reduction Devices: pressure-redistributing mattress utilized Skin Protection: incontinence pads utilized Head of Bed (HOB) Positioning: HOB elevated Intervention: Promote and Optimize Oral Intake Flowsheets (Taken 07/17/202519) Oral Nutrition Promotion: rest periods promoted Nutrition Interventions: diet adjusted Problem: Infection Goal: Absence of Infection Signs and Symptoms Outcome: Ongoing, Progressing Intervention: Prevent or Manage Infection Flowsheets (Taken 07/17/202519) Infection Management: aseptic technique maintained Fever Reduction/Comfort Measures: lightweight bedding lightweight clothing Isolation Precautions: precautions maintained Problem: Bowel Resection Goal: Absence of Bleeding Outcome: Ongoing, Progressing Intervention: Monitor and Manage Bleeding Flowsheets (Taken 07/17/202519) Bleeding Management: dressing monitored Goal: Effective Bowel Elimination Outcome: Ongoing, Progressing Intervention: Enhance Bowel Motility and Elimination Flowsheets (Taken 07/17/202519) Bowel Elimination Management: relaxation techniques promoted Bowel Motility Enhancement: ambulation promoted fluid intake encouraged Goal: Fluid and Electrolyte Balance Outcome: Ongoing, Progressing Intervention: Monitor and Manage Fluid and Electrolyte Balance Flowsheets (Taken 07/17/202519) Fluid/Electrolyte Management: fluids adjusted intravenous fluids adjusted Goal: Absence of Infection Signs and Symptoms Outcome: Ongoing, Progressing Intervention: Prevent or Manage Infection Flowsheets (Taken 07/17/202519) Infection Management: aseptic technique maintained Fever Reduction/Comfort Measures: lightweight bedding lightweight clothing Isolation Precautions: precautions maintained Goal: Optimal Nutrition Delivery Outcome: Ongoing, Progressing Intervention: Optimize Nutrition Delivery Flowsheets (Taken 07/17/202519) Nutrition Support Management: weight trending reviewed Oral Nutrition Promotion: rest periods promoted Nutrition Interventions: diet adjusted Goal: Anesthesia/Sedation Recovery Outcome: Ongoing, Progressing Intervention: Optimize Anesthesia Recovery Flowsheets (Taken 07/17/202519) Stabilization Measures: legs elevated Patient Tolerance (IS): fair Safety Promotion/Fall Prevention: activity supervised assistive device/personal items within reach clutter-free environment maintained fall prevention program maintained lighting adjusted mobility aid in reach nonskid shoes/slippers when out of bed room organization consistent safety round/check completed toileting scheduled Administration (IS): instruction provided, initial proper technique demonstrated self-administered Reorientation Measures: calendar in view clock in view Goal: Optimal Pain Control and Function Outcome: Ongoing, Progressing Intervention: Prevent or Manage Pain Flowsheets (Taken 07/17/2025 002) Pain Management Interventions: pain management plan reviewed with patient/caregiver Diversional Activities: smartphone television Goal: Nausea and Vomiting Relief Outcome: Ongoing, Progressing Intervention: Prevent or Manage Nausea and Vomiting Flowsheets (Taken 07/17/2025 002) Nausea/Vomiting Interventions: nasogastric tube to suction sips of clear liquids given slow deep breathing encouraged stimuli minimized Goal: Effective Urinary Elimination Outcome: Ongoing, Progressing Intervention: Monitor and Manage Urinary Retention Flowsheets (Taken 07/17/2025 002) Urinary Elimination Promotion: catheter patency maintained Goal: Effective Oxygenation and Ventilation Outcome: Ongoing, Progressing Intervention: Optimize Oxygenation and Ventilation Flowsheets (Taken 07/17/202519) Airway/Ventilation Management: airway patency maintained oxygen therapy provided Head of Bed (HOB) Positioning: HOB elevated * Post-Procedure Note - Napoleon Grant DO - 07/16/2025 8:38 PM EDT Images from the original note were not included. [facility] Department of Surgery Division of Colorectal Surgery Post Operative Check: Subjective: Procedure: Sigmoid colectomy. Mobilization of splenic flexure. Patient currently reports his pain is not bothering him much. He denies any nausea or vomiting but he is still NPO, he says he is eager to try and eat JENNIFER. His only complaint is feeling short of breath, and does attest to a significant smoking history. Denies CP, pleurisy, etc. Pain Control: Tylenol and Oxycodone Objective: Vitals: Vitals: 07/16/25 1844 BP: (!) 148/69 Pulse: 82 Resp: Temp: 36.4 ??C (97.5 ??F) SpO2: 93% Physical Exam: GEN: No apparent distress. Lethargic from anesthesia. NEURO: Awake, alert and oriented x3. No focal deficits. HENT: NCAT. Trachea appears midline. EYES: Symmetric lids. No visible conjunctival hemorrhage. CV: Appears well-perfused. Regular rhythm. Normal rate. RESP: Symmetric chest rise. Non-labored breathing. ABD: Appropriately tender post-op. Midline incision C/D/I MSK: Moves all extremities. No obvious deformities. SKIN: Warm and dry. Without pallor. PSYCH: Appropriate mood and affect. Normal speech and content. Incisions: covered LTD: Drain Duration NG/OG [place] Sump Left nostril <1 day Urethral Catheter Non-latex;Single lumen;Temperature probe 16 Fr. <1 day Wound Duration Wound 07/16/25 Surgical Abdomen Mid <1 day Peripheral intravenous line Duration Peripheral IV 07/16/25 Anterior;Left Forearm Laboratory: CBC WBC @LLVAL1 8(WBC)@ Hgb ?? PLT ?? HCT ?? Coags: INR ?? PTT ?? antiXa ?? BMP Na ?? Cl ?? BUN ?? Gluc ?? K ?? CO2 ?? Creat ?? Ca ?? iCa ?? Mg ?? Phos ?? ABG pH ?? pCO2 ?? pO2 ?? SPO2 ?? FIO2 ?? HCO3 ?? BE ?? Lactate ?? LFTs AST ?? AlkPhos ?? T Prot ?? ALT ?? Bili ?? Alb ?? D.Bili ?? Assessment and Plan: Damian Washington is a 74 y.o. male who is POD 0 s/p sigmoid colectomy, mobilization of splenic flexure. is recovering appropriately in the current post op period. Will continue to monitor. Diet: NPO Anticoagulation/DVT ppx: SubQ heparin Pain management: Tylenol and Oxycodone Level of care: Continue Current Level of Care I have answered and addressed all issues and concerns from the patient and nursing staff. I have notified senior resident/attending information manager with any issues or concerns. Napoleon Grant DO PGY-1 Department of Anesthesiology, Critical Care & Pain Medicine * Anesthesia PACU Signout - Jc Katz MD - 07/16/2025 5:37 PM EDT Patient: Damian Washington Anesthesia Type: general Vitals Value Taken Time BP 136/66 07/16/25 17:30 Temp 35.1 ??C (95.1 ??F) 07/16/25 17:36 Pulse 80 07/16/25 17:36 Resp 10 07/16/25 17:36 SpO2 96 % 07/16/25 17:36 Vitals shown include unfiled device data. Anesthesia PACU Signout Patient location during evaluation: PACU Patient participation: complete - patient participated Level of consciousness: baseline and awake Pain management: adequate (pain score 0-3) Airway patency: natural airway Hydration status: acceptable PONV: none Cardiovascular status: acceptable and hemodynamically stable Respiratory status: acceptable, spontaneous ventilation, unassisted and nonlabored ventilation Discharge Disposition: admit to inpatient unit Cosigned by Ofelia Zamora MD at 07/16/2025 6:31 PM EDT Associated attestation - Ofelia Zamora MD - 07/16/2025 6:31 PM EDT Agree with above assessment and evaluation from resident/MICROELECTRONICS TECHNICIAN. * Perioperative Nursing Note - Radha Barksdale - 07/16/2025 2:53 PM EDT Specimens from procedure 07/16/2025 picked up by [employer] and delivered to surgical pathology. * Op Note - Maicol Garcia MD - 07/16/2025 2:53 PM EDT [facility] Colon and Rectal Surgery Operative Note JS Radha HERNANDEZ FACS FASCRS Patient: Damian Washington : 1950 Date of Procedure: 07/16/2025 Admit Date: 07/16/2025 Facility Location: [facility] Pre-Operative Diagnosis: Sigmoid colon cancer. Moderate protein calorie malnutrition. BMI 19. Emphysema. Post-Operative Diagnosis: Same. Procedure: Sigmoid colectomy. Mobilization of splenic flexure. Attending Surgeon: Shanna Garcia MD FACS FASCRS (present throughout entire procedure). Resident Surgeon: Aiden Rodriguez MD. Surgery Team: * Maicol Garcia - Primary Anesthesia Team: Anesthesiologist: Sujit Chester MD; Demarco Chen MD MICROELECTRONICS TECHNICIAN: Mae Pozo CRNA Anesthesia Type: General ASA Class: II Case Length: * Missing case tracking time(s) * Est Blood Loss: Minimal. Specimen: @SPECIMENDESCRIPTION@ Complications: None. Operative Description Indications: Mr. Damian Washington is a 74 y.o. male evaluated for surgical management of sigmoid colon cancer. Biopsy proven apple-core lesion located in the sigmoid colon. Scheduled for sigmoid colectomy. Discussion was completed regarding surgical options during a pre-operative clinic visit; discussion specifically included scope of procedure. All risks, benefits, goals, and alternatives were discussed with Mr. Damian Washington. Patient agreed to above stated procedures. Findings: Paucity of intra-abdominal fat. Sigmoid colon mass. Contributing to partial large bowel obstruction. Operative Procedure (Narrative): SCIP INF-1: Prophylactic abx prior: Cefoxitin 2g IV. SCIP INF-10: Perioperative temperature control: Yes. SCIP VTE-2: Appropriate VTE prophylaxis: Bilateral SCDs. Patient was properly identified and consent was obtained. Patient was brought to the operating room. Transferred to the operating room table. GETA was administered. Patient was placed in the lithotomy position. Abdomen was prepped and draped in standard surgical fashion. Visual inspection demonstrated scaphoid abdomen. Midline abdominal incision made above and below the umbilicus. The abdominal cavity was entered without difficulty. Tattoo ink was easily visible. Mass was easily palpable in the mid sigmoid colon. Limited retroperitoneal and abdominal fat me dissection planes thin and easily visible. Peritoneal reflection was released. Left ureter was identified and protected. Left colon and sigmoid colon were mobilized including mobilization of the splenic flexure which included entry into the lesser sac is the omentum was taken away from the transverse colon. With mobilization of the left colon, the mass was easily brought up to the midline. Sigmoid colon was then divided proximal and distal to this locat ion. Mesentery was divided with stapler division of the left colic and sigmoid colic vascular pedicles. Specimens passed from table for pathology evaluation. Limited length of the abdominal cavity was noted in the anastomosis seemed to lay best in a [id number] position. Colotomy was made on both limbs of the left colon and the mobilized rectosigmoid junction. PORTILLO stapler was advanced both limbsof the bowel. Anti mesenteric borders were aligned. Stapler was engaged in released. Open end of the anastomosis was closed with a Endo-PORTILLO stapler as well. The anastomosis was widely patent. Not under tension. Added redundancy from mobilization of the splenic flexure was obvious. The defect extending into the retroperitoneum was then closed with interrupted silk suture to prevent internal hernia. Small bowel was oriented into an anatomical position. The remaining omentum was laid over the anastomosis. Midline fascia closed. Skin closed. Patient tolerated the procedure well. Patient was transferred to the post anesthetic care unit without surgical or anesthetic complication. PLAN FOLLOWS: Admit. Addendum: Operative findings discussed with family after procedure. All questions answered. Expectations regarding postoperative instructions and postoperative recovery discussed. In accordance with the [employer] Quality Programs for Cancer and Standard 5.6 ofthe Commission on Cancer (OFELIA) Optimal Resources for Cancer Care, the following is the standardizedsynoptic operative report details: Operative Performed With Curative Intent: Yes. Tumor Location (select all that apply): Sigmoid Colon (C18.7). Extent of Colon and Vascular Resection (select all that apply): Sigmoid Resection: Inferior Mesenteric. * H&P - Aiden Rodriguez MD - 07/16/2025 1:51 PM EDT Images from the original note were not included. Subjective History Of Present Illness Damian Washington is a 74 y.o. male presenting for operative intervention for sigmoid cancer. Patient has newly diagnosed sigmoid colon cancer. Colonoscopy completed in June 2025 with apple-core lesion present in the sigmoid colon. CEA 5. Gradual weight loss over the past 3-4 months. Occasional bleeding with bowel movements. Past medical history remarkable for 1 pack per day tobacco use times 60 years. Shortness of breath with exertion. CT imaging without evidence of metastatic disease. Last seen in clinic 07/01/2025. No changes to HPI since last clinic visit. Medical/Surgical/Social/Family History Past Medical History[1] Surgical History[2] Social History[3] Family History[4] Travel History Relevant International Travel History: Travel Screening Question Response Have you been in contact with someone who was sick? No / Unsure Do you have any of the following new or worsening symptoms? None of these Have you traveled internationally or domestically in the last month? No Travel History Travel since 06/16/25 No documented travel since 06/16/25 Immunizations Reviewed Allergies Cephalexin Medications Current Medications[5] Objective Review of Systems All other systems reviewed and are negative. Physical Exam GEN: NAD HEENT: NCAT, EOMI RESP: Equal bilateral chest rise, normal work of breathing CV: RRR, appears well perfused ABD: Soft, nontender, nondistended EXT: No gross deformities MSK: Full ROM in BL UE NEURO: No focal deficits, AOx3 PSYCH: Normal mood and affect PERIANAL/PERINEUM: n/a JM: n/a Last Recorded Vitals Blood pressure 137/72, pulse 102, temperature 36.9 ??C (98.4 ??F), temperature source Oral, resp. rate 16, height 1.727 m (5' 8 ), weight 58.1 kg (128 lb), SpO2 95%. Results Review I have reviewed the latest lab and imaging results. Assessment & Plan Cancer of sigmoid colon To OR today Consent in chart [1] Past Medical History: Diagnosis Date Tobacco-use disorder [2] Past Surgical History: Procedure Laterality Date COLONOSCOPY HERNIA REPAIR 1969 VASECTOMY [3] Social History Tobacco Use Smoking status: Every Day Current packs/day: 1.00 Average packs/day: 1 pack/day for 50.8 years (50.8 ttl pk-yrs) Types: Cigarettes Start date: 1974 Smokeless tobacco: Never Vaping Use Vaping status: Never Used Substance Use Topics Alcohol use: Never Drug use: Never [4] Family History Problem Relation Name Age of Onset Anesthesia problems Neg Hx Malig Hyperthermia Neg Hx [5] Current Facility-Administered Medications Medication Dose Route Frequency Provider Last Rate Last Admin cefOXitin (Mefoxin) injection 2 g 2 g Intravenous Once Maicol Garcia MD heparin (porcine) injection 5,000 Units 5,000 Units Subcutaneous q8h [facility] Maicol Garcia MD 5,000 Units at 07/16/25 1323 sodium chloride 0.9 % flush 10 mL 10 mL Intravenous q12h Maicol Garcia MD And sodium chloride 0.9 % flush 10 mL 10 mL Intravenous PRN Maicol Garcia MD Cosigned by Maicol Garcia MD at 07/16/2025 1:53 PM EDT Associated attestation - Maicol Garcia MD - 07/16/2025 1:53 PM EDT I saw and evaluated the patient with the resident/fellow. I discussed the case with the resident/fellow and agree with the findings and plan as documented. documented in this encounter Plan of Treatment Upcoming Encounters Date Type Department Care Team (Latest Contact Info) Description 02/03/2026 8:00 AM EDT Appointment [facility] [address] [place] [address] 02/03/2026 10:00 AM EDT Office Visit [facility] [address] [place] [address] Maicol Garcia MD [address] [facility] [address] [place] [address] 02/03/2026 10:00 AM EDT Clinical Support [facility] [address] [place] [address] Scheduled Referrals Name Type Priority Associated Diagnoses Orde r Schedule Discharge Ambulatory referral to [facility] Outpatient Referral Routine Paroxysmal atrial fibrillation (CMS/HCC) 1 Occurrences starting 07/22/2025 until 01/23/2027 documented as of this encounter Goals Goal Patient Goal Type Associated Problems Recent Progress Patient-Stated? Author Autogenerat ed Goal Care Plan Autogenerated Problem No Maicol Garcia MD documented as of this encounter Procedures Procedure Name Priority Date/Time Associated Diagnosis Comments HEPATIC FUNCTION PANEL STAT 07/22/2025 3:51 PM EST PEP THERAPY Routine 07/22/2025 7:29 AM EST PAP THERAPY Routine 07/21/2025 4:35 PM EST PEP THERAPY Routine 07/21/2025 4:35 PM EST ECHO, ADULT TRANSTHORACIC COMPLETE STAT 07/21/2025 8:35 AM EST MA CRITICAL CARE, E/M 30-74 MINUTES Routine 07/21/2025 8:31 AM EST Paroxysmal atrial fibrillation (CMS/HCC) OXYGEN THERAPY Routine 07/21/2025 8:00 AM EST TROPONIN T, HIGH SENSITIVITY, 2 HOUR, PLASMA STAT 07/21/2025 7:31 AM EST TROPONIN T, HIGH SENSITIVITY, 0 HOUR, PLASMA, REFLEX TO 2 HOUR STAT 07/21/2025 5:11 AM EST TROPONIN T, HIGH SENSITIVITY, 2 HOUR, PLASMA Timed 07/21/2025 12:15 AM EST CBC W/O DIFFERENTIAL Routine 07/21/2025 12:15 AM EST PHOSPHORUS, PLASMA Routine 07/21/2025 12 :15 AM EST MAGNESIUM, PLASMA Routine 07/21/2025 12: 15 AM EST BASIC METABOLIC PANEL, PLASMA Routine 07/21/2025 12:15 AM EST ECG ADULT STAT 07/21/2025 12:10 AM EST TROPONIN T, HIGH SENSITIVITY, 0 HOUR, PLASMA, REFLEX TO 2 HOUR Routine 07/20/2025 9:58 PM EST OXYGEN THERAPY Routine 07/20/2025 8:00 PM EST TROPONIN T, HIGH SENSITIVITY, 2 HOUR, PLASMA Timed 07/20/2025 6:33 PM EST CASIMIRO AURIS SURVEILLANCE BY PCR Routine 07/20/2025 5:38 PM EST MULTI DRUG RESISTANCE TEST Routine 07/20/2025 5:38 PM EST BLOOD GAS PANEL, VENOUS Routine 07/20/2025 5:36 PM EST MA CRITICAL CARE, E/M 30-74 MINUTES Routine 07/20/2025 4:58 PM EST Paroxysmal atrial fibrillation (CMS/HCC) EXTRA TUBE LIGHT GREEN TOP Routine 07/20/2025 4:54 PM EST EXTRA TUBES Routine 07/20/2025 4:54 PM EST TROPONIN T, HIGH SENSITIVITY, 0 HOUR, PLASMA, REFLEX TO 2 HOUR STAT 07/20/2025 4:18 PM EST PROCALCITONIN, PLASMA Add-On 07/20/2025 4:18 PM EST CBC W/O DIFFERENTIAL Routine 07/20/2025 4:18 PM EST BASIC METABOLIC PANEL, PLASMA Routine 07/20/2025 4:18 PM EST ECG ADULT STAT 07/20/2025 4:07 PM EST XR CHEST 1 VIEW Routine 07/20/2025 10:43 AM EST OXYGEN THERAPY Routine 07/20/2025 8:00 AM EST OXYGEN THERAPY Routine 07/19/2025 8:00 PM EDT OXYGEN THERAPY Routine 07/19/2025 8:00 AM EDT PROCALCITONIN, PLASMA Routine 07/19/2025 6:07 AM EDT CBC W/O DIFFERENTIAL Routine 07/19/2025 6:07 AM EDT PHOSPHORUS, PLASMA Routine 07/19/2025 6: 07 AM EDT MAGNESIUM, PLASMA Routine 07/19/2025 6:0 7 AM EDT OXYGEN THERAPY Routine 07/18/2025 8:00 PM EDT XR CHEST 1 VIEW STAT 07/18/2025 9:27 AM EDT OXYGEN THERAPY Routine 07/18/2025 8:00 AM EDT OXYGEN THERAPY Routine 07/17/2025 8:00 PM EDT OXYGEN THERAPY Routine 07/17/2025 5:02 PM EDT OXYGEN THERAPY Routine 07/17/2025 5:02 PM EDT CBC W/O DIFFERENTIAL Routine 07/17/2025 3:34 AM EDT PHOSPHORUS, PLASMA Routine 07/17/2025 3: 34 AM EDT MAGNESIUM, PLASMA Routine 07/17/2025 3:3 4 AM EDT BASIC METABOLIC PANEL, PLASMA Routine 07/17/2025 3:34 AM EDT OXYGEN THERAPY Routine 07/16/2025 4:49 PM EDT OXYGEN THERAPY Routine 07/16/2025 4:49 PM EDT SURGICAL PATHOLOGY EXAM Routine 07/16/2025 3:28 PM EDT Cancer of sigmoid colon MA PART REMOVAL COLON W ANASTOMOSIS 07/16/2025 2:02 PM EDT Cancer of sigmoid colon POCT GLUCOSE METER UNSOLICITED RESULTS Routine 07/16/2025 1:41 PM EDT TYPE AND SCREEN Routine 07/16/2025 12:56 PM EDT documented in this encounter Results * (ABNORMAL) Hepatic function panel (07/22/2025 3:51 PM EST) Direct Bilirubin, Plasma <0.2 <=0.3 mg/dL 07/22/2025 4:49 PM EST [facility] Alkaline Phosphatase, Plasma 86 40 - 115 U/L 07/22/2025 4:49 PM EST [facility] Total Bilirubin, Plasma 0.2 0.2 - 1.1 mg/dL 07/22/2025 4:49 PM EST [facility] Albumin, Plasma 3.2(L) 3.5 - 5.2 g/dL 07/22/2025 4:49 PM EST [facility] Total Protein 6.1(L) 6.3 - 7.9 g/dL 07/22/2025 4:49 PM EST [facility] ALT, Plasma 21 10 - 50 U/L 07/22/2025 4:49 PM EST [facility] AST, Plasma 28 10 - 50 U/L 07/22/2025 4:49 PM EST [facility] Comment:Hemolyzed, result ma y be falsely increased. Blood Venous blood specimen / Unknown Venipuncture / Unknown 07/22/2025 3:51 PM EST 07/22/2025 4:18 PM EST us Maicol Garcia MD LAB BLOOD ORDERABLES Final Res ult [facility] [address] [place] [address] * ECHO, ADULT TRANSTHORACIC COMPLETE (07/21/2025 8:35 AM EST) BSA 1.69 m2 [facility] Height 172.7 [facility] Weight 58.1 [facility] LV V1 VTI 21.8 cm [facility] MV E Vmax 73.4 cm/s [facility] MV A Vmax 83.3 cm/s [facility] ISC[facility] MV E/A 0.9 cm/s [facility] ISC[facility] TR Vmax 279.0 cm/s [facility] ISC[facility] PA V2 VTI 26.1 cm [facility] ISCV RV s' Yung 11.4 cm/s [facility] ISCV TAPSE 29 mm [facility]SC[facility] TR Max PG 31 mmHG [facility] AI Vmax 359.0 cm/s [facility]SC[facility] AI max PG 52 mmHg [facility] AI dec slope 194 cm/s2 [facility] LV V1 Vmax 90.9 cm/s [facility]SC[facility] Ao V2 VTI 43.3 cm [facility] ISC[facility] Ao mean PG 8 mmHg [facility] ISC[facility] Ao V2 Vmax 190.0 cm/s [facility] ISCV Ao max PG 14 mmHg [facility]SC[facility] AV VTI Index 0.50 [facility]SC[facility] MV dec time 220 ms [facility] ISC[facility] MV P1/2t 64 ms [facility] ISCV MVA(P1/2t) 3.4 cm2 [facility] PA MG 4 mmHg [facility]SC[facility] PA V2 Vmax 120.9 cm/s [facility] ISC[facility] PA PG 6 mmHg [facility] LV mean PG 2.0 mmHG [facility]SC[facility] LV V1 mean 60.8 cm/sec [facility] ISC[facility] LV max PG 3.3 mmHg [facility] ISC[facility] AV-pr VR 0.5 [facility] ISC[facility] Ao V2 mean 128.0 cm/s [facility] ISCV IVSd 10 mm [facility] ISCV LVIDd 51 mm [facility] ISCV LVPWd 7 mm [facility] ISCV LV MASS(C)D 151 g [facility] ISCV [facility] CV ECHO LV MASS INDEX 89 g/m2 [facility] ISC[facility] LV RWT 0.33 mm [facility] ISC[facility] Ao Root Diam 34 mm [facility] ISCV LVIDs 35 mm [facility] LA dimension 25 mm [facility] ISCV LVOT diam 23 mm [facility]SCV LVOT AREA 4.2 cm2 [facility]SC[facility] SV(LVOT) 91 mL [facility] AXEL(I,D) 2.1 cm2 [facility] AXEL(VTI)/BSA_ph l 1.2 cm2/m2 [facility] Asc Ao Diam 36 mm [facility] MPA diam 19 mm [facility]SC[facility] MPA area 2.8 cm2 [facility] LAV(MOD-4ch) 58 mL [facility] ISC[facility] RA MOD 4Ch 29 mL [facility] ISC[facility] DALILA 17 mL/m2 [facility]SC[facility] RV base 19 mm [facility] ISC[facility] LV EDV(MOD-4ch) 88 mL [facility] ISCV LV ESV(MOD4ch) 43 mL [facility] ISCV EF(MOD-sp4) 51 % [facility] ISCV LV EDV(MOD-2ch) 80 mL [facility] ISCV EDV(MOD-bp) 84 mL [facility] ISCV LV ESV(MOD2ch) 39 mL [facility]INO ISCV EF(MOD-sp2) 51 % [facility] ISCV ESV(MOD-bp) 41 mL [facility] ISCV EF(MOD-bp) 51 % [facility] ISCV LVLs ap2 5.0 mm [facility] ISCV LAV(MOD-bp) Indexed 31 mL/m2 [facility] ISC[facility] LAV(MOD-2ch) 48 mL [facility] ISCV RVSP 46 mmHg [facility] RAP systole 15 mmHg [facility] LV Lat e' Velocity 6.7 cm/s [facility] ISC[facility] LV Sept e' Yung 5.5 cm/s [facility] ISC[facility] Lat E/e' 11.0 [facility] ISCV Sep E/e' 13.3 [facility] ISC[facility] Avg E/e' 12.2 [facility] ISCV Anatomical Region Laterality Modality Echocardiography Narrative 07/21/2025 11:09 AM EST Left Ventricle: The left ventricle is normal size. There is normal left ventricular myocardial thickness and mass. 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 The left ventricular systolic function is moderately reduced. The LVEF is visually estimated at 35 - 40%. The diastolic function is abnormal. There is grade I (mild) diastolic dysfunction. The left ventricular filling pressure is normal. See diagram below for wall motion findings. Right Ventricle: The right ventricle is normal in size. The right ventricular systolic function is normal. Aortic Valve: There is mild aortic valve regurgitation. IVC/SVC: Based on the IVC size and respiratory variation, the estimated right atrial pressure is 15mmHg. There is no recent study available for direct [id number] comparison. Left Ventricle The left ventricle is normal size. There is normal left ventricular myocardial thickness and mass. 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 The left ventricular systolic function is moderately reduced. The LVEF is visually estimated at 35 - 40%. The diastolic function is abnormal. There is grade I (mild) diastolic dysfunction. The left ventricular filling pressure is normal. See diagram below for wall motion findings. Right Ventricle The right ventricle is normal in size. The right ventricular systolic function is normal. The estimated global right ventricular systolic function based upon the tricuspid annular plane of systolic excursion (TAPSE) is normal (>=17 mm). The estimated global right ventricular systolic function based upon the TDI maximal systolic velocity is normal (>=9.5 cm/s). The estimated right ventricular systolic pressure is 46 mmHg. Right ventricular systolic pressure is mildly elevated (35-50mmHg). Left Atrium The left atrial size is normal with an indexed volume of 16-34 mL/m2. The interatrial septum is intact with no evidence for an atrial septal defect. Right Atrium The right atrial volume index is normal (<30mL/m2). IVC/SVC Based on the IVC size and respiratory variation, the estimated right atrial pressure is 15mmHg. Mitral Valve The mitral valve leaflets are normal in appearance with no evidence of mitral valve prolapse. There is mild mitral regurgitation. There is no mitral stenosis. Tricuspid Valve The tricuspid valve is normal in appearance. There is mild to moderate tricuspid regurgitation. There is no tricuspid stenosis. Aortic Valve The aortic valve appears to be trileaflet. The cusp(s) are thickened. There is mild aortic valve regurgitation. There is calcific aortic sclerosis without hemodynamically significant aortic stenosis. Pulmonic Valve The pulmonic valve is normal in appearance. There is no pulmonic regurgitation. There is no pulmonic stenosis. Pericardium No pericardial effusion. Great Vessels The aortic root is normal in size. In the maximally visualized portion, the ascending aorta appears normal in size. The main pulmonary artery is normal in size. Study Details A complete transthoracic echocardiogram using two-dimensional (2D), m-mode, color and spectral flow Doppler imaging was performed. Heart rate was normal. Height: 172.7 cm. Weight: 58.1 kg. BSA: 1.69 m2. The heart rhythm during this exam was most suggestive of a sinus rhythm. Study Recommendation There is no recent study available for direct [id number] comparison. Wall Scoring Baseline Score Index: 1.82 The following segments are aneurysmal: basal inferior. The following segments are akinetic: mid inferolateral. The following segments are hypokinetic: basal anterior, basal inferolateral, basal anterolateral, mid anterior, mid anterolateral, apical anterior, apical lateral and apex. All other segments are normal. Hang Fatima MD CV ECHO PROCEDURES Final Resul t * MA CRITICAL CARE, E/M 30-74 MINUTES (07/21/2025 8:31 AM EST) Narrative Omer Schroeder APRN, DNP - 07/21/2025 8:31 AM EST Omer Schroeder APRN, DNP 07/21/2025 8:33 AM Critical Care Performed by: Omer Schroeder APRN, DNP Authorized by: Omer Schroeder APRN, DNP Critical care provider statement: Critical care time (minutes): 40 Critical care time was exclusive of: Separately billable procedures and treating other patients Critical care was time spent personally by me on the following activities: Development of treatment plan with patient or surrogate, examination of patient, obtaining history from patient or surrogate, evaluation of patient's response to treatment, ordering and performing treatments and interventions, review of old charts, discussions with primary provider, ordering and review of laboratory studies and ordering and review of radiographic studies us Omer Schroeder APRN, DNP IN CLINIC/BEDSIDE ORD ERABLES Final Result * (ABNORMAL) Troponin T, High Sensitivity, 2 Hour, Plasma (07/21/2025 7:31 AM EST) Troponin T, High Sensitivity, 2 Hour 110(H) <19 ng/L 07/21/2025 8:10 AM EST [facility] Troponin Delta 5 <10 ng/L 07/21/2025 8:10 AM EST [facility] Troponin Delta Interpretation Not Significant 07/21/2025 8:10 AM EST [facility] Comment:Not Significant. No acute change in troponin observed between the baseline and 2 hour samples. Blood Venous blood specimen / Unknown Venipuncture / Unknown 07/21/2025 7:31 AM EST 07/21/2025 7:42 AM EST us Joan Miller APRN LAB BLOOD ORDERABLES Final R esult Performing Organization Address City/[facility]/ZIP Co de Phone Number [facility] [address] [place] [address] * (ABNORMAL) Troponin T, High Sensitivity, 0 Hour Plasma, Reflex to 2 Hour (07/21/2025 5:11 AM EST) Troponin T, High Sensitivity, 0 Hour 115(H) <19 ng/L 07/21/2025 6:32 AM EST [facility] Blood Venous blood specimen / Unknown Venipuncture / Unknown 07/21/2025 5:11 AM EST 07/21/2025 6:05 AM EST Joan Miller APRN LAB BLOOD ORDERABLES Final R esult [facility] [address] [place] [address] * (ABNORMAL) Troponin T, High Sensitivity, 2 Hour, Plasma (07/21/2025 12:15 AM EST) Troponin T, High Sensitivity, 2 Hour 148(H) <19 ng/L 07/21/2025 12:48 AM EST [facility] Troponin Delta 1 <10 ng/L 07/21/2025 12:48 AM EST [facility] Troponin Delta Interpretation Not Significant 07/21/2025 12:48 AM EST [facility] Comment:Not Significant. No acute change in troponin observed between the baseline and 2 hour samples. Blood Venous blood specimen / Unknown Venipuncture / Unknown 07/21/2025 12:15 AM EST 07/21/2025 12:20 AM EST us Maicol Garcia MD LAB BLOOD ORDERABLES Final Res ult [facility] [address] [place] [address] * Phosphorus (07/21/2025 12:15 AM EST) Phosphorus, Plasma 3.1 2.5 - 4.5 mg/dL 07/21/2025 12:51 AM EST [facility] Blood Venous blood specimen / Unknown Venipuncture / Unknown 07/21/2025 12:15 AM EST 07/21/2025 12:20 AM EST us Maicol Garcia MD LAB BLOOD ORDERABLES Final Res ult Performing Organization Address [facility] Co de Phone Number [facility] [address] [place] [address] * (ABNORMAL) Magnesium (07/21/2025 12:15 AM EST) Magnesium, Plasma 2.5(H) 1.9 - 2.4 mg/dL 07/21/2025 12:51 AM EST [facility] Blood Venous blood specimen / Unknown Venipuncture / Unknown 07/21/2025 12:15 AM EST 07/21/2025 12:20 AM EST us Maicol Garcia MD LAB BLOOD ORDERABLES Final Res ult Performing Organization Address City/[facility]/ZIP Co de Phone Number [facility] [address] [place] [address] * (ABNORMAL) Basic metabolic panel (07/21/2025 12:15 AM EST) Glucose, Plasma 95 74 - 99 mg/dL 07/21/2025 12:51 AM EST [facility] BUN, Plasma 14 8 - 23 mg/dL 07/21/2025 12:51 AM EST [facility] Creatinine, Plasma 0.70 0.70 - 1.20 mg/dL 07/21/2025 12:51 AM EST [facility] BUN/Creatinine Ratio 20 07/21/2025 12:51 AM EST [facility] Sodium, Plasma 138 136 - 145 mmol/L 07/21/2025 12:51 AM EST [facility] Potassium, Plasma 4.5 3.6 - 4.9 mmol/L 07/21/2025 12:51 AM EST [facility] Chloride, Plasma 106 97 - 107 mmol/L 07/21/2025 12:51 AM EST [facility] CO2, Plasma 24 22 - 29 mmol/L 07/21/2025 12:51 AM EST [facility] Anion Gap 8 6 - 16 mmol/L 07/21/2025 12:51 AM EST [facility] Total Calcium, Plasma 7.9(L) 8.9 - 10.2 mg/dL 07/21/2025 12:51 AM EST [facility] eGFRcr 95.5 mL/min/1.7 3m*2 07/21/2025 12:51 AM EST [facility] Comment:Reported eGFRcr in m L/min/1.73m2 is based the CKD-EPI 2020 equation that does not use a race coefficient. Blood Venous blood specimen / Unknown Venipuncture / Unknown 07/21/2025 12:15 AM EST 07/21/2025 12:20 AM EST us Maicol Garcia MD LAB BLOOD ORDERABLES Final Res ult [facility] [address] [place] [address] * (ABNORMAL) CBC W/O Differential (07/21/2025 12:15 AM EST) WBC Count 7.76 3.70 - 10.30 10*3/uL LAB HEMATOLOGY METHOD 07/21/2025 12:28 AM EST [facility] RBC Count 2.88(L) 4.60 - 6.10 10*6/uL LAB HEMATOLOGY METHOD 07/21/2025 12:28 AM EST [facility] HGB 9.2(L) 13.7 - 17.5 g/dL LAB HEMATOLOGY METHOD 07/21/2025 12:28 AM EST [facility] HCT 27.4(L) 40.0 - 51.0 % LAB HEMATOLOGY METHOD 07/21/2025 12:28 AM EST [facility] Platelet Count 167 155 - 369 10*3/uL LAB HEMATOLOGY METHOD 07/21/2025 12:28 AM EST [facility] MCV 95 79 - 98 fL LAB HEMATOLOGY METHOD 07/21/2025 12:28 AM EST [facility] MCH 31.9 26.0 - 32.0 pg LAB HEMATOLOGY METHOD 07/21/2025 12:28 AM EST [facility] MCHC 33.6 30.7 - 35.5 g/dL LAB HEMATOLOGY METHOD 07/21/2025 12:28 AM EST [facility] RDW 13.5 11.5 - 14.5 % LAB HEMATOLOGY METHOD 07/21/2025 12:28 AM EST [facility] MPV 9.4 8.8 - 12.5 fL LAB HEMATOLOGY METHOD 07/21/2025 12:28 AM EST [facility] nRBC 0.0 <=0.0 per 100 WBCs LAB HEMATOLOGY METHOD 07/21/2025 12:28 AM EST [facility] Blood Venous blood specimen / Unknown Venipuncture / Unknown 07/21/2025 12:15 AM EST 07/21/2025 12:20 AM EST us Maicol Garcia MD LAB BLOOD ORDERABLES Final Res ult [facility] [address] [place] [address] * ECG Adult (07/21/2025 12:10 AM EST) EKG DIAGNOSIS CLASS Abnormal MUSE ECG Ventricular Rate 70 BPM MUSE ECG Atrial Rate 70 BPM MUSE ECG MA Interval 114 ms MUSE ECG QRSD Interval 128 ms MUSE ECG QT Interval 452 ms MUSE ECG QTC Interval 488 ms MUSE ECG P [place] 73 degrees MUSE ECG R [place] 84 degrees MUSE ECG T Wave [place] 26 degrees MUSE ECG Diagnosis Normal sinus rhythm restored MUSE ECG Diagnosis premature ventricular complexes MUSE ECG Diagnosis Right bundle branch block MUSE ECG Diagnosis Abnormal ECG MUSE ECG Diagnosis MUSE ECG Diagnosis Confirmed by Timo Desai ([id number]) on 07/21/2025 2:53:42 PM MUSE ECG 07/21/2025 12:1 0 AM EST 07/21/2025 2:53 PM EST Maicol Garcia MD ECG ORDERABLES Final Result MUSE ECG * (ABNORMAL) Troponin T, High Sensitivity, 0 Hour Plasma, Reflex to 2 Hour (07/20/2025 9:58 PM EST) Troponin T, High Sensitivity, 0 Hour 147(H) <19 ng/L 07/20/2025 10:31 PM EST [facility] Blood Venous blood specimen / Unknown Venipuncture / Unknown 07/20/2025 9:58 PM EST 07/20/2025 10:02 PM EST Maicol Garcia MD LAB BLOOD ORDERABLES Final Res ult [facility] [address] [place] [address] * (ABNORMAL) Troponin T, High Sensitivity, 2 Hour, Plasma (07/20/2025 6:33 PM EST) Troponin T, High Sensitivity, 2 Hour 54(H) <19 ng/L 07/20/2025 7:07 PM EST [facility] Troponin Delta 36(H) <10 ng/L 07/20/2025 7:07 PM EST [facility] Troponin Delta Interpretation Significant 07/20/2025 7:07 PM EST [facility] Comment:Significant change i n Troponin observed (from baseline). Troponin values greater than the 99th%ile with a rising or falling pattern (a change of >= 10 ng/L between the baseline and 2 hour samples) highly suggests acute cardiac injury. Acute cardiac injury does not equate to acute myocardial infarction. Additional clinical criteria are necessary for the diagnosis of acute myocardial infarction. Blood Venous blood specimen / Unknown Venipuncture / Unknown 07/20/2025 6:33 PM EST 07/20/2025 6:39 PM EST Maicol Garcia MD LAB BLOOD ORDERABLES Final Res ult Performing Organization Address [facility] [place] [address] * Casimiro auris Surveillance by PCR (07/20/2025 5:38 PM EST) Casimiro auris PCR Result Not Detected Not Detected 07/21/2025 1:06 PM EST [facility] Swab (Axilla and Groin) Non-blood Collection / Unknown 07/20/2025 5:38 PM EST 07/20/2025 5:44 PM EST Narrative [facility] - 07/21/2025 1:06 PM EST This PCR assay was developed and its performance characteristics determined by [facility] as appropriate for clinical purposes. This assay has not been cleared or approved by the FDA, but is performed in a CLIA regulated laboratory that is qualified to perform high-complexity testing. Maicol Garcia MD LAB MICROBIOLOGY - GENERAL ORD ERABLES Final Result Performing Organization Address [facility] [place] [address] * Multi Drug Resistance Test (07/20/2025 5:38 PM EST) Culture No growth at day 1 07/22/2025 5:08 AM EST [facility] Swab (Nares and Lizzie Rectal) Non-blood Collection / Unknown 07/20/2025 5:38 PM EST 07/20/2025 5:44 PM EST Narrative [facility] - 07/22/2025 5:08 AM EST This test was developed and its performance characteristics determined by the [facility]. Although the media is FDA-approved, it is not FDA-approved for all specimen types submitted. The FDA has determined that such clearance or approval is not necessary. This test is used for surveillance purposes. It should not be regarded as investigational or for research. The [facility] is certified under the Clinical Laboratory Improvement Amendments of 1988 (CLIA-88) as qualified to perform high complexity clinical laboratory testing. us Maicol Garcia MD LAB MICROBIOLOGY - GENERAL ORD ERABLES Final Result [facility] [address] [place] [address] * (ABNORMAL) Blood gas panel, venous (07/20/2025 5:36 PM EST) pH, Venous 7.44(H) 7.32 - 7.43 LAB HEMATOLOGY METHOD 07/20/2025 5:46 PM EST [facility] pCO2, Venous 42 40 - 55 mmHg LAB HEMATOLOGY METHOD 07/20/2025 5:46 PM EST [facility] pO2, Venous 25 25 - 40 mmHg LAB HEMATOLOGY METHOD 07/20/2025 5:46 PM EST [facility] SO2, Measured, Venous 42(L) 65 - 80 % LAB HEMATOLOGY METHOD 07/20/2025 5:46 PM EST [facility] Base Excess, Venous 3.5(H) -2.0 - 3.0 mmol/L LAB HEMATOLOGY METHOD 07/20/2025 5:46 PM EST [facility] Bicarbonate, Calculated, Venous 28(H) 22 - 26 mmol/L LAB HEMATOLOGY METHOD 07/20/2025 5:46 PM EST [facility] Hematocrit, Whole Blood 31.9(L) 40.0 - 51.0 % LAB HEMATOLOGY METHOD 07/20/2025 5:46 PM EST [facility] Sodium, Whole Blood 139 136 - 145 mmol/L LAB HEMATOLOGY METHOD 07/20/2025 5:46 PM EST [facility] Potassium, Whole Blood 3.1(L) 3.6 - 4.9 mmol/L LAB HEMATOLOGY METHOD 07/20/2025 5:46 PM EST [facility] Chloride, Whole Blood 103 97 - 107 mmol/L LAB HEMATOLOGY METHOD 07/20/2025 5:46 PM EST [facility] Glucose, Whole Blood 124(H) 74 - 99 mg/dL LAB HEMATOLOGY METHOD 07/20/2025 5:46 PM EST [facility] Lactate, Venous, Whole Blood 1.3 0.5 - 2.2 mmol/L LAB HEMATOLOGY METHOD 07/20/2025 5:46 PM EST [facility] Ionized Calcium, Whole Blood 4.4(L) 4.6 - 5.1 mg/dL LAB HEMATOLOGY METHOD 07/20/2025 5:46 PM EST [facility] Blood Venous blood specimen / Unknown Venipuncture / Unknown 07/20/2025 5:36 PM EST 07/20/2025 5:45 PM EST us Maicol Garcia MD LAB BLOOD ORDERABLES Final Res ult [facility] [address] [place] [address] * MA CRITICAL CARE, E/M 30-74 MINUTES (07/20/2025 4:58 PM EST) Narrative Omer Schroeder APRN, DNP - 07/20/2025 4:58 PM EST Omer Schroeder APRN, DNP 07/20/2025 5:04 PM Critical Care Performed by: Omer Schroeder APRN, DNP Authorized by: Omer Schroeder APRN, DNP Critical care provider statement: Critical care time (minutes): 40 Critical care time was exclusive of: Separately billable procedures and treating other patients Critical care was time spent personally by me on the following activities: Development of treatment plan with patient or surrogate, examination of patient, obtaining history from patient or surrogate, evaluation of patient's response to treatment, ordering and performing treatments and interventions, review of old charts, discussions with primary provider, ordering and review of laboratory studies and ordering and review of radiographic studies us Omer Schroeder APRN, DNP IN CLINIC/BEDSIDE ORD ERABLES Final Result * Light Green Top (07/20/2025 4:54 PM EST) Extra Hold for add-ons 07/20/2025 8:02 PM EST [facility] Comment:Auto resulted. Blood Venous blood specimen / Unknown 07/20/2025 4:54 PM EST 07/20/2025 5:09 PM EST us Maicol Garcia MD LAB BLOOD ORDERABLES Final Res ult Performing Organization Address [facility] Co de Phone Number [facility] [address] [place] [address] * (ABNORMAL) Procalcitonin (07/20/2025 4:18 PM EST) Procalcitonin, Plasma 0.41(H) <0.09 ng/mL 07/20/2025 5:06 PM EST [facility] Blood Venous blood specimen / Unknown Venipuncture / Unknown 07/20/2025 4:18 PM EST 07/20/2025 4:29 PM EST Narrative [facility] - 07/20/2025 5:06 PM EST Procalcitonin concentrations in healthy individuals are <0.09 ng/mL. Published data support the following interpretive risk assessment: An elevated procalcitonin result does not always indicate sepsis. Various non-infectious conditions are known to increase procalcitonin. Results should be considered in the context of clinical symptoms and other laboratory tests. Procalcitonin >2.0 ng/mL: Concentrations >2.0 ng/mL on the first day of ICU admission are associated with a higher risk of progression to severe sepsis and/or septic shock. The change in PCT over time may help predict 28 day mortality risk. Please consult [email or web address] for more information. Test performed at [facility]. us Maicol Garcia MD LAB BLOOD ORDERABLES Final Res ult Performing Organization Address [facility]/ZIP Co de Phone Number [facility] [address] [place] [address] * (ABNORMAL) CBC W/O Differential (07/20/2025 4:18 PM EST) WBC Count 10.86(H) 3.70 - 10.30 10*3/uL LAB HEMATOLOGY METHOD 07/20/2025 4:38 PM EST [facility] RBC Count 3.43(L) 4.60 - 6.10 10*6/uL LAB HEMATOLOGY METHOD 07/20/2025 4:38 PM EST [facility] HGB 11.3(L) 13.7 - 17.5 g/dL LAB HEMATOLOGY METHOD 07/20/2025 4:38 PM EST [facility] HCT 32.7(L) 40.0 - 51.0 % LAB HEMATOLOGY METHOD 07/20/2025 4:38 PM EST [facility] Platelet Count 182 155 - 369 10*3/uL LAB HEMATOLOGY METHOD 07/20/2025 4:38 PM EST [facility] MCV 95 79 - 98 fL LAB HEMATOLOGY METHOD 07/20/2025 4:38 PM EST [facility] MCH 32.9(H) 26.0 - 32.0 pg LAB HEMATOLOGY METHOD 07/20/2025 4:38 PM EST [facility] MCHC 34.6 30.7 - 35.5 g/dL LAB HEMATOLOGY METHOD 07/20/2025 4:38 PM EST [facility] RDW 13.3 11.5 - 14.5 % LAB HEMATOLOGY METHOD 07/20/2025 4:38 PM EST [facility] MPV 9.6 8.8 - 12.5 fL LAB HEMATOLOGY METHOD 07/20/2025 4:38 PM EST [facility] nRBC 0.0 <=0.0 per 100 WBCs LAB HEMATOLOGY METHOD 07/20/2025 4:38 PM EST [facility] Blood Venous blood specimen / Unknown Venipuncture / Unknown 07/20/2025 4:18 PM EST 07/20/2025 4:29 PM EST us Maicol Garcia MD LAB BLOOD ORDERABLES Final Res ult [facility] [address] [place] [address] * (ABNORMAL) Basic metabolic panel (07/20/2025 4:18 PM EST) Glucose, Plasma 98 74 - 99 mg/dL 07/20/2025 5:06 PM EST [facility] BUN, Plasma 15 8 - 23 mg/dL 07/20/2025 5:06 PM EST [facility] Creatinine, Plasma 0.70 0.70 - 1.20 mg/dL 07/20/2025 5:06 PM EST [facility] BUN/Creatinine Ratio 21 07/20/2025 5:06 PM EST [facility] Sodium, Plasma 140 136 - 145 mmol/L 07/20/2025 5:06 PM EST [facility] Potassium, Plasma 3.4(L) 3.6 - 4.9 mmol/L 07/20/2025 5:06 PM EST [facility] Chloride, Plasma 102 97 - 107 mmol/L 07/20/2025 5:06 PM EST [facility] CO2, Plasma 26 22 - 29 mmol/L 07/20/2025 5:06 PM EST [facility] Anion Gap 12 6 - 16 mmol/L 07/20/2025 5:06 PM EST [facility] Total Calcium, Plasma 8.4(L) 8.9 - 10.2 mg/dL 07/20/2025 5:06 PM EST [facility] eGFRcr 95.5 mL/min/1.7 3m*2 07/20/2025 5:06 PM EST [facility] Comment:Reported eGFRcr in m L/min/1.73m2 is based the CKD-EPI 2020 equation that does not use a race coefficient. Blood Venous blood specimen / Unknown Venipuncture / Unknown 07/20/2025 4:18 PM EST 07/20/2025 4:29 PM EST us Maicol Garcia MD LAB BLOOD ORDERABLES Final Res ult [facility] [address] [place] [address] * Troponin T, High Sensitivity, 0 Hour Plasma, Reflex to 2 Hour (07/20/2025 4:18 PM EST) Troponin T, High Sensitivity, 0 Hour 18 <19 ng/L 07/20/2025 5:06 PM EST [facility] Blood Venous blood specimen / Unknown Venipuncture / Unknown 07/20/2025 4:18 PM EST 07/20/2025 4:29 PM EST us Maicol Garcia MD LAB BLOOD ORDERABLES Final Res ult [facility] [address] [place] [address] * ECG Adult (07/20/2025 4:07 PM EST) EKG DIAGNOSIS CLASS Abnormal MUSE ECG Ventricular Rate 177 BPM MUSE ECG QRSD Interval 118 ms MUSE ECG QT Interval 258 ms MUSE ECG QTC Interval 442 ms MUSE ECG R [place] 95 degrees MUSE ECG T Wave [place] -68 degrees MUSE ECG Diagnosis Atrial fibrillation with rapid ventricular response MUSE ECG Diagnosis Rightward axis MUSE ECG Diagnosis Incomplete right bundle branch block MUSE ECG Diagnosis Marked ST abnormality, possible inferior subendocardial injury MUSE ECG Diagnosis Marked ST abnormality, possible anterior subendocardial injury MUSE ECG Diagnosis Abnormal ECG MUSE ECG Diagnosis MUSE ECG Diagnosis Confirmed by Timo Desai ([id number]) on 07/21/2025 12:55:42 PM MUSE ECG 07/20/2025 4:07 PM EST 07/21/2025 12:55 PM EST us Maicol Garcia MD ECG ORDERABLES Final Result Performing Organization Address [facility] Co de Phone Number MUSE ECG * XR Chest 1 View (07/20/2025 10:43 AM EST) Anatomical Region Laterality Modality Chest Digital Radiogra phy Impressions 07/20/2025 12:12 PM EST Mildly increased bibasal lung opacities which may represent atelectasis. CRITICAL RESULT: No. COMMUNICATION: Per this written report. Drafted by Aimee Fung MD on 07/20/2025 12:10 PM Final report signed by Aimee Fung MD on 07/20/2025 12:12 PM Narrative 07/20/2025 12:12 PM EST CLINICAL INDICATION: ongoing postoperative hypoxia TECHNIQUE: Single AP view of chest. COMPARISON: One day prior FINDINGS: Interval removal of the nasogastric tube. The cardiomediastinal contours unchanged. No pneumothorax or sizable pleural effusion. Similar bilateral interstitial lung opacities. Bibasal lung opacities which may represent atelectasis, mildly increased from prior. No new lung consolidation. Procedure Note Aimee Fung MD - 07/20/2025 CLINICAL INDICATION: ongoing postoperative hypoxia TECHNIQUE: Single AP view of chest. COMPARISON: One day prior FINDINGS: Interval removal of the nasogastric tube. The cardiomediastinal contoursunchanged. No pneumothorax or sizable pleural effusion. Similar bilateralinterstitial lung opacities. Bibasal lung opacities which may representatelectasis, mildly increased from prior. No new lung consolidation. IMPRESSION: Mildly increased bibasal lung opacities which may represent atelectasis. CRITICAL RESULT: No. COMMUNICATION: Per this written report. Drafted by iAmee Fung MD on 07/20/2025 12:10 PM Final report signed by Aimee Fung MD on 07/20/2025 12:12 PM Maicol Garcia MD IMG XR PROCEDURES Final Result * (ABNORMAL) Procalcitonin, Plasma (07/19/2025 6:07 AM EDT) Procalcitonin, Plasma 0.79(H) <0.09 ng/mL 07/19/2025 6:54 AM EDT [facility] Blood Venous blood specimen / Unknown Venipuncture / Unknown 07/19/2025 6:07 AM EDT 07/19/2025 6:18 AM EDT Narrative [facility] - 07/19/2025 6:54 AM EDT Procalcitonin concentrations in healthy individuals are <0.09 ng/mL. Published data support the following interpretive risk assessment: An elevated procalcitonin result does not always indicate sepsis. Various non-infectious conditions are known to increase procalcitonin. Results should be considered in the context of clinical symptoms and other laboratory tests. Procalcitonin >2.0 ng/mL: Concentrations >2.0 ng/mL on the first day of ICU admission are associated with a higher risk of progression to severe sepsis and/or septic shock. The change in PCT over time may help predict 28 day mortality risk. Please consult [email or web address] for more information. Test performed at [facility]. us Maicol Garcia MD LAB BLOOD ORDERABLES Final Res ult Performing Organization Address [facility]/ZIP Co de Phone Number [facility] [address] [place] [address] * Phosphorus, Plasma (07/19/2025 6:07 AM EDT) Phosphorus, Plasma 2.9 2.5 - 4.5 mg/dL 07/19/2025 6:54 AM EDT [facility] Blood Venous blood specimen / Unknown Venipuncture / Unknown 07/19/2025 6:07 AM EDT 07/19/2025 6:18 AM EDT us Maicol Garcia MD LAB BLOOD ORDERABLES Final Res ult Performing Organization Address [facility] Co de Phone Number [facility] [address] [place] [address] * (ABNORMAL) Magnesium, Plasma (07/19/2025 6:07 AM EDT) Magnesium, Plasma 1.7(L) 1.9 - 2.4 mg/dL 07/19/2025 6:54 AM EDT [facility] Blood Venous blood specimen / Unknown Venipuncture / Unknown 07/19/2025 6:07 AM EDT 07/19/2025 6:18 AM EDT us Maicol Garcia MD LAB BLOOD ORDERABLES Final Res ult Performing Organization Address City/[facility] Co de Phone Number [facility] [address] [place] [address] * (ABNORMAL) CBC (07/19/2025 6:07 AM EDT) WBC Count 12.64(H) 3.70 - 10.30 10*3/uL LAB HEMATOLOGY METHOD 07/19/2025 6:29 AM EDT [facility] RBC Count 3.57(L) 4.60 - 6.10 10*6/uL LAB HEMATOLOGY METHOD 07/19/2025 6:29 AM EDT [facility] HGB 11.6(L) 13.7 - 17.5 g/dL LAB HEMATOLOGY METHOD 07/19/2025 6:29 AM EDT [facility] HCT 33.8(L) 40.0 - 51.0 % LAB HEMATOLOGY METHOD 07/19/2025 6:29 AM EDT [facility] Platelet Count 177 155 - 369 10*3/uL LAB HEMATOLOGY METHOD 07/19/2025 6:29 AM EDT [facility] MCV 95 79 - 98 fL LAB HEMATOLOGY METHOD 07/19/2025 6:29 AM EDT [facility] MCH 32.5(H) 26.0 - 32.0 pg LAB HEMATOLOGY METHOD 07/19/2025 6:29 AM EDT [facility] MCHC 34.3 30.7 - 35.5 g/dL LAB HEMATOLOGY METHOD 07/19/2025 6:29 AM EDT [facility] RDW 13.4 11.5 - 14.5 % LAB HEMATOLOGY METHOD 07/19/2025 6:29 AM EDT [facility] MPV 9.9 8.8 - 12.5 fL LAB HEMATOLOGY METHOD 07/19/2025 6:29 AM EDT [facility] nRBC 0.0 <=0.0 per 100 WBCs LAB HEMATOLOGY METHOD 07/19/2025 6:29 AM EDT [facility] Blood Venous blood specimen / Unknown Venipuncture / Unknown 07/19/2025 6:07 AM EDT 07/19/2025 6:18 AM EDT us Maicol Garcia MD LAB BLOOD ORDERABLES Final Res ult [facility] [address] [place] [address] * XR Chest 1 View (07/18/2025 9:27 AM EDT) Anatomical Region Laterality Modality Chest Digital Radiogra phy Impressions 07/18/2025 10:09 AM EDT Interval placement of an esophagogastric tube. Small left pleural effusion and basal atelectasis. CRITICAL RESULT: No. COMMUNICATION: Per this written report. Drafted by Doug Jameson MD on 07/18/2025 10:04 AM Final report signed by Doug Jameson MD on 07/18/2025 10:09 AM Narrative 07/18/2025 10:09 AM EDT CLINICAL INDICATION: Worsening breathing TECHNIQUE: XR CHEST 1 VIEW COMPARISON: CT of the abdomen and pelvis on June 19, 2025 FINDINGS: Interval placement of an esophagogastric tube. Its tip overlies the stomach. Heart is normal size. Mediastinal contours and pulmonary vasculature within normal limits. Small pleural effusions basal atelectasis, left greater than right. Lordotic positioning. No pneumothorax. Procedure Note Doug Jameson MD - 07/18/2025 CLINICAL INDICATION: Worsening breathing TECHNIQUE: XR CHEST 1 VIEW COMPARISON: CT of the abdomen and pelvis on June 19, 2025 FINDINGS: Interval placement of an esophagogastric tube. Its tip overlies thestomach. Heart is normal size. Mediastinal contours and pulmonaryvasculature within normal limits. Small pleural effusions basalatelectasis, left greater than right. Lordotic positioning. Nopneumothorax. IMPRESSION: Interval placement of an esophagogastric tube. Small left pleural effusion and basal atelectasis. CRITICAL RESULT: No. COMMUNICATION: Per this written report. Drafted by Doug Jameson MD on 07/18/2025 10:04 AM Final report signed by Doug Jameson MD on 07/18/2025 10:09 AM us Maicol Garcia MD IMG XR PROCEDURES Final Result * Phosphorus, Plasma (07/17/2025 3:34 AM EDT) Phosphorus, Plasma 4.2 2.5 - 4.5 mg/dL 07/17/2025 4:11 AM EDT [facility] Blood Venous blood specimen / Unknown Venipuncture / Unknown 07/17/2025 3:34 AM EDT 07/17/2025 3:41 AM EDT us Maicol Garcia MD LAB BLOOD ORDERABLES Final Res ult [facility] [address] [place] [address] * Magnesium, Plasma (07/17/2025 3:34 AM EDT) Magnesium, Plasma 2.2 1.9 - 2.4 mg/dL 07/17/2025 4:11 AM EDT [facility] Blood Venous blood specimen / Unknown Venipuncture / Unknown 07/17/2025 3:34 AM EDT 07/17/2025 3:41 AM EDT us Maicol Garcia MD LAB BLOOD ORDERABLES Final Res ult Performing Organization Address [facility]/ZIP Co de Phone Number [facility] [address] [place] [address] * (ABNORMAL) Basic Metabolic Panel, Plasma (07/17/2025 3:34 AM EDT) Pathologist [facility] Glucose, Plasma 144(H) 74 - 99 mg/dL 07/17/2025 4:11 AM EDT [facility] BUN, Plasma 20 8 - 23 mg/dL 07/17/2025 4:11 AM EDT [facility] Creatinine, Plasma 0.79 0.70 - 1.20 mg/dL 07/17/2025 4:11 AM EDT [facility] BUN/Creatinine Ratio 25 07/17/2025 4:11 AM EDT [facility] Sodium, Plasma 133(L) 136 - 145 mmol/L 07/17/2025 4:11 AM EDT [facility] Potassium, Plasma 4.7 3.6 - 4.9 mmol/L 07/17/2025 4:11 AM EDT [facility] Chloride, Plasma 100 97 - 107 mmol/L 07/17/2025 4:11 AM EDT [facility] CO2, Plasma 25 22 - 29 mmol/L 07/17/2025 4:11 AM EDT [facility] Anion Gap 8 6 - 16 mmol/L 07/17/2025 4:11 AM EDT [facility] Total Calcium, Plasma 8.7(L) 8.9 - 10.2 mg/dL 07/17/2025 4:11 AM EDT [facility] eGFRcr 92.1 mL/min/1.7 3m*2 07/17/2025 4:11 AM EDT [facility] Comment:Reported eGFRcr in m L/min/1.73m2 is based the CKD-EPI 2020 equation that does not use a race coefficient. Blood Venous blood specimen / Unknown Venipuncture / Unknown 07/17/2025 3:34 AM EDT 07/17/2025 3:41 AM EDT us Maicol Garcia MD LAB BLOOD ORDERABLES Final Res ult [facility] [address] [place] [address] * (ABNORMAL) CBC W/O Differential (07/17/2025 3:34 AM EDT) WBC Count 14.55(H) 3.70 - 10.30 10*3/uL LAB HEMATOLOGY METHOD 07/17/2025 3:51 AM EDT [facility] RBC Count 3.68(L) 4.60 - 6.10 10*6/uL LAB HEMATOLOGY METHOD 07/17/2025 3:51 AM EDT [facility] HGB 12.3(L) 13.7 - 17.5 g/dL LAB HEMATOLOGY METHOD 07/17/2025 3:51 AM EDT [facility] HCT 35.0(L) 40.0 - 51.0 % LAB HEMATOLOGY METHOD 07/17/2025 3:51 AM EDT [facility] Platelet Count 203 155 - 369 10*3/uL LAB HEMATOLOGY METHOD 07/17/2025 3:51 AM EDT [facility] MCV 95 79 - 98 fL LAB HEMATOLOGY METHOD 07/17/2025 3:51 AM EDT [facility] MCH 33.4(H) 26.0 - 32.0 pg LAB HEMATOLOGY METHOD 07/17/2025 3:51 AM EDT [facility] MCHC 35.1 30.7 - 35.5 g/dL LAB HEMATOLOGY METHOD 07/17/2025 3:51 AM EDT [facility] RDW 13.2 11.5 - 14.5 % LAB HEMATOLOGY METHOD 07/17/2025 3:51 AM EDT [facility] MPV 9.5 8.8 - 12.5 fL LAB HEMATOLOGY METHOD 07/17/2025 3:51 AM EDT [facility] nRBC 0.0 <=0.0 per 100 WBCs LAB HEMATOLOGY METHOD 07/17/2025 3:51 AM EDT [facility] Blood Venous blood specimen / Unknown Venipuncture / Unknown 07/17/2025 3:34 AM EDT 07/17/2025 3:41 AM EDT us Maicol Garcia MD LAB BLOOD ORDERABLES Final Res ult [facility] [address] [place] [address] * Surgical Pathology Exam (07/16/2025 3:28 PM EDT) Case Report Surgical Pathology Case: [id number] Authorizing Provider: Maicol Garcia MD Collected: 07/16/2025 1528 Ordering Location: [facility] Received: 07/16/2025 1627 Pathologist: Halima Cho MD Specimens: A) - Other (specify site), Sigmoid Colon Fresh For Permanent B) - Other (specify site), Omentum Fresh for Permenant 07/21/2025 1:32 PM EST [facility] Final Diagnosis A. 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 - MARGINS NEGATIVE FOR TUMOR INVOLVEMENT. - TWELVE LYMPH NODES NEGATIVE FOR MALIGNANCY (0/12). - PATHOLOGIC STAGE : pT2, pN0. - SEE SYNOPTIC CHECKLIST. B. OMENTUM, OMENTECTOMY: - BENIGN ADIPOSE TISSUE. 07/21/2025 1:32 PM EST [facility] at 1332 EST Synoptic Checklist COLON AND RECTUM: Resection COLON AND RECTUM: RESECTION - All Specimens 8th Edition - Protocol posted: 03/06/2024 SPECIMEN Procedure: Sigmoidectomy TUMOR Tumor Site: Sigmoid colon Histologic Type: Adenocarcinoma Histologic Grade: G2, moderately differentiated Tumor Size: Greatest dimension (Centimeters): 3.8 cm Additional Dimension (Centimeters): 3.6 cm Additional Dimension (Centimeters): 1.1 cm Tumor Extent: Invades into muscularis propria Macroscopic Tumor Perforation: Not identified Lymphatic and / or Vascular Invasion: Not identified Perineural Invasion: Not identified Tumor Budding Score: Low (0-4) Treatment Effect: No known presurgical therapy MARGINS Margin Status for Invasive Carcinoma: All margins negative for invasive carcinoma Distance from Invasive Carcinoma to Distal Margin: Not applicable Margin Status for Non-Invasive Tumor: All margins negative for high-grade dysplasia / intramucosal carcinoma and low-grade dysplasia REGIONAL LYMPH NODES Regional Lymph Node Status: : All regional lymph nodes negative for tumor Number of Lymph Nodes Examined: 12 Tumor Deposits: Not identified Regional Lymph Node Comment: second search performed pTNM CLASSIFICATION (AJCC 8th Edition) Reporting of pT, pN, and (when applicable) pM categories is based on information available to the pathologist at the time the report is issued. As per the AJCC (Chapter 1, 8th Ed.) it is the managing physician's responsibility to establish the final pathologic stage based upon all pertinent information, including but potentially not limited to this pathology report. pT Category: pT2 pN Category: pN0 ADDITIONAL FINDINGS Additional Findings: None identified 07/21/2025 1:32 PM [facility] Clinical Information Cancer of sigmoid colon [C18.7] 07/21/2025 1:32 PM [facility] Gross Description A. SIGMOID COLON FRESH FOR PERMANENT The specimen is received fresh and placed in formalin, labeled s igmoid colon , and consists of a 13.5 cm in length by 3.2 cm in diameter unoriented segment of colon. The serosa is pink-red and slightly erythematous. Upon sectioning, at one aspect of the specimen, there is a 3.8 x 3.6 x 1.1 cm prakash-brown, exophytic, and ill-defined mass. The mass is 3.6 cm from the nearest margin and 5.1 cm from the opposite margin, and 9.2 cm from the nearest mesenteric margin. The mass extends the entire thickness of the bowel wall and abuts the surrounding soft tissue. No other masses or polyps are identified. Thirteen lymph nodes that range from 0.2-0.6 cm in greatest dimension. Soil Technologist sections are submitted as follows: A1: Closest resection margin, en face A2: For this resection margin, en face A3: Nearest mesenteric margin, en face A4: Grossly unremarkable mucosa A5: Mass, deepest extent of invasion A6: Mass to grossly unremarkable mucosa A7-A8: Mass A9: Four intact lymph nodes A10: Three intact lymph nodes A11: Five intact lymph nodes A12: Three intact lymph nodes A13: Two possible lymph nodes Cold Time: 59m ISAEL Adan ([facility]) B. OMENTUM FRESH FOR PERMENANT The specimen is received fresh and placed in formalin, labeled o mentum , and consists of a 9.2 x 6.1 x 1.1 cm aggregate of prakash-yellow lobulated fibroadipose tissue consistent with omentum. No masses are identified. Soil Technologist sections are submitted in cassettes B1-B3. Cold Time: 40m ISAEL Adan ([facility]) 07/21/2025 1:32 PM [facility] Note: A resident was involved in the service. I attest I examined the relevant preparations for the specimens and confirmed the diagnosis or interpretation. 07/21/2025 1:32 PM EST [facility] Tissue Topography unknown / Unknown 07/16/2025 3:28 PM EDT 07/16/2025 4:27 PM EDT Comment:Pre-op diagnosis: Cancer of sigmoid colon [C18.7] Tissue specimen (specimen) Topography unknown / Unknown 07/16/2025 3:47 PM EDT 07/16/2025 4:27 PM EDT Comment:Pre-op diagnosis: Cancer of sigmoid colon [C18.7] Maicol Garcia MD LAB PATHOLOGY ORDERABLES Final Result [facility] [address] [place] [address] * POCT glucose meter (07/16/2025 1:41 PM EDT) POCT Glucose 92 74 - 99 mg/dL 07/16/2025 1:42 PM EDT [facility] Comment:Accuracy of a glucos e result obtained from a capillary whole blood specimen relies upon adequate, non-compromised capillary blood flow. If the capillary glucose result is not consistent with the patient's clinical signs and symptoms, glucose testing should be repeated with either an arterial or venous sample on the glucometer or sent to the main labortory for testing. Comment 07/16/2025 1:42 PM EDT [facility] Remote Recruiter ID Anita Thomas 07/16/20 1:42 PM EDT [facility] Device ID [id number] 07/16/2025 1:42 PM EDT [facility] Specimen Type POC Venous 07/16/2025 1:42 PM EDT [facility] Blood Venous blood specimen / Unknown 07/16/2025 1:41 PM EDT 07/16/2025 1:42 PM EDT us Maicol Garcia MD LAB POINT OF CARE TE ST DOCKED DEVICE UNSOLICITED RESULTS Final Result Performing Organization Address City/[facility] Co de Phone Number [facility] [address] [place] [address] * Type and Screen (07/16/2025 12:56 PM EDT) ABO/Rh O Positive 07/16/2025 1:10 PM EDT [facility] Antibody Screen Negative 07/16/2025 1:10 PM EDT [facility] Specimen Expiration 07/19/2025 23:59 07/16/2025 1:10 PM EDT [facility] Blood Venous blood specimen / Unknown Venipuncture / Unknown 07/16/2025 12:56 PM EDT 07/16/2025 1:10 PM EDT us Maicol Garcia MD LAB BLOOD BANK TEST ORDERABLES Final Result Performing Organization Address City/State/[facility] Co de Phone Number [facility] BANK [address] [place] [address], documented in this encounter Visit Diagnoses Diagnosis Cancer of sigmoid colon- Primary Malignant neoplasm of sigmoid colon Cancer of sigmoid colon Malignant neoplasm of sigmoid colon Paroxysmal atrial fibrillation (CMS/HCC) Atrial fibrillation Paroxysmal atrial fibrillation (CMS/HCC) Atrial fibrillation Smoker Tobacco use disorder Severe protein-calorie malnutrition (CMS/HCC) Other severe protein-calorie malnutrition documented in this encounter Admitting Diagnoses Diagnosis Cancer of sigmoid colon Malignant neoplasm of sigmoid colon documented in this encounter Administered Medications Inactive Administered Medications - up to 3 most recent administrations Medication Order MAR Action Action Date Dose Rate Site acetaminophen (Tylenol) tablet 1,000 mg 1,000 mg, Oral, Every 6 hours, First dose on Mon07/16/25 at 1745, Until Discontinued, Routine, Recovery(Phase II-Outpatient)/On Unit(Inpatient) Given 07/19/2025 6:25 AM EDT 1,000 mg Given 07/18/2025 5:56 AM EDT 1,000 mg Given 07/18/2025 12:56 AM EDT 1,000 mg acetaminophen (Tylenol) tablet 1,000 mg 1,000 mg, Oral, Every 6 hours scheduled, First dose (after last modification) on 07/19/25 at 1230, Until Discontinued, Routine, Recovery(Phase II-Outpatient)/On Unit(Inpatient) Given 07/22/2025 6:18 AM EST 1,000 mg Given 07/22/2025 12:48 AM EST 1,000 mg Given 07/21/2025 5:08 AM EST 1,000 mg amiodarone (Nexterone) 150-4.21 MG/100ML-% IVPB - Pyxis Override Pull 1 dose, Starting on 07/20/25 at 1654, Until 07/20/25 at 1707 amiodarone (Nexterone) 360 MG/200ML infusion - Pyxis Override Pull 1 dose, Starting on 07/20/25 at 1655, Until 07/20/25 at 1710 amiodarone (Nexterone) infusion 1.8 mg/mL 1 mg/min (33.3333 mL/hr, rounded to 33.3 mL/hr), 1.8 mg/mL, Intravenous, Continuous, Starting on 07/20/25 at 1745, Until 07/20/25 at 2309, Routine Rate/Dose Verify 07/20/2025 10:00 PM EST 1 mg/min 33.3 mL/hr Rate/Dose Verify 07/20/2025 9:00 PM EST 1 mg/min 33.3 mL /hr Rate/Dose Verify 07/20/2025 8:00 PM EST 1 mg/min 33.3 mL /hr amiodarone (Nexterone) infusion 1.8 mg/mL 0.5 mg/min (16.6667 mL/hr, rounded to 16.67 mL/hr), 1.8 mg/mL, Intravenous, Continuous, Starting on Mon07/20/25 at 2325, Until Mon07/21/25 at 1152, Routine Rate/Dose Verify 07/21/2025 11:00 AM EST 0.5 mg/min 16.67 mL/hr Rate/Dose Verify 07/21/2025 10:00 AM EST 0.5 mg/min 16.67 mL/hr Rate/Dose Verify 07/21/2025 9:00 AM EST 0.5 mg/min 16.67 m L/hr amiodarone (Nexterone) IVPB 150 mg 150 mg, Intravenous, Once, 1 dose, On Mon07/20/25 at 1745, Routine New Bag 07/20/2025 4:57 PM EST 150 mg 600 mL/hr apixaban (Eliquis) tablet 5 mg 5 mg, Oral, 2 times daily, First dose on Mon07/22/25 at 0900, Until Discontinued, Routine Given 07/22/2025 8:19 AM EST 5 mg calcium gluconate 10 % injection 1 g 1 g, Intravenous, Once, 1 dose, On Mon07/20/25 at 1845, Routine Given 07/20/2025 6:07 PM EST 1 g dextrose 5 % and lactated Ringer's infusion 75 mL/hr, Intravenous, Continuous, Starting on Mon07/16/25 at 1745, Until Mon07/20/25 at 1314, Routine Rate/Dose Verify 07/19/2025 5:00 PM EDT 75 mL/hr 75 mL/hr New Bag 07/19/2025 10:32 AM EDT 75 mL/hr 75 mL/hr New Bag 07/17/2025 5:51 AM EDT 75 mL/hr 75 mL/hr enoxaparin (Lovenox) syringe 40 mg 40 mg, Subcutaneous, Daily, First dose on Mon07/17/25 at 1430, Until Discontinued, Routine Given 07/20/2025 8:11 AM EST 40 mg Right Lower Abdomen Given 07/19/2025 8:01 AM EDT 40 mg Le ft Upper Arm (Back) Given 07/18/2025 10:10 AM EDT 40 mg L eft Upper Arm (Back) enoxaparin (Lovenox) syringe 60 mg 60 mg (rounded from 58.1 mg = 1 mg/kg 58.1 kg), Subcutaneous, Every 12 hours, First dose on Mon07/21/25 at 0845, Until Discontinued, Routine Given 07/21/2025 8:25 PM EST 60 mg Left Lower Abdomen Given 07/21/2025 8:21 AM EST 60 mg Le ft Lower Abdomen fentaNYL (Sublimaze) injection 25 mcg 25 mcg, Intravenous, Every 5 min PRN, 5 doses, Starting on Mon07/16/25 at 1604, Until Mon07/16/25 at 1841, Routine, Recovery (Phase I only), DVPRS >/= 5, CPOT >/= 3, FLACC >/= 4, PAINAD >/= 4 Given 07/16/2025 4:43 PM EDT 25 mcg fentaNYL (Sublimaze) injection 50 mcg 50 mcg, Intravenous, Every 5 min PRN, 5 doses, Starting on Mon07/16/25 at 1604, Until Mon07/16/25 at 1841, Routine, Recovery (Phase I only), DVPRS >/= 5, CPOT >/= 3, FLACC >/= 4, PAINAD >/= 4 Given 07/16/2025 5:16 PM EDT 50 mcg Given 07/16/2025 5:05 PM EDT 50 mcg heparin (porcine) injection 5,000 Units 5,000 Units, Subcutaneous, Every 8 hours scheduled, First dose on Mon07/16/25 at 1345, Until Discontinued, Routine, Holding - Preprocedure Given 07/16/2025 1:23 PM EDT 5,000 Units Right Lower Abdomen heparin (porcine) injection 5,000 Units 5,000 Units, Subcutaneous, Every 8 hours scheduled, First dose on Mon07/16/25 at 1745, Until Discontinued, Routine, Recovery(Phase II-Outpatient)/On Unit(Inpatient) Given 07/17/2025 5:32 AM EDT 5,000 Units Left Lower Abdomen Given 07/16/2025 9:46 PM EDT 5,000 Units L eft Lower Abdomen ipratropium-albuterol (Duo-Neb) 0.5-2.5 mg/3 mL nebulizer solution 3 mL 3 mL, Nebulization, Every 6 hours RT, First dose (after last modification) on Mon07/16/25 at 2100, Until Discontinued, Routine Given 07/17/2025 2:06 PM EDT 3 mL Given 07/17/2025 9:13 AM EDT 3 mL Given 07/17/2025 3:54 AM EDT 3 mL ipratropium-albuterol (Duo-Neb) 0.5-2.5 mg/3 mL nebulizer solution 3 mL 3 mL, Nebulization, Every 4 hours, First dose (after last modification) on Amy 07/17/25 at 1900, Until Discontinued, Routine Given 07/18/2025 8:50 PM EDT 3 mL Given 07/18/2025 3:27 PM EDT 3 mL Given 07/18/2025 11:31 AM EDT 3 mL ipratropium-albuterol (Duo-Neb) 0.5-2.5 mg/3 mL nebulizer solution 3 mL 3 mL, Nebulization, Every 6 hours RT, First dose (after last modification) on 07/19/25 at 0300, Until Discontinued, Routine Given 07/21/2025 3:44 AM EST 3 mL Given 07/20/2025 7:33 PM EST 3 mL Given 07/20/2025 2:28 AM EST 3 mL ipratropium-albuterol (Duo-Neb) 0.5-2.5 mg/3 mL nebulizer solution 3 mL 3 mL, Nebulization, Every 6 hours PRN, Starting on Mon07/21/25 at 0800, Until Tu07/22/25 at 1816, Routine, wheezing lactated Ringer's bolus 1,000 mL 1,000 mL, Intravenous, Once, 1 dose, On Mon07/18/25 at 0630, Administer over 3 Hours, Routine New Bag 07/18/2025 5:52 AM EDT 1,000 mL 333.3 mL/hr lactated Ringer's bolus 1,000 mL 1,000 mL, Intravenous, Once, 1 dose, On Mon07/20/25 at 1615, Administer over 1 Hours, Routine New Bag 07/20/2025 4:15 PM EST 1,000 mL 1000 mL/hr lactated Ringer's bolus 500 mL 500 mL, Intravenous, Once, 1 dose, On Mon07/20/25 at 2100, Administer over 1 Hours, Routine New Bag 07/20/2025 8:32 PM EST 500 mL 500 mL/hr magnesium sulfate IVPB 2 g 2 g, Intravenous, Once, 1 dose, On 07/19/25 at 1145, Routine New Bag 07/19/2025 12:08 PM EDT 2 g 25 mL/hr magnesium sulfate IVPB 4 g 4 g, Intravenous, Once, 1 dose, On 07/20/25 at 1745, Routine New Bag 07/20/2025 4:58 PM EST 4 g 25 mL/hr metoprolol succinate XL (Toprol-XL) 24 hr tablet 25 mg 25 mg, Oral, Daily, First dose on Mon07/22/25 at 0900, Until Discontinued, Routine Given 07/22/2025 8:13 AM EST 25 mg metoprolol tartrate (Lopressor) 5 MG/5ML injection - Pyxis Override Pull 1 dose, Starting on 07/20/25 at 1614, Until 07/20/25 at 1617 Given 07/20/2025 4:17 PM EST metoprolol tartrate (Lopressor) 5 MG/5ML injection - Pyxis Override Pull 1 dose, Starting on 07/20/25 at 1625, Until 07/20/25 at 1626 Given 07/20/2025 4:26 PM EST morphine PF 2 mg 2 mg, Intravenous, Every 2 hour PRN, Starting on Mon07/16/25 at 1649, Until Amy 07/17/25 at 1334, Routine, Recovery(Phase II-Outpatient)/On Unit(Inpatient), severe pain, breakthough pain only Given 07/16/2025 8:10 PM EDT 2 mg mupirocin (Bactroban) 2 % ointment 1 Application Each Nostril, 2 times daily, 10 doses, First dose on Mon07/16/25 at 2145, Last dose on Mon07/21/25 at 0900, Routine Given 07/21/2025 8:21 AM EST 1 Application Given 07/20/2025 9:55 PM EST 1 Application Given 07/20/2025 8:11 AM EST 1 Application oxyCODONE (Roxicodone) immediate release tablet 5 mg 5 mg, Oral, Every 1 hour PRN, 2 doses, Starting on Mon07/16/25 at 1604, Until Mon07/16/25 at 1841, Routine, Recovery (Phase I only), DVPRS >/= 5, CPOT >/= 3, FLACC >/= 4, PAINAD >/= 4 Given 07/16/2025 6:03 PM EDT 5 mg oxyCODONE (Roxicodone) immediate release tablet 5 mg 5 mg, Oral, Every 4 hours PRN, Starting on Mon07/16/25 at 1649, Until Amy 07/17/25 at 1334, Routine, Recovery(Phase II-Outpatient)/On Unit(Inpatient), Moderate/Severe Pain > or =3: CPOT; > or =4: FLACC, PAINAD, NPASS, NRS, Eldridge-Mcgee Faces; > or =5: DVPRS, NIPS , severe pain Given 07/17/2025 8:53 AM EDT 5 mg Given 07/17/2025 3:38 AM EDT 5 mg oxyCODONE (Roxicodone) immediate release tablet 5 mg 5 mg, Oral, Every 4 hours PRN, Starting on Amy 07/17/25 at 1333, Until Mon07/22/25 at 1816, Routine, Recovery(Phase II-Outpatient)/On Unit(Inpatient), severe pain Given 07/18/2025 12:56 AM EDT 5 mg Given 07/17/2025 8:30 PM EDT 5 mg Given 07/17/2025 2:46 PM EDT 5 mg potassium chloride CR (Klor-Con) ER tablet 20 mEq 20 mEq, Oral, Once, 1 dose, On Mon07/20/25 at 1915, Routine Given 07/20/2025 7:49 PM EST 20 mEq potassium chloride CR (Klor-Con) ER tablet 40 mEq 40 mEq, Oral, Once, 1 dose, On Mon07/20/25 at 1800, Routine Given 07/20/2025 6:03 PM EST 40 mEq potassium chloride IVPB 10 mEq 10 mEq, Intravenous, Every 1 hour, 6 doses, First dose on Mon07/20/25 at 1845, Last dose on Mon07/20/25 at 2345, RoutineIndications:Hypokalemia New Bag 07/21/2025 12:08 AM EST 10 mEq 100 mL/hr New Bag 07/20/2025 10:54 PM EST 10 mEq 100 mL/hr New Bag 07/20/2025 9:55 PM EST 10 mEq 100 mL/hr Povidone-Iodine 5 % swab solution 1 Application Nasal, Once, 1 dose, On Mon07/16/25 at 1345, Routine Given 07/16/2025 1:03 PM EDT 1 Application sodium chloride ([place]) 0.65 % nasal spray 1 spray 1 spray, Each Nostril, As needed, Starting on Mon07/18/25 at 0000, Until Mon07/22/25 at 1816, Routine, congestion Given 07/18/2025 12:56 AM EDT 1 spray documented in this encounter Active and Recently Administered Medications Due to Daylight Saving Time, this section may contain times in both EDT and EST. Scheduled Medication Order 07/20/2025 07/21/2025 07/22/2025 acetaminophen (Tylenol) tablet 1,000 mg 1,000 mg, Oral, Every 6 hours scheduled, First dose (after last modification) on 07/19/25 at 1230, Until Discontinued, Routine, Recovery(Phase II-Outpatient)/On Unit(Inpatient) 0053 (Not Given - Provider: Rocky Penny RN - Reason: Patient/family refused)0550 (Not Given - Provider: Rocky Penny RN - Reason: Patient/family refused)1249 (Not Given - Provider: Eleni Lomeli RN - Reason: Patient/family refused)1807 (Given - Provider: Aki Hannah, RN)2255 (Given - Provider: Ricky Guy, ROSSY) 0508 (Given - Provider: Ricky Guy RN)1145 (Not Given - Provider: Teddy Lawrence RN - Reason: Patient/family refused)1730 (Not Given - Provider: Teddy Lawrence RN - Reason: Patient/family refused) 0048 (Given - Provider: Ricky Guy RN)0618 (Given - Provider: John Dias RN)1259 (Not Given - Provider: Ying Adamson RN - Reason: Patient/family refused)1800 (Canceled Entry - Provider: Automatic Discharge Provider - Comment: Automatically canceled at discontinue of medication order) amiodarone (Nexterone) IVPB 150 mg (COMPLETED)(Linked Group 1) 150 mg, Intravenous, Once, 1 dose, On 07/20/25 at 1745, Routine 1657 (New Bag - Provider: Aki Hannah, RN) apixaban (Eliquis) tablet 5 mg 5 mg, Oral, 2 times daily, First dose on Mon07/22/25 at 0900, Until Discontinued, Routine 0819 (Given - Provider: Ying Adamson, ROSSY) calcium gluconate 10 % injection 1 g (COMPLETED) 1 g, Intravenous, Once, 1 dose, On Mon07/20/25 at 1845, Routine 1807 (Given - Provider: Aki Hannah, ROSSY) enoxaparin (Lovenox) syringe 40 mg (CANCELED) 40 mg, Subcutaneous, Daily, First dose on Amy 07/17/25 at 1430, Until Discontinued, Routine 0811 (Given - Provider: Eleni Lomeli, ROSSY) enoxaparin (Lovenox) syringe 60 mg (CANCELED) 60 mg (rounded from 58.1 mg = 1 mg/kg 58.1 kg), Subcutaneous, Every 12 hours, First dose on 07/21/25 at 0845, Until Discontinued, Routine 0821 (Given - Provider: Teddy Lawrence, RN)2024 (Given - Provider: Ricky Guy, ROSSY) ipratropium-albuterol (Duo-Neb) 0.5-2.5 mg/3 mL nebulizer solution 3 mL (CANCELED) 3 mL, Nebulization, Every 6 hours RT, First dose (after last modification) on 07/19/25 at 0300, Until Discontinued, Routine 0228 (Given - Provider: Dickson Arreaga)0858 (Not Given - Provider: Shelly Wright - Reason: Patient/family refused)1404 (Not Given - Provider: Shelly Wright - Reason: Hold for condition: must add comment - Comment: treatment given at 1301,since after ambulation, pt began desaturating requiring an increase in oxygen from 3L nc to 50% venturi mask.)193 (Given - Provider: Pearl Cleveland) 343 (Given - Provider: Pearl Cleveland) lactated Ringer's bolus 1,000 mL (COMPLETED) 1,000 mL, Intravenous, Once, 1 dose, On 07/20/25 at 1615, Administer over 1 Hours, Routine 1615 (New Bag - Provider: Eleni Lomeli RN) lactated Ringer's bolus 500 mL (COMPLETED) 500 mL, Intravenous, Once, 1 dose, On 07/20/25 at 2100, Administer over 1 Hours, Routine 2031 (New Bag - Provider: Ricky Guy, ROSSY) magnesium sulfate IVPB 4 g (COMPLETED) 4 g, Intravenous, Once, 1 dose, On Mon07/20/25 at 1745, Routine 1658 (New Bag - Provider: Aki Hannah, ROSSY) metoprolol succinate XL (Toprol-XL) 24 hr tablet 25 mg 25 mg, Oral, Daily, First dose on Mon07/22/25 at 0900, Until Discontinued, Routine 08 (Given - Provider: Ying Adamson RN) mupirocin (Bactroban) 2 % ointment 1 Application () Each Nostril, 2 times daily, 10 doses, First dose on Mon07/16/25 at 2145, Last dose on Mon07/21/25 at 0900, Routine 0811 (Given - Provider: Eleni Lomeli RN)2155 (Given - Provider: Ricky Guy, ROSSY) 0821 (Given - Provider: Teddy Lawrence RN) potassium chloride CR (Klor-Con) ER tablet 20 mEq (COMPLETED)(Linked Group 2) 20 mEq, Oral, Once, 1 dose, On 07/20/25 at 1915, Routine 1949 (Given - Provider: Ricky Guy, ROSSY) potassium chloride CR (Klor-Con) ER tablet 40 mEq (COMPLETED)(Linked Group 2) 40 mEq, Oral, Once, 1 dose, On 07/20/25 at 1800, Routine 1803 (Given - Provider: Aki Hannah, ROSSY) potassium chloride IVPB 10 mEq (COMPLETED) 10 mEq, Intravenous, Every 1 hour, 6 doses, First dose on Mon07/20/25 at 1845, Last dose on Mon07/20/25 at 2345, Routine 1828 (New Bag - Provider: Aki Hannah, ROSYS)1949 (New Bag - Provider: Ricky Guy, ROSSY)204 (New Bag - Provider: Ricky Guy RN)2155 (New Bag - Provider: Ricky Guy RN)2254 (New Bag - Provider: Ricky Guy, RN) 0008 (New Bag - Provider: Ricky Guy RN) Continuous Medication Order 07/20/2025 07/21/2025 07/22/2025 amiodarone (Nexterone) infusion 1.8 mg/mL (CANCELED)(Linked Group 1) 1 mg/min (33.3333 mL/hr, rounded to 33.3 mL/hr), 1.8 mg/mL, Intravenous, Continuous, Starting on 07/20/25 at 1745, Until 07/20/25 at 2309, Routine 1710 (New Bag - Provider: Aki Hannah RN)1800 (Rate/Dose Verify - Provider: Aki Hannah RN)1900 (Rate/Dose Verify - Provider: Aki Hannah, ROSSY)2000 (Rate/Dose Verify - Provider: Ricky Guy RN)2100 (Rate/Dose Verify - Provider: Ricky Guy RN)2200 (Rate/Dose Verify - Provider: Ricky Guy, ROSSY)2322 (Stopped - Provider: Ricky Guy RN) amiodarone (Nexterone) infusion 1.8 mg/mL (CANCELED)(Linked Group 1) 0.5 mg/min (16.6667 mL/hr, rounded to 16.67 mL/hr), 1.8 mg/mL, Intravenous, Continuous, Starting on 07/20/25 at 2325, Until 07/21/25 at 1152, Routine 2322 (New Bag - Provider: Ricky Guy RN) 0000 (Rate/Dose Verify - Provider: Ricky Guy RN)0100 (Rate/Dose Verify - Provider: Ricky Guy, RN)0200 (Rate/Dose Verify - Provider: Ricky Guy, RN)0300 (Rate/Dose Verify - Provider: Ricky Guy, RN)0400 (Rate/Dose Verify - Provider: Ricky Guy, RN)0500 (Rate/Dose Verify - Provider: Ricky Guy, RN)0600 (Rate/Dose Verify - Provider: Rickyakira Guy RN)0700 (Rate/Dose Verify - Provider: Ricky Guy RN)0800 (Rate/Dose Verify - Provider: Teddy Lawrence RN)0900 (Rate/Dose Verify - Provider: Teddy Lawrence RN)1000 (Rate/Dose Verify - Provider: Teddy Lawrence RN)1100 (Rate/Dose Verify - Provider: Teddy Lawrence RN)1200 (Stopped - Provider: Teddy Lawrence RN) PRN Medication Order 07/20/2025 07/21/2025 07/22/2025 ipratropium-albuterol (Duo-Neb) 0.5-2.5 mg/3 mL nebulizer solution 3 mL 3 mL, Nebulization, Every 6 hours PRN, Starting on 07/21/25 at 0800, Until Mon07/22/25 at 1816, Routine, wheezing oxyCODONE (Roxicodone) immediate release tablet 5 mg 5 mg, Oral, Every 4 hours PRN, Starting on Amy 07/17/25 at 1333, Until Mon07/22/25 at 1816, Routine, Recovery(Phase II-Outpatient)/On Unit(Inpatient), severe pain sodium chloride ([place]) 0.65 % nasal spray 1 spray 1 spray, Each Nostril, As needed, Starting on Mon07/18/25 at 0000, Until Mon07/22/25 at 1816, Routine, congestion No Frequency Medication Order 07/20/2025 07/21/2025 07/22/2025 metoprolol tartrate (Lopressor) 5 MG/5ML injection - Pyxis Override Pull (COMPLETED) 1 dose, Starting on 07/20/25 at 1614, Until 07/20/25 at 1617 1617 (Given - Provider: Eleni Lomeli RN) metoprolol tartrate (Lopressor) 5 MG/5ML injection - Pyxis Override Pull (COMPLETED) 1 dose, Starting on 07/20/25 at 1625, Until 07/20/25 at 1626 1626 (Given - Provider: Eleni Lomeli RN) Linked Groups Order Group 1: amiodarone (Nexterone) IVPB 150 mg (COMPLETED)Jump to med 150 mg, Intravenous, Once, 1 dose, On 07/20/25 at 1745, Routine Followed by amiodarone (Nexterone) infusion 1.8 mg/mL (CANCELED)Jump to med 1 mg/min (33.3333 mL/hr, rounded to 33.3 mL/hr), 1.8 mg/mL, Intravenous, Continuous, Starting on 07/20/25 at 1745, Until 07/20/25 at 2309, Routine Followed by amiodarone (Nexterone) infusion 1.8 mg/mL (CANCELED)Jump to med 0.5 mg/min (16.6667 mL/hr, rounded to 16.67 mL/hr), 1.8 mg/mL, Intravenous, Continuous, Starting on 07/20/25 at 2325, Until 07/21/25 at 1152, Routine Group 2: potassium chloride CR (Klor-Con) ER tablet 40 mEq (COMPLETED)Jump to med 40 mEq, Oral, Once, 1 dose, On 07/20/25 at 1800, Routine Followed by potassium chloride CR (Klor-Con) ER tablet 20 mEq (COMPLETED)Jump to med 20 mEq, Oral, Once, 1 dose, On 07/20/25 at 1915, Routine documented in this encounter Additional Health Concerns Active Problems Noted Date Diagnosed Date Autogenerated Problem 07/01/2025 Assessment Noted Time A fall risk assessment has been complete d for the patient 07/01/2025 10:09 AM EDT A Body Mass Index follow-up plan has been documented for the patient 07/22/2025 2:25 PM EST documented as of this encounter 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
--- OUTSIDE RECORDS SUMMARY | 2025-07-16 12:20 | XMS_ITS | Encounter Summary ---
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 [C18.7] Procedures VT PART REMOVAL COLON W ANASTOMOSIS COLECTOMY, SIGMOID Maicol Garcia MD [address] [address] Phone: tel: fax: [facility] [address] [place] [address] Phone: tel: Referral ID Status Reason Start Date Expiration Date Visits Re quested Visits Authorized [id number] 1 1 Encounter Details Date Type Department Care Team (Late st Contact Info) Description 07/16/2025 1:20 PM EDT - 07/16/2025 5:20 PM EDT Surgery [facility] [address] [place] [id number] Maicol Garcia MD [id number] [place] [address] COLECTOMY, SIGMOID [[id number] (CPT )] Surgery Details Date/Time Status Location OR Service Patient Class Case Class Case Type Trauma Case? 07/16/2025 1:20 PM Posted [facility] OR 2OR 10 Colorectal Surgery Admit E-Electiv e Panel 1 Procedure LRB Anes Op Region Wound Class Comments COLECTOMY, SIGMOID N/A General Surgeon Surgeon Role Service Panel Maicol Garcia MD Primary Colorectal 1 Maicol Garcia MD Primary Colorectal 1 Aiden Rodriguez MD Resident - Assisting 1 Thelma García MD Fellow Colorectal 1 documented in this encounter Social History Tobacco [...] any time in the past 12 m [facility], were you homeless or living in a skilled nursing (including now)? No 07/17/2025 [facility] Utilities Answer Date Recorded In the past 12 months has e electric, gas, oil, or water company threatened to shut off services in your home? No 07/17/2025 Sex and Gender Information Value Date Recorded Sex Assigned at Not on file Legal Sex Male 4:11 PM EDT Gender Identity Not on file Sexual Orientation Not on file documented as of this encounter Last Filed Vital Signs Vital Sign Reading Time Taken Comments Blood Pressure 130/65 07/16/2025 5:15 PM EDT Pulse 80 07/16/2025 5:15 PM EDT Temperature 34.9 C (94.8 F) 07/16/2025 5:15 PM EDT Respiratory Rate 16 07/16/2025 5:15 PM EDT Oxygen Saturation 95% 07/16/2025 5:15 PM EDT Inhaled Oxygen Concentration - - Weight 58.1 kg (128 lb) 07/16/2025 12:55 PM EDT Height 172.7 cm (5' 8 ) 07/16/2025 12:55 PM EDT Body Mass Index 18.5 07/16/2025 12:55 PM EDT documented in this encounter Functional Status * Calculated C-SSRS Risk Score (Lifetime/Recent) Answer Date of Assessment Author No Risk Indicated 07/16/2025 12:55 PM EDT Mae Yun RN * Question Answer Date of Assessment Author 1. Wish to be (Past 1 Month) No 07/16/2025 12:55 PM EDT Sujatha Frankel RN 2. Non-Specific Active Suici darrian Thoughts (Past 1 Month) No 07/16/2025 12:55 PM EDT Luciana Frankel RN 6. Suicidal Behavior (Lifetime) No 12:55 PM EDT Mae Frankel RN documented as of this encounter Discharge [...] for two weeks after your operation. {Wound care:32785:: You have surgical glue over your incisions. Do not pick at this.It will come off on its own. , You have kimberly over your incision. These will be removed in clinic. } Follow up: You will follow up with Dr. Garcia in {time::: 2 weeks , 4 weeks , 6 weeks }. [facility] will call with an appointment time. Questions: Call the [facility] at [phone] during business hours on weekdays or call [facility]'s after hours at [phone] to speak with a resident bridge/structure inspection team leader for Colorectal surgery after 5pm or on [...] 2 times a day. 60 tablet 07/22/2025 ipratropium-albu terol (Duo-Neb) 0.5-2.5 mg/3 mL nebulizer [...] from the original note were not included. [id number] Apixaban IMPORTANT WARNING: If you have atrial [...] doctor or pharmacist will give you the poultry pinner's patient information sheet (Medication Guide) when you begin treatment with apixaban and each time you refill your prescription. Read the information carefully and ask your doctor or pharmacist if you have any questions. You can also visit the Food and Drug Administration (FDA) website (https://www.fda.gov/Drugs/DrugSafety/wsu946953.htm) or the poultry pinner's website to obtain the Medication Guide. Talk [...] a class of medications called factor Xa inhibitors. It works by blocking the action of [...] or herbal products may interact with apixaban: Yan's wort; aspirin; NSAIDs (such as ibuprofen [Advil??, [...] of all of the prescription and nonprescription (cris-esc-jbfkpzc) medicines, vitamins, minerals, and dietary supplements you [...] or pharmacist about specific clinical use. The [place] [employer] represents that the information provided hereunder was formulated with a reasonable standard of care, and in conformity with professional standards in the field. The [place] [employer] makes no representations or warranties, express or implied, including, but not limited to, any implied warranty of merchantability and/or fitness for a particular purpose, with respect to such information and specifically disclaims all such warranties. Users are advised that decisions regarding drug therapy are complex medical decisions requiring the independent, informed decision of an appropriate health care rep, and the information is provided for informational purposes only. The entire monograph for a drug should be reviewed for a thorough understanding of the drug's actions, uses and side effects. The [place] [employer] does not endorse or recommend the use of any drug.The information is not a substitute for medical care. AHFS?? Patient Medication Information?. ?? Copyright, 2023. The [place] [employer]??, [address], [address], [place], [place]. All Rights Reserved. Duplication for commercial use must be authorized by [facility]. Selected Revisions: November 02, 2024. AHFS?? Patient Medication Information?. ?? Copyright, 2024 * [facility] - Medhat Hadley RN - 07/22/2025 3:01 PM EST Images from the original note were not included. [id number] Soft Diet Your healthcare provider has prescribed [...] cheese melted in other dishes Don't have: [place] fried eggs, cheese slices and cubes Fruits [...] corn Last Reviewed Date: 2022 00:00:00 ?? [id number] [employer]. All rights reserved. This information is not [...] PCP name and Address: Bryan Watkins MD [address] [place] [id number] Referring provider name and address: No referring provider defined for this encounter. Chief Concern, Brief History of Present Illness, and Hospital Course Damian Washington is a 74 y.o. male with PMHx has a past medical history of Tobacco- use disorder. He has no past medical history of Adverse effect of anesthesia or Malignant hyperthermia. who presented to [facility] with Cancer of sigmoid colon. [...] Your Medications These medications were sent to [facility] - [place], [place] - [address] [facility] [address] acetaminophen 500 MG tablet apixaban 5 MG [...] with an appointment time. Questions: Call the [facility] at [phone] during business hours on week or call [facility]'s after hours at [phone] to speak with a resident bridge/structure inspection team leader for Colorectal surgery after 5pm or on [...] Anesthesiology, Perioperative, Critical Care, and Pain Medicine [facility] Reachable via Crunchbutton Secure Chat Cosigned by Ernestina Hilton MD [...] in Care Family/Caregiver Present: Yes Family/Caregiver: Spouse Sliver Handler: Not Applicable Presentation Oxygen Therapy: None (Room [...] Mobility Bed Mobility Exam: Rolling/Turning Level of [place]: Independent (to the right) Bed Mobility Exam: Scooting/Bridging Level of [place]: Independent (anteriorly to EOB) Bed Mobility Exam: Supine to Sit Level of [place]: Independent (to the right) Physical/Nonphysical Assist: (HOB flat) Transfers Transfer Exam: Sit to stand Level of [place]: Independent Assistive Device: (no device) Transfer Exam: Stand to Sit Level of [place]: Independent Assistive Device: (no device) Functional Mobility [...] routine at time of d/c. Standardized Assessments [facility] 6-Click Daily Activities Help from Other: Don/Doff Regular Lower Body Clothings: None Help From Other: Bathing: None Help From Other: Toileting: None Help From Other: Don/Doff Upper Body Clothings: None Help From Other: Grooming: None Help From Other: Eating Meals: None [facility] 6 Click - Daily Activities Score: 24 [facility] Scoring Interpretation: Scores greater than 20.5 [...] at 1:10 PM. * Progress Notes - Hao Seth - 07/22/2025 11:52 AM EST PHYSICAL [...] admission Level of Mobility Ambulatory- community Mobility [place] Independent gait without device History of Falls [...] PARTICIPANTS IN CARE Visitors Present Yes, Spouse Sliver Handler (if applicable) OBJECTIVE PAIN Pt denies pain. [...] for intervention details. BED MOBILITY Level of [place] Physical/Non- physical Assist Adaptive Equipment Utilized Rolling/ Turning Scooting/ Bridging Independent Supine to Sit Independent Sit to Supine Interventions HOB lowered to simulate home environment. TRANSFERS Level of [place] Physical/Non- physical Assist Adaptive Equipment Utilized Sit to Stand Independent (no device) Stand to sit Independent (no device) Bed to Chair Toilet Transfer Shower Transfer Interventions AMBULATION Level of [place] Distance Adaptive Equipment Utilized Ambulation Standby assist, [...] is no recent study available for direct vgii-de-dxku comparison. ASSESSMENT/PLAN Damian Washington is a 74 [...] - Needs outpatient cardiology follow up at [facility] The following cardiovascular risk factors and co-morbidities complicates the management of these conditions: poor nutritional status and frailty Principal Problem: Cancer of sigmoid colon Active Problems: Smoker Paroxysmal atrial fibrillation (CMS/HCC) This consult will be staffed with the following attending physician: Dr Gonzalez. Please page the on-call autocad designer with any further questions. Cardiology will sign off at this time. Please page the autocad designer bridge/structure inspection team leader for any further questions ([phone]). Memo Rob MS4 07/22/25 11:48 AM [1] [...] further questions. * Care Plan - Ying Adamson, RN - 07/22/2025 11:27 AM EST Problem: [...] from the original note were not included. [id number] Discharge Instructions: Caring for Your Abdominal Incision [...] provider Last Reviewed Date: 2024 00:00:00 ?? [id number] [employer]. All rights reserved. This information is not intended as a substitute for professional medical care. Always follow your healthcare professional's instructions. * Shauna Negron - Medhat Hadley RN - 07/22/2025 11:14 AM EST Images from the original note were not included. 44277 Preventing a Surgical Site Infection A risk [...] of infection. ? Controlled body temperature. A oskbo-xduf-uxyalw temperature during or after surgery prevents oxygen [...] and water or with an alcohol-based hand internet marketing strategist before and after caring for you. Don?t [...] away. Last Reviewed Date: 2024 00:00:00 ?? 5640-6415 [employer]. All rights reserved. This information is not intended as a substitute for professional medical care. Always follow your healthcare professional's instructions. * Shauna Negron - Medhat Hadley RN - 07/22/2025 11:14 AM EST Images from the original note were not included. [id number] Open Bowel Resection: What to Expect at [...] litter or dog food bags, a vacuum drycleaner, or a child. ? Ask your doctor [...] your doctor if you can take an oowh-iph-xrksxzj medicine. o Do not take two or [...] this instruction, always ask your healthcare professional. [employer] disclaims any warranty or liability for your use of this information. ?? [id number] [employer]. * Shauna RussellTAPAN - Medhat Hadley RN - 07/22/2025 11:14 AM EST Images from the original note were not included. 81692 Having Open Colon Surgery During open colon [...] them before surgery. This includes prescription and sbkn-inv-nrjfkex medicines, aspirin, and other nonsteroidal anti- inflammatory [...] You?ll meet with your anesthesiologist or nurse film processing shift supervisor to discuss the medicine (anesthesia) that helps [...] back Last Reviewed Date: 2023 00:00:00 ?? [id number] [employer]. All rights reserved. This information is not [...] 07/21/2025 5:45 PM EST Pastoral Care Note Ham Clerk consulted with care team and visited Damian and Jailene at bedside. Damian expressed grattitudethat he is doing better. Jailene shared that this hospitalization has been tough on her as well, giventhe responsibilities she's had to take on while Damian's here. Ham Clerk offered an empathic presenceand supportive listening as Jailene shared about her own health struggles. Ham Clerk assured Damian and Jailene that pastoral care is available 10/04. Referral From: Ham Clerk Initiated Pastoral Care Provided For: Patient, Spouse Patient Profile: Consult Reasons: Initial visit Spiritual Assessment: Support Systems/ Spiritual Resources: Family Spiritual Needs: Emotional support Spiritual Issues: Critical Illness, Trauma/ crisis Interventions: Interventions Provided: Consulted with care team, Introduced Patient/Family to Ham Clerk Services, Supportive Listening, Family support, Emotional support Pastoral Care Outcomes: Patient Outcomes: Is knowledgeable about Assistant Floor Covering Printer Services, Appreciative of Ham Clerk Support * Significant Event - Omer Schroeder APRN, DNP - 07/21/2025 12:35 PM EST Mr Washington is no longer critically ill and is safe for transfer. In consultation with the primary service, [facility] will sign off at this time. [...] is no recent study available for direct icic-hz-zbho comparison. ASSESSMENT/PLAN Damian Washington is a 74 [...] physician: Dr Gonzalez. Please page the on-call autocad designer with any further questions. We will continue to follow. Please page the autocad designer bridge/structure inspection team leader for any questions ([phone]). Memo Rob MS4 07/21/25 11:50 AM [1] [...] for attestation. * Consults - Joan Garza, RD - 07/21/2025 11:12 AM EST Adult Nutrition Evaluation Note Damian Washington 74 y.o. male CSN: [id number] Room/Bed 138/138A Nutrition evaluation type: assessment Reason [...] having a good appetite and eating well BIOLOGICAL SCIENTIST, but also reports weight loss of around [...] (Calculated): 19.47 Weight Evaluation: Normal (BMI 18.5-24.9) [place] Body Weight (kg): 70 Percent [place] Body Weight: 82 Wt Readings from Last [...] Education Provided: Will monitor Pertinent home medications: Mosque needs: Nutrition Focused Physical Exam: Physical exam [...] Note Damian Washington 74 y.o. male CSN: [id number] Admission: 07/16/2025 12:37 PM Primary Problem: Cancer [...] from the original note were not included. [facility] Department of Surgery Division of Colon & [...] Anesthesiology, Perioperative, Critical Care, and Pain Medicine [facility] Reachable via Crunchbutton Secure Chat Cosigned by Maicol Garcia MD [...] postoperative care. * Care Plan - Teddy Lawrence, RN - 07/21/2025 9:22 AM EST Problem: [...] maintained Intervention: Prevent Skin Injury Flowsheets (Taken 07/21/2025799) Skin Protection: incontinence pads utilized pectin skin [...] primary * Assessment & Plan Note - Oemr Schroeder APRN, DNP - 07/21/2025 8:33 AM [...] Post-Procedure Diagnose(s): Paroxysmal atrial fibrillation (CMS/HCC) 07/21/25 HPI Damian Washington is a 74 y.o. [...] ear normal. Nose: Nose normal. Mouth/Throat: Lips: [place]. Mouth: Mucous membranes are moist. Pharynx: Oropharynx [...] discussed with Dr. Chaves. Pasquale Schroeder DNP, [facility], [facility] Anesthesiology, Critical Care Medicine * Consults [...] physician: Dr Gonzalez. Please page the on-call autocad designer with any further questions. I spent 45 minutes performing the following components of the encounter (on the day of the encounter): reviewing History, examining the patient, reviewing imaging and/or labs, Independently interpreting echocardiogram, ECG and/or other imaging results, counseling the patient and family/caregiver, communicating with other health child care director, care coordination, and entering clinical information in [...] a surgical standpoint. Do not feel herequires terminal operations supervisor Amiodarone after a single provoked episode. Reviewed [...] reach out to on-call physician for CAR Consultswith any further questions. * Nursing Note [...] 120s-140s. 1556: Patient placed on tele. 1600: urgent messaged patient sustaining in the 190s, [...] PM EST Associated Problem(s): Paroxysmal atrial fibrillation (CMS/HCC) Amiodarone load and drip Keep electrolytes at [...] ear normal. Nose: Nose normal. Mouth/Throat: Lips: [place]. Mouth: Mucous membranes are moist. Pharynx: Oropharynx [...] Tobacco use disorder Critical Care Performed by: Jennings, Omer B, CLINICAL TRIAL ASSISTANT, DNP Authorized by: Omer Schroeder APRN, DNP [...] discussed with Dr. Chaves. Pasquale Schroeder DNP, [facility], [facility] Anesthesiology Critical Care Medicine [1] Past [...] Enhance Bowel Motility and Elimination Flowsheets (Taken 07/20/20251452) Bowel Elimination Management: relaxation techniques promoted hygiene measures promoted Bowel Motility Enhancement: ambulation promoted fluid intake encouraged oral intake encouraged Goal: Absence of Infection Signs and Symptoms Outcome: Ongoing, Progressing Intervention: Prevent or Manage Infection Flowsheets (Taken 07/20/2025 145) Infection Management: aseptic technique maintained Fever Reduction/Comfort Measures: lightweight bedding lightweight clothing Isolation Precautions: precautions maintained protective Goal: Optimal Nutrition Delivery Outcome: Ongoing, Progressing Intervention: Optimize Nutrition Delivery Flowsheets (Taken 07/20/2025 145) Nutrition Support Management: indirect calorimetry recommended Oral Nutrition Promotion: rest periods promoted social interaction promoted nutrition counseling provided Nutrition Interventions: diet adjusted diet adjustment recommended Goal: Effective Oxygenation and Ventilation Outcome: Ongoing, Progressing Intervention: Optimize Oxygenation and Ventilation Flowsheets (Taken 07/20/2025 1453) Airway/Ventilation Management: airway patency maintained oxygen therapy provided position adjusted Head of Bed (HOB) Positioning: HOB at 30-45 degrees Problem: Mobility Impairment Goal: Optimal Mobility Outcome: Ongoing, Progressing Intervention: Optimize Mobility Flowsheets (Taken 07/20/2025 145) Activity Management: up in chair Assistive Device Utilized: front wheel walker Positioning/Transfer Devices: pillows in use Problem: Bowel Resection Goal: Absence of Bleeding Outcome: Met Goal: Fluid and Electrolyte Balance Outcome: Met Intervention: Monitor and Manage Fluid and Electrolyte Balance Flowsheets (Taken 07/20/2025 145) Fluid/Electrolyte Management: intravenous fluids adjusted electrolyte supplement initiated Goal: Anesthesia/Sedation Recovery Outcome: Met Goal: Optimal Pain Control and Function Outcome: Met Goal: Nausea and Vomiting Relief Outcome: Met Goal: Effective Urinary Elimination Outcome: Met * Progress Notes - Noé Merrill MD - 07/20/2025 11:52 AM EST Images from the original note were not included. [facility] Department of Surgery Division of Colon & [...] Airway None Output by Drain (mL) 07/18/25 0700 - 07/18/25 1859 07/18/25 1900 - 07/19/25 0659 07/19/25 07 - 07/19/25 1859 07/19/25 190 - 07/20/25 0659 07/20/25 0700 - 07/20/25 1152 Patient has no LDAs [...] Today: Continue NC today, walk test tomorrow [facility] Plan to D/C IVF this pm if tolerating liquids Full liquid diet NG - removed Prophylactic Lovenox Encourage ambulation and IS use Edited by: Noé Merrill MD at 07/20/2025 1152 Dispo: Continue Current Level of Care Noé Merrill MD, PGY-1 Department of Anesthesiology, Perioperative, Critical Care, and Pain Medicine [facility] Reachable via Crunchbutton Secure Chat Cosigned by Hang Fatima MD [...] Ongoing, Progressing Intervention: Optimize Mobility Flowsheets (Taken 07/20/2025322) Activity Management: activity adjusted [...] Identify and Manage Fall Risk Flowsheets (Taken 07/19/20251613) Safety Promotion/Fall Prevention: activity supervised Goal: Optimal Comfort and Wellbeing Outcome: Ongoing, Progressing Intervention: Monitor Pain and Promote Comfort Flowsheets (Taken 07/19/20251613) Pain Management Interventions: medication (see MAR) Problem: Skin Injury Risk Increased Goal: Skin Health and Integrity Outcome: Ongoing, Progressing Intervention: Optimize Skin Protection Flowsheets (Taken 07/19/20251613) Activity Management: up in chair Pressure Reduction [...] Intervention: Monitor and Manage Bleeding Flowsheets (Taken 07/19/20251613) Bleeding Management: affected area elevated Goal: Effective [...] Care Family/Caregiver Present: Yes Family/Caregiver: Spouse (Jailene) Sliver Handler: Not Applicable Presentation Oxygen Therapy: Supplemental oxygen [...] admission Level of Mobility: Ambulatory- community Mobility [place]: Independent gait without device History of Falls: [...] bed. Bed Mobility Exam: Rolling/Turning Level of [place]: Stand-by assist Physical/Nonphysical Assist: Verbal Cues Assistive Device: Bed rails Bed Mobility Exam: Scooting/Bridging Level of [place]: Stand-by assist (anteriorly to EOB) Physical/Nonphysical Assist: Verbal Cues, Minimal cues Assistive Device: Bed rails Bed Mobility Exam: Supine to Sit Level of [place]: Stand-by assist (to the left) Physical/Nonphysical Assist: Set-up required, Verbal Cues, Nonverbal cues (demo/gestures), Minimal cues, HOB elevated Assistive Device: Bed rails Bed Mobility Exam: Sit to Supine Level of [place]: (Not assessed. Patient left up in chair.) Transfers Transfer Interventions: PT provided minimal verbal cues for safe hand placement on sitting surface,pushing up to stand and reaching back to sit, to ensure safe transition. Stand-by assist provided for balance and safety to ensure appropriate tolerance to change in position. Transfer Exam: Sit to stand Level of [place]: Stand-by assist Physical/Nonphysical Assist: Set-up required, Supervision, Verbal Cues, Minimal cues Assistive Device: (no device) Transfer Exam: Stand to Sit Level of [place]: Stand-by assist Physical/Nonphysical Assist: Supervision, Verbal Cues, Minimal cues Assistive Device: (no device) Toilet Transfer Level of [place]: Stand-by assist Physical/Nonphysical Assist: Verbal Cues, Minimal [...] LIANG using modified JAMIE scale. Standardized Assessments [facility] 6-Clicks Mobility Assessment Difficulty patient has [...] 3-5 steps with a railing?: A little [facility] 6-Clicks Mobility Assessment Total : 21 [...] PM. * Progress Notes - Francine Villatoro W - 07/19/2025 12:03 PM EDT Occupational Therapy [...] Care Family/Caregiver Present: Yes Family/Caregiver: Spouse (Jailene) Sliver Handler: Not Applicable Presentation Oxygen Therapy: Supplemental oxygen O2 Delivery Method: Venturi mask FiO2 (%): 50 % O2 Flow Rate (L/min): 15 L/min Lines and Tubes: Telemetry NG/OG Otley Sump Left nostril (Active) Peripheral IV 07/16/25 [...] admission Level of Mobility: Ambulatory- community Mobility [place]: Independent gait without device History of Falls: [...] Mobility Bed Mobility Exam: Scooting/Bridging Level of [place]: Stand-by assist (anteriorly to EOB) Physical/Nonphysical Assist: Supervision, Verbal Cues, Minimal cues Bed Mobility Exam: Supine to Sit Level of [place]: Stand-by assist (to the left) Physical/Nonphysical Assist: Set-up required, Verbal Cues, Nonverbal cues (demo/gestures), Minimal cues, HOB elevated Assistive Device: Bed rails Transfers Transfer Exam: Sit to stand Level of [place]: Stand-by assist Physical/Nonphysical Assist: Set-up required, Supervision, Verbal Cues, Minimal cues Assistive Device: (no device) Transfer Exam: Stand to Sit Level of [place]: Stand-by assist Physical/Nonphysical Assist: Supervision, Verbal Cues, Minimal cues Assistive Device: (no device) Toilet Transfer Level of [place]: Stand-by assist Physical/Nonphysical Assist: Supervision, Verbal Cues, [...] with no device (as well as [facility] distances; 15' + 320' in total), [...] RN aware of session vitals. Standardized Assessments [facility] 6-Click Daily Activities Help from Other: Don/Doff Regular Lower Body Clothings: None Help From Other: Bathing: Little Help From Other: Toileting: None Help From Other: Don/Doff Upper Body Clothings: Little Help From Other: Grooming: None Help From Other: Eating Meals: None [facility] 6 Click - Daily Activities Score: 22/24 [facility] Scoring Interpretation: Scores greater than 20.5 suggest ability to perform daily self-cares independently and may indicate a high suitability for a home/self-care discharge. Assessment Patient tolerated today's initial evaluation/session well with rest breaks as needed. HR remained elevated at rest and increased with activity; ranging from 90-146 bpm during session (RN aware). [id number] 94-98% while on 50% FiO2 at 15 [...] PM. * Progress Notes - Gina Woods - 07/19/2025 9:42 AM EDT Images from the original note were not included. [facility] Department of Surgery Division of Colon & [...] sites present with appropriate healing Midline abdominal kimbrely c/d/i Neurological: Mental Status: He is alert. [...] Woods at 07/19/2025 1143 Continue venturi mask MMPC IVF NPO with sips/chips NG: clamp trial [...] saw and evaluated the patient with the medical/MANAGER EMS/PA student. I discussed the case with the medical/MANAGER EMS/PA student and agree with the findings and [...] from the original note were not included. [facility] Department of Surgery Division of Colon & [...] Edited by: Anthony Mota MD at 07/18/2025 09 Follow-up chest x-ray [facility] IVF NPO with sips/chips NG Prophylactic Lovenox Encourage ambulation and IS use Edited by: Anthony Mota MD at 07/18/2025 09 - Discharge teaching and planning Dispo: Continue [...] RN - 07/17/2025 10:15 PM EDT Damian Washingotn is a 74 y.o. male with PMHx has a past medical history of Tobacco- use disorder. He has no past medical history of Adverse effect of anesthesia or Malignant hyperthermia. who presented to [facility] with Cancer of sigmoid colon. [...] Note Damian Washington 74 y.o. male CSN: [id number] Admission: 07/16/2025 12:37 PM Primary Problem: Cancer of sigmoid colon Stone Planer reviewed chart and spoke with patient and his at to complete this Initial CaseManagement Assessment. PCP: Bryan Watkins MD Emergency Contact: Extended Emergency Contact Information Primary Emergency Contact: JAILENE WASHINGTON Mobile Relation: Spouse Preferred language: Singaporean Insurance: Primary Visit Coverage Payer Plan Sponsor Code Group Number Group Name MEDICARE MEDICARE A & B Primary Visit Coverage Subscriber Subscriber ID Subscriber Name Subscriber [facility] Subscriber Address [id number] Adam Washingtonkamron Eid [id number] [place] [address] [address] [place] [address] Secondary Visit Coverage Payer Plan Sponsor Code Group Number Group Name LISANDRA FRY [facility] [id number] Secondary Visit Coverage Subscriber Subscriber ID Subscriber Name Subscriber [facility] Subscriber Address [id number] Adam Washingtonkamron Eid [id number] [place] [address] [place] [address] Patient information: Primary Caregiver: Self Accompanied by/Relationship: Daily Living Activities: Functional Status: Independent Living Arrangements: Spouse/Significant other Type of Residence: Single Level [address] [place] [address] [place] [address] Current DME: Equipment Currently Used at Home: none Housing Circumstances-Z Codes: Housing Circumstances (select all that apply): None Applicable Anticipated Discharge Date: unknown Patient's Discharge Goal: home Assistance Available at Discharge: Discharge Transport: Follow Up Transport: self Home Health / Home Infusion / Outpatient Dialysis Services: none Living Will/Advance Directive/Power of Retail Sales Representative /Guardian: Have you reviewed your Advance Directive [...] Pt has Medicare A & B and [email or web address] as his insurance. Transportation home will be provided by his . Pt has listed his , Jailene Washington, as his em ergency contact, phone # [phone]. Pt obtains medications from [facility]. Pt currently has a rolling walker, cane, w/c, raised toilet seat, and shower chair that he does not use. He is not receiving services. Will continue to follow and assist with d/c needs as they arise. Madina Lee RN * Progress Notes - Gina Woods - 07/17/2025 11:26 AM EDT Images from the original note were not included. [facility] Department of Surgery Division of Colon & [...] Airway None Output by Drain (mL) 07/15/25 0700 - 07/15/25 1859 07/15/25 1900 - 07/16/25 [...] by: Gina Woods at 07/17/2025 1157 Plan: [facility] IVF NPO with sips/chips NG SubQ [...] saw and evaluated the patient with the medical/MANAGER EMS/PA student. I discussed the case with the medical/MANAGER EMS/PA student and agree with the findings and [...] or Manage Nausea and Vomiting Flowsheets (Taken 07/17/202519) Nausea/Vomiting Interventions: nasogastric tube to suction sips of clear liquids given slow deep breathing encouraged stimuli minimized Goal: Effective Urinary Elimination Outcome: Ongoing, Progressing Intervention: Monitor and Manage Urinary Retention Flowsheets (Taken 07/17/202519) Urinary Elimination Promotion: catheter patency maintained Goal: Effective Oxygenation and Ventilation Outcome: Ongoing, Progressing Intervention: Optimize Oxygenation and Ventilation Flowsheets (Taken 07/17/202519) Airway/Ventilation Management: airway patency maintained oxygen therapy provided Head of Bed (HOB) Positioning: HOB elevated * Post-Procedure Note - Napoleon Grant DO - 07/16/2025 8:38 PM EDT Images from the original note were not included. [facility] Department of Surgery Division of Colorectal Surgery [...] content. Incisions: covered LTD: Drain Duration NG/OG Otley Sump Left nostril <1 day Urethral Catheter [...] nursing staff. I have notified senior resident/attending bridge/structure inspection team leader with any issues or concerns. Napoleon Grant [...] Agree with above assessment and evaluation from resident/LEAD SOFTWARE TEST ENGINEER. * Perioperative Nursing Note - Radha Barksdale - 07/16/2025 2:53 PM EDT Specimens from procedure 07/16/2025 picked up by [facility] [employer] and delivered to surgical pathology. * Op Note - Maicol Garcia MD - 07/16/2025 2:53 PM EDT [facility] Colon and Rectal Surgery Operative Note JACINTO Garcia MD FACS FASCRS Patient: Damian Washington : 1950 Date of Procedure: 07/16/2025 Admit Date: 07/16/2025 Facility Location: [facility] Pre-Operative Diagnosis: Sigmoid colon cancer. Moderate protein calorie malnutrition. BMI 19. Emphysema. Post-Operative Diagnosis: Same. Procedure: Sigmoid colectomy. Mobilization of splenic flexure. Attending Surgeon: Shanna Garcia MD FACS FASCRS (present throughout entire procedure). Resident Surgeon: Aiden Rodriguez MD. Surgery Team: * Maicol Garcia - Primary Anesthesia Team: Anesthesiologist: Sujit Chester MD; Demarco Chen MD LEAD SOFTWARE TEST ENGINEER: Mae Pozo CRNA Anesthesia Type: General ASA [...] anastomosis seemed to lay best in a [id number] position. Colotomy was made on both limbs [...] postoperative recovery discussed. In accordance with the [employer] Quality Programs for Cancer [...] injection 5,000 Units 5,000 Units Subcutaneous q8h ANUSHA Maicol Garcia MD 5,000 Units at 07/16/25 [...] AM EDT Appointment [facility] [address] [place] [address] 02/03/2026 10:00 AM EDT Office Visit [facility] [address] [place] [address] Maicol Garcia MD [address] [facility] [address] [place] [address] 02/03/2026 10:00 AM EDT Clinical Support [facility] [address] [place] [address] Scheduled Referrals Name Type Priority Associated Diagnoses Orde r Schedule Discharge Ambulatory referral to Cardiology Outpatient Referral Routine Paroxysmal atrial fibrillation [...] TRANSTHORACIC COMPLETE STAT 07/21/2025 8:35 AM EST [facility] CRITICAL CARE, E/M 30-74 MINUTES Routine 07/21/2025 [...] PANEL, VENOUS Routine 07/20/2025 5:36 PM EST [place] CRITICAL CARE, E/M 30-74 MINUTES Routine 07/20/2025 [...] 3:28 PM EDT Cancer of sigmoid colon VT PART REMOVAL COLON W ANASTOMOSIS 07/16/2025 2:02 PM EDT Cancer of sigmoid colon POCT GLUCOSE METER UNSOLICITED RESULTS Routine 07/16/2025 1:41 PM EDT TYPE AND SCREEN Routine 07/16/2025 12:56 PM EDT documented in this encounter Results * (ABNORMAL) Hepatic function panel (07/22/2025 3:51 PM EST) Direct Bilirubin, Plasma <0.2 <=0.3 mg/dL 07/22/2025 4:49 PM EST [facility] Alkaline Phosphatase, Plasma 86 40 - 115 U/L 07/22/2025 4:49 PM EST [facility] Total Bilirubin, Plasma 0.2 0.2 - 1.1 mg/dL 07/22/2025 4:49 PM EST [facility] Albumin, Plasma 3.2(L) 3.5 - 5.2 g/dL 07/22/2025 4:49 PM EST [facility] Total Protein 6.1(L) 6.3 - 7.9 g/dL 07/22/2025 4:49 PM EST [facility] ALT, Plasma 21 10 - 50 U/L 07/22/2025 4:49 PM EST [facility] AST, Plasma 28 10 - 50 U/L 07/22/2025 4:49 PM EST [facility] Comment:Hemolyzed, result ma y be falsely increased. Blood Venous blood specimen / Unknown Venipuncture / Unknown 07/22/2025 3:51 PM EST 07/22/2025 4:18 PM EST us Maicol Garcia MD LAB BLOOD ORDERABLES Final Res ult [facility] [address] [place] [address] * ECHO, ADULT TRANSTHORACIC COMPLETE (07/21/2025 8:35 [...] is no recent study available for direct [id number] comparison. Left Ventricle The left ventricle is [...] is no recent study available for direct momv-ug-eqgt comparison. Wall Scoring Baseline Score Index: 1.82 The following segments are aneurysmal: basal inferior. The following segments are akinetic: mid inferolateral. The following segments are hypokinetic: basal anterior, basal inferolateral, basal anterolateral, mid anterior, mid anterolateral, apical anterior, apical lateral and apex. All other segments are normal. us Hang Fatima MD CV ECHO PROCEDURES Final Resul t * [facility] CRITICAL CARE, E/M 30-74 MINUTES (07/21/2025 8:31 [...] and ordering and review of radiographic studies Omer Schroeder APRN, DNP IN CLINIC/BEDSIDE ORD ERABLES Final Result * (ABNORMAL) Troponin T, High Sensitivity, 2 Hour, Plasma (07/21/2025 7:31 AM EST) Troponin T, High Sensitivity, 2 Hour 110(H) <19 ng/L 07/21/2025 8:10 AM EST [facility] Troponin Delta 5 <10 ng/L 07/21/2025 8:10 AM EST [facility] Troponin Delta Interpretation Not Significant 07/21/2025 8:10 AM EST [facility] Comment:Not Significant. No acute change in troponin observed between the baseline and 2 hour samples. Blood Venous blood specimen / Unknown Venipuncture / Unknown 07/21/2025 7:31 AM EST 07/21/2025 7:42 AM EST Joan Miller APRN LAB BLOOD ORDERABLES Final R esult Performing Organization Address City/[facility]/ZIP Co de Phone Number [facility] [address] [place] [address] * (ABNORMAL) Troponin T, High Sensitivity, 0 Hour Plasma, Reflex to 2 Hour (07/21/2025 5:11 AM EST) Troponin T, High Sensitivity, 0 Hour 115(H) <19 ng/L 07/21/2025 6:32 AM EST [facility] Blood Venous blood specimen / Unknown Venipuncture / Unknown 07/21/2025 5:11 AM EST 07/21/2025 6:05 AM EST Joan Miller APRN LAB BLOOD ORDERABLES Final R esult [facility] [address] [place] [address] * (ABNORMAL) Troponin T, High Sensitivity, 2 Hour, Plasma (07/21/2025 12:15 AM EST) Troponin T, High Sensitivity, 2 Hour 148(H) <19 ng/L 07/21/2025 12:48 AM EST [facility] Troponin Delta 1 <10 ng/L 07/21/2025 12:48 AM EST [facility] Troponin Delta Interpretation Not Significant 07/21/2025 12:48 AM EST [facility] Comment:Not Significant. No acute change in troponin observed between the baseline and 2 hour samples. Blood Venous blood specimen / Unknown Venipuncture / Unknown 07/21/2025 12:15 AM EST 07/21/2025 12:20 AM EST us Maicol Garcia MD LAB BLOOD ORDERABLES Final Res ult Performing Organization Address City/[facility]/ZIP Co de Phone Number [facility] [address] [place] [address] * Phosphorus (07/21/2025 12:15 AM EST) Phosphorus, Plasma 3.1 2.5 - 4.5 mg/dL 07/21/2025 12:51 AM EST [facility] Blood Venous blood specimen / Unknown Venipuncture / Unknown 07/21/2025 12:15 AM EST 07/21/2025 12:20 AM EST us Maicol Garcia MD LAB BLOOD ORDERABLES Final Res ult Performing Organization Address [facility] Co de Phone Number [facility] [address] [place] [address] * (ABNORMAL) Magnesium (07/21/2025 12:15 AM EST) Magnesium, Plasma 2.5(H) 1.9 - 2.4 mg/dL 07/21/2025 12:51 AM EST [facility] Blood Venous blood specimen / Unknown Venipuncture / Unknown 07/21/2025 12:15 AM EST 07/21/2025 12:20 AM EST us Maicol Garcia MD LAB BLOOD ORDERABLES Final Res ult Performing Organization Address City/[facility] Co de Phone Number [facility] [address] [place] [address] * (ABNORMAL) Basic metabolic panel (07/21/2025 12:15 AM EST) Glucose, Plasma 95 74 - 99 mg/dL 07/21/2025 12:51 AM EST [facility] BUN, Plasma 14 8 - 23 mg/dL 07/21/2025 12:51 AM EST [facility] Creatinine, Plasma 0.70 0.70 - 1.20 mg/dL 07/21/2025 12:51 AM EST [facility] BUN/Creatinine Ratio 20 07/21/2025 12:51 AM EST [facility] Sodium, Plasma 138 136 - 145 mmol/L 07/21/2025 12:51 AM EST [facility] Potassium, Plasma 4.5 3.6 - 4.9 mmol/L 07/21/2025 12:51 AM EST [facility] Chloride, Plasma 106 97 - 107 mmol/L 07/21/2025 12:51 AM EST [facility] CO2, Plasma 24 22 - 29 mmol/L 07/21/2025 12:51 AM EST [facility] Anion Gap 8 6 - 16 mmol/L 07/21/2025 12:51 AM EST [facility] Total Calcium, Plasma 7.9(L) 8.9 - 10.2 mg/dL 07/21/2025 12:51 AM EST [facility] eGFRcr 95.5 mL/min/1.7 3m*2 07/21/2025 12:51 AM EST [facility] Comment:Reported eGFRcr in m L/min/1.73m2 is based the CKD-EPI 2020 equation that does not use a race coefficient. Blood Venous blood specimen / Unknown Venipuncture / Unknown 07/21/2025 12:15 AM EST 07/21/2025 12:20 AM EST us Maicol Garcia MD LAB BLOOD ORDERABLES Final Res ult [facility] [address] [place] [address] * (ABNORMAL) CBC W/O Differential (07/21/2025 12:15 AM EST) WBC Count 7.76 3.70 - 10.30 10*3/uL LAB HEMATOLOGY METHOD 07/21/2025 12:28 AM EST [facility] RBC Count 2.88(L) 4.60 - 6.10 10*6/uL LAB HEMATOLOGY METHOD 07/21/2025 12:28 AM EST [facility] HGB 9.2(L) 13.7 - 17.5 g/dL LAB HEMATOLOGY METHOD 07/21/2025 12:28 AM EST [facility] HCT 27.4(L) 40.0 - 51.0 % LAB HEMATOLOGY METHOD 07/21/2025 12:28 AM EST [facility] Platelet Count 167 155 - 369 10*3/uL LAB HEMATOLOGY METHOD 07/21/2025 12:28 AM EST [facility] MCV 95 79 - 98 fL LAB HEMATOLOGY METHOD 07/21/2025 12:28 AM EST [facility] MCH 31.9 26.0 - 32.0 pg LAB HEMATOLOGY METHOD 07/21/2025 12:28 AM EST [facility] MCHC 33.6 30.7 - 35.5 g/dL LAB HEMATOLOGY METHOD 07/21/2025 12:28 AM EST [facility] RDW 13.5 11.5 - 14.5 % LAB HEMATOLOGY METHOD 07/21/2025 12:28 AM EST [facility] MPV 9.4 8.8 - 12.5 fL LAB HEMATOLOGY METHOD 07/21/2025 12:28 AM EST [facility] nRBC 0.0 <=0.0 per 100 WBCs LAB HEMATOLOGY METHOD 07/21/2025 12:28 AM EST [facility] Blood Venous blood specimen / Unknown Venipuncture / Unknown 07/21/2025 12:15 AM EST 07/21/2025 12:20 AM EST us Maicol Garcia MD LAB BLOOD ORDERABLES Final Res ult [facility] [address] [place] [address] * ECG Adult (07/21/2025 12:10 AM EST) EKG DIAGNOSIS CLASS Abnormal MUSE ECG Ventricular Rate 70 BPM MUSE ECG Atrial Rate 70 BPM MUSE ECG VT Interval 114 ms MUSE ECG QRSD Interval 128 ms MUSE ECG QT Interval 452 ms MUSE ECG QTC Interval 488 ms MUSE ECG P [place] 73 degrees MUSE ECG R [place] 84 degrees MUSE ECG T Wave [place] 26 degrees MUSE ECG Diagnosis Normal sinus rhythm restored MUSE ECG Diagnosis premature ventricular complexes MUSE ECG Diagnosis Right bundle branch block MUSE ECG Diagnosis Abnormal ECG MUSE ECG Diagnosis MUSE ECG Diagnosis Confirmed by Timo Desai ([id number]) on 07/21/2025 2:53:42 PM MUSE ECG 07/21/2025 12:1 0 AM EST 07/21/2025 2:53 PM EST us Maicol Garcia MD ECG ORDERABLES Final Result Performing Organization Address City/[facility]/ZIP Co de Phone Number MUSE ECG * (ABNORMAL) Troponin T, High Sensitivity, 0 Hour Plasma, Reflex to 2 Hour (07/20/2025 9:58 PM EST) Troponin T, High Sensitivity, 0 Hour 147(H) <19 ng/L 07/20/2025 10:31 PM EST [facility] Blood Venous blood specimen / Unknown Venipuncture / Unknown 07/20/2025 9:58 PM EST 07/20/2025 10:02 PM EST us Maicol Garcia MD LAB BLOOD ORDERABLES Final Res ult [facility] [address] [place] [address] * (ABNORMAL) Troponin T, High Sensitivity, 2 Hour, Plasma (07/20/2025 6:33 PM EST) Troponin T, High Sensitivity, 2 Hour 54(H) <19 ng/L 07/20/2025 7:07 PM EST [facility] Troponin Delta 36(H) <10 ng/L 07/20/2025 7:07 PM EST [facility] Troponin Delta Interpretation Significant 07/20/2025 7:07 PM EST [facility] Comment:Significant change i n Troponin [...] 6:33 PM EST 07/20/2025 6:39 PM EST us Maicol Garcia MD LAB BLOOD ORDERABLES Final Res ult Performing Organization Address [facility] [place] [address] * Casimiro auris Surveillance by PCR (07/20/2025 5:38 PM EST) Casimiro auris PCR Result Not Detected Not Detected 07/21/2025 1:06 PM EST [facility] Swab (Axilla and Groin) Non-blood Collection / Unknown 07/20/2025 5:38 PM EST 07/20/2025 5:44 PM EST Narrative [facility] - 07/21/2025 1:06 PM EST This PCR assay was developed and its performance characteristics determined by [facility] as appropriate for clinical purposes. This assay has not been cleared or approved by the FDA, but is performed in a CLIA regulated laboratory that is qualified to perform high-complexity testing. us Maicol Garcia MD LAB MICROBIOLOGY - GENERAL ORD ERABLES Final Result Performing Organization Address [facility] [place] [address] * Multi Drug Resistance Test (07/20/2025 5:38 PM EST) Culture No growth at day 1 07/22/2025 5:08 AM EST [facility] Swab (Nares and Lizzie Rectal) Non-blood Collection / Unknown 07/20/2025 5:38 PM EST 07/20/2025 5:44 PM EST Narrative [facility] - 07/22/2025 5:08 AM EST This test was developed and its performance characteristics determined by the [facility]. Although the media is FDA-approved, it is not FDA-approved for all specimen types submitted. The FDA has determined that such clearance or approval is not necessary. This test is used for surveillance purposes. It should not be regarded as investigational or for research. The [facility] is certified under the Clinical Laboratory Improvement Amendments of 1988 (CLIA-88) as qualified to perform high complexity clinical laboratory testing. Maicol Garcia MD LAB MICROBIOLOGY - GENERAL ORD ERABLES Final Result [facility] [address] [place] [address] * (ABNORMAL) Blood gas panel, venous (07/20/2025 5:36 PM EST) pH, Venous 7.44(H) 7.32 - 7.43 LAB HEMATOLOGY METHOD 07/20/2025 5:46 PM EST [facility] pCO2, Venous 42 40 - 55 mmHg LAB HEMATOLOGY METHOD 07/20/2025 5:46 PM EST [facility] pO2, Venous 25 25 - 40 mmHg LAB HEMATOLOGY METHOD 07/20/2025 5:46 PM EST [facility] SO2, Measured, Venous 42(L) 65 - 80 % LAB HEMATOLOGY METHOD 07/20/2025 5:46 PM EST [facility] Base Excess, Venous 3.5(H) -2.0 - 3.0 mmol/L LAB HEMATOLOGY METHOD 07/20/2025 5:46 PM EST [facility] Bicarbonate, Calculated, Venous 28(H) 22 - 26 mmol/L LAB HEMATOLOGY METHOD 07/20/2025 5:46 PM EST [facility] Hematocrit, Whole Blood 31.9(L) 40.0 - 51.0 % LAB HEMATOLOGY METHOD 07/20/2025 5:46 PM EST [facility] Sodium, Whole Blood 139 136 - 145 mmol/L LAB HEMATOLOGY METHOD 07/20/2025 5:46 PM EST [facility] Potassium, Whole Blood 3.1(L) 3.6 - 4.9 mmol/L LAB HEMATOLOGY METHOD 07/20/2025 5:46 PM EST [facility] Chloride, Whole Blood 103 97 - 107 mmol/L LAB HEMATOLOGY METHOD 07/20/2025 5:46 PM EST [facility] Glucose, Whole Blood 124(H) 74 - 99 mg/dL LAB HEMATOLOGY METHOD 07/20/2025 5:46 PM EST [facility] Lactate, Venous, Whole Blood 1.3 0.5 - 2.2 mmol/L LAB HEMATOLOGY METHOD 07/20/2025 5:46 PM EST [facility] Ionized Calcium, Whole Blood 4.4(L) 4.6 - 5.1 mg/dL LAB HEMATOLOGY METHOD 07/20/2025 5:46 PM EST [facility] Blood Venous blood specimen / Unknown Venipuncture / Unknown 07/20/2025 5:36 PM EST 07/20/2025 5:45 PM EST us Maicol Garcia MD LAB BLOOD ORDERABLES Final Res ult [facility] [address] [place] [address] * [place] CRITICAL CARE, E/M 30-74 MINUTES (07/20/2025 4:58 [...] Hold for add-ons 07/20/2025 8:02 PM EST [facility] Comment:Auto resulted. Blood Venous blood specimen / Unknown 07/20/2025 4:54 PM EST 07/20/2025 5:09 PM EST Maicol Garcia MD LAB BLOOD ORDERABLES Final Res ult Performing Organization Address [facility] Co de Phone Number [facility] [address] [place] [address] * (ABNORMAL) Procalcitonin (07/20/2025 4:18 PM EST) Pathologist [facility] Procalcitonin, Plasma 0.41(H) <0.09 ng/mL 07/20/2025 5:06 PM EST [facility] Blood Venous blood specimen / Unknown Venipuncture / Unknown 07/20/2025 4:18 PM EST 07/20/2025 4:29 PM EST Narrative [facility] - 07/20/2025 5:06 PM EST [...] predict 28 day mortality risk. Please consult [email or web address]-[email or web address] for more information. Test performed at [facility]. us Maicol Garcia MD LAB BLOOD ORDERABLES Final Res ult Performing Organization Address [facility]/ZIP Co de Phone Number [facility] [address] [place] [address] * (ABNORMAL) CBC W/O Differential (07/20/2025 4:18 PM EST) WBC Count 10.86(H) 3.70 - 10.30 10*3/uL LAB HEMATOLOGY METHOD 07/20/2025 4:38 PM EST [facility] RBC Count 3.43(L) 4.60 - 6.10 10*6/uL LAB HEMATOLOGY METHOD 07/20/2025 4:38 PM EST [facility] HGB 11.3(L) 13.7 - 17.5 g/dL LAB HEMATOLOGY METHOD 07/20/2025 4:38 PM EST [facility] HCT 32.7(L) 40.0 - 51.0 % LAB HEMATOLOGY METHOD 07/20/2025 4:38 PM EST [facility] Platelet Count 182 155 - 369 10*3/uL LAB HEMATOLOGY METHOD 07/20/2025 4:38 PM EST [facility] MCV 95 79 - 98 fL LAB HEMATOLOGY METHOD 07/20/2025 4:38 PM EST [facility] MCH 32.9(H) 26.0 - 32.0 pg LAB HEMATOLOGY METHOD 07/20/2025 4:38 PM EST [facility] MCHC 34.6 30.7 - 35.5 g/dL LAB HEMATOLOGY METHOD 07/20/2025 4:38 PM EST [facility] RDW 13.3 11.5 - 14.5 % LAB HEMATOLOGY METHOD 07/20/2025 4:38 PM EST [facility] MPV 9.6 8.8 - 12.5 fL LAB HEMATOLOGY METHOD 07/20/2025 4:38 PM EST [facility] nRBC 0.0 <=0.0 per 100 WBCs LAB HEMATOLOGY METHOD 07/20/2025 4:38 PM EST [facility] Blood Venous blood specimen / Unknown Venipuncture / Unknown 07/20/2025 4:18 PM EST 07/20/2025 4:29 PM EST us Maicol Garcia MD LAB BLOOD ORDERABLES Final Res ult [facility] [address] [place] [address] * (ABNORMAL) Basic metabolic panel (07/20/2025 4:18 PM EST) Glucose, Plasma 98 74 - 99 mg/dL 07/20/2025 5:06 PM EST [facility] BUN, Plasma 15 8 - 23 mg/dL 07/20/2025 5:06 PM EST [facility] Creatinine, Plasma 0.70 0.70 - 1.20 mg/dL 07/20/2025 5:06 PM EST [facility] BUN/Creatinine Ratio 21 07/20/2025 5:06 PM EST [facility] Sodium, Plasma 140 136 - 145 mmol/L 07/20/2025 5:06 PM EST [facility] Potassium, Plasma 3.4(L) 3.6 - 4.9 mmol/L 07/20/2025 5:06 PM EST [facility] Chloride, Plasma 102 97 - 107 mmol/L 07/20/2025 5:06 PM EST [facility] CO2, Plasma 26 22 - 29 mmol/L 07/20/2025 5:06 PM EST [facility] Anion Gap 12 6 - 16 mmol/L 07/20/2025 5:06 PM EST [facility] Total Calcium, Plasma 8.4(L) 8.9 - 10.2 mg/dL 07/20/2025 5:06 PM EST [facility] eGFRcr 95.5 mL/min/1.7 3m*2 07/20/2025 5:06 PM EST [facility] Comment:Reported eGFRcr in m L/min/1.73m2 is based the CKD-EPI 2020 equation that does not use a race coefficient. Blood Venous blood specimen / Unknown Venipuncture / Unknown 07/20/2025 4:18 PM EST 07/20/2025 4:29 PM EST us Maicol Garcia MD LAB BLOOD ORDERABLES Final Res ult [facility] [address] [place] [address] * Troponin T, High Sensitivity, 0 Hour Plasma, Reflex to 2 Hour (07/20/2025 4:18 PM EST) Troponin T, High Sensitivity, 0 Hour 18 <19 ng/L 07/20/2025 5:06 PM EST [facility] Blood Venous blood specimen / Unknown Venipuncture / Unknown 07/20/2025 4:18 PM EST 07/20/2025 4:29 PM EST Maicol Garcia MD LAB BLOOD ORDERABLES Final Res ult [facility] [address] [place] [address] * ECG Adult (07/20/2025 4:07 PM EST) EKG DIAGNOSIS CLASS Abnormal MUSE ECG Ventricular Rate 177 BPM MUSE ECG QRSD Interval 118 ms MUSE ECG QT Interval 258 ms MUSE ECG QTC Interval 442 ms MUSE ECG R [place] 95 degrees MUSE ECG T Wave [place] -68 degrees MUSE ECG Diagnosis Atrial fibrillation [...] 4:07 PM EST 07/21/2025 12:55 PM EST Maicol Garcia MD ECG ORDERABLES Final Result Performing Organization Address City/[facility] Co de Phone Number MUSE ECG [...] (ABNORMAL) Procalcitonin, Plasma (07/19/2025 6:07 AM EDT) Pathologist [facility] Procalcitonin, Plasma 0.79(H) <0.09 ng/mL 07/19/2025 6:54 AM EDT [facility] Blood Venous blood specimen / Unknown Venipuncture / Unknown 07/19/2025 6:07 AM EDT 07/19/2025 6:18 AM EDT Narrative [facility] - 07/19/2025 6:54 AM EDT [...] predict 28 day mortality risk. Please consult [email or web address] for more information. Test performed at [facility]. us Maicol Garcia MD LAB BLOOD ORDERABLES Final Res ult Performing Organization Address City/[facility]/ZIP Co de Phone Number [facility] [address] [place] [address] * Phosphorus, Plasma (07/19/2025 6:07 AM EDT) Phosphorus, Plasma 2.9 2.5 - 4.5 mg/dL 07/19/2025 6:54 AM EDT [facility] Blood Venous blood specimen / Unknown Venipuncture / Unknown 07/19/2025 6:07 AM EDT 07/19/2025 6:18 AM EDT us Maicol Garcia MD LAB BLOOD ORDERABLES Final Res ult Performing Organization Address [facility] Co de Phone Number [facility] [address] [place] [address] * (ABNORMAL) Magnesium, Plasma (07/19/2025 6:07 AM EDT) Magnesium, Plasma 1.7(L) 1.9 - 2.4 mg/dL 07/19/2025 6:54 AM EDT [facility] Blood Venous blood specimen / Unknown Venipuncture / Unknown 07/19/2025 6:07 AM EDT 07/19/2025 6:18 AM EDT us Maicol Garcia MD LAB BLOOD ORDERABLES Final Res ult [facility] [address] [place] [address] * (ABNORMAL) CBC (07/19/2025 6:07 AM EDT) WBC Count 12.64(H) 3.70 - 10.30 10*3/uL LAB HEMATOLOGY METHOD 07/19/2025 6:29 AM EDT [facility] RBC Count 3.57(L) 4.60 - 6.10 10*6/uL LAB HEMATOLOGY METHOD 07/19/2025 6:29 AM EDT [facility] HGB 11.6(L) 13.7 - 17.5 g/dL LAB HEMATOLOGY METHOD 07/19/2025 6:29 AM EDT [facility] HCT 33.8(L) 40.0 - 51.0 % LAB HEMATOLOGY METHOD 07/19/2025 6:29 AM EDT [facility] Platelet Count 177 155 - 369 10*3/uL LAB HEMATOLOGY METHOD 07/19/2025 6:29 AM EDT [facility] MCV 95 79 - 98 fL LAB HEMATOLOGY METHOD 07/19/2025 6:29 AM EDT [facility] MCH 32.5(H) 26.0 - 32.0 pg LAB HEMATOLOGY METHOD 07/19/2025 6:29 AM EDT [facility] MCHC 34.3 30.7 - 35.5 g/dL LAB HEMATOLOGY METHOD 07/19/2025 6:29 AM EDT [facility] RDW 13.4 11.5 - 14.5 % LAB HEMATOLOGY METHOD 07/19/2025 6:29 AM EDT [facility] MPV 9.9 8.8 - 12.5 fL LAB HEMATOLOGY METHOD 07/19/2025 6:29 AM EDT [facility] nRBC 0.0 <=0.0 per 100 WBCs LAB HEMATOLOGY METHOD 07/19/2025 6:29 AM EDT [facility] Blood Venous blood specimen / Unknown Venipuncture / Unknown 07/19/2025 6:07 AM EDT 07/19/2025 6:18 AM EDT us Maicol Garcia MD LAB BLOOD ORDERABLES Final Res ult [facility] [address] [place] [address] * XR Chest 1 View (07/18/2025 9:27 [...] - 4.5 mg/dL 07/17/2025 4:11 AM EDT [facility] Blood Venous blood specimen / Unknown Venipuncture / Unknown 07/17/2025 3:34 AM EDT 07/17/2025 3:41 AM EDT us Maicol Garcia MD LAB BLOOD ORDERABLES Final Res ult [facility] [address] [place] [address] * Magnesium, Plasma (07/17/2025 3:34 AM EDT) Magnesium, Plasma 2.2 1.9 - 2.4 mg/dL 07/17/2025 4:11 AM EDT [facility] Blood Venous blood specimen / Unknown Venipuncture / Unknown 07/17/2025 3:34 AM EDT 07/17/2025 3:41 AM EDT us Maicol Garcia MD LAB BLOOD ORDERABLES Final Res ult [facility] [address] [place] [address] * (ABNORMAL) Basic Metabolic Panel, Plasma (07/17/2025 3:34 AM EDT) Glucose, Plasma 144(H) 74 - 99 mg/dL 07/17/2025 4:11 AM EDT [facility] BUN, Plasma 20 8 - 23 mg/dL 07/17/2025 4:11 AM EDT [facility] Creatinine, Plasma 0.79 0.70 - 1.20 mg/dL 07/17/2025 4:11 AM EDT [facility] BUN/Creatinine Ratio 25 07/17/2025 4:11 AM EDT [facility] Sodium, Plasma 133(L) 136 - 145 mmol/L 07/17/2025 4:11 AM EDT [facility] Potassium, Plasma 4.7 3.6 - 4.9 mmol/L 07/17/2025 4:11 AM EDT [facility] Chloride, Plasma 100 97 - 107 mmol/L 07/17/2025 4:11 AM EDT [facility] CO2, Plasma 25 22 - 29 mmol/L 07/17/2025 4:11 AM EDT [facility] Anion Gap 8 6 - 16 mmol/L 07/17/2025 4:11 AM EDT [facility] Total Calcium, Plasma 8.7(L) 8.9 - 10.2 mg/dL 07/17/2025 4:11 AM EDT [facility] eGFRcr 92.1 mL/min/1.7 3m*2 07/17/2025 4:11 AM EDT [facility] Comment:Reported eGFRcr in m L/min/1.73m2 is based the CKD-EPI 2020 equation that does not use a race coefficient. Blood Venous blood specimen / Unknown Venipuncture / Unknown 07/17/2025 3:34 AM EDT 07/17/2025 3:41 AM EDT us Maicol Garcia MD LAB BLOOD ORDERABLES Final Res ult [facility] [address] [place] [address] * (ABNORMAL) CBC W/O Differential (07/17/2025 3:34 AM EDT) WBC Count 14.55(H) 3.70 - 10.30 10*3/uL LAB HEMATOLOGY METHOD 07/17/2025 3:51 AM EDT [facility] RBC Count 3.68(L) 4.60 - 6.10 10*6/uL LAB HEMATOLOGY METHOD 07/17/2025 3:51 AM EDT [facility] HGB 12.3(L) 13.7 - 17.5 g/dL LAB HEMATOLOGY METHOD 07/17/2025 3:51 AM EDT [facility] HCT 35.0(L) 40.0 - 51.0 % LAB HEMATOLOGY METHOD 07/17/2025 3:51 AM EDT [facility] Platelet Count 203 155 - 369 10*3/uL LAB HEMATOLOGY METHOD 07/17/2025 3:51 AM EDT [facility] MCV 95 79 - 98 fL LAB HEMATOLOGY METHOD 07/17/2025 3:51 AM EDT [facility] MCH 33.4(H) 26.0 - 32.0 pg LAB HEMATOLOGY METHOD 07/17/2025 3:51 AM EDT [facility] MCHC 35.1 30.7 - 35.5 g/dL LAB HEMATOLOGY METHOD 07/17/2025 3:51 AM EDT [facility] RDW 13.2 11.5 - 14.5 % LAB HEMATOLOGY METHOD 07/17/2025 3:51 AM EDT [facility] MPV 9.5 8.8 - 12.5 fL LAB HEMATOLOGY METHOD 07/17/2025 3:51 AM EDT [facility] nRBC 0.0 <=0.0 per 100 WBCs LAB HEMATOLOGY METHOD 07/17/2025 3:51 AM EDT [facility] Blood Venous blood specimen / Unknown Venipuncture / Unknown 07/17/2025 3:34 AM EDT 07/17/2025 3:41 AM EDT us Maicol Garcia MD LAB BLOOD ORDERABLES Final Res ult [facility] [address] [place] [address] * Surgical Pathology Exam (07/16/2025 3:28 PM EDT) Case Report Surgical Pathology Case: [id number] Authorizing Provider: Maicol Garcia MD Collected: 07/16/2025 1528 Ordering Location: [facility] A OPERATING ROOM Received: 07/16/2025 1627 Pathologist: Halima Cho MD Specimens: A) - Other (specify site), Sigmoid Colon Fresh For Permanent B) - Other (specify site), Omentum Fresh for Permenant 07/21/2025 1:32 PM EST [facility] Final Diagnosis A. 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 - MARGINS NEGATIVE FOR TUMOR INVOLVEMENT. - TWELVE LYMPH NODES NEGATIVE FOR MALIGNANCY (0/12). - PATHOLOGIC STAGE : pT2, pN0. - SEE SYNOPTIC CHECKLIST. B. OMENTUM, OMENTECTOMY: - BENIGN ADIPOSE TISSUE. 07/21/2025 1:32 PM EST [facility] at 1332 EST Synoptic Checklist [...] Additional Findings: None identified 07/21/2025 1:32 PM [facility] Clinical Information Cancer of sigmoid colon [C18.7] 07/21/2025 1:32 PM [facility] Gross Description A. SIGMOID COLON FRESH FOR [...] range from 0.2-0.6 cm in greatest dimension. Pbx Repairer sections are submitted as follows: A1: Closest [...] lymph nodes Cold Time: 59m ISAEL Adan ([facility]) B. OMENTUM FRESH FOR PERMENANT The specimen is received fresh and placed in formalin, labeled o mentum , and consists of a 9.2 x 6.1 x 1.1 cm aggregate of prakash-yellow lobulated fibroadipose tissue consistent with omentum. No masses are identified. Pbx Repairer sections are submitted in cassettes B1-B3. Cold Time: 40m ISAEL Adan ([facility]) 07/21/2025 1:32 PM EST [facility] Note: A resident was involved in the service. I attest I examined the relevant preparations for the specimens and confirmed the diagnosis or interpretation. 07/21/2025 1:32 PM EST [facility] Tissue Topography unknown / Unknown 07/16/2025 3:28 PM EDT 07/16/2025 4:27 PM EDT Comment:Pre-op diagnosis: Cancer of sigmoid colon [C18.7] Tissue specimen (specimen) Topography unknown / Unknown 07/16/2025 3:47 PM EDT 07/16/2025 4:27 PM EDT Comment:Pre-op diagnosis: Cancer of sigmoid colon [C18.7] Maicol Garcia MD LAB PATHOLOGY ORDERABLES Final Result [facility] [address] [place] [address] * POCT glucose meter (07/16/2025 1:41 PM EDT) POCT Glucose 92 74 - 99 mg/dL 07/16/2025 1:42 PM EDT [facility] Comment:Accuracy of a glucos e result [...] for testing. Comment 07/16/2025 1:42 PM EDT [facility] Glove [employer] And Former Automatic ID Anita Thomas 07/16/20 1:42 PM EDT [facility] Device ID [id number] 07/16/2025 1:42 PM EDT [facility] Specimen Type POC Venous 07/16/2025 1:42 PM EDT [facility] Blood Venous blood specimen / Unknown 07/16/2025 1:41 PM EDT 07/16/2025 1:42 PM EDT us Maicol Garcia MD LAB POINT OF CARE TE ST DOCKED DEVICE UNSOLICITED RESULTS Final Result Performing Organization Address City/[facility] Co de Phone Number [facility] [address] [place] [address] * Type and Screen (07/16/2025 12:56 PM [...] TEST ORDERABLES Final Result Performing Organization Address City/[facility] de Phone Number BLOOD BANK [address] [place] [address] documented in this encounter Visit Diagnoses Diagnosis Cancer of sigmoid colon- Primary Malignant neoplasm of sigmoid colon Cancer of sigmoid colon Malignant neoplasm of sigmoid colon Paroxysmal atrial fibrillation (CMS/HCC) Atrial fibrillation Cancer of sigmoid colon Malignant neoplasm of sigmoid colon documented in this encounter Admitting Diagnoses Diagnosis [...] Given 07/21/2025 5:08 AM EST 1,000 mg apixaban (Eliquis) tablet 5 mg 5 mg, Oral, 2 times daily, First dose on Mon07/22/25 at 0900, Until Discontinued, Routine Given 07/22/2025 8:19 AM EST 5 mg ipratropium-albuterol (Duo-Neb) 0.5-2.5 mg/3 mL nebulizer solution 3 mL 3 mL, Nebulization, Every 6 hours PRN, Starting on Mon07/21/25 at 0800, Until Mon07/22/25 at 1816, Routine, wheezing metoprolol succinate XL (Toprol-XL) 24 hr tablet 25 mg 25 mg, Oral, Daily, First dose on Mon07/22/25 at 0900, Until Discontinued, Routine Given 07/22/2025 8:13 AM EST 25 mg oxyCODONE (Roxicodone) immediate release tablet 5 mg 5 mg, Oral, Every 4 hours PRN, Starting on Amy 07/17/25 at 1333, Until Mon07/22/25 at 1816, Routine, Recovery(Phase II-Outpatient)/On Unit(Inpatient), severe pain Given 07/18/2025 12:56 AM EDT 5 mg Given 07/17/2025 8:30 PM EDT 5 mg Given 07/17/2025 2:46 PM EDT 5 mg sodium chloride ([place]) 0.65 % nasal spray 1 spray 1 spray, Each Nostril, As needed, Starting on 07/18/25 at 0000, Until Mon07/22/25 at 1816, Routine, [...] Reason: Patient/family refused)1807 (Given - Provider: Aki Hannah RN)2255 (Given - Provider: Ricky Guy, RN) 0508 (Given - Provider: Ricky Guy, RN)1145 (Not Given - Provider: Teddy Lawrence RN - Reason: Patient/family refused)1730 (Not Given - Provider: Teddy Lawrence RN - Reason: Patient/family refused) 0048 (Given - Provider: Ricky Guy, ROSSY)0618 (Given - Provider: John Dias RN)1259 (Not Given - Provider: Ying Adamson RN - Reason: Patient/family refused)1800 (Canceled Entry - Provider: Automatic Discharge Provider - Comment: Automatically canceled at discontinue of medication order) amiodarone (Nexterone) IVPB 150 mg (COMPLETED)(Linked Group 1) 150 mg, Intravenous, Once, 1 dose, On 07/20/25 at 1745, Routine 1657 (New Bag - Provider: Aki Hannah, ROSSY) apixaban (Eliquis) tablet 5 mg 5 mg, Oral, 2 times daily, First dose on Mon07/22/25 at 0900, Until Discontinued, Routine 0819 (Given - Provider: Ying Adamson RN) calcium gluconate 10 % injection 1 g (COMPLETED) 1 g, Intravenous, Once, 1 dose, On 07/20/25 at 1845, Routine 1807 (Given - Provider: Aki Hannah, ROSSY) enoxaparin (Lovenox) syringe 40 mg (CANCELED) 40 mg, Subcutaneous, Daily, First dose on Amy 07/17/25 at 1430, Until Discontinued, Routine 0811 (Given - Provider: Eleni Lomeli RN) enoxaparin (Lovenox) syringe 60 mg (CANCELED) 60 mg (rounded from 58.1 mg = 1 mg/kg 58.1 kg), Subcutaneous, Every 12 hours, First dose on 07/21/25 at 0845, Until Discontinued, Routine 08 (Given - Provider: Teddy Lawrence, RN)2024 (Given [...] at 1615, Administer over 1 Hours, Routine 161 (New Bag - Provider: Eleni Lomeli RN) lactated Ringer's bolus 500 mL (COMPLETED) 500 mL, Intravenous, Once, 1 dose, On Mon07/20/25 at 2100, Administer over 1 Hours, Routine 2031 (New Bag - Provider: Ricky Guy, ROSSY) magnesium sulfate IVPB 4 g (COMPLETED) 4 g, Intravenous, Once, 1 dose, On Mon07/20/25 at 1745, Routine 165 (New Bag - Provider: Aki Hannah, ROSSY) metoprolol succinate XL (Toprol-XL) 24 hr tablet 25 mg 25 mg, Oral, Daily, First dose on Mon07/22/25 at 0900, Until Discontinued, Routine 0813 (Given - Provider: Ying Adamson, ROSSY) mupirocin (Bactroban) 2 % ointment 1 Application () Each Nostril, 2 times daily, 10 doses, First dose on Mon07/16/25 at 2145, Last dose on Mon07/21/25 at 0900, Routine 0811 (Given - Provider: Eleni Lomeli, ROSSY)2155 (Given - Provider: Ricky Guy, ROSSY) 0821 (Given - Provider: Teddy Lawrence, ROSSY) potassium chloride CR (Klor-Con) ER tablet 20 [...] 1 hour, 6 doses, First dose on 07/20/25 at 1845, Last dose on 07/20/25 at 2345, Routine 1828 (New Bag - Provider: Aki Hannah RN)1949 (New Bag - Provider: Ricky Guy, ROSSY)2048 (New Bag - Provider: Ricky Guy, ROSSY)2155 (New Bag - Provider: Ricky Guy RN)2254 (New Bag - Provider: Ricky Guy, ROSSY) 0008 (New Bag - Provider: Ricky Guy, ROSSY) Continuous Medication Order 07/20/2025 07/21/2025 07/22/2025 amiodarone (Nexterone) infusion 1.8 mg/mL (CANCELED)(Linked Group 1) 1 mg/min (33.3333 mL/hr, rounded to 33.3 mL/hr), 1.8 mg/mL, Intravenous, Continuous, Starting on 07/20/25 at 1745, Until 07/20/25 at 2309, Routine 1710 (New Bag - Provider: Aki Hannah RN)1800 (Rate/Dose Verify - Provider: Aki Hannah RN)1900 (Rate/Dose Verify - Provider: Aki Hannah RN)2000 (Rate/Dose Verify - Provider: Ricky Guy RN)2100 (Rate/Dose Verify - Provider: Ricky Guy RN)2200 (Rate/Dose Verify - Provider: Ricky Guy RN)2322 (Stopped - Provider: Rikcy Guy RN) amiodarone (Nexterone) infusion 1.8 mg/mL (CANCELED)(Linked Group 1) 0.5 mg/min (16.6667 mL/hr, rounded to 16.67 mL/hr), 1.8 mg/mL, Intravenous, Continuous, Starting on 07/20/25 at 2325, Until Mon07/21/25 at 1152, Routine 2322 (New Bag - Provider: Ricky Guy RN) 0000 (Rate/Dose Verify - Provider: Ricky Guy RN)0100 (Rate/Dose Verify - Provider: Ricky Guy RN)0200 (Rate/Dose Verify - Provider: Ricky Guy RN)0300 (Rate/Dose Verify - Provider: Ricky Guy RN)0400 (Rate/Dose Verify - Provider: Ricky Guy RN)0500 (Rate/Dose Verify - Provider: Ricky Guy RN)0600 (Rate/Dose Verify - Provider: Ricky Guy RN)0700 (Rate/Dose Verify - Provider: Ricky [...] PRN, Starting on 07/21/25 at 0800, Until Tu07/22/25 at 1816, Routine, wheezing oxyCODONE (Roxicodone) immediate release tablet 5 mg 5 mg, Oral, Every 4 hours PRN, Starting on Amy 07/17/25 at 1333, Until Mon07/22/25 at 1816, Routine, Recovery(Phase II-Outpatient)/On Unit(Inpatient), severe pain sodium chloride ([place]) 0.65 % nasal spray 1 spray 1 spray, Each Nostril, As needed, Starting on 07/18/25 at 0000, Until Mon07/22/25 at 1816, Routine, [...] documented as of this encounter Care Teams Computed Tomography Technician Relationship Specialty Start Date End Date Bryan Watkins MD [address] [place] [address] PCP - General 05/19/25 documented as of this encounter
--- OUTSIDE RECORDS SUMMARY | 2025-07-16 13:17 | XMS_ITS | Encounter Summary ---
Author Organization [facility] Address [address] [place] [address] Care Team Providers Care Incident Response Specialist Name Role Phone Bryan Watkins MD Primary Care Provider [phone] Reason for Visit * Auth/Cert (Routine) Specialty Diagnoses / Procedures Referred By Sugar candelario Referred To Contact Diagnoses 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 [C18.7] Procedures OR PART REMOVAL COLON W ANASTOMOSIS COLECTOMY, SIGMOID Maicol Garcia MD [address] [facility] [address] [place] [address] Phone: tel: fax: [facility]PERATING ROOM [address] [place] [address] Phone: tel: Referral ID Status Reason Start Date Expiration Date Visits Re quested Visits Authorized [id number] 1 1 Encounter Details Date Type Department Care Team (Late st Contact Info) Description 07/16/2025 2:17 PM EDT Anesthesia Event [facility]PERATING ROOM [address] [place] [address] Mae Pozo CRNA [address] [place] [phone] Anesthesia Record Procedure Summary Procedure Name Responsible [...] Forearm; Site Prep: Chlorhexidine ; Local Anesth: [place]; Technique: Anatomical landmarks; Inserted by: Candice BLAIR; [...] No change to dentition. ; Placed by: JAVASCRIPT FRONT END DEVELOPER; Removal Date: 07/16/25; Removal Time: 1619 07/16/25 [...] any time in the past 12 m [facility], were you homeless or living in a m[facility]p (including now)? No 07/17/2025 [facility] Utilities Answer Date Recorded In the [...] Miscellaneous Notes * Anesthesia Postprocedure Evaluation - Mea Pozo CRNA - 07/16/2025 4:42 PM EDT [...] monitoring: continuous pulse ox, heart rate and senior product designer Block type: TAP Laterality: left and right [...] portions of the procedure(s) and immediately available [facility] services the entire duration. See resident note for details. * Anesthesia Procedure Notes - Mae Pozo CRNA - 07/16/2025 2:29 PM EDTAssociated Order(s): Airway Airway Date/Time: 07/16/2025 2:25 PM Reason: elective Airway not difficult General Information and Staff Patient location during procedure: OR JAVASCRIPT FRONT END DEVELOPER: Mae Pozo CRNA Performed: JAVASCRIPT FRONT END DEVELOPER Patient Condition Indications for airway management: anesthesia [...] peripheral edema, hyperlipidemia, murmur, peripheral edema, past DE or syncope. no hypertension: Does not have [...] 12 months PFTs No results found for: ZID2OZY , LZO8GQSO , OXB3KWF , FVCPRED BP Readings from Last 5 [...] Plan ASA 2 Plan was reviewed with: JAVASCRIPT FRONT END DEVELOPER Anesthesia technique(s) discussed with the patient/family: general [...] EDT Appointment [facility] [address] [place] [address] 02/03/2026 10:00 AM EDT Office Visit [facility] [address] [place] [address] Maicol Garcia MD [address] [place] [address] 02/03/2026 10:00 AM EDT Clinical Support [facility] Multidisciplinary Oncology Clinic [address] [place] [address] documented as of this encounter Goals Goal Patient Goal Type Associated Problems Recent Progress Patient-Stated? Author Autogenerat ed Goal Care Plan Autogenerated Problem No Maicol Garcia MD documented as of this encounter Procedures Procedure Name Priority Date/Time Associated Diagnosis Comments PB POINT OF CARE IMAGING PLACEHOLDER Routine 07/16/2025 2:25 PM EDT PB ANESTHESIA PLACEHOLDER Routine 07/16/2025 2:25 PM EDT OR AN ELECTIVE ENDOTRACHEAL AIRWAY Routine 07/16/2025 2:25 [...] monitoring: continuous pulse ox, heart rate and senior product designer Block type: TAP Laterality: left and right [...] MD ANESTHESIA ORDERABLES Fin al Result * OR AN ELECTIVE ENDOTRACHEAL AIRWAY, PB ANESTHESIA PLACEHOLDER (07/16/2025 2:25 PM EDT) Narrative Mae Pozo CRNA - 07/16/2025 2:25 PM EDT Mae Pozo CRNA 07/16/2025 2:30 PM Airway Date/Time: 07/16/2025 2:25 PM Reason: elective Airway not difficult General Information and Staff Patient location during procedure: OR JAVASCRIPT FRONT END DEVELOPER: Mae Pozo CRNA Performed: JAVASCRIPT FRONT END DEVELOPER Patient Condition Indications for airway management: anesthesia [...] documented as of this encounter Care Teams Incident Response Specialist Relationship Specialty Start Date End Date Bryan Watkins MD [address] [place] [address] PCP - General 05/19/25 documented as of this encounter
--- OUTSIDE RECORDS SUMMARY | 2025-08-05 09:15 | XMS_ITS | Encounter Summary ---
Author Organization [facility] Address [address] [place] [address] Care Team Providers Care Meteorologist Liaison Name Role Phone Bryan Watkins MD Primary Care Provider [phone] Reason for Referral * Imaging (Routine) - Pending Review Specialty Diagnoses / Procedures Referred By Sugar candelario Referred To Contact Radiology Diagnoses Cancer of sigmoid colon Procedures CT Abdomen Pelvis w IV Contrast Maicol Garcia MD [address] [address] Phone: tel: fax: Referral ID Status Reason Start Date Expiration Date V isits Requested Visits Authorized [id number] Pending Review 08/05/2025 02/04/2027 1 1 * Imaging (Routine) - Pending Review Specialty Diagnoses / Procedures Referred By Sugar candelario Referred To Contact Radiology Diagnoses Cancer of sigmoid colon Procedures CT Chest w IV Contrast Maicol Garcia MD [address] [address] Phone: tel: fax: Referral ID Status Reason Start Date Expiration Date V isits Requested Visits Authorized [id number] Pending Review 08/05/2025 02/04/2027 1 1 Reason for Visit * Reason Comments Follow-up Cancer of sigmoid co domenic Encounter Details Date Type Department Care Team (Latest Contact Info) Description 08/05/2025 9:15 AM EST Office Visit [facility] [address] [place] [address] Maicol Garcia MD [address] [place] [address] Cancer of sigmoid colon (Primary Dx) Social History Tobacco Use Types Packs/Day Years Used Date Smoking Tobacco: Former Cigarettes 1 50.9 S tarted: 1974 Smokeless Tobacco: Never Alcohol Use Standard [...] any time in the past 12 m [facility], were you homeless or living in a alf (including now)? No 07/17/2025 [facility] Utilities Answer Date Recorded In the past 12 months has [employer] gas, oil, or water [employer] threatened to shut off services in your home? No 07/17/2025 Sex and Gender Information Value Date Recorded Sex Assigned at Not on file Legal Sex Male 4:11 PM EDT Gender Identity Not on file Sexual Orientation Not on file documented as of this encounter Last Filed Vital Signs Vital Sign Reading Time Taken Comments Blood Pressure 117/63 08/05/2025 9:31 AM EST Pulse 67 08/05/2025 9:31 AM EST Temperature 36.6 C (97.8 F) 08/05/2025 9:31 AM EST Respiratory Rate - - Oxygen Saturation 96% 08/05/2025 9:31 AM EST Inhaled Oxygen Concentration - - Weight 58 kg (127 lb 13.9 oz) 08/05/2025 9:31 AM EST Height 172.7 cm (5' 8 ) 08/05/2025 9:31 AM EST Body Mass Index 19.44 08/05/2025 9:31 AM EST documented in this encounter Miscellaneous Notes * Progress Notes - Angi Tsai MD - 08/05/2025 9:15 AM EST [facility] Post-Operative Note [facility] - [facility] JACINTO Garcia MD FACS FASCRS Date of Service: 08/05/2025 Name: Damian Washington : 1950 PCP: Bryan Watkins MD Reason for Visit: Post-operative follow-up. History of Present Illness: Mr. Damian Washington is a 74 y.o. male that returns to [facility] on 08/05/25 for post-operative follow-up. Operation/Procedure: Sigmoid colectomy Operative Date: 07/16/25 Diagnosis: pT2pN0 colon adenocarcinoma Interval Events/Patient Summary: Since his operation, Mr. Washington has been feeling well. He is eating and drinking without difficulty.He is gaining weight and drinking protein shakes. He is having daily soft bowel movements, denies melena or hematochezia. His incision is healing well and his kimberly were removed today. We will plan to see him back in 6 months with repeat CEA and CT CAP and then annually thereafter for 4 years. We will have him follow up with Dr. Kraus for repeat colonoscopy in one year. Angi Tsai General Surgery, PGY5 #[id number] Cosigned by Maicol Garcia MD at 08/06/2025 6:17 PM EST Associated attestation - Maicol Garcia MD - 08/06/2025 6:17 PM EST I saw and evaluated the patient with the resident/fellow. I discussed the case with the resident/fellow and agree with the findings and plan as documented. Mr. Washington is a 74-year-old male status post sigmoid colectomy for sigmoid colon cancer. Stage I. Doing well. PLAN FOLLOWS: Return to clinic in [address] and CEA. documented in this encounter Plan of Treatment Upcoming Encounters Date Type Department Care Team (Latest Contact Info) Description 02/03/2026 8:00 AM EDT Appointment [facility] [address] [place] [address] 02/03/2026 10:00 AM EDT Office Visit [facility] Multidisciplinary Oncology Clinic [address] [place] [phone] Maicol Garcia MD [address] [facility] [address] [place] [address] 02/03/2026 10:00 AM EDT Clinical Support [facility] Multidisciplinary Oncology Clinic [address] [place] [address] Scheduled Orders Name Type Priority Associated Diagnoses Orde r Schedule CT Chest w IV Contrast Imaging Routine Cancer of sigmoid colon Expected: 02/03/2026 (Approximate), Expires: 02/06/2027 CT Abdomen Pelvis w IV Contrast Imaging Routine Cancer of sigmoid colon Expected: 02/03/2026 (Approximate), Expires: 02/06/2027 [facility] Routine Cancer of sigmoid colon Expected: 02/03/2026 (Approximate), Expires: 02/06/2027 documented as of this encounter Goals Goal Patient Goal Type Associated Problems Recent Progress Patient-Stated? Author Autogenerat ed Goal Care Plan Autogenerated Problem No Maicol Garcia MD documented as of this encounter Visit Diagnoses Diagnosis Cancer of sigmoid colon- Primary Malignant neoplasm of sigmoid colon documented in this encounter Additional Health Concerns Active Problems Noted Date Diagnosed Date Autogenerated Problem 07/01/2025 Assessment Noted Time A fall risk assessment has been complete d for the patient 08/05/2025 9:31 AM EST A Body Mass Index follow-up plan has been documented for the patient 08/06/2025 6:17 PM EST documented as of this encounter Care Teams Meteorologist Liaison Relationship Specialty Start Date End Date Bryan Watkins MD [address] [place] [address] [place] [id number] PCP - General 05/19/25 documented as of this encounter
--- OUTSIDE RECORDS SUMMARY | 2025-08-15 08:40 | XMS_ITS | Encounter Summary ---
Author Organization [facility] Address [address] [place] [address] Care Team Providers Care Nursing Information Systems Coordinator Name Role Phone Bryan Watkins MD Primary Care Provider [phone] Encounter Details Date Type Department Care Team [...] EDT Appointment [facility] [address] [place] [address] 02/03/2026 10:00 AM EDT Office Visit [facility] [address] [place] [address] Maicol Garcia MD [address] [facility] [address] [place] [address] 02/03/2026 10:00 AM EDT Clinical Support [facility] [address] [place] [address] documented as of this encounter Goals Goal [...] documented as of this encounter Care Teams Nursing Information Systems Coordinator Relationship Specialty Start Date End Date Bryan Watkins MD [address] [place] [address] PCP - General 05/19/25 documented as of this encounter
--- OUTSIDE RECORDS SUMMARY | 2025-08-15 08:41 | XMS_ITS | Encounter Summary ---
Author Organization [facility] Address [address] [place] [address] Care Team Providers Care Curriculum Assistant Name Role Phone Bryan Watkins MD Primary Care Provider [phone] Encounter Details Date Type Department Care Team [...] any time in the past 12 m [facility], were you homeless or living in a halfway (including now)? No 07/17/2025 [facility] Utilities Answer Date Recorded In the [...] AM EDT Appointment [facility] [address] [place] [address] 02/03/2026 10:00 AM EDT Office Visit [facility] Multidisciplinary Oncology Clinic [address] [place] [address] Maicol Garcia MD [address] [facility] [address] [place] [address] 02/03/2026 10:00 AM EDT Clinical Support [facility] [address] [place] [address] documented as of this encounter Goals Goal [...] documented as of this encounter Care Teams Curriculum Assistant Relationship Specialty Start Date End Date Bryan Watkins MD [address] [place] [address] [place] [address] PCP - General 05/19/25 documented as of this encounter
--- OUTSIDE RECORDS SUMMARY | 2025-08-15 08:41 | XMS_ITS | Encounter Summary ---
Author Organization [facility] Address [address] [place] [address] Care Team Providers Care Stencil Cutter Name Role Phone Bryan Watkins MD Primary [...] any time in the past 12 m [facility], were you homeless or living in a usp (including now)? No 07/17/2025 [facility] Utilities Answer Date Recorded In the past [...] EDT Appointment [facility] [address] [place] [address] 02/03/2026 10:00 AM EDT Office Visit [facility] [address] [place] [address] Maicol Garcia MD [address] [facility] [address] [place] [address] 02/03/2026 10:00 AM EDT Clinical Support [facility] [address] [place] [address] documented as of this encounter Goals Goal [...] documented as of this encounter Care Teams Stencil Cutter Relationship Specialty Start Date End Date Bryan Watkins MD [address] [place] [address] PCP - General 05/19/25 documented as of this encounter
--- OUTSIDE RECORDS SUMMARY | 2025-08-15 08:41 | XMS_ITS | Encounter Summary ---
Author Organization [facility] Address [address] [place] [address] Care Team Providers Care Metal Reed Tuner Name Role Phone Bryan Watkins MD Primary Care Provider [phone] Encounter Details Date Type Department Care Team [...] any time in the past 12 m [facility], were you homeless or living in a chcf (including now)? No 07/17/2025 [facility] Utilities Answer Date Recorded In [...] EDT Appointment [facility] [address] [place] [address] 02/03/2026 10:00 AM EDT Office Visit [facility] [address] [place] [address] Maicol Garcia MD [address] [facility] [address] [place] [address] 02/03/2026 10:00 AM EDT Clinical Support [facility] Multidisciplinary Oncology Clinic [address] [place] [address] documented as of this encounter Goals Goal [...] documented as of this encounter Care Teams Metal Reed Tuner Relationship Specialty Start Date End Date Bryan Watkins MD [address] [place] [address] PCP - General 05/19/25 documented as of this encounter
--- OUTSIDE RECORDS SUMMARY | 2025-08-15 08:41 | XMS_ITS | Encounter Summary ---
Author Organization [facility] Address [address] [place] [address] Care Team Providers Care Boilermaker'S Assistant Name Role Phone Bryan Watkins MD Primary Care Provider [phone] Encounter Details Date Type Department Care Team [...] any time in the past 12 m [facility], were you homeless or living in a [place] [facility] [place] [facility] (including now)? No 07/17/2025 [facility] Utilities Answer Date Recorded In the [...] EDT Appointment [facility] [address] [place] [address] 02/03/2026 10:00 AM EDT Office Visit [facility] [address] [place] [address] Maicol Garcia MD [address] [facility] [address] [place] [address] 02/03/2026 10:00 AM EDT Clinical Support [facility] Multidisciplinary Oncology Clinic [address] [place] [address] documented as of this encounter Goals Goal [...] documented as of this encounter Care Teams Boilermaker'S Assistant Relationship Specialty Start Date End Date Bryan Watkins MD [address] [place] [address] PCP - General 05/19/25 documented as of this encounter
--- OUTSIDE RECORDS SUMMARY | 2025-08-15 08:41 | XMS_ITS | Encounter Summary ---
Author Organization [facility] Address [address] [place] [address] Care Team Providers Care Salvage Engineering Technician Name Role Phone Bryan Watkins MD Primary Care Provider Encounter Details Date Type Department Care Team ([facility] st Contact Info) Description 07/02/2025 Telephone [facility] [address] [place] [address] Ashley Bustillo [id number] Social History Tobacco Use Types [...] [place] : 1950 Date: 07/02/25 Referred to [facility] by: Kendell Kraus Affiliate Site: [facility] Services Provided: Pre/Post Appointment Phone Call Educated On: [facility] Nurse Liaison/Psych Oncology Services Patient was referred to [facility] by Dr. Kendell Kraus. [facility] Nurse Liaison contacted the patient for a pre and post appointment phone call. Explained liaison services as well as other resources at [facility] including Psych Oncology services. Patient states understanding of information. Answered all questions. Patient was given liaison contact information and encouraged to call with any questions, needs orconcerns. ROSSY Sherwood Nurse Liaison documented in this encounter Plan of Treatment Upcoming Encounters Date Type Department Care Team (Latest Contact Info) Description 02/03/2026 8:00 AM EDT Appointment [facility] [address] [place] [address] 02/03/2026 10:00 AM EDT Office Visit [facility] [address] [place] [address] Maicol Garcia MD [address] [place] [address] 02/03/2026 10:00 AM EDT Clinical Support [facility] [address] [place] [address] documented as of this encounter Goals Goal [...] documented as of this encounter Care Teams Salvage Engineering Technician Relationship Specialty Start Date End Date Bryan Watkins MD [address] [place] [address] PCP - General 05/19/25 documented as of this encounter
--- OUTSIDE RECORDS SUMMARY | 2025-08-15 08:41 | XMS_ITS | Encounter Summary ---
Author Organization [facility] Address [address] [place] [address] Care Team Providers Care Reinforcing Iron And Rebar Workers Name Role Phone Bryan Watkins MD Primary Care Provider [phone] Encounter Details Date Type Department Care Team (Latest Contact Info) Description 07/23/2025 Orders Only [facility] [address] [place] [phone] Maicol Garcia MD [address] [facility] [address] [place] [address] Wheezing (Primary Dx) Social History [...] were you homeless or living in a fdc (including now)? No 07/17/2025 [facility] Utilities Answer Date Recorded In the past 12 months has th e [employer], gas, oil, or water company threatened to [...] Info) Description 02/03/2026 8:00 AM EDT Appointment [facility] Radiology [address] [place] [address] 02/03/2026 10:00 AM EDT Office Visit [facility] Multidisciplinary Oncology Clinic [address] [place] [address] Maicol Garcia MD [address] [facility] [address] [place] [address] 02/03/2026 10:00 AM EDT Clinical Support [facility] Multidisciplinary Oncology Clinic [address] [place] [address] documented as of this encounter Goals Goal [...] documented as of this encounter Care Teams Reinforcing Iron And Rebar Workers Relationship Specialty Start Date End Date Bryan Watkins MD [address] [place] [address] PCP - General 05/19/25 documented as of this encounter
--- OUTSIDE RECORDS SUMMARY | 2025-08-15 08:41 | XMS_ITS | Encounter Summary ---
Author Organization [facility] Address [address] [place] [address] Care Team Providers Care Production Intern Name Role Phone Bryan Watkins MD Primary Care Provider [phone] Encounter Details Date Type Department Care Team (Late st Contact Info) Description 07/16/2025 Orders Only External Location [address] [place] [address] Provider, External Social History Tobacco Use Types [...] time in the past 12 m [facility], were you homeless or living in a assisted (including now)? No 07/17/2025 [facility] Utilities Answer Date Recorded In the [...] EDT Appointment [facility] [address] [place] [address] 02/03/2026 10:00 AM EDT Office Visit [facility] [address] [place] [address] Maicol Garcia MD [address] [facility] [address] [place] [address] 02/03/2026 10:00 AM EDT Clinical Support [facility] Oncology Clinic [address] [place] [address] documented as of this encounter Goals Goal [...] documented as of this encounter Care Teams Production Intern Relationship Specialty Start Date End Date Bryan Watkins MD [address] [place] [address] PCP - General 05/19/25 documented as of this encounter
--- OUTSIDE RECORDS SUMMARY | 2025-08-15 08:41 | XMS_ITS | Encounter Summary ---
Author Organization [facility] Address [address] [place] [address] Care Team Providers Care Supervisor Microwave Name Role Phone Bryan Watkins MD Primary Care Provider [phone] Encounter Details Date Type Department Care Team [...] any time in the past 12 m [facility], were you [facility] or living in a [facility] (including now)? No 07/17/2025 [facility] Utilities Answer Date Recorded In the [...] AM EDT Appointment [facility] [address] [place] [phone] 02/03/2026 10:00 AM EDT Office Visit [facility] [address] [place] [address] Maicol Garcia MD [address] [facility] [address] [place] [phone] 02/03/2026 10:00 AM EDT Clinical Support [facility] Mult[facility]isciplinary Oncology Clinic [address] [place] [address] documented as of this encounter Goals Goal [...] documented as of this encounter Care Teams Supervisor Microwave Relationship Specialty Start Date End Date Bryan Watkins MD [address] [place] [address] PCP - General 05/19/25 documented as of this encounter
--- OUTSIDE RECORDS SUMMARY | 2025-08-15 08:41 | XMS_ITS | Encounter Summary ---
Author Organization [facility] Address [address] [place] [address] Care Team Providers Care Nutrition Aides Teacher Name Role Phone Bryan Watkins MD Primary Care Provider [phone] Encounter Details Date Type Department Care Team [...] EDT Appointment [facility] [address] [place] [address] 02/03/2026 10:00 AM EDT Office Visit [facility] [address] [place] [address] Maicol Garcia MD [address] [facility] [address] [place] [address] 02/03/2026 10:00 AM EDT Clinical Support [facility] [address] [place] [address] documented as of this encounter Goals Goal [...] documented as of this encounter Care Teams Nutrition Aides Teacher Relationship Specialty Start Date End Date Bryan Watkins MD [address] [place] [address] PCP - General 05/19/25 documented as of this encounter
--- OUTSIDE RECORDS SUMMARY | 2025-08-15 08:41 | XMS_ITS | Encounter Summary ---
Author Organization [facility] Address [address] [place] [address] Care Team Providers Care Electrician Station Assistant Name Role Phone Bryan Watkins MD Primary Care Provider [phone] Reason for Visit * Reason Onset Date Comments TEST CLAIM 07/17/2025 Encounter Details Date Type Department Care Team (Late st Contact Info) Description 07/17/2025 Telephone [facility] [address] [place] [phone] Cassidy Cárdenas, career and guidance counselor None None TEST CLAIM Social History Tobacco [...] any time in the past 12 m [facility], were you homeless or living in a jail (including now)? No 07/17/2025 [facility] Utilities Answer Date Recorded In the [...] AM EDT Appointment [facility] [address] [place] [address] 02/03/2026 10:00 AM EDT Office Visit [facility] [address] [place] [address] Maicol Garcia MD [address] [place] [phone] 02/03/2026 10:00 AM EDT Clinical Support [facility] Mult[facility] Oncology Clinic [address] [place] [phone] documented as of this encounter Goals Goal [...] documented as of this encounter Care Teams Electrician Station Assistant Relationship Specialty Start Date End Date Bryan Watkins MD [address] [place] [address] PCP - General 05/19/25 documented as of this encounter
--- OUTSIDE RECORDS SUMMARY | 2025-08-15 08:41 | XMS_ITS | Encounter Summary ---
Author Organization [facility] Address [address] [place] [address] Care Team Providers Care Contracts Law Professor Name Role Phone Bryan Waktins MD Primary Care Provider [phone] Encounter Details Date Type Department Care Team (Late st Contact Info) Description 06/26/2025 Lab Requisition [facility] [address] [place] [address] Maicol Garcia MD [address] [address] Neoplasm of uncertain behavior of [...] EDT Appointment [facility] [address] [place] [phone] 02/03/2026 10:00 AM EDT Office Visit [facility] [address] [place] [phone] Maicol Garcia MD [facility] [address] [address] 02/03/2026 10:00 AM EDT Clinical Support [facility] [address] [place] [address] documented as of this encounter Procedures Procedure Name Priority Date/Time Associated Diagnosis Comments SURGICAL PATHOLOGY CONSULT Routine 06/26/2025 11:20 AM EDT Neoplasm of uncertain behavior of colon documented in this encounter Results * Surgical Pathology Consult (06/26/2025 11:20 AM EDT) Case Report Sugical Pathology Consult Case: [id number] Authorizing Provider: Maicol Garcia MD Collected: 06/26/20251119 Ordering Location: [facility] Lab Received: 06/26/2025 112 Pathologist: Tai Soliman DO Specimen: Colon, [id number] 06/26/2025 5:[address] [facility] Final Diagnosis OUTSIDE SLIDES; [id number], A-C; 06/16/2025 A. LARGE INTESTINE, ASCENDING COLON, BIOPSY: - TUBULAR ADENOMA. B. LARGE INTESTINE, TRANSVERSE COLON, BIOPSY: - TUBULAR ADENOMA. C. 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 - MMR BY IHC (PER REPORT): - RETAINED NUCLEAR STAINING OF ALL FOUR PROTEINS (MLH1, PMS2, MSH2 AND MSH6). 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 [id number] Received along with a corresponding pathology report from [facility] are 8 slide(s) labeled outside case: [id number] collected on 06/16/2025. 06/26/2025 5:03 PM EDT [facility] Intradepartmental Consultation with Agreement Dr. Bonner 06/26/2025 5:03 PM EDT [facility] Note: A resident was involved in the service. I attest I examined the relevant preparations for the specimens and confirmed the diagnosis or interpretation. 06/26/2025 5:03 PM EDT [facility] Tissue Colon structure / Unknown 06/26/2025 11:20 AM EDT 06/26/2025 11:20 AM EDT us Maicol Garcia MD LAB PATHOLOGY ORDERABLES Final Result [facility] [address] [place] [address] documented in this encounter Visit Diagnoses Diagnosis Neoplasm of uncertain behavior of colon documented in this encounter Care Teams Contracts Law Professor Relationship Specialty Start Date End Date Bryan Watkins MD [address] [place] [address] PCP - General 05/19/25 documented as of this encounter
--- OUTSIDE RECORDS SUMMARY | 2025-08-15 08:42 | XMS_ITS | Encounter Summary ---
Author Organization [facility] Address [address] [place] [address] Care Team Providers Care Print Washer Name Role Phone Bryan Watkins MD Primary Care Provider [phone] Encounter Details Date Type Department Care Team (Late st Contact Info) Description 06/19/2025 Orders Only External Location [address] [place] [address] Provider, External Social History Tobacco Use Types [...] EDT Appointment [facility] [address] [place] [address] 02/03/2026 10:00 AM EDT Office Visit [facility] [address] [place] [address] Maicol Garcia MD [address] [facility] [address] [place] [address] 02/03/2026 10:00 AM EDT Clinical Support [facility] [address] [place] [address] documented as of this encounter Procedures Procedure [...] on filedocumented in this encounter Care Teams Print Washer Relationship Specialty Start Date End Date Bryan Watkins MD [address] [place] [address] PCP - General 05/19/25 documented as of this encounter
--- OUTSIDE RECORDS SUMMARY | 2025-08-15 08:42 | XMS_ITS | Clinical Summary ---
Author Organization [facility] Address [address] [place] [address] Care Team Providers Care Public Opinion Survey Taker Name Role Phone Bryan Watkins MD Primary Care Provider [phone] Allergies Active Allergy Reactions Criticality Noted Date [...] Office Visit [facility] [address] [place] [phone] Maicol Garcia MD Cancer of sigmoid colon (Primary Dx) 08/05/2025 Travel 07/23/2025 Orders Only [facility] [address] [place] [address] Maicol Garcia MD Wheezing (Primary Dx) 07/21/2025 Travel 07/20/2025 Travel 07/18/2025 Travel 07/17/2025 Telephone [facility] [address] [place] [address] Cassidy Cárdenas, product support engineer TEST CLAIM 07/16/2025 2:17 PM EDT Anesthesia Event [facility] A OPERATING ROOM [address] [place] [phone] Mae Pozo CRNA Ellis, Teresa W, MILL TENDER SECOND OPERATOR 07/16/2025 1:20 PM EDT - 07/16/2025 5:20 PM EDT Surgery [facility] [address] [place] [address] Maicol Garcia MD COLECTOMY, SIGMOID [48014 (CPT )] 07/16/2025 12:37 PM EDT - 07/22/2025 4:16 PM EST Hospital Encounter [facility] A Inpatient [address] [place] [address] Maicol Garcia MD Paroxysmal atrial fibrillation (CMS/HCC) (Primary Dx); Cancer of sigmoid colon Discharge Disposition: Home or Self Care 07/16/2025 Orders Only External Location [address] [place] [address] Provider, External 07/16/2025 Travel 07/04/2025 12:30 PM EDT Pre-Admission Testing [facility] [address], [address] [place] [phone] Preop examination (Primary Dx) 07/04/2025 Travel 07/02/2025 Telephone [facility] [address] [place] [phone] Ashley Bustillo 07/01/2025 9:15 AM EDT Office Visit [facility] [address] [place] [address] Maicol Garcia MD Cancer of sigmoid colon (Primary Dx) 07/01/2025 Travel 06/26/2025 Lab Requisition [facility] Lab [address] [place] [address] Maicol Garcia MD Neoplasm of uncertain behavior of colon 06/19/2025 Orders Only External Location [address] [place] [address] Provider, External from Last 3 Months [...] any time in the past 12 m [facility], were you homeless or living in a correction (including now)? No 07/17/2025 [facility] Answer Date Recorded In the past [...] Appointment [facility] Radiology [address] [place] [address] 02/03/2026 10:00 AM EDT Office Visit [facility] [address] [place] [phone] Maicol Garcia MD [address] [facility] [address] [place] [address] 02/03/2026 10:00 AM EDT Clinical Support [facility] [address] [place] [address] Health Maintenance Due Date Last Done Comments [facility]-Depression Screening 1950 [facility]-Hepatitis C Screening 1950 [facility]-Medicare Annual Wellness (AWV) 1950 [facility]-/Child/Adol SDOH Screenings 1950 [facility]-Zoster Vaccines (2 of 2) 08/15/2025 06/20/2025 [id number] Vaccine (9 - Moderna risk 2024- season) [...] TRANSTHORACIC COMPLETE STAT 07/21/2025 8:35 AM EST NV CRITICAL CARE, E/M 30-74 MINUTES Routine 07/21/2025 [...] PANEL, VENOUS Routine 07/20/2025 5:36 PM EST NV CRITICAL CARE, E/M 30-74 MINUTES Routine 07/20/2025 [...] ANESTHESIA PLACEHOLDER Routine 07/16/2025 2:25 PM EDT NV AN ELECTIVE ENDOTRACHEAL AIRWAY Routine 07/16/2025 2:25 PM EDT NV PART REMOVAL COLON W ANASTOMOSIS 07/16/2025 2:02 [...] <0.2 <=0.3 mg/dL 07/22/2025 4:49 PM EST [facility] Alkaline Phosphatase, Plasma 86 40 - 115 U/L 07/22/2025 4:49 PM EST [facility] Total Bilirubin, Plasma 0.2 0.2 - 1.1 mg/dL 07/22/2025 4:49 PM EST [facility] Albumin, Plasma 3.2(L) 3.5 - 5.2 g/dL 07/22/2025 4:49 PM EST [facility] Total Protein 6.1(L) 6.3 - 7.9 g/dL 07/22/2025 4:49 PM EST [facility] ALT, Plasma 21 10 - 50 U/L 07/22/2025 4:49 PM EST [facility] AST, Plasma 28 10 - 50 U/L 07/22/2025 4:49 PM EST [facility] Comment:Hemolyzed, result ma y be falsely increased. Blood Venous blood specimen / Unknown Venipuncture / Unknown 07/22/2025 3:51 PM EST 07/22/2025 4:18 PM EST us Maicol Garcia MD LAB BLOOD ORDERABLES Final Res ult [facility] [address] [place] [address] * ECHO, ADULT TRANSTHORACIC COMPLETE (07/21/2025 8:35 [...] is no recent study available for direct ehox-it-fqxe comparison. Left Ventricle The left ventricle is [...] is no recent study available for direct nwxp-rs-opyt comparison. Wall Scoring Baseline Score Index: 1.82 The following segments are aneurysmal: basal inferior. The following segments are akinetic: mid inferolateral. The following segments are hypokinetic: basal anterior, basal inferolateral, basal anterolateral, mid anterior, mid anterolateral, apical anterior, apical lateral and apex. All other segments are normal. us Hang Fatima MD CV ECHO PROCEDURES Final Resul t * NV CRITICAL CARE, E/M 30-74 MINUTES (07/21/2025 8:31 [...] 110(H) <19 ng/L 07/21/2025 8:10 AM EST [facility] Troponin Delta 5 <10 ng/L 07/21/2025 8:10 AM EST [facility] Troponin Delta Interpretation Not Significant 07/21/2025 8:10 AM EST [facility] Comment:Not Significant. No acute change in troponin observed between the baseline and 2 hour samples. Blood Venous blood specimen / Unknown Venipuncture / Unknown 07/21/2025 7:31 AM EST 07/21/2025 7:42 AM EST Joan Miller APRN LAB BLOOD ORDERABLES Final R esult Performing Organization Address [facility] Co de Phone Number [facility] [address] [place] [address] * (ABNORMAL) Troponin T, High Sensitivity, 0 Hour Plasma, Reflex to 2 Hour (07/21/2025 5:11 AM EST) Only the most recent of3 resultswithin the time period is included. Troponin T, High Sensitivity, 0 Hour 115(H) <19 ng/L 07/21/2025 6:32 AM EST [facility] Blood Venous blood specimen / Unknown Venipuncture / Unknown 07/21/2025 5:11 AM EST 07/21/2025 6:05 AM EST Joan Miller APRN LAB BLOOD ORDERABLES Final R formerly [facility] Performing Organization Address [facility] Co de Phone Number [facility] [address] [place] [address] * (ABNORMAL) CBC W/O Differential (07/21/2025 12:15 AM EST) Only the most recent of5 resultswithin the time period is included. WBC Count 7.76 3.70 - 10.30 10*3/uL LAB HEMATOLOGY METHOD 07/21/2025 12:28 AM EST [facility] RBC Count 2.88(L) 4.60 - 6.10 10*6/uL LAB HEMATOLOGY METHOD 07/21/2025 12:28 AM EST [facility] HGB 9.2(L) 13.7 - 17.5 g/dL LAB HEMATOLOGY METHOD 07/21/2025 12:28 AM EST [facility] HCT 27.4(L) 40.0 - 51.0 % LAB HEMATOLOGY METHOD 07/21/2025 12:28 AM EST [facility] Platelet Count 167 155 - 369 10*3/uL LAB HEMATOLOGY METHOD 07/21/2025 12:28 AM EST [facility] MCV 95 79 - 98 fL LAB HEMATOLOGY METHOD 07/21/2025 12:28 AM EST [facility] MCH 31.9 26.0 - 32.0 pg LAB HEMATOLOGY METHOD 07/21/2025 12:28 AM EST [facility] MCHC 33.6 30.7 - 35.5 g/dL LAB HEMATOLOGY METHOD 07/21/2025 12:28 AM EST [facility] RDW 13.5 11.5 - 14.5 % LAB HEMATOLOGY METHOD 07/21/2025 12:28 AM EST [facility] MPV 9.4 8.8 - 12.5 fL LAB HEMATOLOGY METHOD 07/21/2025 12:28 AM EST [facility] nRBC 0.0 <=0.0 per 100 WBCs LAB HEMATOLOGY METHOD 07/21/2025 12:28 AM EST [facility] Blood Venous blood specimen / Unknown Venipuncture / Unknown 07/21/2025 12:15 AM EST 07/21/2025 12:20 AM EST us Maicol Garcia MD LAB BLOOD ORDERABLES Final Res ult [facility] [address] [place] [address] * Phosphorus (07/21/2025 12:15 AM EST) Only the most recent of3 resultswithin the time period is included. Phosphorus, Plasma 3.1 2.5 - 4.5 mg/dL 07/21/2025 12:51 AM EST [facility] Blood Venous blood specimen / Unknown Venipuncture / Unknown 07/21/2025 12:15 AM EST 07/21/2025 12:20 AM EST us Maicol Garcia MD LAB BLOOD ORDERABLES Final Res ult Performing Organization Address City/[facility]/ZIP Co de Phone Number [facility] [address] [place] [address] * (ABNORMAL) Magnesium (07/21/2025 12:15 AM EST) Only the most recent of3 resultswithin the time period is included. Magnesium, Plasma 2.5(H) 1.9 - 2.4 mg/dL 07/21/2025 12:51 AM EST [facility] Blood Venous blood specimen / Unknown Venipuncture / Unknown 07/21/2025 12:15 AM EST 07/21/2025 12:20 AM EST Maicol Garcia MD LAB BLOOD ORDERABLES Final Res ult Performing Organization Address [facility] Co de Phone Number [facility] [address] [place] [address] * (ABNORMAL) Basic metabolic panel (07/21/2025 12:15 AM EST) Only the most recent of3 resultswithin the time period is included. Glucose, Plasma 95 74 - 99 mg/dL 07/21/2025 12:51 AM EST [facility] BUN, Plasma 14 8 - 23 mg/dL 07/21/2025 12:51 AM EST [facility] Creatinine, Plasma 0.70 0.70 - 1.20 mg/dL 07/21/2025 12:51 AM EST [facility] BUN/Creatinine Ratio 20 07/21/2025 12:51 AM EST [facility] Sodium, Plasma 138 136 - 145 mmol/L 07/21/2025 12:51 AM EST [facility] Potassium, Plasma 4.5 3.6 - 4.9 mmol/L 07/21/2025 12:51 AM EST [facility] Chloride, Plasma 106 97 - 107 mmol/L 07/21/2025 12:51 AM EST [facility] CO2, Plasma 24 22 - 29 mmol/L 07/21/2025 12:51 AM EST [facility] Anion Gap 8 6 - 16 mmol/L 07/21/2025 12:51 AM EST [facility] Total Calcium, Plasma 7.9(L) 8.9 - 10.2 mg/dL 07/21/2025 12:51 AM EST [facility] eGFRcr 95.5 mL/min/1.7 3m*2 07/21/2025 12:51 AM EST [facility] Comment:Reported eGFRcr in m L/min/1.73m2 is based the CKD-EPI 2020 equation that does not use a race coefficient. Blood Venous blood specimen / Unknown Venipuncture / Unknown 07/21/2025 12:15 AM EST 07/21/2025 12:20 AM EST Maicol Garcai MD LAB BLOOD ORDERABLES Final Res ult [facility] [address] [place] [address] * ECG Adult (07/21/2025 12:10 AM EST) Only the most recent of3 resultswithin the time period is included. EKG DIAGNOSIS CLASS Abnormal MUSE ECG Ventricular Rate 70 BPM MUSE ECG Atrial Rate 70 BPM MUSE ECG NV Interval 114 ms MUSE ECG QRSD Interval 128 ms MUSE ECG QT Interval 452 ms MUSE ECG QTC Interval 488 ms MUSE ECG P [place]ipley 73 degrees MUSE ECG R [place] 84 degrees MUSE ECG T Wave [place] 26 degrees MUSE ECG Diagnosis Normal sinus [...] Detected Not Detected 07/21/2025 1:06 PM EST [facility] Swab (Axilla and Groin) Non-blood Collection / Unknown 07/20/2025 5:38 PM EST 07/20/2025 5:44 PM EST Narrative [facility] - 07/21/2025 1:06 PM EST This PCR assay was developed and its performance characteristics determined by [facility] as appropriate for clinical purposes. This assay has not been cleared or approved by the FDA, but is performed in a CLIA regulated laboratory that is qualified to perform high-complexity testing. Maicol Garcia MD LAB MICROBIOLOGY - GENERAL ORD ERABLES Final Result Performing Organization Address [facility] Co de Phone Number [facility] [address] [place] [address] * Multi Drug Resistance Test (07/20/2025 5:38 PM EST) Culture No growth at day 1 07/22/2025 5:[address] [facility] Swab (Nares and Lizzie Rectal) Non-blood Collection / Unknown 07/20/2025 5:38 PM EST 07/20/2025 5:44 PM EST Narrative [facility] - 07/22/2025 5:08 AM EST This test was developed and its performance characteristics determined by the [facility]. Although the media is FDA-approved, it is not FDA-approved for all specimen types submitted. The FDA has determined that such clearance or approval is not necessary. This test is used for surveillance purposes. It should not be regarded as investigational or for research. The [facility] is certified under the Clinical Laboratory Improvement Amendments of 1988 (CLIA-88) as qualified to perform high complexity clinical laboratory testing. Maicol Garcia MD LAB MICROBIOLOGY - GENERAL ORD ERABLES Final Result Performing Organization Address City/[facility] Co de Phone Number [facility] [address] [place] [address] * (ABNORMAL) Blood gas panel, venous (07/20/2025 5:36 PM EST) pH, Venous 7.44(H) 7.32 - 7.43 LAB HEMATOLOGY METHOD 07/20/2025 5:46 PM EST [facility] pCO2, Venous 42 40 - 55 mmHg LAB HEMATOLOGY METHOD 07/20/2025 5:46 PM EST [facility] pO2, Venous 25 25 - 40 mmHg LAB HEMATOLOGY METHOD 07/20/2025 5:46 PM EST [facility] SO2, Measured, Venous 42(L) 65 - 80 % LAB HEMATOLOGY METHOD 07/20/2025 5:46 PM EST [facility] Base Excess, Venous 3.5(H) -2.0 - 3.0 mmol/L LAB HEMATOLOGY METHOD 07/20/2025 5:46 PM EST [facility] Bicarbonate, Calculated, Venous 28(H) 22 - 26 mmol/L LAB HEMATOLOGY METHOD 07/20/2025 5:46 PM EST [facility] Hematocrit, Whole Blood 31.9(L) 40.0 - 51.0 % LAB HEMATOLOGY METHOD 07/20/2025 5:46 PM EST [facility] Sodium, Whole Blood 139 136 - 145 mmol/L LAB HEMATOLOGY METHOD 07/20/2025 5:46 PM EST [facility] Potassium, Whole Blood 3.1(L) 3.6 - 4.9 mmol/L LAB HEMATOLOGY METHOD 07/20/2025 5:46 PM EST [facility] Chloride, Whole Blood 103 97 - 107 mmol/L LAB HEMATOLOGY METHOD 07/20/2025 5:46 PM EST [facility] Glucose, Whole Blood 124(H) 74 - 99 mg/dL LAB HEMATOLOGY METHOD 07/20/2025 5:46 PM EST [facility] Lactate, Venous, Whole Blood 1.3 0.5 - 2.2 mmol/L LAB HEMATOLOGY METHOD 07/20/2025 5:46 PM EST [facility] Ionized Calcium, Whole Blood 4.4(L) 4.6 - 5.1 mg/dL LAB HEMATOLOGY METHOD 07/20/2025 5:46 PM EST [facility] Blood Venous blood specimen / Unknown Venipuncture / Unknown 07/20/2025 5:36 PM EST 07/20/2025 5:45 PM EST us Maicol Garcia MD LAB BLOOD ORDERABLES Final Res ult [facility] [address] [place] [address] * NV CRITICAL CARE, E/M 30-74 MINUTES (07/20/2025 4:58 [...] Hold for add-ons 07/20/2025 8:02 PM EST [facility] Comment:Auto resulted. Blood Venous blood specimen / Unknown 07/20/2025 4:54 PM EST 07/20/2025 5:09 PM EST Maicol Garcia MD LAB BLOOD ORDERABLES Final Res ult [facility] [address] [place] [address] * (ABNORMAL) Procalcitonin (07/20/2025 4:18 PM EST) Only the most recent of2 resultswithin the time period is included. Procalcitonin, Plasma 0.41(H) <0.09 ng/mL 07/20/2025 5:06 PM EST [facility] Blood Venous blood specimen / Unknown Venipuncture / Unknown 07/20/2025 4:18 PM EST 07/20/2025 4:29 PM EST Narrative [facility] - 07/20/2025 5:06 PM EST [...] predict 28 day mortality risk. Please consult [email or web address]-fif-kpbhhbrtru.[email or web address] Materials for more information. Test performed at [facility]. us Maicol Garcia MD LAB BLOOD ORDERABLES Final Res ult [facility] [address] [place] [address] * XR Chest 1 View (07/20/2025 10:43 [...] PM EDT) Case Report Surgical Pathology Case: [id number] Authorizing Provider: Maicol Garcia MD Collected: 07/16/2025 1528 Ordering Location: [facility] OPER[facility] ROOM Received: 07/16/2025 2337 Pathologist: Halima Cho MD Specimens: A) - Other (specify site), Sigmoid Colon Fresh For Permanent B) - Other (specify site), Omentum Fresh for Permenant 07/21/2025 1:32 PM EST [facility] Final Diagnosis A. 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 - MARGINS NEGATIVE FOR TUMOR INVOLVEMENT. - TWELVE LYMPH NODES NEGATIVE FOR MALIGNANCY (0/12). - PATHOLOGIC STAGE : pT2, pN0. - SEE SYNOPTIC CHECKLIST. B. OMENTUM, OMENTECTOMY: - BENIGN ADIPOSE TISSUE. 07/21/2025 1:32 PM EST [facility] at 1332 EST Synoptic Checklist [...] Additional Findings: None identified 07/21/2025 1:32 PM [facility] Clinical Information Cancer of sigmoid colon [C18.7] 07/21/2025 1:32 PM [facility] Gross Description A. SIGMOID COLON FRESH [...] range from 0.2-0.6 cm in greatest dimension. Truss Driver Helper sections are submitted as follows: A1: Closest [...] consistent with omentum. No masses are identified. Truss Driver Helper sections are submitted in cassettes B1-B3. Cold Time: 40m ISAEL Adan ([facility]) 07/21/2025 1:32 PM EST [facility] Note: A resident was involved in the service. I attest I examined the relevant preparations for the specimens and confirmed the diagnosis or interpretation. 07/21/2025 1:32 PM EST [facility] Tissue Topography unknown / Unknown 07/16/2025 3:28 PM EDT 07/16/2025 4:27 PM EDT Comment:Pre-op diagnosis: Cancer of sigmoid colon [C18.7] Tissue specimen (specimen) Topography unknown / Unknown 07/16/2025 3:47 PM EDT 07/16/2025 4:27 PM EDT Comment:Pre-op diagnosis: Cancer of sigmoid colon [C18.7] Maicol Garcia MD LAB PATHOLOGY ORDERABLES Final Result Performing Organization Address City/State/[facility] Co de Phone Number [facility] [address] [place] [address] * NV AN ELECTIVE ENDOTRACHEAL AIRWAY, PB ANESTHESIA PLACEHOLDER (07/16/2025 2:25 PM EDT) Narrative Mae Pozo CRNA - 07/16/2025 2:25 PM EDT Mae Pozo CRNA 07/16/2025 2:30 PM Airway Date/Time: 07/16/2025 2:25 PM Reason: elective Airway not difficult General Information and Staff Patient location during procedure: OR INTERPRETER DEAF: Mae Pozo CRNA Performed: INTERPRETER DEAF Patient Condition Indications for airway management: anesthesia [...] monitoring: continuous pulse ox, heart rate and threat monitoring analyst Block type: TAP Laterality: left and right [...] - 99 mg/dL 07/16/2025 1:42 PM EDT [facility] Comment:Accuracy of a glucos e result [...] for testing. Comment 07/16/2025 1:42 PM EDT [facility] Web Site Developer ID Anita Thomas 07/16/20 1:42 PM EDT [facility] Device ID [id number] 07/16/2025 1:42 PM EDT [facility]ALTH[facility] Specimen Type POC Venous 07/16/2025 1:42 PM EDT [facility] Blood Venous blood specimen / Unknown 07/16/2025 1:41 PM EDT 07/16/2025 1:42 PM EDT us Maicol Garcia MD LAB POINT OF CARE TE ST DOCKED DEVICE UNSOLICITED RESULTS Final Result [facility] [address] [place] [id number] * Type and Screen (07/16/2025 12:56 PM [...] TEST ORDERABLES Final Result Performing Organization Address City/State/[facility] Co de Phone Number BLOOD BANK [address] [place] [address], [place] * POC Imaging (07/16/2025) Anatomical Region Laterality Modality Pelvis Other 07/16/2025 us External Provider IMG POINT OF CARE ULTRASOUND F inal Result * (ABNORMAL) Comprehensive metabolic panel (07/04/2025 12:25 PM EDT) Glucose, Plasma 90 74 - 99 mg/dL 07/04/2025 2:05 PM EDT [facility] BUN, Plasma 17 8 - 23 mg/dL 07/04/2025 2:05 PM EDT [facility] Creatinine, Plasma 0.83 0.70 - 1.20 mg/dL 07/04/2025 2:05 PM EDT [facility] BUN/Creatinine Ratio 20 07/04/2025 2:05 PM EDT [facility] Sodium, Plasma 139 136 - 145 mmol/L 07/04/2025 2:05 PM EDT [facility] Potassium, Plasma 4.3 3.6 - 4.9 mmol/L 07/04/2025 2:05 PM EDT [facility] Chloride, Plasma 100 97 - 107 mmol/L 07/04/2025 2:05 PM EDT [facility] CO2, Plasma 30(H) 22 - 29 mmol/L 07/04/2025 2:05 PM EDT [facility] Anion Gap 9 6 - 16 mmol/L 07/04/2025 2:05 PM EDT [facility] Total Calcium, Plasma 9.8 8.9 - 10.2 mg/dL 07/04/2025 2:05 PM EDT [facility] Total Protein 6.9 6.3 - 7.9 g/dL 07/04/2025 2:05 PM EDT [facility] Albumin, Plasma 4.1 3.5 - 5.2 g/dL 07/04/2025 2:05 PM EDT [facility] AST, Plasma 26 10 - 50 U/L 07/04/2025 2:05 PM EDT [facility] ALT, Plasma 17 10 - 50 U/L 07/04/2025 2:05 PM EDT [facility] Alkaline Phosphatase, Plasma 92 40 - 115 U/L 07/04/2025 2:05 PM EDT [facility] Total Bilirubin, Plasma 0.3 0.2 - 1.1 mg/dL 07/04/2025 2:05 PM EDT [facility] eGFRcr 90.7 mL/min/1.7 3m*2 07/04/2025 2:05 PM EDT [facility] Comment:Reported eGFRcr in m L/min/1.73m2 is based the CKD-EPI 2020 equation that does not use a race coefficient. Blood Venous blood specimen / Unknown Venipuncture / Unknown 07/04/2025 12:25 PM EDT 07/04/2025 12:25 PM EDT us Ofe Hurtado APRN LAB BLOOD ORDERABLES Final R esult [facility] [address] [place] [address] * Surgical Pathology Consult (06/26/2025 11:20 AM EDT) Case Report Sugical Pathology Consult Case: [id number] Authorizing Provider: Maicol Garcia MD Collected: 06/26/2025 1120 Ordering Location: [facility] Lab Received: 06/26/2025 1120 Pathologist: Tai Soliman DO Specimen: Colon, [id number] 06/26/2025 5:03 PM EDT [facility] Final Diagnosis OUTSIDE SLIDES; [id number], A-C; 06/16/2025 A. LARGE INTESTINE, ASCENDING COLON, BIOPSY: - TUBULAR ADENOMA. B. LARGE INTESTINE, TRANSVERSE COLON, BIOPSY: - TUBULAR ADENOMA. C. 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 - MMR BY IHC (PER REPORT): - RETAINED NUCLEAR STAINING OF ALL FOUR PROTEINS (MLH1, PMS2, MSH2 AND MSH6). 06/26/2025 5:03 PM EDT [facility] at 1703 EDT Clinical Information D37.4 - Neoplasm of uncertain behavior of colon [ICD-10-CM] 06/26/2025 5:[address] [facility] Gross Description A. [id number] Received along with a corresponding pathology report from [facility] are 8 slide(s) labeled outside case: [id number] collected on 06/16/2025. 06/26/2025 5:03 PM EDT [facility] Intradepartmental Consultation with Agreement Dr. Bonner 06/26/2025 5:03 PM EDT [facility] Note: A resident was involved in the service. I attest I examined the relevant preparations for the specimens and confirmed the diagnosis or interpretation. 06/26/2025 5:[address] [facility] Tissue Colon structure / Unknown 06/26/2025 11:20 AM EDT 06/26/2025 11:20 AM EDT us Maicol Garcia MD LAB PATHOLOGY ORDERABLES Final Result [facility] [address] [place] [address] * CT OUTSIDE IMAGES (06/19/2025 10:39 AM EDT) Anatomical Region Laterality Modality Computed Tomogra phy 06/19/2025 10:3 9 AM EDT us External Provider IMG CT PROCEDURES Edited Resul t - Final from Last 3 Months Additional Health Concerns Active Problems Noted Date Diagnosed Date Autogenerated Problem 07/01/2025 [place] [phone] [facility] Advance Directives Documents on File Type Date Recorded Patient Truss Driver Helper Expl anation Advance Directives and Living Will 07/16/2025 Power of Data Entry Specialist 07/16/2025 * Full Code (Latest Code Status on File) Date Activated Date Inactivated Comments 07/16/2025 4:49 PM 07/22/2025 6:21 PM Question Answer Comments I have reviewed the capacity from the link above and, if needed, have updated to appropriate status: Yes Care Teams Public Opinion Survey Taker Relationship Specialty Start Date End Date Bryan Watkins MD [address] [place] [address] BL[place] Finch [id number] PCP - General 05/19/25
[2025-08-15 09:03] LABS: Hematocrit 36.9 % (42.0-52.0); Hemoglobin 11.9 g/dL (14.1-18.0); Immature Granulocytes % 0 %; Mean Corpuscular HGB Conc 32.2 g/dL (31.8-35.4); Mean Corpuscular Hemoglobin 31.6 pg (27.0-31.2); Mean Corpuscular Volume 98.1 fl (80-94); Nucleated Red Blood Cells % 0 %; Platelet Count 201 K/mm3 (142-424); Red Blood Count 3.76 M/mm3 (4.60-6.20); Red Cell Distribution Width-SD 50.2 fL; White Blood Count 7.3 K/mm3 (4.8-10.8)
--- NOTE | 2025-08-15 09:30 | CA_ITS ---
APPROVED REPORT EXAM: Limited 2D Echocardiogram Jira Developer: Elsa Gomez RT(R) Ht: 5 ft 8 in Wt: 126lbs BSA: 1.68 BP: 128/73 mmHg Indications: echo at showed EF 35-40%, reassess EF with limited echo M-Mode Dimensions RVDd 2.39 cm (0.9-2.6) LVDd 4.36 cm (3.5-5.7) LVDs 3.75 cm (3.5-5.7) IVSd 1.07 cm (0.6-1.1) PWd 0.86 cm (0.6-1.1) EF (Teich) 30.10% FS 14.00% EDV (Teich) 85.80 mL ESV (Teich) 60.00 mL Other Information Study Quality: Fair Conclusion This is a limited TTE to evaluate for LV systolic function. Limited windows are obtained. The left ventricle is normal in size. There is increased LV wall thickness. There is mild to moderate global hypokinesis present. The septal and basal inferoseptal LV mclain are severely hypokinetic. LVEF is 40%. Electronically signed by : Hilda Lim MD 08/15/2025 16:57:19
[2025-08-15 10:07] LABS: Anion Gap 9.3 mEq/L (5-15); Blood Urea Nitrogen 24 mg/dl (9-20); Calcium 9.3 mg/dl (8.4-10.2); Carbon Dioxide 28 mmol/L (22.0-30.0); Chloride 100 mmol/L (98-107); Creatinine,Serum 0.90 mg/dl (0.66-1.25); Estimated Glomerular Filt Rate 82 ml/min (>60); GFR (African American) 99 ML/MIN (>60); Glucose 95 mg/dl (74-100); Potassium 4.3 mmoL/L (3.5-5.1); Sodium 133 mmol/L (136-145)
== END 2025-08-15 23:59 | disposition home or self-care (01) ==
PROVIDERS: Internal Medicine; PCP Family Medicine; Visit Provider Nurse Practitioner Family
DX: I50.21 Acute systolic (congestive) heart failure (principal); I21.4 Non-ST elevation (NSTEMI) myocardial infarction; R79.89 Other specified abnormal findings of blood chemistry; I47.29 Other ventricular tachycardia; I48.0 Paroxysmal atrial fibrillation; I25.5 Ischemic cardiomyopathy; I25.10 Atherosclerotic heart disease of native coronary artery without angina pectoris; R93.1 Abnormal findings on diagnostic imaging of heart and coronary circulation
CPT/HCPCS: 36415; 80048; 85025; 93308